=== PATIENT | female | born 1970 | race Caucasian/White ===

== ENCOUNTER 2018-09-25 17:06 | Emergency (ER) | payer MEDICARE, MEDICAID ==
[~2018-09-25 17:06] MED LIST: LORazepam 2 MG/ML SDV IVPUSH ONE
[2018-09-25] MEDS ORDERED: Sodium Chloride 0.9% 10 ML Syringe FLUSH PRN (17:49)
[2018-09-25] MEDS ORDERED: LORazepam 2 MG/ML SDV ONE (18:10)
[2018-09-25] MEDS ORDERED: LORazepam 2 MG/ML SDV IVPUSH ONE ×2 (18:12→20:19)
--- NOTE | 2018-09-25 18:40 | EDM.PDOC ---
ED HPI GENERAL MEDICAL PROBLEM - General Chief Complaint: Neurological Problem Stated Complaint: seizure Time Seen by Provider: 09/25/18 17:10 Source of Information: Reports: Patient, Other (staff from agency providing home services, walk in clinic at [facility]) History Limitations: Reports: Altered Mental Status (confused) - History of Present Illness INITIAL COMMENTS - FREE TEXT/NARRATIVE: Gladys comes into [facility] ED from the Diagnostic Imaging Dept. where she was obtained a contrast Head CT ordered from the Walk In Clinic at [facility]. She had reportedly been experiencing issues with balance associated with unexplained jerking movements of the shoulders, running into doorways, leaning towards the left down hallways since September 03, and again 3 episodes at apartment before coming to Clinic. She reported no headache or dizziness, loss of strength or movement, and denies any injury. 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 While in the CT department, she had escalating jerking movements of the shoulders and UEs with altered consciousness, responding to Ativan 2 mg IV. Sxs relapse about 45 minutes and 2 hours laterr, necessitating a follow up doses of Ativan with remission of sxs. She is currently drowsy, answers simple questions, no focal neurological deficits, and infrequent jerking movements. - Related Data Allergies Allergy/AdvReac Type Severity Reaction Status Date / Time codeine Allergy Hives Verified 09/25/18 18:24 hydrocodone Allergy Hives Verified 09/25/18 18:24 ibuprofen Allergy Nausea Verified 09/25/18 18:24 latex Allergy Hives Verified 09/25/18 18:24 Home Meds: Home Meds Acetaminophen 650 mg PO Q4H PRN 09/25/18 [History] Albuterol [Ventolin HFA] 2 puff INH Q4H PRN 09/25/18 [History] Cholecalciferol (Vitamin D3) [Vitamin D3] 5,000 unit PO DAILY 09/25/18 [History] ClonazePAM [KlonoPIN] 0.5 mg PO DAILY PRN 09/25/18 [History] Cyclobenzaprine [Flexeril] 10 mg PO BEDTIME 09/25/18 [History] Gabapentin [Neurontin] 300 mg PO BID 09/25/18 [History] Ibuprofen 200 mg PO Q4H PRN 09/25/18 [History] LORazepam 0.25 mg PO 12 09/25/18 [History] Lansoprazole 15 mg PO DAILY 09/25/18 [History] Lisinopril/Hydrochlorothiazide [Lisinopril-Hctz 20-12.5 mg Tab] 1 tab PO DAILY 09/25/18 [History] Magnesium Hydroxide [Milk of Magnesia] 30 ml PO DAILY PRN 09/25/18 [History] Multivitamins [Tab-A-Lesly] 1 tab PO DAILY 09/25/18 [History] Oxybutynin 5 mg PO BID 09/25/18 [History] Polyethylene Glycol 3350 [MiraLAX] 2 tsp PO DAILY 09/25/18 [History] Propylene Glycol/Peg 400 [Lubricant 0.3%-0.4% Eye Drops] 15 ml OP ASDIRECTED [History] Ramelteon [Rozerem] 8 mg PO BEDTIME 09/25/18 [History] Sodium Chloride [Saline Nasal [place]] 2 spray LORA Q2H PRN 09/25/18 [History] Sucralfate [Carafate] 1 gm PO TID 09/25/18 [History] Venlafaxine HCl [Venlafaxine ER] 75 mg PO DAILY 09/25/18 [History] Venlafaxine HCl [Venlafaxine ER] 150 mg PO DAILY 09/25/18 [History] diphenhydrAMINE [Benadryl] 50 mg PO BEDTIME PRN 09/25/18 [History] hydrOXYzine HCl [hydrOXYzine] 10 mg PO BID 09/25/18 [History] hydrOXYzine HCl [hydrOXYzine] 50 mg PO BEDTIME 09/25/18 [History] lamoTRIgine [Lamotrigine] 300 mg PO BID 09/25/18 [History] traMADol HCl [Tramadol HCl] 50 mg PO Q6H PRN 09/25/18 [History] Past Medical History Cardiovascular History: Reports: Hypertension Respiratory History: Reports: Asthma, Sleep Apnea, Other (See Below) Other Respiratory History: states that it is mild to moderate but does not use CPAP. Psychiatric History: Reports: Anxiety, Bipolar, Depression - Past Surgical History GI Surgical History: Reports: Appendectomy, Cholecystectomy, Other (See Below) Other GI Surgeries/Procedures: tubal ablation, constipation. Female Surgical History: Reports: Other (See Below) Other Female Surgeries/Procedures: bladder prolapse repair. 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 Musculoskeletal Surgical History: Reports: Other (See Below) Other Musculoskeletal Surgeries/Procedures:: bilateral shoulder repair, feet surgeries that had plate and screws (removed after a year). Right wrist carpal tunnel and old fracture repair. Social & Family History - Family History Family Medical History: Noncontributory - Tobacco Use Smoking Status *Q: Current Every Day Smoker Years of Tobacco use: 30 Packs/Tins Daily: 1 - Caffeine Use Caffeine Use: Reports: Coffee, Soda - Recreational Drug Use Recreational Drug Use: No ED ROS GENERAL - Review of Systems Review Of Systems: Unable To Obtain ED EXAM, NEURO - Physical Exam Exam: See Below Exam Limited By: Altered Mental Status General Appearance: WD/WN, Lethargic, Obese Eye Exam: Bilateral Eye: EOMI, Normal Inspection, PERRL Ears: Normal External Exam Nose: Normal Inspection Throat/Mouth: Normal Inspection, Normal Oropharynx Head Exam: Normocephalic, Other (frontal scars from tumor excision) Neck: Normal Inspection, Supple, Non-Tender, Full Range of Motion Respiratory/Chest: Lungs Clear, Normal Breath Sounds Cardiovascular: Regular Rate, Rhythm, No Murmur GI/Abdominal: Normal Bowel Sounds, Soft, Non-Tender, No Organomegaly, No Distention, No Mass (Female) Exam: Deferred Rectal (Female) Exam: Deferred Neurological: CN II-XII Intact, No Motor/Sensory Deficits Back Exam: Normal Inspection Extremities: Normal Inspection, Normal Range of Motion Psychiatric: Flat Affect Skin Exam: Warm, Dry, Intact, Normal Color Course - Vital Signs Text/Narrative:: Following assessment and stablilization, I obtained further information thru staff and parents who arrived later in the evening. Screening labs and contrast Head CT did not identify any new abnormalities. I discussed case with family and Dr Garcia Hospitalist at [facility], and will transfer to [facility] for further neurological assessment. Keppra 500 mg IV will be administered en route per Hospitalist request. Last Recorded V/S: Last Vital Signs Temp 36.4 C 09/25/18 17:20 Pulse 85 09/25/18 17:20 Resp 18 07/23/19 17:30 BP 123/85 09/25/18 17:30 Pulse Ox 99 09/25/18 17:30 - Orders/Labs/Meds Orders: Active Orders 24 hr Category Date Time Status Dextrose 5%-Lactated Ringers 1,000 ml Med 09/25/18 20:30 Ordered IV ASDIRECTED Sodium Chloride 0.9% [Saline Flush] Med 09/25/18 17:49 Active 10 ml FLUSH ASDIRECTED PRN levETIRAcetam [Keppra] 500 mg Med 09/25/18 20:33 Ordered Sodium Chloride 0.9% [Normal Saline] 100 ml IV ONETIME Peripheral IV Insertion Adult [OM.PC] Routine Oth 09/25/18 17:49 Ordered Medication Orders Dextrose/Lactated Ringer's (Dextrose 5%-Lactated Ringers) 1,000 mls @ 250 mls/ hr IV ASDIRECTED ZEN Last Admin: 09/25/18 20:25 Dose: 250 mls/hr Sodium Chloride (Saline Flush) 10 ml FLUSH ASDIRECTED PRN PRN Reason: Keep Vein Open Last Admin: 09/25/18 20:25 Dose: 10 ml Labs: Laboratory Tests 09/25/18 09/25/18 09/25/18 Range/Units 17:47 18:25 18:25 WBC 5.9 (4.5-12.0) X10-3/uL RBC 4.58 (3.23-5.20) x10(6)uL Hgb 13.2 (11.5-15.5) g/dL Hct 40.4 (30.0-51.3) % MCV 88.2 (80-96) fL MCH 28.9 (27.7-33.6) pg MCHC 32.7 (32.2-35.4) g/dL RDW 12.1 (11.5-15.5) % Plt Count 330 (125-369) X10(3)uL MPV 7.9 (7.4-10.4) fL Neut % (Auto) 61.8 (46-82) % Lymph % (Auto) 27.8 (13-37) % [place] % (Auto) 6.9 (4-12) % Eos % (Auto) 3 (1.0-5.0) % Baso % (Auto) 1 (0-2) % Neut # (Auto) 3.7 (1.6-8.3) # Lymph # (Auto) 1.6 (0.6-5.0) # [place] # (Auto) 0.4 (0.0-1.3) # Eos # (Auto) 0.2 (0.0-0.8) # Baso # (Auto) 0.0 (0.0-0.2) # Sodium 138 (135-145) mmol/L Potassium 4.0 (3.5-5.3) mmol/L Chloride 101 (100-110) mmol/L Carbon Dioxide 30 (21-32) mmol/L BUN 13 (7-18) mg/dL Creatinine 1.0 (0.55-1.02) mg/dL Est Cr Clr Drug Dosing 58.15 mL/min Estimated GFR (MDRD) 60 (>60) BUN/Creatinine Ratio 13.0 (9-20) Glucose 81 (80-116) mg/dL Calcium 9.6 (8.6-10.2) mg/dL Total Bilirubin 0.3 (0.1-1.3) mg/dL AST 20 (5-25) IU/L ALT 40 H (12-36) U/L Alkaline Phosphatase 118 H (56-112) IU/L Total Protein 7.8 (6.0-8.0) g/dL Albumin 4.0 (3.5-5.2) g/dL Globulin 3.8 g/dL Albumin/Globulin Ratio 1.1 Urine Color Yellow (YELLOW) Urine Appearance Clear (CLEAR) Urine pH 7.0 H (5.0-6.5) Ur Specific [place] 1.005 L (1.010-1.025) Urine Protein Negative (NEGATIVE) mg/dL Urine Glucose (UA) Normal (NORMAL) mg/dL Urine Ketones Negative (NEGATIVE) mg/dL Urine Occult Blood Negative (NEGATIVE) Urine Nitrite Negative (NEGATIVE) Urine Bilirubin Negative (NEGATIVE) Urine Urobilinogen Normal (NEGATIVE) mg/dL Ur Leukocyte Esterase Negative (NEGATIVE) Urine RBC Not seen (0-5) Urine WBC 0-5 (0-5) Ur Squamous Epith Cells Moderate H (NS,R,O) Urine Bacteria Few H (NS) Meds: Medications Generic Name Dose Route Start Last Admin Trade Name Freq PRN Reason Stop Dose Admin Dextrose/Lactated Ringer's 1,000 mls @ 250 mls/hr 09/25/18 20:30 09/25/18 20: 25 Dextrose 5%-Lactated Ringers IV 250 mls/hr ASDIRECTED ZEN Administration Sodium Chloride 10 ml 09/25/18 17:49 09/25/18 20:25 Saline Flush FLUSH 10 ml ASDIRECTED PRN Administration Keep Vein Open Discontinued Medications Generic Name Dose Route Start Last Admin Trade Name Freq PRN Reason Stop Dose Admin Lorazepam 2 mg 09/25/18 16:55 09/25/18 17:06 Ativan IVPUSH 09/25/18 16:56 2 mg ONETIME ONE Administration Lorazepam Confirm 09/25/18 18:10 09/25/18 18:20 Ativan Administered 09/25/18 18:11 Not Given Dose 2 mg .ROUTE .STK-MED ONE Lorazepam 2 mg 09/25/18 18:12 09/25/18 18:12 Ativan IVPUSH 09/25/18 18:13 2 mg ONETIME ONE Administration Lorazepam 2 mg 09/25/18 20:19 09/25/18 20:25 Ativan IVPUSH 09/25/18 20:20 2 mg ONETIME ONE Administration Departure - Departure Time of Disposition: 20:30 Disposition: DC/Tfer to Other 70 Condition: Fair Clinical Impression: Seizure disorder - Discharge Information *PRESCRIPTION DRUG MONITORING PROGRAM REVIEWED*: Not Applicable *COPY OF PRESCRIPTION DRUG MONITORING REPORT IN PATIENT LAURA: Not Applicable Referrals: PCP,Unknown [Primary Care Provider] - Forms: ED Department Discharge - Problem List & Annotations (1) Seizure disorder SNOMED Code(s): 911578817 Code(s): G40.909 - EPILEPSY, UNSP, NOT INTRACTABLE, WITHOUT STATUS EPILEPTICUS Status: Acute Current Visit: Yes Annotation/Comment:: Transfer to [facility] for neurological assessment. - Problem List Review Problem List Initiated/Reviewed/Updated: Yes - My Orders Last 24 Hours: My Active Orders 09/25/18 17:49 Sodium Chloride 0.9% [Saline Flush] 10 ml FLUSH ASDIRECTED PRN Peripheral IV Insertion Adult [OM.PC] Routine 09/25/18 20:30 Dextrose 5%-Lactated Ringers 1,000 ml IV ASDIRECTED 09/25/18 20:33 levETIRAcetam [Keppra] 500 mg Sodium Chloride 0.9% [Normal Saline] 100 ml IV ONETIME - Assessment/Plan Last 24 Hours: My Active Orders 09/25/18 17:49 Sodium Chloride 0.9% [Saline Flush] 10 ml FLUSH ASDIRECTED PRN Peripheral IV Insertion Adult [OM.PC] Routine 09/25/18 20:30 Dextrose 5%-Lactated Ringers 1,000 ml IV ASDIRECTED 09/25/18 20:33 levETIRAcetam [Keppra] 500 mg Sodium Chloride 0.9% [Normal Saline] 100 ml IV ONETIME Plan: Follow up with PCP upon return.
[2018-09-25] MEDS ORDERED: Dextrose 5%-Lactated Ringers 1,000 ML IV SCH (20:30)
[2018-09-25] MEDS ORDERED: levETIRAcetam 500 MG in Sodium Chloride 0.9% 100 ML IV ONE (20:33)
[2018-09-25] MEDS ORDERED: levETIRAcetam 500 MG/5 ML SDV ONE (20:46)
== END 2018-09-25 21:35 | disposition other institution (70) ==
LOC: EDUNIT# → FB.ED 17:06
DX: G40.909 Epilepsy, unspecified, not intractable, without status epilepticus (principal); R26.89 Other abnormalities of gait and mobility; I10 Essential (primary) hypertension; J45.909 Unspecified asthma, uncomplicated; H02.402 Unspecified ptosis of left eyelid; F31.9 Bipolar disorder, unspecified; F41.9 Anxiety disorder, unspecified; F17.210 Nicotine dependence, cigarettes, uncomplicated; Z88.5 Allergy status to narcotic agent; Z88.6 Allergy status to analgesic agent; Z91.040 Latex allergy status; Z79.899 Other long term (current) drug therapy
CPT/HCPCS: 36415; 70470; 80053; 81001; 85025; 96365; 96375; 96376; 99284; 99285; J1953; J2060; J7030; J7042; Q9967; 99213

== ENCOUNTER 2018-10-19 21:22 | Emergency (ER) | payer MEDICARE, MEDICAID ==
[2018-10-19] MEDS ORDERED: Ketorolac 60 MG/2 ML SDV IM ONE (22:02)
--- NOTE | 2018-10-19 23:30 | EDM.PDOC ---
ED HPI GENERAL MEDICAL PROBLEM - General Chief Complaint: Lower Extremity Injury/Pain Stated Complaint: hurt foot Time Seen by Provider: 10/19/18 22:25 Source of Information: Reports: Patient History Limitations: Reports: No Limitations - History of Present Illness INITIAL COMMENTS - FREE TEXT/NARRATIVE: Patient presents with concern for acute onset of ankle pain this evening. She states she did not do anything to cause it, but it suddenly started hurting in her shoe. she took her shoe off for a while and it was getting worse so she came to be evaluated. No numbness, weakness or tingling. She did not try taking any home medications for it. she is able to move it, but doesn't want to try and bear weight until she knows it isn't broken. No pain in the rest of her foot. Treatments [employer]: Reports: Cold Therapy, Other (see below) Other Treatments [employer]GER: elevated leg Left Foot Pain Score (Numeric/FACES): 10 - Related Data Allergies Allergy/AdvReac Type Severity Reaction Status Date / Time codeine Allergy Hives Verified 10/19/18 22:19 hydrocodone Allergy Hives Verified 10/19/18 22:19 ibuprofen Allergy Nausea Verified 10/19/18 22:19 latex Allergy Hives Verified 10/19/18 22:19 Home Meds: Home Meds Acetaminophen 650 mg PO Q4H PRN 09/25/18 [History] Albuterol [Ventolin HFA] 2 puff INH Q4H PRN 09/25/18 [History] Cholecalciferol (Vitamin D3) [Vitamin D3] 5,000 unit PO DAILY 09/25/18 [History] ClonazePAM [KlonoPIN] 0.5 mg PO DAILY PRN 09/25/18 [History] Cyclobenzaprine [Flexeril] 10 mg PO BEDTIME 09/25/18 [History] Gabapentin [Neurontin] 300 mg PO BID 09/25/18 [History] Ibuprofen 200 mg PO Q4H PRN 09/25/18 [History] Lansoprazole 15 mg PO DAILY 09/25/18 [History] Lisinopril/Hydrochlorothiazide [Lisinopril-Hctz 20-12.5 mg Tab] 1 tab PO DAILY 09/25/18 [History] Magnesium Hydroxide [Milk of Magnesia] 30 ml PO DAILY PRN 09/25/18 [History] Multivitamins [Tab-A-Lesly] 1 tab PO DAILY 09/25/18 [History] Oxybutynin 5 mg PO BID 09/25/18 [History] Polyethylene Glycol 3350 [MiraLAX] 2 tsp PO DAILY 09/25/18 [History] Sodium Chloride [Saline Nasal [place]] 2 spray LORA Q2H PRN 09/25/18 [History] Sucralfate [Carafate] 1 gm PO TID 09/25/18 [History] Venlafaxine HCl [Venlafaxine ER] 75 mg PO DAILY 09/25/18 [History] Venlafaxine HCl [Venlafaxine ER] 150 mg PO DAILY 09/25/18 [History] diphenhydrAMINE [Benadryl] 50 mg PO BEDTIME PRN 09/25/18 [History] hydrOXYzine HCl [hydrOXYzine] 50 mg PO BEDTIME 09/25/18 [History] lamoTRIgine [Lamotrigine] 300 mg PO BID 09/25/18 [History] traMADol HCl [Tramadol HCl] 50 mg PO Q6H PRN 09/25/18 [History] Past Medical History Cardiovascular History: Reports: Hypertension Respiratory History: Reports: Asthma, Sleep Apnea, Other (See Below) Other Respiratory History: states that it is mild to moderate but does not use CPAP. Psychiatric History: Reports: Anxiety, Bipolar, Depression - Past Surgical History GI Surgical History: Reports: Appendectomy, Cholecystectomy, Other (See Below) Other GI Surgeries/Procedures: tubal ablation, constipation. Female Surgical History: Reports: Other (See Below) Other Female Surgeries/Procedures: bladder prolapse repair. 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 Musculoskeletal Surgical History: Reports: Other (See Below) Other Musculoskeletal Surgeries/Procedures:: bilateral shoulder repair, feet surgeries that had plate and screws (removed after a year). Right wrist carpal tunnel and old fracture repair. Social & Family History - Family History Family Medical History: Noncontributory - Tobacco Use Smoking Status *Q: Current Every Day Smoker - Caffeine Use Caffeine Use: Reports: Coffee, Soda ED ROS GENERAL - Review of Systems Review Of Systems: ROS reveals no pertinent complaints other than HPI. ED EXAM, GENERAL - Physical Exam Exam: See Below Free Text/Narrative:: general: alert, pleasant no acute distress. Developmental delay noted. right ankle appears atraumatic. Left ankle has slight lateral swelling, no bruising, no skin lesions or abrasions. She is able to wiggle all her toes and plantar/dorsi flex with some coaching. She is tender over the lateral malleoulus and ATFL. Pulses +2 in dorsalis pedis. Normal sensation grossly. No laxity noted on anterior and posterior drawer testing. No pain with pressure on tibula/fibula. Able to resist against my hand in both plantar and dorsi flexion. Her knee also appears atraumatic without swelling, wounds or limit to motion. Course - Vital Signs Text/Narrative:: Patient was extremely distraught on arrival, but seems to have calmed down. Given dose of toradol to help with pain. Ankle xrays ordered. Last Recorded V/S: Last Vital Signs Temp 36.6 C 10/19/18 22:10 Pulse 90 10/19/18 22:10 Resp 18 10/19/18 22:10 BP 132/78 10/19/18 22:10 Pulse Ox 100 10/19/18 22:10 - Orders/Labs/Meds Orders: Active Orders 24 hr Category Date Time Status Ankle Min 3V Lt [CR] Stat Exams 10/19/18 22:02 Taken Meds: Medications Discontinued Medications Generic Name Dose Route Start Last Admin Trade Name Freq PRN Reason Stop Dose Admin Ketorolac Tromethamine 60 mg 10/19/18 22:02 10/19/18 22:17 Toradol IM 10/19/18 22:03 60 mg ONETIME ONE Administration - Re-Assessments/Exams Free Text/Narrative Re-Assessment/Exam: 10/20/18 xrays reviewed and do not show any fracture. Patient able to resist both plantar and dorsi flexion again significant force, recommended trying ankle brace to see if she can walk with it. Free Text/Narrative Re-Assessment/Exam: 10/20/18 patient able to ambulate with minimal assistance. discharge to home, f /u if worsening Departure - Departure Time of Disposition: 23:25 Disposition: Home, Self-Care 01 Condition: Good Clinical Impression: Ankle sprain - Discharge Information *PRESCRIPTION DRUG MONITORING PROGRAM REVIEWED*: Not Applicable *COPY OF PRESCRIPTION DRUG MONITORING REPORT IN PATIENT LAURA: Not Applicable Instructions: Ankle Sprain, [id number], Constipation, Adult, [id number] Referrals: Ashlee Forbes NP [Primary Care Provider] - Forms: ED Department Discharge Additional Instructions: A splint was provided for you to use as needed for your ankle pain. Over the next 3 days you should wear it during the day, but can take it off at night when you are in bed. After that wear it as needed If your ankle pain reoccurs: Can take a dose of ibuprofen/Advil 2 tabs (400mg) Can try putting an ice pack on it Can try wrapping it in an Jus wrap And elevate (like sitting in a recliner or with foot propped on a pillow on a stool Would recommend wearing some type of closed toed shoe such as a tennis shoe the next week or 2 while you are walking around to prevent from twisting her ankle again while it is healing. Still having pain after 3 days, see your regular doctor for follow up - My Orders Last 24 Hours: My Active Orders 10/19/18 22:02 Ankle Min 3V Lt [CR] Stat - Assessment/Plan Last 24 Hours: My Active Orders 10/19/18 22:02 Ankle Min 3V Lt [CR] Stat
--- NOTE | 2018-10-22 11:58 | CR ---
INDICATION: Fall with lateral ankle pain. LEFT ANKLE: Three views of the left ankle were obtained 10/19/18 and revealed mild hypertrophic degenerative changes at the ankle mortise, perhaps slightly more prominent medially. The ankle mortise space was well preserved, however - a definite fracture or dislocation was not identified. No gross soft tissue swelling was seen. There are some tiny calcific densities along the posterior calcaneus, which may represent dystrophic calcifications from previous injury at the origin of the Achilles tendon. The possibility of some inflammation in that area cannot be excluded. A moderate sized plantar calcaneal spur is also noted. Overall bone density appeared normal. IMPRESSION: 1. No definite acute fracture or dislocation. 2. Osteoarthritis, mild. 3. Probable calcific densities at the posterior calcaneus at the base of the Achilles tendon, which could represent tiny avulsion chip fracture fragments or more likely dystrophic calcifications from previous injury and should be correlate clinically. 4. Calcaneal spur, plantar aspect. [facility]
== END 2018-10-19 23:48 | disposition home or self-care (01) ==
LOC: FB.ED 21:22
DX: S93.402A Sprain of unspecified ligament of left ankle, initial encounter (principal); I10 Essential (primary) hypertension; J45.909 Unspecified asthma, uncomplicated; F31.9 Bipolar disorder, unspecified; F41.9 Anxiety disorder, unspecified; F17.200 Nicotine dependence, unspecified, uncomplicated; Z88.5 Allergy status to narcotic agent; Z88.6 Allergy status to analgesic agent; Z91.040 Latex allergy status; Z79.899 Other long term (current) drug therapy; X58.XXXA Exposure to other specified factors, initial encounter
CPT/HCPCS: 73610; 96372; 99283; J1885

== ENCOUNTER 2018-11-15 20:27 | Emergency (ER) | payer MEDICARE, MEDICAID ==
--- NOTE | 2018-11-16 05:00 | ER ---
DATE SEEN: 11/15/2018 CHIEF COMPLAINT: Seizure. HISTORY OF PRESENT ILLNESS: A 48-year-old female with a seizure at home. She has a history of pseudoseizures and anxiety. She had 3 seizures and was brought in by ambulance. En route, they gave her 4 mg of Zofran for stomach upset, which helped. She states that she has been extremely stressed because of a friend who went to [place] and also her mother's dog which is sick. She had about 3 seizures and now complains of feeling tired. She denies head trauma, fever, or chills, but complains of a dry mouth. REVIEW OF SYSTEMS: No chest pain. All other systems were noncontributory. ALLERGIES: Please see the Medcurrent. MEDICATIONS: Also updated. PHYSICAL EXAMINATION: GENERAL: She is well hydrated. VITAL SIGNS: Her blood pressure and temperature are within reference range. ENT: Negative. EYES: PERRL. CHEST: Clear. CARDIOVASCULAR: Normal. NEUROLOGIC: Nonfocal. MENTAL STATUS: Flat affect but answers questions appropriately. LABORATORY DATA: CBC and basic panel are normal. IMPRESSION: 1. Pseudoseizures. 2. Acute reaction to stress. PLAN: Return home, take the lorazepam that she has at home, sleep, and follow up with PCP tomorrow. /[id number] AMELIA/CAITLYN
== END 2018-11-15 22:03 | disposition home or self-care (01) ==
LOC: FB.ED 20:27
DX: R56.9 Unspecified convulsions (principal); F43.0 Acute stress reaction
CPT/HCPCS: 36415; 80048; 85025; 99283

== ENCOUNTER 2018-12-09 00:06 | Emergency (ER) | payer MEDICARE, MEDICAID ==
[2018-12-09] MEDS ORDERED: Magnesium Citrate Solution 296 ML Bottle PO ONE (00:21)
--- NOTE | 2018-12-09 00:22 | EDM.PDOC ---
ED HPI GENERAL MEDICAL PROBLEM - General Stated Complaint: SICK Time Seen by Provider: 12/09/18 00:19 Source of Information: Reports: Patient History Limitations: Reports: No Limitations - History of Present Illness INITIAL COMMENTS - FREE TEXT/NARRATIVE: Complains of constipation x 1 week. Mild chest pain. Feels like she has right side body swelling.No vomiting - Related Data Allergies Allergy/AdvReac Type Severity Reaction Status Date / Time codeine Allergy Hives Verified 11/15/18 21:11 hydrocodone Allergy Hives Verified 11/15/18 21:11 latex Allergy Hives Verified 11/15/18 21:11 ibuprofen AdvReac Mild Nausea Verified 11/15/18 21:11 Home Meds: Home Meds Acetaminophen 650 mg PO Q4H PRN 09/25/18 [History] Albuterol [Ventolin HFA] 2 puff INH Q4H PRN 09/25/18 [History] Cholecalciferol (Vitamin D3) [Vitamin D3] 5,000 unit PO DAILY 09/25/18 [History] ClonazePAM [KlonoPIN] 0.5 mg PO DAILY PRN 09/25/18 [History] Cyclobenzaprine [Flexeril] 10 mg PO BEDTIME 09/25/18 [History] Gabapentin [Neurontin] 300 mg PO BID 09/25/18 [History] Ibuprofen 200 mg PO Q4H PRN 09/25/18 [History] Lansoprazole 15 mg PO DAILY 09/25/18 [History] Lisinopril/Hydrochlorothiazide [Lisinopril-Hctz 20-12.5 mg Tab] 1 tab PO DAILY 09/25/18 [History] Magnesium Hydroxide [Milk of Magnesia] 30 ml PO DAILY PRN 09/25/18 [History] Multivitamins [Tab-A-Lesly] 1 tab PO DAILY 09/25/18 [History] Oxybutynin 5 mg PO BID 09/25/18 [History] Polyethylene Glycol 3350 [MiraLAX] 2 tsp PO DAILY 09/25/18 [History] Sodium Chloride [Saline Nasal [place]] 2 spray LORA Q2H PRN 09/25/18 [History] Sucralfate [Carafate] 1 gm PO TID 09/25/18 [History] Venlafaxine HCl [Venlafaxine ER] 75 mg PO DAILY 09/25/18 [History] Venlafaxine HCl [Venlafaxine ER] 150 mg PO DAILY 09/25/18 [History] diphenhydrAMINE [Benadryl] 50 mg PO BEDTIME PRN 09/25/18 [History] hydrOXYzine HCl [hydrOXYzine] 50 mg PO BEDTIME 09/25/18 [History] lamoTRIgine [Lamotrigine] 300 mg PO BID 09/25/18 [History] traMADol HCl [Tramadol HCl] 50 mg PO Q6H PRN 09/25/18 [History] Past Medical History - Past Health History Medical/Surgical History: Denies Medical/Surgical History Cardiovascular History: Reports: Hypertension Respiratory History: Reports: Asthma, Sleep Apnea, Other (See Below) Other Respiratory History: states that it is mild to moderate but does not use CPAP. Psychiatric History: Reports: Anxiety, Bipolar, Depression - Past Surgical History GI Surgical History: Reports: Appendectomy, Cholecystectomy, Other (See Below) Other GI Surgeries/Procedures: tubal ablation, constipation. Female Surgical History: Reports: Other (See Below) Other Female Surgeries/Procedures: bladder prolapse repair. 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 Musculoskeletal Surgical History: Reports: Other (See Below) Other Musculoskeletal Surgeries/Procedures:: bilateral shoulder repair, feet surgeries that had plate and screws (removed after a year). Right wrist carpal tunnel and old fracture repair. Social & Family History - Family History Family Medical History: Noncontributory - Caffeine Use Caffeine Use: Reports: None ED ROS GENERAL - Review of Systems Review Of Systems: ROS reveals no pertinent complaints other than HPI. ED EXAM, GI/ABD - Physical Exam Exam: See Below Exam Limited By: No Limitations General Appearance: Alert, WD/WN Ears: Normal External Exam, Normal Canal, Hearing Grossly Normal, Normal TMs Cardiovascular: Normal Peripheral Pulses GI/Abdominal Exam: Normal Bowel Sounds, Soft, Non-Tender Departure - Departure Time of Disposition: 00:21 Disposition: Home, Self-Care 01 Condition: Good Clinical Impression: Constipation - Discharge Information Referrals: PCP,None [Primary Care Provider] - - Problem List & Annotations (1) Constipation SNOMED Code(s): 17312728 Code(s): K59.00 - CONSTIPATION, UNSPECIFIED Status: Acute Current Visit: Yes Qualifiers: Constipation type: slow transit constipation Qualified Code(s): K59.01 - Slow transit constipation - Problem List Review Problem List Initiated/Reviewed/Updated: Yes - Assessment/Plan Plan: Magnesium citrate x 1 dose
== END 2018-12-09 00:30 | disposition home or self-care (01) ==
LOC: FB.ED 00:06
DX: K59.00 Constipation, unspecified (principal); I10 Essential (primary) hypertension; J45.909 Unspecified asthma, uncomplicated; F41.9 Anxiety disorder, unspecified; F32.9 Major depressive disorder, single episode, unspecified; Z88.5 Allergy status to narcotic agent; Z88.6 Allergy status to analgesic agent; Z91.040 Latex allergy status
CPT/HCPCS: 99282; A9270

== ENCOUNTER 2018-12-09 19:06 | Emergency (ER) | payer MEDICARE, MEDICAID ==
--- NOTE | 2018-12-09 20:17 | EDM.PDOC ---
ED HPI GENERAL MEDICAL PROBLEM - General Stated Complaint: SICK Time Seen by Provider: 12/09/18 19:15 Source of Information: Reports: Patient - History of Present Illness INITIAL COMMENTS - FREE TEXT/NARRATIVE: Patient is a 48 YO WF who prsented to the ED because of constipation x 1week. She was treated with magnesium citrate and apparently didn't work. She denies having abdominal pain. Abdomen Pain Score (Numeric/FACES): 7 - Related Data Allergies Allergy/AdvReac Type Severity Reaction Status Date / Time codeine Allergy Hives Verified 12/09/18 00:54 hydrocodone Allergy Hives Verified 12/09/18 00:54 latex Allergy Hives Verified 12/09/18 00:54 ibuprofen AdvReac Mild Nausea Verified 12/09/18 00:54 Home Meds: Home Meds Acetaminophen 650 mg PO Q4H PRN 09/25/18 [History] Albuterol [Ventolin HFA] 2 puff INH Q4H PRN 09/25/18 [History] Cholecalciferol (Vitamin D3) [Vitamin D3] 5,000 unit PO DAILY 09/25/18 [History] ClonazePAM [KlonoPIN] 0.5 mg PO DAILY PRN 09/25/18 [History] Cyclobenzaprine [Flexeril] 10 mg PO BEDTIME 09/25/18 [History] Gabapentin [Neurontin] 300 mg PO BID 09/25/18 [History] Ibuprofen 200 mg PO Q4H PRN 09/25/18 [History] Lansoprazole 15 mg PO DAILY 09/25/18 [History] Lisinopril/Hydrochlorothiazide [Lisinopril-Hctz 20-12.5 mg Tab] 1 tab PO DAILY 09/25/18 [History] Magnesium Hydroxide [Milk of Magnesia] 30 ml PO DAILY PRN 09/25/18 [History] Multivitamins [Tab-A-Lesly] 1 tab PO DAILY 09/25/18 [History] Oxybutynin 5 mg PO BID 09/25/18 [History] Polyethylene Glycol 3350 [MiraLAX] 2 tsp PO DAILY 09/25/18 [History] Sodium Chloride [Saline Nasal [place]] 2 spray LORA Q2H PRN 09/25/18 [History] Sucralfate [Carafate] 1 gm PO TID 09/25/18 [History] Venlafaxine HCl [Venlafaxine ER] 75 mg PO DAILY 09/25/18 [History] Venlafaxine HCl [Venlafaxine ER] 150 mg PO DAILY 09/25/18 [History] diphenhydrAMINE [Benadryl] 50 mg PO BEDTIME PRN 09/25/18 [History] hydrOXYzine HCl [hydrOXYzine] 50 mg PO BEDTIME 09/25/18 [History] lamoTRIgine [Lamotrigine] 300 mg PO BID 09/25/18 [History] traMADol HCl [Tramadol HCl] 50 mg PO Q6H PRN 09/25/18 [History] KCl/Na Sulf,Bicarb,Cl/PEG 3351 [GoLytely] 4,000 ml PO ONETIME #1 bottle [Rx] Ondansetron [Zofran ODT] 4 mg PO Q6H PRN #5 tab.dis 12/09/18 [Rx] Sennosides/Docusate Sodium [Senna-S] 2 each PO DAILY PRN #15 tablet 12/09/18 [Rx ] Past Medical History - Past Health History Medical/Surgical History: Denies Medical/Surgical History Cardiovascular History: Reports: Hypertension Respiratory History: Reports: Asthma, Sleep Apnea, Other (See Below) Other Respiratory History: states that it is mild to moderate but does not use CPAP. Psychiatric History: Reports: Anxiety, Bipolar, Depression - Past Surgical History GI Surgical History: Reports: Appendectomy, Cholecystectomy, Other (See Below) Other GI Surgeries/Procedures: tubal ablation, constipation. Female Surgical History: Reports: Other (See Below) Other Female Surgeries/Procedures: bladder prolapse repair. 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 Musculoskeletal Surgical History: Reports: Other (See Below) Other Musculoskeletal Surgeries/Procedures:: bilateral shoulder repair, feet surgeries that had plate and screws (removed after a year). Right wrist carpal tunnel and old fracture repair. Social & Family History - Family History Family Medical History: Noncontributory - Caffeine Use Caffeine Use: Reports: None ED ROS GENERAL - Review of Systems Review Of Systems: See Below Constitutional: Reports: No Symptoms HEENT: Reports: No Symptoms Respiratory: Reports: No Symptoms Cardiovascular: Reports: No Symptoms Endocrine: Reports: No Symptoms GI/Abdominal: Reports: Constipation, Diarrhea : Reports: No Symptoms Musculoskeletal: Reports: No Symptoms Skin: Reports: No Symptoms ED EXAM, GI/ABD - Physical Exam Exam: See Below Exam Limited By: No Limitations General Appearance: Alert, WD/WN, No Apparent Distress Ears: Normal External Exam, Normal Canal, Hearing Grossly Normal, Normal TMs Nose: Normal Inspection, Normal Mucosa, No Blood Throat/Mouth: Normal Inspection, Normal Lips, Normal Teeth, Normal Gums, Normal Oropharynx Head: Atraumatic, Normocephalic Neck: Normal Inspection, Supple, Non-Tender, Full Range of Motion Respiratory/Chest: No Respiratory Distress, Lungs Clear, Normal Breath Sounds, No Accessory Muscle Use, Chest Non-Tender Cardiovascular: Normal Peripheral Pulses, Regular Rate, Rhythm GI/Abdominal Exam: Normal Bowel Sounds, Non-Tender, No Distention (Female) Exam: Normal External Exam Back Exam: Normal Inspection, Full Range of Motion Course - Vital Signs Text/Narrative:: patient has a large BM while in the ED and was feeling better Last Recorded V/S: Last Vital Signs Temp 36.6 C 12/09/18 20:20 Pulse 91 12/09/18 20:20 Resp 18 12/09/18 20:20 BP 132/70 12/09/18 20:20 Pulse Ox 98 12/09/18 20:20 Departure - Departure Time of Disposition: 20:15 Disposition: Home, Self-Care 01 Condition: Good Clinical Impression: Constipation Qualifiers: Constipation type: slow transit constipation Qualified Code(s): K59.01 - Slow transit constipation - Discharge Information *PRESCRIPTION DRUG MONITORING PROGRAM REVIEWED*: No *COPY OF PRESCRIPTION DRUG MONITORING REPORT IN PATIENT LAURA: No Prescriptions: KCl/Na Sulf,Bicarb,Cl/PEG 3351 [GoLytely] 4,000 ml PO ONETIME #1 bottle Ondansetron [Zofran ODT] 4 mg PO Q6H PRN #5 tab.dis PRN Reason: Nausea Sennosides/Docusate Sodium [Senna-S] 2 each PO DAILY PRN #15 tablet PRN Reason: Constipation Instructions: Constipation, Adult Referrals: PCP,None [Primary Care Provider] - Forms: ED Department Discharge Additional Instructions: increase oral fluids take zofran ODT 8 mg before taking your senna s and golyrely take 2 tablets of senna s take the golytely as instructed
== END 2018-12-09 20:30 | disposition home or self-care (01) ==
LOC: FB.ED 19:06
DX: K59.01 Slow transit constipation (principal); I10 Essential (primary) hypertension; F41.9 Anxiety disorder, unspecified; F32.9 Major depressive disorder, single episode, unspecified; J45.909 Unspecified asthma, uncomplicated; Z79.899 Other long term (current) drug therapy; Z88.5 Allergy status to narcotic agent; Z88.6 Allergy status to analgesic agent; Z91.040 Latex allergy status
CPT/HCPCS: 99282

== ENCOUNTER 2018-12-25 12:16 | Inpatient (IN) | payer MEDICARE, MEDICAID ==
[2018-12-25] MEDS ORDERED: Magnesium Citrate Solution 296 ML Bottle PO ONE (12:51)
[2018-12-25] MEDS ORDERED: Ondansetron 4 MG Tab.DIS PO ONE (13:19)
[2018-12-25] MEDS ORDERED: Sodium Chloride 0.9% 1,000 ML IV ONE (13:34)
[2018-12-25] MEDS ORDERED: Morphine 4 MG/ML Syringe IV ONE (13:40)
--- NOTE | 2018-12-25 14:23 | EDM.PDOC ---
ED HPI GENERAL MEDICAL PROBLEM - General Chief Complaint: Abdominal Pain Stated Complaint: SHARP PAIN MIDLINE Time Seen by Provider: 12/25/18 12:25 Source of Information: Reports: Patient History Limitations: Reports: No Limitations - History of Present Illness INITIAL COMMENTS - FREE TEXT/NARRATIVE: pt presents with complains of constipation states she has not been able to have a bowel movement despite taking GoLYTELY and senna Has generalized abdominal pain with pain more located in the right upper quadrant She has nausea but no vomiting no fever or chills states she has taken multiple medications and not effective (Dulcolax enema , oral Dulcolax senna) had Ultrsound of the abd done ; no gall bladder disease ( pt had complained of right upper quadrant pain when she had the ultrasound done) patient does have a history of chronic constipation. she had abdominal surgery and abdominal scar tissue. Onset: Gradual Onset Date: 12/25/18 Duration: Hour(s): (4), Getting Worse, Intermittent Location: Reports: Abdomen Quality: Reports: Ache, Dull, Pressure, Same as Previous Episode Severity: Moderate Improves with: Reports: Heat Therapy, Rest Worsens with: Reports: Eating, Movement Associated Symptoms: Reports: Loss of Appetite, Malaise, Nausea/Vomiting ( mainly nausea), Weakness, Other (severe abdominnal pain when she tries to eat) mid abd/below belly button Pain Score (Numeric/FACES): 10 - Related Data Allergies Allergy/AdvReac Type Severity Reaction Status Date / Time codeine Allergy Hives Verified 12/09/18 00:54 hydrocodone Allergy Hives Verified 12/09/18 00:54 latex Allergy Hives Verified 12/09/18 00:54 ibuprofen AdvReac Mild Nausea Verified 12/09/18 00:54 Home Meds: Home Meds Acetaminophen 650 mg PO Q4H PRN 09/25/18 [History] Albuterol [Ventolin HFA] 2 puff INH Q4H PRN 09/25/18 [History] Cholecalciferol (Vitamin D3) [Vitamin D3] 5,000 unit PO DAILY 09/25/18 [History] ClonazePAM [KlonoPIN] 0.5 mg PO DAILY PRN 09/25/18 [History] Cyclobenzaprine [Flexeril] 10 mg PO BEDTIME 09/25/18 [History] Gabapentin [Neurontin] 300 mg PO BID 09/25/18 [History] Ibuprofen 200 mg PO Q4H PRN 09/25/18 [History] Lansoprazole 15 mg PO DAILY 09/25/18 [History] Lisinopril/Hydrochlorothiazide [Lisinopril-Hctz 20-12.5 mg Tab] 1 tab PO DAILY 09/25/18 [History] Magnesium Hydroxide [Milk of Magnesia] 30 ml PO DAILY PRN 09/25/18 [History] Multivitamins [Tab-A-Lesly] 1 tab PO DAILY 09/25/18 [History] Oxybutynin 5 mg PO BID 09/25/18 [History] Polyethylene Glycol 3350 [MiraLAX] 2 tsp PO DAILY 09/25/18 [History] Sodium Chloride [Saline Nasal [place]] 2 spray [place]ORA Q2H PRN 09/25/18 [History] Sucralfate [Carafate] 1 gm PO TID 09/25/18 [History] Venlafaxine HCl [Venlafaxine ER] 75 mg PO DAILY 09/25/18 [History] Venlafaxine HCl [Venlafaxine ER] 150 mg PO DAILY 09/25/18 [History] diphenhydrAMINE [Benadryl] 50 mg PO BEDTIME PRN 09/25/18 [History] hydrOXYzine HCl [hydrOXYzine] 50 mg PO BEDTIME 09/25/18 [History] lamoTRIgine [Lamotrigine] 300 mg PO BID 09/25/18 [History] traMADol HCl [Tramadol HCl] 50 mg PO Q6H PRN 09/25/18 [History] KCl/Na Sulf,Bicarb,Cl/PEG 3351 [GoLytely] 4,000 ml PO ONETIME #1 bottle [Rx] Ondansetron [Zofran ODT] 4 mg PO Q6H PRN #5 tab.dis 12/09/18 [Rx] Sennosides/Docusate Sodium [Senna-S] 2 each PO DAILY PRN #15 tablet 12/09/18 [Rx ] Past Medical History - Past Health History Medical/Surgical History: Denies Medical/Surgical History Cardiovascular History: Reports: Hypertension Respiratory History: Reports: Asthma, Sleep Apnea, Other (See Below) Other Respiratory History: states that it is mild to moderate but does not use CPAP. Psychiatric History: Reports: Anxiety, Bipolar, Depression - Past Surgical History GI Surgical History: Reports: Appendectomy, Cholecystectomy, Other (See Below) Other GI Surgeries/Procedures: tubal ablation, constipation. Female Surgical History: Reports: Other (See Below) Other Female Surgeries/Procedures: bladder prolapse repair. 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 Musculoskeletal Surgical History: Reports: Other (See Below) Other Musculoskeletal Surgeries/Procedures:: bilateral shoulder repair, feet surgeries that had plate and screws (removed after a year). Right wrist carpal tunnel and old fracture repair. Social & Family History - Family History Family Medical History: Noncontributory - Tobacco Use Smoking Status *Q: Current Every Day Smoker Years of Tobacco use: 20 Packs/Tins Daily: 0.5 - Caffeine Use Caffeine Use: Reports: None ED ROS GENERAL - Review of Systems Review Of Systems: See Below Constitutional: Reports: Malaise, Weakness, Fatigue, Decreased Appetite HEENT: Reports: No Symptoms Respiratory: Reports: No Symptoms Cardiovascular: Reports: No Symptoms Endocrine: Reports: No Symptoms GI/Abdominal: Reports: Anorexia, Constipation, Decreased Appetite, Distension, Nausea. Denies: Vomiting : Reports: No Symptoms Musculoskeletal: Reports: No Symptoms Skin: Reports: No Symptoms Neurological: Reports: No Symptoms Psychiatric: Reports: Anxiety, Mood Lability Hematologic/Lymphatic: Reports: No Symptoms Immunologic: Reports: No Symptoms Free Text/Narrative/Comment: patient is complaining of severe abdominal pain, especially in the epigastrium and right upper quadrant after drinking fluid. She has had nausea but no vomiting. She has history of chronic constipation. Right Upper quadrant incisional hernia ED EXAM, GI/ABD - Physical Exam Exam: See Below Text/Narrative:: under arrival seemed to be in pain nontoxic not. Sitting with hands across her abdomen Exam Limited By: No Limitations General Appearance: Alert, WD/WN, Mild Distress Eyes: Bilateral: Normal Appearance Ears: Normal External Exam, Normal Canal Nose: Normal Inspection Throat/Mouth: Normal Oropharynx Respiratory/Chest: Lungs Clear Cardiovascular: Regular Rate, Rhythm GI/Abdominal Exam: Distended, Tender (in the right upper quadrant and epigastrium), Abnormal Bowel Sounds (hypoactive bowel sounds), Mass (in the right upper quadrant tender on palpation) (Female) Exam: Deferred Back Exam: Normal Inspection Extremities: Normal Range of Motion Neurological: Alert, Oriented, CN II-XII Intact, Normal Cognition Psychiatric: Anxious Skin Exam: Warm, Dry, Intact Lymphatic: No Adenopathy Course - Vital Signs Text/Narrative:: on initial assessment recommended patient be given an enema to help her have a bowel movement , immediately patient started crying and declined to have the enema wanting to be discharged so she could go up to [facility]. I went in and had a talk with her and she didn't agree to have magnesium citrate orally instead of the enema. She made efforts to drink the magnesium citrate but immediately she started having severe abdomen CRAMPS. Pain was severe enough that she could not drink the citrate anymore felt nauseated and had to be put into the gurney. Patient's attitude was suspicious for intestinal obstruction extremities the abdomen immediately was ordered and done which showed fluid levels, in the right flank and right lower quadrant. IV fluids with pain medication given and labs drawn . CT of the abdomen ordered to further assess for intestinal obstruction call me to on-call physician who will admit patient for further observation Last Recorded V/S: Last Vital Signs Temp 36.8 C 12/25/18 12:21 Pulse 99 12/25/18 12:21 Resp 17 12/25/18 12:21 BP 128/101 H 12/25/18 12:21 Pulse Ox 98 12/25/18 12:21 - Orders/Labs/Meds Orders: Active Orders 24 hr Category Date Time Status Abdomen 2V AP Flat Upright [CR] Stat Exams 12/25/18 12:51 Taken Abdomen Pelvis w Cont [CT] Stat Exams 12/25/18 14:14 Ordered LACTIC ACID [CHEM] Stat Lab 12/25/18 13:45 Received Sodium Chloride 0.9% [Normal Saline] 1,000 ml Med 12/25/18 13:34 Active IV .BOLUS Medication Orders Sodium Chloride (Normal Saline) 1,000 mls @ 999 mls/hr IV .BOLUS ONE Stop: 12/25/18 14:34 Last Admin: 12/25/18 14:01 Dose: 999 mls/hr Labs: Laboratory Tests 12/25/18 12/25/18 12/25/18 Range/Units 13:45 13:45 13:45 WBC 7.7 (4.5-12.0) X10-3/uL RBC 4.64 (3.23-5.20) x10(6)uL Hgb 13.6 (11.5-15.5) g/dL Hct 40.6 (30.0-51.3) % MCV 87.6 (80-96) fL MCH 29.3 (27.7-33.6) pg MCHC 33.5 (32.2-35.4) g/dL RDW 12.6 (11.5-15.5) % Plt Count 365 (125-369) X10(3)uL MPV 8.2 (7.4-10.4) fL Neut % (Auto) 69.4 (46-82) % Lymph % (Auto) 18.3 (13-37) % [place] % (Auto) 6.0 (4-12) % Eos % (Auto) 6 H (1.0-5.0) % Baso % (Auto) 1 (0-2) % Neut # (Auto) 5.4 (1.6-8.3) # Lymph # (Auto) 1.4 (0.6-5.0) # [place] # (Auto) 0.5 (0.0-1.3) # Eos # (Auto) 0.4 (0.0-0.8) # Baso # (Auto) 0.0 (0.0-0.2) # Sodium 139 (135-145) mmol/L Potassium 4.2 (3.5-5.3) mmol/L Chloride 100 (100-110) mmol/L Carbon Dioxide 28 (21-32) mmol/L BUN 12 (7-18) mg/dL Creatinine 1.1 H (0.55-1.02) mg/dL Est Cr Clr Drug Dosing 55.18 mL/min Estimated GFR (MDRD) 53 L (>60) BUN/Creatinine Ratio 10.9 (9-20) Glucose 106 (80-116) mg/dL Calcium 10.3 H (8.6-10.2) mg/dL Total Bilirubin 0.4 (0.1-1.3) mg/dL AST 22 (5-25) IU/L ALT 38 H (12-36) U/L Alkaline Phosphatase 141 H (56-112) IU/L C-Reactive Protein 0.5 (0.5-0.9) mg/dL Total Protein 8.4 H (6.0-8.0) g/dL Albumin 4.3 (3.5-5.2) g/dL Globulin 4.1 g/dL Albumin/Globulin Ratio 1.1 Meds: Medications Generic Name Dose Route Start Last Admin Trade Name Freq PRN Reason Stop Dose Admin Sodium Chloride 1,000 mls @ 999 mls/hr 12/25/18 13:34 12/25/18 14:01 Normal Saline IV 12/25/18 14:34 999 mls/hr .BOLUS ONE Administration Discontinued Medications Generic Name Dose Route Start Last Admin Trade Name Freq PRN Reason Stop Dose Admin Magnesium Citrate 296 ml 12/25/18 12:51 12/25/18 12:54 Citrate Of Magnesia PO 12/25/18 12:52 296 ml ONETIME ONE Administration Morphine Sulfate 4 mg 12/25/18 14:00 12/25/18 14:01 Morphine IV 12/25/18 14:01 4 mg ONETIME ONE Administration Morphine Sulfate Confirm 12/25/18 13:58 Morphine Administered 12/25/18 13:59 Dose 4 mg .ROUTE .STK-MED ONE Ondansetron HCl 4 mg 12/25/18 13:19 12/25/18 13:28 Zofran Odt PO 12/25/18 13:20 4 mg ONETIME ONE Administration Departure - Departure Time of Disposition: 14:15 Disposition: Admitted As Inpatient 68 Condition: Fair Clinical Impression: Abdominal pain Qualifiers: Abdominal location: generalized Qualified Code(s): R10.84 - Generalized abdominal pain Constipation Qualifiers: Constipation type: chronic idiopathic constipation Qualified Code(s): K59.04 - Chronic idiopathic constipation - Discharge Information *PRESCRIPTION DRUG MONITORING PROGRAM REVIEWED*: Not Applicable *COPY OF PRESCRIPTION DRUG MONITORING REPORT IN PATIENT LAURA: Not Applicable Referrals: Ashlee Forbes NP [Primary Care Provider] - - Problem List & Annotations (1) Intestinal adhesions SNOMED Code(s): 64318982 Code(s): K66.0 - PERITONEAL ADHESIONS (POSTPROCEDURAL) (POSTINFECTION) Status: Acute Current Visit: Yes (2) Intestinal obstruction due to adhesions SNOMED Code(s): 48864542 Code(s): K56.50 - INTESTNL ADHESIONS, UNSP TO PARTIAL VERSUS COMPLETE OBST Status: Acute Current Visit: Yes (3) Abdominal pain SNOMED Code(s): 34820983 Code(s): R10.9 - UNSPECIFIED ABDOMINAL PAIN Status: Acute Current Visit: Yes Qualifiers: Abdominal location: generalized Qualified Code(s): R10.84 - Generalized abdominal pain - My Orders Last 24 Hours: My Active Orders 12/25/18 12:51 Abdomen 2V AP Flat Upright [CR] Stat 12/25/18 13:34 Sodium Chloride 0.9% [Normal Saline] 1,000 ml IV .BOLUS 12/25/18 13:45 LACTIC ACID [CHEM] Stat 12/25/18 14:14 Abdomen Pelvis w Cont [CT] Stat - Assessment/Plan Last 24 Hours: My Active Orders 12/25/18 12:51 Abdomen 2V AP Flat Upright [CR] Stat 12/25/18 13:34 Sodium Chloride 0.9% [Normal Saline] 1,000 ml IV .BOLUS 12/25/18 13:45 LACTIC ACID [CHEM] Stat 12/25/18 14:14 Abdomen Pelvis w Cont [CT] Stat Plan: Admit for observation
[2018-12-25] MEDS ORDERED: Iopamidol 755 Mg/ML 100 ML Bottle IV ONE (14:56)
[2018-12-25] MEDS ORDERED: Diatrizoate Meglumine/Diatrizoate Sodium 37% 30 ML Bottle PO ONE (14:56)
[2018-12-25] MEDS ORDERED: HYDROmorphone 2 MG/ML SDV IVPUSH ONE (15:00)
[2018-12-25] MEDS: Sodium Chloride 0.9% 1,000 ML IV SCH ×2 (15:10→23:00)
[2018-12-25] MEDS ORDERED: ClonazePAM 0.5 MG Tab PO PRN (17:40)
[2018-12-25] MEDS ORDERED: lamoTRIgine 100 MG Tab PO SCH (17:40)
[2018-12-25] MEDS ORDERED: Venlafaxine 75 MG Cap.ER PO SCH (17:40)
[2018-12-25] MEDS ORDERED: Hydrochlorothiazide/Lisinopril 12.5-20 MG Tab PO SCH (17:40)
[2018-12-25] MEDS ORDERED: Albuterol 8 GM Inhaler INH PRN (17:40)
[2018-12-25] MEDS ORDERED: HYDROmorphone 2 MG/ML SDV IVPUSH PRN (19:15)
[2018-12-25] MEDS ORDERED: diphenhydrAMINE 50 MG Cap PO ONE (20:53)
[2018-12-25] MEDS ORDERED: predniSONE 20 MG Tab PO ONE (23:40)
[2018-12-26] MEDS: HYDROmorphone 2 MG/ML SDV IVPUSH PRN ×3 (00:32→16:21)
--- NOTE | 2018-12-26 02:26 | CONS ---
DATE OF CONSULTATION: 12/25/2018 HISTORY: This 48-year-old female was seen in consultation from Dr. John for evaluation of abdominal pain. She has had problems with chronic constipation, and over the last few days had worsened. She was seen in clinic yesterday and took MiraLAX twice. She is seen in the emergency room today and given magnesium citrate in addition to oral CT contrast. None of this has been successful resulting in a bowel movement. The patient cannot remember last time she had a bowel movement, but it seems to at least be a few days ago. There has been no blood. Appetite is decreased because of her abdominal fullness. I reviewed her emergency room records, lab information, and radiology reports including reviewing the CT scan with Dr. Dodge. PAST MEDICAL HISTORY: Reviewed. Open cholecystectomy. FAMILY HISTORY: Significant for colon cancer in a brother and father. The patient has never had a colonoscopy that she recalls. REVIEW OF SYSTEMS: The patient denies any emesis, but does have some nausea when drinking the CT contrast earlier today. Denies any fever, sweats, or chills. Denies any urinary symptoms. Denies any blood in the stool. PHYSICAL EXAMINATION: GENERAL: Reveals a pleasant lady in no acute distress. VITAL SIGNS: Reviewed and within normal limits. She is afebrile. HEENT: Her sclerae are white. SKIN: Not jaundiced. LUNGS: Clear. RESPIRATIONS: Nonlabored. ABDOMEN: Obese, soft, and no significant tenderness. She points to the mid abdomen as the area where she gets pain and cramping, but seems to be comfortable at this time. She does have a well-healed right upper quadrant scar with some weakness at the lateral aspect, but I do not palpate any hernia. RECTAL: A rectal exam was performed by Dr. John and rectal vault was empty. DIAGNOSTIC DATA: CT scan was reviewed with Dr. Dodge. She does have a large amount of stool in the right and transverse colon. The sigmoid colon and rectum appeared to be empty. I do not see any obvious transition point that would indicate a tumor or other point of obstruction. ASSESSMENT: 1. Abdominal pain. 2. Constipation. PLAN: The patient will be monitored in the hospital and repeat abdominal x-rays obtained in the morning to see if contrast is moving through. She will be kept n.p.o. Forty minutes were spent with the patient and her family this evening. /[id number] JAC/CAITLYN
[2018-12-26] MEDS: ClonazePAM 0.5 MG Tab PO PRN (03:11)
[2018-12-26] MEDS: QUEtiapine 25 MG Tab PO SCH ×2 (03:11→21:23)
[2018-12-26] MEDS: Sodium Chloride 0.9% 1,000 ML IV SCH ×3 (07:16→23:42)
--- NOTE | 2018-12-26 08:24 | CR ---
INDICATION: Constipation. ABDOMEN: Seven images of the abdomen were obtained in supine and upright projections and revealed no evidence of free air or definite mechanically obstructive process. A moderately large amount of stool is noted in the colon up to the level of the descending colon and into the splenic flexure with relative paucity of gas and stool in the colon distal to that area. Findings may be on the basis of a recent bowel movement. 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 No definite organomegaly, mass lesions, or pathologic calcifications were noted. Degenerative changes are noted at the sacroiliac joint on the left and at the L2 -3 vertebral bodies. Clips compatible with cholecystectomy are noted in the right upper quadrant. Lower lung guidry and pleural spaces appeared unremarkable. The heart did not appear enlarged. IMPRESSION: 1. Relatively large amount of stool in the colon proximal to the proximal descending colon. This may be incidental to a recent bowel movement. However, with a few air fluid levels in the ascending colon and relatively mild distention of the colon, it is difficult to exclude a partial obstructive process in the descending colon or possibly an early mechanical obstruction in the descending colon. Followup studies may be warranted, therefore. 2. Post cholecystectomy - correlate clinically. MTDD
--- NOTE | 2018-12-26 09:04 | CT ---
INDICATION: Bowel obstruction. CT ABDOMEN AND PELVIS WITH CONTRAST: Spiral 3.75 mm axial sections were obtained through the abdomen and pelvis with minimal oral contrast and 100 mL Isovue 370 at 2 mL/second, with sagittal and coronal reconstructions, 12/25/18 - no comparisons. Total exam DLP = 1,779.29 mGy-cm. Lower lung guidry and pleural spaces visualized appeared normal. The heart was normal in size. No pericardial effusion was seen. The gallbladder is absent, compatible with history of its removal. Clips are noted at the gallbladder bed. The liver, spleen, pancreas, common bile duct, adrenal glands, except for probable small adrenal adenoma at the left adrenal, and kidneys appear to be normal. No retroperitoneal mass was noted. There are some retroperitoneal lymph nodes, which are nonspecific. A moderately large amount of stool is noted in the colon proximal to the mid descending colon area of questionable significance, possibly relating to a recent bowel movement. A specific mechanical obstructive process is not identified in the descending colon. Followup x-rays of the abdomen may be helpful for further evaluation in that regard, and if this appearance remains present, colonoscopy may be warranted. The appendix is absent, compatible with history of its removal. There are some calcific or other metallic densities in the ascending colon - cecal area, which may be on the basis of medication - correlate clinically. Urinary bladder was almost empty. No additional mass lesions, organomegaly, or free fluid collections were identified in the abdomen or pelvis. IMPRESSION: 1. A moderately large amount of stool is noted in the proximal colon above the mid descending colon level, which may be incidental to a recent bowel movement and should be correlated clinically. Followup x-rays of the abdomen may be warranted to re-evaluate the amount of stool present, depending upon clinical course. 2. Tiny low density lesion in the left adrenal, approximately 15 mm, most likely representing an adrenal adenoma. 3. Post cholecystectomy. 4. Post appendectomy. 5. Bridging hyperostotic changes are noted in the lower thoracic spine anterior vertebral bodies and to a lesser extent upper to mid lumbar area. Report was called to Dr. Roach at 1542 hours on 12/25/18. [facility]
--- NOTE | 2018-12-26 11:17 | HP ---
ADMISSION DATE: 12/25/2018 CHIEF COMPLAINT: Complicated abdominal pain. HISTORY OF PRESENT ILLNESS: Gladys Ernandez is a 48-year-old, female, who resides at [facility], was seen evaluated at [facility]. She was seen by Dr. Brit Roach. She presents with a long-standing history of probably obstipation, constipation. Increasing pain, discomfort, nausea, diffuse pain. She was given GoLYTELY and senna, pain continues problematic in nature. CT was performed. X-rays reveal voluminous to some air-fluid levels. Will response clinically. Admitted for observation, treatment was given, a dose of intravenous morphine and Dilaudid for pain. ALLERGIES: Allergic to codeine, hydrocodone, latex and ibuprofen noted. HOME MEDICATIONS: Please see med recon list. They include: 1. Acetaminophen. 2. Albuterol. 3. Vitamin D3. 4. Clonazepam. 5. Flexeril. 6. Gabapentin. 7. Ibuprofen. 8. Lansoprazole. 9. Lisinopril/hydrochlorothiazide. 10.Magnesium hydroxide. 11.Multivitamin. 12.Oxybutynin. 13.Sodium chloride. 14.Sucralfate. 15.Effexor. 16.Benadryl. 17.Hydroxyzine. 18.Lamotrigine. 19.Tramadol. 20.Zofran. 21.Sennosides-Docusate. PAST MEDICAL HISTORY: Significant for previous cholecystectomy, appendectomy, and endometrial ablation. Chronic illnesses include mood disorder, anxiety, hypertension and chronic gastritis. No other operative procedures, hospitalizations, unusual childhood diseases, major injuries, or fractures. SOCIAL HISTORY: Lives independently, though has great supervision at [facility]. Spine Nurse are actively involved. Disabled physically and intellectually. Smokes infrequently. Now no alcohol. No illicit drug use. The care provided by staff and family. REVIEW OF SYSTEMS: Other than HPI, no clear review of systems contrary. PHYSICAL EXAMINATION: VITAL SIGNS: 104 kg, 36.2, 72, 16 and 95%. GENERAL: Riving in severe pain. Conversation is limited. HEENT: Funduscopic benign. Bright TMs. Clear nasal discharge. Mouth and oropharynx clear. NECK: Benign. Thyroid small. CHEST: Clear in all lung guidry. No adventitious sounds. HEART: On auscultation, no ectopy or murmur. BREASTS: Pendulous without masses, nipple changes, skin changes, or adenopathy. ABDOMEN: Benign. Large right upper quadrant cholecystectomy scar, lower abdominal surgical scar. Diffusely tender. Distended. RECTAL: Revealed empty rectum. No stool for occult. EXTREMITIES: Well perfused. Mild venous stasis changes. ASSESSMENT: Complicated abdominal pain, age 48, etiology undetermined, mechanical obstruction or constipation. SECONDARY DIAGNOSIS: Please see above. PLAN: Admission to hospital. IV fluids hydration, pain control, intervention, surgical consultation planned with Kaleb Regalado MD, Surgery. /[id number] JOSE/CAITLYN
--- NOTE | 2018-12-26 12:07 | PN ---
DATE SEEN: 12/26/2018 REASON FOR VISIT: Recheck abdominal pain. SUBJECTIVE: Gladys Ernandez is a 48-year-old, female, seen in followup. Admitted with complicated abdominal pain suspicion for a possible bowel obstruction but likely more mechanical constipation. She had an uncomfortable night, had itching and issues related to pain control. ALLERGIES: Noted. Morphine more likely to produce rash than the Dilaudid. LABORATORY STUDIES: None repeated. Once from 12/25 reviewed. OBJECTIVE: VITAL SIGNS: 132/62, 16, and 96. Weight 104. GENERAL: Awakened from her sleep. MOUTH AND OROPHARYNX: Somewhat dry. NECK: Benign. No meningismus. CHEST: Clear all lung guidry. No adventitious sounds. HEART: No ectopy or murmur. ABDOMEN: Little less distended, little less tender. ASSESSMENT: Complicated abdominal pain, severe constipation. PLAN: Medications on board, n.p.o., adjustments of medications and care per Surgery planned. /[id number] JOSE/CAITLYN
[2018-12-26] MEDS ORDERED: Magnesium Citrate Solution 296 ML Bottle PO ONE (12:56)
--- NOTE | 2018-12-26 12:59 | PCM.PN ---
- General Info Date of Service: 12/26/18 Functional Status: Reports: Pain Controlled, Other (flatus, no BM) - Review of Systems Pulmonary: Reports: No Symptoms Cardiovascular: Reports: No Symptoms Gastrointestinal: Reports: No Symptoms, Flatus. Denies: Abdominal Pain - Patient Data Vitals - Most Recent: Last Vital Signs Temp 97.1 F 12/25/18 20:00 Pulse 68 12/26/18 07:00 Resp 16 12/26/18 07:00 BP 128/64 12/25/18 20:00 Pulse Ox 96 12/26/18 07:00 Weight - Most Recent: 104.689 kg I&O - Last 24 Hours: Intake & Output 12/25/18 12/26/18 12/26/18 22:59 06:59 14:59 Intake Total 1950 1000 Balance 1950 1000 Lab Results Last 24 Hours: Laboratory Results - last 24 hr 12/25/18 12/25/18 12/25/18 Range/Units 13:45 13:45 13:45 WBC 7.7 (4.5-12.0) X10-3/uL RBC 4.64 (3.23-5.20) x10(6)uL Hgb 13.6 (11.5-15.5) g/dL Hct 40.6 (30.0-51.3) % MCV 87.6 (80-96) fL MCH 29.3 (27.7-33.6) pg MCHC 33.5 (32.2-35.4) g/dL RDW 12.6 (11.5-15.5) % Plt Count 365 (125-369) X10(3)uL MPV 8.2 (7.4-10.4) fL Neut % (Auto) 69.4 (46-82) % Lymph % (Auto) 18.3 (13-37) % [place] % (Auto) 6.0 (4-12) % Eos % (Auto) 6 H (1.0-5.0) % Baso % (Auto) 1 (0-2) % Neut # (Auto) 5.4 (1.6-8.3) # Lymph # (Auto) 1.4 (0.6-5.0) # [place] # (Auto) 0.5 (0.0-1.3) # Eos # (Auto) 0.4 (0.0-0.8) # Baso # (Auto) 0.0 (0.0-0.2) # Sodium 139 (135-145) mmol/L Potassium 4.2 (3.5-5.3) mmol/L Chloride 100 (100-110) mmol/L Carbon Dioxide 28 (21-32) mmol/L BUN 12 (7-18) mg/dL Creatinine 1.1 H (0.55-1.02) mg/dL Est Cr Clr Drug Dosing 55.18 mL/min Estimated GFR (MDRD) 53 L (>60) BUN/Creatinine Ratio 10.9 (9-20) Glucose 106 (80-116) mg/dL Lactic Acid 1.2 (0.4-2.2) mmol/L Calcium 10.3 H (8.6-10.2) mg/dL Total Bilirubin 0.4 (0.1-1.3) mg/dL AST 22 (5-25) IU/L ALT 38 H (12-36) U/L Alkaline Phosphatase 141 H (56-112) IU/L C-Reactive Protein (0.5-0.9) mg/dL Total Protein 8.4 H (6.0-8.0) g/dL Albumin 4.3 (3.5-5.2) g/dL Globulin 4.1 g/dL Albumin/Globulin Ratio 1.1 12/25/18 Range/Units 13:45 WBC (4.5-12.0) X10-3/uL RBC (3.23-5.20) x10(6)uL Hgb (11.5-15.5) g/dL Hct (30.0-51.3) % MCV (80-96) fL MCH (27.7-33.6) pg MCHC (32.2-35.4) g/dL RDW (11.5-15.5) % Plt Count (125-369) X10(3)uL MPV (7.4-10.4) fL Neut % (Auto) (46-82) % Lymph % (Auto) (13-37) % [place] % (Auto) (4-12) % Eos % (Auto) (1.0-5.0) % Baso % (Auto) (0-2) % Neut # (Auto) (1.6-8.3) # Lymph # (Auto) (0.6-5.0) # [place] # (Auto) (0.0-1.3) # Eos # (Auto) (0.0-0.8) # Baso # (Auto) (0.0-0.2) # Sodium (135-145) mmol/L Potassium (3.5-5.3) mmol/L Chloride (100-110) mmol/L Carbon Dioxide (21-32) mmol/L BUN (7-18) mg/dL Creatinine (0.55-1.02) mg/dL Est Cr Clr Drug Dosing mL/min Estimated GFR (MDRD) (>60) BUN/Creatinine Ratio (9-20) Glucose (80-116) mg/dL Lactic Acid (0.4-2.2) mmol/L Calcium (8.6-10.2) mg/dL Total Bilirubin (0.1-1.3) mg/dL AST (5-25) IU/L ALT (12-36) U/L Alkaline Phosphatase (56-112) IU/L C-Reactive Protein 0.5 (0.5-0.9) mg/dL Total Protein (6.0-8.0) g/dL Albumin (3.5-5.2) g/dL Globulin g/dL Albumin/Globulin Ratio Med Orders - Current: Current Medications Albuterol (Ventolin Hfa) 0 gm INH Q4H PRN PRN Reason: Dyspnea Clonazepam (Klonopin) 0.5 mg PO DAILY PRN PRN Reason: Anxiety Last Admin: 12/26/18 03:11 Dose: 0.5 mg Hydromorphone HCl (Dilaudid) 1 mg IVPUSH Q3H PRN PRN Reason: Pain Last Admin: 12/26/18 10:49 Dose: 1 mg Sodium Chloride (Normal Saline) 1,000 mls @ 125 mls/hr IV ASDIRECTED ZEN Last Admin: 12/26/18 07:16 Dose: 125 mls/hr Sodium Chloride (Normal Saline) 1,000 mls @ 125 mls/hr IV ASDIRECTED ZEN Last Admin: 12/25/18 23:00 Dose: 125 mls/hr Magnesium Citrate (Citrate Of Magnesia) 296 ml PO ONETIME ONE Stop: 12/26/18 12:57 Quetiapine Fumarate (Seroquel) 50 mg PO BEDTIME [facility] Last Admin: 12/26/18 03:11 Dose: 50 mg Discontinued Medications Clonazepam (Klonopin) 0.5 mg PO DAILY PRN PRN Reason: Anxiety Diatrizoate Meglum/Diatrizoate Sod (Gastrografin 37%) 30 ml PO . DIRECTED ONE Stop: 12/25/18 14:57 Last Admin: 12/25/18 15:06 Dose: Not Given Diphenhydramine HCl (Benadryl) 50 mg PO ONETIME ONE Stop: 12/25/18 20:54 Last Admin: 12/25/18 21:31 Dose: 50 mg Lisinopril/HCTZ (Lisinopril/Hctz 20-12.5 Mg) 1 tab PO DAILY [facility] Last Admin: 12/25/18 18:09 Dose: Not Given Hydromorphone HCl (Dilaudid) 1 mg IVPUSH ONETIME ONE Stop: 12/25/18 15:01 Last Admin: 12/25/18 15:08 Dose: 1 mg Hydromorphone HCl (Dilaudid) 2 mg IVPUSH Q3H PRN PRN Reason: abd pain Last Admin: 12/25/18 20:13 Dose: 2 mg Sodium Chloride (Normal Saline) 1,000 mls @ 999 mls/hr IV .BOLUS ONE Stop: 12/25/18 14:34 Last Admin: 12/25/18 14:01 Dose: 999 mls/hr Iopamidol (Isovue-370 (76%)) 100 ml IV . DIRECTED ONE Stop: 12/25/18 14:57 Last Admin: 12/25/18 15:22 Dose: 100 ml Lamotrigine (Lamotrigine) 300 mg PO BID [facility] Last Admin: 12/25/18 18:09 Dose: Not Given Magnesium Citrate (Citrate Of Magnesia) 296 ml PO ONETIME ONE Stop: 12/25/18 12:52 Last Admin: 12/25/18 12:54 Dose: 296 ml Morphine Sulfate (Morphine) 4 mg IV ONETIME ONE Stop: 12/25/18 14:01 Last Admin: 12/25/18 14:01 Dose: 4 mg Morphine Sulfate (Morphine) Confirm Administered Dose 4 mg .ROUTE .STK-MED ONE Stop: 12/25/18 13:59 Last Admin: 12/25/18 15:01 Dose: Not Given Ondansetron HCl (Zofran Odt) 4 mg PO ONETIME ONE Stop: 12/25/18 13:20 Last Admin: 12/25/18 13:28 Dose: 4 mg Prednisone (Prednisone) 20 mg PO ONETIME ONE Stop: 12/25/18 23:41 Last Admin: 12/26/18 00:05 Dose: 20 mg Quetiapine Fumarate (Seroquel) 50 mg PO BEDTIME [facility] Last Admin: 12/26/18 04:00 Dose: Not Given Venlafaxine HCl (Effexor Xr) 75 mg PO DAILY [facility] Last Admin: 12/25/18 18:09 Dose: Not Given - Exam GI/Abdominal Exam: Soft, Non-Tender - Problem List Review Problem List Initiated/Reviewed/Updated: Yes - My Orders Last 24 Hours: My Active Orders 12/26/18 09:00 Abdomen 2V AP Flat Upright [CR] Routine 12/26/18 12:54 Enema [RC] ASDIRECTED 12/26/18 12:56 Magnesium Citrate [Citrate of Magnesia] 296 ml PO ONETIME ONE 12/26/18 Dinner Clear Liquid Diet [DIET] - Assessment Assessment:: Severe Constipation AXR reviewed with Dr Dodge, no evidence of large Bowel Obstruction - Plan Plan:: Will start with enemas and oral prep
--- NOTE | 2018-12-26 14:06 | CR ---
INDICATION: Abdominal pain, constipation. ABDOMEN: Six images of the abdomen in supine and upright projections, 12/26/18 , were compared with 12/25/18 and 11/07/18. There is again noted a moderately large amount of stool in the proximal two thirds of the colon with a similar appearance or slightly less prominent diameter at the distal transverse colon and splenic flexure, compared with the previous study. There is also more gas in the more distal colon, including the sigmoid, rectosigmoid, and rectal area. A mechanically obstructive process of complete nature is certainly not suggested, therefore. No evidence of free air was identified. No definite mass lesions or pathologic calcifications were seen. IMPRESSION: Slightly improved appearance of the abdomen, compared with the previous studies. Report was given in person to Dr. Sabine calderon this p.m. on 12/26/18. [facility]
[2018-12-26] MEDS: Ondansetron 4 MG/2 ML SDV IVPUSH PRN (14:37)
[2018-12-26] MEDS: Ketorolac 30 MG/ML SDV IVPUSH PRN (18:12)
[2018-12-27] MEDS: Ketorolac 30 MG/ML SDV IVPUSH PRN ×3 (00:12→20:23)
[2018-12-27] MEDS: Sodium Chloride 0.9% 1,000 ML IV SCH ×2 (07:54→16:16)
[2018-12-27] MEDS ORDERED: Polyethylene Glycol/Electrolytes 4,000 ML Bottle PO ONE (08:27)
[2018-12-27] MEDS: Ondansetron 4 MG/2 ML SDV IVPUSH PRN ×2 (10:05→17:58)
[2018-12-27] MEDS: ClonazePAM 0.5 MG Tab PO PRN (10:05)
--- NOTE | 2018-12-27 10:59 | PN ---
DATE SEEN: 12/27/2018 SUBJECTIVE: Gladys Ernandez is a 48-year-old female presented with complicated obstipation constipation. Finally got good results in terms of stool emptying. Feeling much better. Dr. Regalado, Surgery, has been consulting, plan for prep and colonoscopy tomorrow, 12/28/2018. Otherwise, clinically well. LABORATORY STUDIES: None new since admission. Electrolytes on 12/27, unremarkable. Calcium little low at 8.3. OBJECTIVE: VITAL SIGNS: 36.2, 140/77, 16, and 97. GENERAL: Appears much more comfortable. Couple jerky movements. MOUTH, OROPHARYNX, AND NECK: Benign. Thyroid small. CHEST: Clear in all lung guidry. HEART: No ectopy or murmur. ABDOMEN: Benign. IMPRESSION: Constipation obstipation. PLAN: Plans and care per Dr. Regalado. /[id number] /CAITLYN
--- NOTE | 2018-12-27 13:09 | PCM.PN ---
- General Info Date of Service: 12/27/18 Functional Status: Reports: Pain Controlled - Review of Systems General: Reports: No Symptoms Cardiovascular: Reports: No Symptoms Gastrointestinal: Reports: No Symptoms, Other (Many large stools during the night) - Patient Data Vitals - Most Recent: Last Vital Signs Temp 97.1 F 12/27/18 07:31 Pulse 60 12/27/18 07:31 Resp 16 12/27/18 07:31 BP 140/77 12/27/18 07:31 Pulse Ox 97 12/27/18 07:31 Weight - Most Recent: 104.689 kg I&O - Last 24 Hours: Intake & Output 12/26/18 12/27/18 12/27/18 22:59 06:59 14:59 Intake Total 1875 Balance 1875 Lab Results Last 24 Hours: Laboratory Results - last 24 hr 12/27/18 Range/Units 08:40 Sodium 142 (135-145) mmol/L Potassium 3.9 (3.5-5.3) mmol/L Chloride 105 D (100-110) mmol/L Carbon Dioxide 29 (21-32) mmol/L BUN 18 (7-18) mg/dL Creatinine 0.9 (0.55-1.02) mg/dL Est Cr Clr Drug Dosing 67.45 mL/min Estimated GFR (MDRD) > 60 (>60) BUN/Creatinine Ratio 20.0 (9-20) Glucose 88 (80-116) mg/dL Calcium 8.3 L D (8.6-10.2) mg/dL Med Orders - Current: Current Medications Albuterol (Ventolin Hfa) 0 gm INH Q4H PRN PRN Reason: Dyspnea Clonazepam (Klonopin) 0.5 mg PO DAILY PRN PRN Reason: Anxiety Last Admin: 12/27/18 10:05 Dose: 0.5 mg Hydromorphone HCl (Dilaudid) 1 mg IVPUSH Q3H PRN PRN Reason: Pain Last Admin: 12/26/18 16:21 Dose: 1 mg Sodium Chloride (Normal Saline) 1,000 mls @ 125 mls/hr IV ASDIRECTED ZEN Last Admin: 12/27/18 07:54 Dose: 125 mls/hr Ketorolac Tromethamine (Toradol) 30 mg IVPUSH Q6H PRN PRN Reason: Pain Stop: 12/31/18 17:58 Last Admin: 12/27/18 07:53 Dose: 30 mg Ondansetron HCl (Zofran) 4 mg IVPUSH Q6H PRN PRN Reason: Nausea/Vomiting Last Admin: 12/27/18 10:05 Dose: 4 mg Quetiapine Fumarate (Seroquel) 50 mg PO BEDTIME [facility] Last Admin: 12/26/18 21:23 Dose: 50 mg Discontinued Medications Clonazepam (Klonopin) 0.5 mg PO DAILY PRN PRN Reason: Anxiety Diatrizoate Meglum/Diatrizoate Sod (Gastrografin 37%) 30 ml PO . DIRECTED ONE Stop: 12/25/18 14:57 Last Admin: 12/25/18 15:06 Dose: Not Given Diphenhydramine HCl (Benadryl) 50 mg PO ONETIME ONE Stop: 12/25/18 20:54 Last Admin: 12/25/18 21:31 Dose: 50 mg Lisinopril/HCTZ (Lisinopril/Hctz 20-12.5 Mg) 1 tab PO DAILY [facility] Last Admin: 12/25/18 18:09 Dose: Not Given Hydromorphone HCl (Dilaudid) 1 mg IVPUSH ONETIME ONE Stop: 12/25/18 15:01 Last Admin: 12/25/18 15:08 Dose: 1 mg Hydromorphone HCl (Dilaudid) 2 mg IVPUSH Q3H PRN PRN Reason: abd pain Last Admin: 12/25/18 20:13 Dose: 2 mg Sodium Chloride (Normal Saline) 1,000 mls @ 999 mls/hr IV .BOLUS ONE Stop: 12/25/18 14:34 Last Admin: 12/25/18 14:01 Dose: 999 mls/hr Sodium Chloride (Normal Saline) 1,000 mls @ 125 mls/hr IV ASDIRECTED [facility] Last Admin: 12/26/18 07:16 Dose: 125 mls/hr Iopamidol (Isovue-370 (76%)) 100 ml IV . DIRECTED ONE Stop: 12/25/18 14:57 Last Admin: 12/25/18 15:22 Dose: 100 ml Lamotrigine (Lamotrigine) 300 mg PO BID [facility] Last Admin: 12/25/18 18:09 Dose: Not Given Magnesium Citrate (Citrate Of Magnesia) 296 ml PO ONETIME ONE Stop: 12/25/18 12:52 Last Admin: 12/25/18 12:54 Dose: 296 ml Magnesium Citrate (Citrate Of Magnesia) 296 ml PO ONETIME ONE Stop: 12/26/18 12:57 Last Admin: 12/26/18 13:51 Dose: 296 ml Morphine Sulfate (Morphine) 4 mg IV ONETIME ONE Stop: 12/25/18 14:01 Last Admin: 12/25/18 14:01 Dose: 4 mg Morphine Sulfate (Morphine) Confirm Administered Dose 4 mg .ROUTE .STK-MED ONE Stop: 12/25/18 13:59 Last Admin: 12/25/18 15:01 Dose: Not Given Ondansetron HCl (Zofran Odt) 4 mg PO ONETIME ONE Stop: 12/25/18 13:20 Last Admin: 12/25/18 13:28 Dose: 4 mg Polyethylene Glycol/Electrolytes (Golytely) 4,000 ml PO ONETIME ONE Stop: 12/27/18 08:28 Last Admin: 12/27/18 09:19 Dose: 4,000 ml Prednisone (Prednisone) 20 mg PO ONETIME ONE Stop: 12/25/18 23:41 Last Admin: 12/26/18 00:05 Dose: 20 mg Quetiapine Fumarate (Seroquel) 50 mg PO BEDTIME [facility] Last Admin: 12/26/18 04:00 Dose: Not Given Venlafaxine HCl (Effexor Xr) 75 mg PO DAILY [facility] Last Admin: 12/25/18 18:09 Dose: Not Given - Exam General: Sedated GI/Abdominal Exam: Non-Tender. No: Distended - Problem List Review Problem List Initiated/Reviewed/Updated: Yes - My Orders Last 24 Hours: My Active Orders 12/26/18 Dinner Clear Liquid Diet [DIET] - Assessment Assessment:: Severe Constipation AXR reviewed with Dr Dodge, no evidence of large Bowel Obstruction - Plan Plan:: Will start with enemas and oral prep Will cont golytely prep and plan on colonoscopy in am Risks and complications reviewed, consent obtained
[2018-12-27] MEDS: HYDROmorphone 2 MG/ML SDV IVPUSH PRN (21:25)
[2018-12-27] MEDS ORDERED: hydrOXYzine HCl 25 MG Tab PO ONE (21:36)
[2018-12-28] MEDS: Sodium Chloride 0.9% 1,000 ML IV SCH (01:31)
[2018-12-28] MEDS: Ketorolac 30 MG/ML SDV IVPUSH PRN (07:47)
[2018-12-28] MEDS: Ondansetron 4 MG/2 ML SDV IVPUSH PRN (07:49)
[2018-12-28] MEDS ORDERED: Propofol 200 MG/20 ML SDV IV ONE (08:05)
[2018-12-28] MEDS ORDERED: Midazolam 1 MG/ML 2 ML SDV IV ONE (08:05)
--- NOTE | 2018-12-28 11:27 | OR ---
DATE OF OPERATION: 12/28/2018 SURGEON: Kaleb Regalado MD PREOPERATIVE DIAGNOSES: 1. Severe constipation. 2. Family history of colon cancer. POSTOPERATIVE DIAGNOSIS: Normal colonoscopy. PROCEDURE: Colonoscopy. ANESTHESIA: IV sedation. PROCEDURE IN DETAIL: The patient was brought to the procedure room, where she was placed on her left side and IV sedation administered. Digital rectal exam was performed, which was normal. The colonoscope was inserted and advanced to the level of the cecum with difficulty getting through the transverse and right colon due to tortuosity. With pressure on the abdomen, I was able to identify the appendiceal lumen and ileocecal valve. Photographs were taken. The prep was fair in most areas and poor in the right side where there still remained some thick stool, but I was able to visualize enough loose surfaces to ensure that no large polyps, tumors, or other masses were present. All segments of the colon appeared normal. Rectum was normal, and retroflexion was normal. Air was removed and the scope withdrawn. The patient tolerated the procedure well and returned to recovery in stable condition. Recommend routine colon screening again in 5 years. /[id number] JAC/CAITLYN
[2018-12-28] MEDS ORDERED: Polyethylene Glycol 3350 Powder 17 GM Packet PO SCH (12:00)
--- NOTE | 2018-12-29 11:47 | DISCH ---
DISCHARGE DATE: 12/28/2018 PRIMARY FINAL DIAGNOSIS: Severe abdominal pain secondary to obstipation, constipation. OTHER DIAGNOSES: Chronic anxiety and depression, learning disability, obesity. OPERATIONS: Colonoscopy. COMPLICATIONS: None. SUMMARY: Alysha is a 48-year-old woman with learning disability, who was previously in adult foster care, who now lives by herself in an apartment in [place]. She had been having problems with constipation over the past month, which has been a chronic problem. She was admitted with severe abdominal pain and found to have severe obstipation. She was given multiple enemas, had a positive bowel and then underwent a colonoscopy by Dr. Regalado, which was negative. Her abdominal pain resolved, and once alert and awake, she is discharged to home for self cares at her own apartment. Changes to her medication have been made to try and eliminate medications that could exacerbate her constipation. MEDICATIONS ON DISCHARGE: 1. Venlafaxine ER 225 mg daily. 2. Senokot-S one b.i.d. 3. Vitamin B2 400 mg daily. 4. Quetiapine 50 mg at bedtime. 5. MiraLAX 17 g b.i.d. 6. Multiple vitamin 1 daily. 7. Milk of Mag 30 mL daily p.r.n. 8. Magnesium 250 mg daily. 9. Lisinopril HCT 20/12.5. 10.Lansoprazole 15 mg daily. 11.Lamotrigine 300 mg b.i.d. 12.Ibuprofen 200 mg every 4 hours p.r.n. 13.Hydroxyzine 50 mg at bedtime. 14.Flonase 2 squirts each naris daily. 15.Clonazepam 0.5 mg daily p.r.n. 16.Albuterol inhaler. 17.Tylenol p.r.n. Medication changes from her outpatient included decrease in her supplemental vitamin D from 5000 units daily to 1000 units daily. Discontinuation of her oxybutynin. Discontinuation of her Flexeril and recommendation is to increase laxative type foods in her diet including prune juice, grape juice, etc. She is to have followup with GENA[facility] Hull, as an outpatient and call should there be recurrent symptoms in the meantime. /[id number] Genie SANTOS/CAITLYN
== END 2018-12-28 13:20 | disposition home or self-care (01) | DRG 392 ==
LOC: FB.ED 12:16 → FB.MS 15:58
PROVIDERS: ADMIT Family Medicine; ATTEND Family Medicine
PROC: 0DJD8ZZ Inspection of Lower Intestinal Tract, Via Natural or Artificial Opening Endoscopic (ICD-10-PCS; principal; 2018-12-28)
DX: K56.50 Intestinal adhesions [bands], unspecified as to partial versus complete obstruction (principal); K59.09 Other constipation; I10 Essential (primary) hypertension; F32.9 Major depressive disorder, single episode, unspecified; F41.9 Anxiety disorder, unspecified; F81.9 Developmental disorder of scholastic skills, unspecified; F17.200 Nicotine dependence, unspecified, uncomplicated; Z88.8 Allergy status to other drugs, medicaments and biological substances; E66.9 Obesity, unspecified; F39 Unspecified mood [affective] disorder; J45.909 Unspecified asthma, uncomplicated; F31.9 Bipolar disorder, unspecified; G47.30 Sleep apnea, unspecified; F17.210 Nicotine dependence, cigarettes, uncomplicated; Z79.899 Other long term (current) drug therapy; Z88.5 Allergy status to narcotic agent; Z91.040 Latex allergy status; Z90.49 Acquired absence of other specified parts of digestive tract; Z88.6 Allergy status to analgesic agent; Z98.890 Other specified postprocedural states; Z80.0 Family history of malignant neoplasm of digestive organs; Z68.39 Body mass index [BMI] 39.0-39.9, adult
CPT/HCPCS: 36415; 74019; 74177; 80048; 80053; 83605; 85025; 86140; 96361; 96374; 96375; 99284; 99285-25; A9270-GY; J1170; J1885; J2250; J2270; J2405; J2704; J7030; Q9963; Q9967

== ENCOUNTER 2019-02-10 22:28 | Emergency (ER) | payer MEDICARE, MEDICAID ==
[2019-02-10] MEDS ORDERED: Sodium Chloride 0.9% 1,000 ML IV ONE (22:42)
--- NOTE | 2019-02-10 22:48 | EDM.PDOC ---
ED HPI GENERAL MEDICAL PROBLEM - General Chief Complaint: General Stated Complaint: SEIZURE Time Seen by Provider: 02/10/19 22:30 Source of Information: Reports: Patient History Limitations: Reports: Altered Mental Status - History of Present Illness INITIAL COMMENTS - FREE TEXT/NARRATIVE: pt comes by EMS from home with seizure like activities, pt here track with eyes , twitching and making an recognizable gestures and voices , she is protecting her airway well, and protecting her self with both active and passive movements. to me and staff here was refusing to answer any questions however to EMS she was responsive and expressed that she feel depressed . there is no Hx of head injury and farther Hx could be obtained from pt at this time. - Related Data Allergies Allergy/AdvReac Type Severity Reaction Status Date / Time codeine Allergy Hives Verified 02/10/19 23:02 hydrocodone Allergy Hives Verified 02/10/19 23:02 latex Allergy Hives Verified 02/10/19 23:02 ibuprofen AdvReac Mild Nausea Verified 02/10/19 23:02 Home Meds: Home Meds Acetaminophen 650 mg PO Q4H PRN 09/25/18 [History] Albuterol [Ventolin HFA] 2 puff INH Q4H PRN 09/25/18 [History] ClonazePAM [KlonoPIN] 0.5 mg PO DAILY PRN 09/25/18 [History] Ibuprofen 200 mg PO Q4H PRN 09/25/18 [History] Lansoprazole 15 mg PO DAILY 09/25/18 [History] Lisinopril/Hydrochlorothiazide [Lisinopril-Hctz 20-12.5 mg Tab] 1 tab PO DAILY 09/25/18 [History] Magnesium Hydroxide [Milk of Magnesia] 30 ml PO DAILY PRN 09/25/18 [History] Multivitamins [Tab-A-Lesly] 1 tab PO DAILY 09/25/18 [History] Venlafaxine HCl [Venlafaxine ER] 75 mg PO DAILY 09/25/18 [History] Venlafaxine HCl [Venlafaxine ER] 150 mg PO DAILY 09/25/18 [History] hydrOXYzine HCl [hydrOXYzine] 50 mg PO BEDTIME 09/25/18 [History] lamoTRIgine [Lamotrigine] 300 mg PO BID 09/25/18 [History] Fluticasone Propionate [Flonase] 2 spray NASBOTH DAILY 12/25/18 [History] Magnesium 250 mg PO DAILY 12/25/18 [History] QUEtiapine [SEROquel] 50 mg PO BEDTIME 12/25/18 [History] Riboflavin (Vitamin B2) [Vitamin B-2] 400 mg PO DAILY 12/25/18 [History] Sennosides/Docusate Sodium [Senna-S] 1 tab PO BID 12/25/18 [History] Polyethylene Glycol 3350 [MiraLAX] 17 gm PO BID #0 12/28/18 [Rx] Past Medical History - Past Health History Medical/Surgical History: Denies Medical/Surgical History Cardiovascular History: Reports: Hypertension Respiratory History: Reports: Asthma, Sleep Apnea, Other (See Below) Other Respiratory History: states that it is mild to moderate but does not use CPAP. Psychiatric History: Reports: Addiction, Anxiety, Bipolar, Depression - Past Surgical History GI Surgical History: Reports: Appendectomy, Cholecystectomy, Other (See Below) Other GI Surgeries/Procedures: tubal ablation, constipation. Female Surgical History: Reports: Other (See Below) Other Female Surgeries/Procedures: bladder prolapse repair. 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 Musculoskeletal Surgical History: Reports: Other (See Below) Other Musculoskeletal Surgeries/Procedures:: bilateral shoulder repair, feet surgeries that had plate and screws (removed after a year). Right wrist carpal tunnel and old fracture repair. Social & Family History - Family History Family Medical History: Noncontributory - Caffeine Use Caffeine Use: Reports: Soda ED ROS GENERAL - Review of Systems Review Of Systems: Unable To Obtain Reason Not Obtained: pt is uncooperative. ED EXAM, GENERAL - Physical Exam Exam: See Below Exam Limited By: Uncooperative General Appearance: Alert Ears: Normal TMs Nose: Normal Inspection, Normal Mucosa Throat/Mouth: Normal Inspection, Normal Oropharynx Head: Atraumatic, Normocephalic Neck: Normal Inspection, Supple, Non-Tender Respiratory/Chest: No Respiratory Distress, Lungs Clear Cardiovascular: Normal Peripheral Pulses, Regular Rate, Rhythm GI/Abdominal: Normal Bowel Sounds, Soft, Non-Tender Neurological: Alert, CN II-XII Intact, Normal Reflexes, No Motor/Sensory Deficits Skin Exam: Warm Course - Vital Signs Text/Narrative:: pt became shortly after initial evaluation more responsive and cooperative , pt report long Hx of depression and that she has been feeling lately very depressed and anxious, pt denies any hallucinations or suicidal ideations or any hallucinations or other medical problems or concerns. pt is eating now here and ambulatory appear comfortable , she presented with pseudoseizure and depressive sx , labs are stable and she is stable for outpatient mng. pt was given ativan 2 tablets to take at home if needed for recurrent sx and was asked to follow with PCP in 2 days. Last Recorded V/S: Last Vital Signs Temp 36.4 C 02/10/19 22:35 Pulse 86 02/10/19 22:35 Resp 18 02/10/19 22:35 BP 142/106 H 02/10/19 22:35 Pulse Ox 95 02/10/19 22:35 - Orders/Labs/Meds Orders: Active Orders 24 hr Category Date Time Status DRUG SCREEN, URINE ALERE [URCHEM] Stat Lab 02/10/19 22:42 Ordered Sodium Chloride 0.9% [Normal Saline] 1,000 ml Med 02/10/19 22:42 Ordered IV .BOLUS Medication Orders Sodium Chloride (Normal Saline) 1,000 mls @ 999 drops/hr IV .BOLUS ONE Stop: 02/11/19 13:42 Last Admin: 02/10/19 22:52 Dose: 999 drops/hr Labs: Laboratory Tests 02/10/19 02/10/19 02/10/19 Range/Units 22:54 22:54 22:54 WBC 6.7 (4.5-12.0) X10-3/uL RBC 4.55 (3.23-5.20) x10(6)uL Hgb 13.5 (11.5-15.5) g/dL Hct 40.1 (30.0-51.3) % MCV 88.2 (80-96) fL MCH 29.6 (27.7-33.6) pg MCHC 33.6 (32.2-35.4) g/dL RDW 12.8 (11.5-15.5) % Plt Count 352 (125-369) X10(3)uL MPV 7.7 (7.4-10.4) fL Neut % (Auto) 59.2 (46-82) % Lymph % (Auto) 31.4 (13-37) % [place] % (Auto) 7.2 (4-12) % Eos % (Auto) 1 (1.0-5.0) % Baso % (Auto) 1 (0-2) % Neut # (Auto) 3.9 (1.6-8.3) # Lymph # (Auto) 2.1 (0.6-5.0) # [place] # (Auto) 0.5 (0.0-1.3) # Eos # (Auto) 0.1 (0.0-0.8) # Baso # (Auto) 0.1 (0.0-0.2) # Sodium 139 (135-145) mmol/L Potassium 3.8 (3.5-5.3) mmol/L Chloride 101 (100-110) mmol/L Carbon Dioxide 28 (21-32) mmol/L BUN 15 (7-18) mg/dL Creatinine 1.1 H (0.55-1.02) mg/dL Est Cr Clr Drug Dosing TNP Estimated GFR (MDRD) 53 L (>60) BUN/Creatinine Ratio 13.6 (9-20) Glucose 97 (80-116) mg/dL Calcium 9.7 (8.6-10.2) mg/dL Total Bilirubin 0.4 (0.1-1.3) mg/dL AST 17 D (5-25) IU/L ALT 36 (12-36) U/L Alkaline Phosphatase 118 H (56-112) IU/L Total Protein 7.8 (6.0-8.0) g/dL Albumin 4.2 (3.5-5.2) g/dL Globulin 3.6 g/dL Albumin/Globulin Ratio 1.2 Ethyl Alcohol < 0.03 (<0.03) % Meds: Medications Generic Name Dose Route Start Last Admin Trade Name Freq PRN Reason Stop Dose Admin Sodium Chloride 1,000 mls @ 999 drops/hr 02/10/19 22:42 02/10/19 22:52 Normal Saline IV 02/11/19 13:42 999 drops/hr .BOLUS ONE Administration Departure - Departure Time of Disposition: 23:44 Disposition: Home, Self-Care 01 Clinical Impression: Anxiety - Discharge Information Forms: ED Department Discharge - My Orders Last 24 Hours: My Active Orders 02/10/19 22:42 DRUG SCREEN, URINE ALERE [URCHEM] Stat Sodium Chloride 0.9% [Normal Saline] 1,000 ml IV .BOLUS - Assessment/Plan Last 24 Hours: My Active Orders 02/10/19 22:42 DRUG SCREEN, URINE ALERE [URCHEM] Stat Sodium Chloride 0.9% [Normal Saline] 1,000 ml IV .BOLUS
[2019-02-10] MEDS ORDERED: LORazepam 1 MG Tab PO ONE (23:45)
== END 2019-02-11 00:29 | disposition home or self-care (01) ==
LOC: FB.ED 22:28
DX: F41.9 Anxiety disorder, unspecified (principal); I10 Essential (primary) hypertension; J45.909 Unspecified asthma, uncomplicated; F32.9 Major depressive disorder, single episode, unspecified; Z88.5 Allergy status to narcotic agent; Z91.040 Latex allergy status; Z88.6 Allergy status to analgesic agent; Z79.51 Long term (current) use of inhaled steroids; Z79.899 Other long term (current) drug therapy
CPT/HCPCS: 36415; 80053; 85025; 96360; 99285; A9270; G0480; J7030

== ENCOUNTER 2019-02-14 21:39 | Emergency (ER) | payer MEDICARE, MEDICAID ==
--- NOTE | 2019-02-14 22:15 | EDM.PDOC ---
ED HPI GENERAL MEDICAL PROBLEM - General Chief Complaint: Upper Extremity Injury/Pain Stated Complaint: HURT WRIST Time Seen by Provider: 02/14/19 21:55 Source of Information: Reports: Patient History Limitations: Reports: No Limitations - History of Present Illness INITIAL COMMENTS - FREE TEXT/NARRATIVE: pt had accidental fall, slipped on ice and c/o right wrist pain, denies any other injuries or any other associated sx or medical concerns. 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 Pain Score (Numeric/FACES): 0 - Related Data Allergies Allergy/AdvReac Type Severity Reaction Status Date / Time codeine Allergy Hives Verified 02/14/19 21:57 hydrocodone Allergy Hives Verified 02/14/19 21:57 latex Allergy Hives Verified 02/14/19 21:57 ibuprofen AdvReac Mild Nausea Verified 02/14/19 21:57 Home Meds: Home Meds Acetaminophen 650 mg PO Q4H PRN 09/25/18 [History] Albuterol [Ventolin HFA] 2 puff INH Q4H PRN 09/25/18 [History] ClonazePAM [KlonoPIN] 0.5 mg PO DAILY PRN 09/25/18 [History] Ibuprofen 200 mg PO Q4H PRN 09/25/18 [History] Lansoprazole 15 mg PO DAILY 09/25/18 [History] Lisinopril/Hydrochlorothiazide [Lisinopril-Hctz 20-12.5 mg Tab] 1 tab PO DAILY 09/25/18 [History] Magnesium Hydroxide [Milk of Magnesia] 30 ml PO DAILY PRN 09/25/18 [History] Multivitamins [Tab-A-Lesly] 1 tab PO DAILY 09/25/18 [History] Venlafaxine HCl [Venlafaxine ER] 75 mg PO DAILY 09/25/18 [History] Venlafaxine HCl [Venlafaxine ER] 150 mg PO DAILY 09/25/18 [History] hydrOXYzine HCl [hydrOXYzine] 50 mg PO BEDTIME 09/25/18 [History] lamoTRIgine [Lamotrigine] 300 mg PO BID 09/25/18 [History] Fluticasone Propionate [Flonase] 2 spray NASBOTH DAILY 12/25/18 [History] Magnesium 250 mg PO DAILY 12/25/18 [History] QUEtiapine [SEROquel] 50 mg PO BEDTIME 12/25/18 [History] Riboflavin (Vitamin B2) [Vitamin B-2] 400 mg PO DAILY 12/25/18 [History] Sennosides/Docusate Sodium [Senna-S] 1 tab PO BID 12/25/18 [History] Polyethylene Glycol 3350 [MiraLAX] 17 gm PO BID #0 12/28/18 [Rx] Past Medical History - Past Health History Medical/Surgical History: Denies Medical/Surgical History Cardiovascular History: Reports: Hypertension Respiratory History: Reports: Asthma, Sleep Apnea, Other (See Below) Other Respiratory History: states that it is mild to moderate but does not use CPAP. Neurological History: Reports: Other (See Below) Other Neuro History: Pseudoseizures Psychiatric History: Reports: Addiction, Anxiety, Bipolar, Depression - Past Surgical History GI Surgical History: Reports: Appendectomy, Cholecystectomy, Other (See Below) Other GI Surgeries/Procedures: tubal ablation, constipation. Female Surgical History: Reports: Other (See Below) Other Female Surgeries/Procedures: bladder prolapse repair. 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 Musculoskeletal Surgical History: Reports: Other (See Below) Other Musculoskeletal Surgeries/Procedures:: bilateral shoulder repair, feet surgeries that had plate and screws (removed after a year). Right wrist carpal tunnel and old fracture repair. Social & Family History - Family History Family Medical History: Noncontributory - Tobacco Use Smoking Status *Q: Current Every Day Smoker Years of Tobacco use: 25 Packs/Tins Daily: 0.5 - Caffeine Use Caffeine Use: Reports: Soda Review of Systems - Review of Systems Review Of Systems: See Below Constitutional: Reports: No Symptoms Respiratory: Reports: No Symptoms Cardiovascular: Reports: No Symptoms GI/Abdominal: Reports: No Symptoms ED EXAM, GENERAL - Physical Exam Exam: See Below Exam Limited By: No Limitations General Appearance: Alert, Mild Distress Ears: Normal External Exam Nose: Normal Inspection Head: Atraumatic, Normocephalic Neck: Normal Inspection, Supple, Non-Tender Respiratory/Chest: No Respiratory Distress, Lungs Clear, Normal Breath Sounds Cardiovascular: Normal Peripheral Pulses, Regular Rate, Rhythm GI/Abdominal: Normal Bowel Sounds, Soft, Non-Tender Extremities: Normal Inspection, Other (tender all arownd right wrist , no deformities or bruising. rest of RUE exam is nl. ) Course - Vital Signs Text/Narrative:: xray shows no acute findings, supportive mng for wrist contusion injury was recommended. Last Recorded V/S: Last Vital Signs Temp Pulse 81 02/14/19 21:40 Resp 16 02/14/19 21:40 BP 139/97 H 02/14/19 21:40 Pulse Ox 97 02/14/19 21:40 - Orders/Labs/Meds Orders: Active Orders 24 hr Category Date Time Status Wrist Comp Min 3V Rt [CR] Stat Exams 02/14/19 21:51 Taken Departure - Departure Time of Disposition: 22:14 Disposition: Home, Self-Care 01 Clinical Impression: Contusion of wrist, right - Discharge Information Referrals: Andi John MD [Primary Care Provider] - Sepsis Event Note - Evaluation Sepsis Screening Result: No Definite Risk - Focused Exam Vital Signs: Vital Signs Pulse Resp BP Pulse Ox 02/14/19 21:40 81 16 139/97 H 97 Date Exam was Performed: 02/14/19 Time Exam was Performed: 22:11 - My Orders Last 24 Hours: My Active Orders 02/14/19 21:51 Wrist Comp Min 3V Rt [CR] Stat - Assessment/Plan Last 24 Hours: My Active Orders 02/14/19 21:51 Wrist Comp Min 3V Rt [CR] Stat
--- NOTE | 2019-02-15 10:20 | CR ---
INDICATION: Fall, pain and swelling. RIGHT WRIST: Three views of the right wrist were obtained 02/14/19 and compared with 10/05/18. A postsurgical anchor is noted at the ulnar styloid area. Very minimal osteoarthritis, likely posttraumatic osteoarthritis, is noted at the radiocarpal joint. An acute fracture or dislocation was not identified. There are some mild degenerative changes at the first metacarpocarpal joint, interphalangeal joint of the thumb, and first metacarpophalangeal joint. Very minimal degenerative change is noted at the second and third metacarpophalangeal joints. IMPRESSION: 1. No acute fracture or dislocation. 2. Posttraumatic osteoarthritis radiocarpal area. 3. Postsurgical change ulna. 4. Mild osteoarthritis. MTDD
== END 2019-02-14 22:32 | disposition home or self-care (01) ==
LOC: FB.ED 21:39
DX: S60.211A Contusion of right wrist, initial encounter (principal); I10 Essential (primary) hypertension; J45.909 Unspecified asthma, uncomplicated; F32.9 Major depressive disorder, single episode, unspecified; F17.210 Nicotine dependence, cigarettes, uncomplicated; Z88.5 Allergy status to narcotic agent; Z88.6 Allergy status to analgesic agent; Z91.040 Latex allergy status; Z79.51 Long term (current) use of inhaled steroids; Z79.899 Other long term (current) drug therapy; W00.0XXA Fall on same level due to ice and snow, initial encounter
CPT/HCPCS: 73110-RT; 99282; 99283-25

== ENCOUNTER 2019-03-02 20:52 | Emergency (ER) | payer MEDICARE, MEDICAID ==
--- NOTE | 2019-03-02 21:06 | EDM.PDOC ---
ED HPI GENERAL MEDICAL PROBLEM - General Stated Complaint: SHARP PAIN ON LEFT REAR SIDE OF HEAD Time Seen by Provider: 03/02/19 21:00 Source of Information: Reports: Patient History Limitations: Reports: No Limitations - History of Present Illness INITIAL COMMENTS - FREE TEXT/NARRATIVE: 48-year-old female with 1 month long history of left occipital headache that has been present to some extent all the time but has had waxing and waning levels of intensity. It is a sharp pain that is worse with palpation over her left occiput. She has had no trauma. She has had no nausea or vomiting. She also reports some pain behind her left eye at times. Has been no vision problems. She reports her pain as a 10/10. It is a sharp and burning type pain. She reports that she does have sharp spikes in her pain and this one has been the worst and is not been resolving as it has the past. He has followed with Dr. John and he has referred her to Dr. 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 She is set to see him the end of March after her MRI that was scheduled for 03/25/2018. No fevers or chills. No neck stiffness. There are no other associated signs or symptoms. There are no other modifying factors. 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 Medication(s) (Tramadol) head Pain Score (Numeric/FACES): 10 - Related Data Allergies Allergy/AdvReac Type Severity Reaction Status Date / Time codeine Allergy Hives Verified 02/14/19 21:57 hydrocodone Allergy Hives Verified 02/14/19 21:57 latex Allergy Hives Verified 02/14/19 21:57 ibuprofen AdvReac Mild Nausea Verified 02/14/19 21:57 Home Meds: Home Meds Acetaminophen 650 mg PO Q4H PRN 09/25/18 [History] Albuterol [Ventolin HFA] 2 puff INH Q4H PRN 09/25/18 [History] ClonazePAM [KlonoPIN] 0.5 mg PO DAILY PRN 09/25/18 [History] Ibuprofen 200 mg PO Q4H PRN 09/25/18 [History] Lansoprazole 15 mg PO DAILY 09/25/18 [History] Lisinopril/Hydrochlorothiazide [Lisinopril-Hctz 20-12.5 mg Tab] 1 tab PO DAILY 09/25/18 [History] Magnesium Hydroxide [Milk of Magnesia] 30 ml PO DAILY PRN 09/25/18 [History] Multivitamins [Tab-A-Lesly] 1 tab PO DAILY 09/25/18 [History] Venlafaxine HCl [Venlafaxine ER] 75 mg PO DAILY 09/25/18 [History] Venlafaxine HCl [Venlafaxine ER] 150 mg PO DAILY 09/25/18 [History] hydrOXYzine HCL [hydrOXYzine] 50 mg PO BEDTIME 09/25/18 [History] lamoTRIgine [Lamotrigine] 300 mg PO BID 09/25/18 [History] Fluticasone Propionate [Flonase] 2 spray NASBOTH DAILY 12/25/18 [History] Magnesium 250 mg PO DAILY 12/25/18 [History] QUEtiapine [SEROquel] 50 mg PO BEDTIME 12/25/18 [History] Riboflavin (Vitamin B2) [Vitamin B-2] 400 mg PO DAILY 12/25/18 [History] Sennosides/Docusate Sodium [Senna-S] 1 tab PO BID 12/25/18 [History] Polyethylene Glycol 3350 [MiraLAX] 17 gm PO BID #0 12/28/18 [Rx] Past Medical History Cardiovascular History: Reports: Hypertension Respiratory History: Reports: Asthma, Sleep Apnea Neurological History: Reports: Other (See Below) Other Neuro History: Pseudoseizures Psychiatric History: Reports: Addiction, Anxiety, Bipolar, Depression - Past Surgical History GI Surgical History: Reports: Appendectomy, Cholecystectomy Female Surgical History: Reports: Endometrial Ablation, Tubal Ligation, Other (See Below) Other Female Surgeries/Procedures: bladder prolapse repair. 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 Musculoskeletal Surgical History: Reports: Other (See Below) Other Musculoskeletal Surgeries/Procedures:: bilateral shoulder repair, feet surgeries that had plate and screws (removed after a year). Right wrist carpal tunnel and old fracture repair. Social & Family History - Tobacco Use Smoking Status *Q: Current Every Day Smoker - Caffeine Use Caffeine Use: Reports: Soda - Alcohol Use Alcohol Use History: No - Living Situation & Occupation Occupation: Unemployed ED ROS GENERAL - Review of Systems Review Of Systems: See Below Constitutional: Reports: No Symptoms HEENT: Reports: No Symptoms Respiratory: Reports: No Symptoms Cardiovascular: Reports: No Symptoms GI/Abdominal: Reports: No Symptoms : Reports: No Symptoms Musculoskeletal: Reports: No Symptoms Skin: Reports: No Symptoms Neurological: Reports: Headache Hematologic/Lymphatic: Reports: No Symptoms Immunologic: Reports: No Symptoms - Physical Exam Exam: See Below Exam Limited By: No Limitations General Appearance: Alert, WD/WN, Moderate Distress Eye Exam: Bilateral Eye: EOMI, Normal Inspection, PERRL Ears: Normal External Exam, Hearing Grossly Normal Nose: Normal Inspection, Normal Mucosa, No Blood Throat/Mouth: Normal Inspection, Normal Lips, Normal Oropharynx, Normal Voice, No Airway Compromise Head Exam: Atraumatic, Normocephalic, Scalp Tenderness (Tender to palpation over the left occipital prominence. No crepitus. No increased warmth. No redness.) Neck: Normal Inspection, Supple, Non-Tender, Full Range of Motion Respiratory/Chest: No Respiratory Distress, Lungs Clear, Normal Breath Sounds, No Accessory Muscle Use, Chest Non-Tender Cardiovascular: Normal Peripheral Pulses, Regular Rate, Rhythm, No Murmur GI/Abdominal: Normal Bowel Sounds, Soft, Non-Tender, No Mass Neuro Exam (Abbreviated): Alert, Oriented, CN II-XII Intact, Normal Cognition, No Motor/Sensory Deficits Back Exam: Normal Inspection, Full Range of Motion Extremities: Normal Inspection, Normal Range of Motion, Non-Tender, No Pedal Edema, Normal Capillary Refill Skin Exam: Warm, Dry, Intact, Normal Color, No Rash Course - Vital Signs Last Recorded V/S: Last Vital Signs Temp 36.8 C 03/02/19 20:52 Pulse 76 03/02/19 20:52 Resp 17 03/02/19 20:52 BP 130/78 03/02/19 20:52 Pulse Ox 97 03/02/19 20:52 - Orders/Labs/Meds Orders: Active Orders 24 hr Category Date Time Status Head wo Cont [CT] Stat Exams 03/02/19 21:24 Taken Labs: Laboratory Tests 03/02/19 03/02/19 Range/Units 21:35 21:35 WBC 6.4 (4.5-12.0) X10-3/uL RBC 4.52 (3.23-5.20) x10(6)uL Hgb 13.2 (11.5-15.5) g/dL Hct 39.7 (30.0-51.3) % MCV 87.9 (80-96) fL MCH 29.1 (27.7-33.6) pg MCHC 33.1 (32.2-35.4) g/dL RDW 12.4 (11.5-15.5) % Plt Count 327 (125-369) X10(3)uL MPV 7.8 (7.4-10.4) fL Neut % (Auto) 68.9 (46-82) % Lymph % (Auto) 24.7 (13-37) % Bertie % (Auto) 5.4 (4-12) % Eos % (Auto) 0 L (1.0-5.0) % Baso % (Auto) 1 (0-2) % Neut # (Auto) 4.3 (1.6-8.3) # Lymph # (Auto) 1.6 (0.6-5.0) # Bertie # (Auto) 0.3 (0.0-1.3) # Eos # (Auto) 0.0 (0.0-0.8) # Baso # (Auto) 0.1 (0.0-0.2) # ESR 16 (0-20) mm/hr Sodium 138 (135-145) mmol/L Potassium 3.8 (3.5-5.3) mmol/L Chloride 100 (100-110) mmol/L Carbon Dioxide 29 (21-32) mmol/L BUN 14 (7-18) mg/dL Creatinine 1.1 H (0.55-1.02) mg/dL Est Cr Clr Drug Dosing 55.18 mL/min Estimated GFR (MDRD) 53 L (>60) BUN/Creatinine Ratio 12.7 (9-20) Glucose 96 (80-116) mg/dL Calcium 9.6 (8.6-10.2) mg/dL Total Bilirubin 0.4 (0.1-1.3) mg/dL AST 27 H D (5-25) IU/L ALT 42 H D (12-36) U/L Alkaline Phosphatase 103 (56-112) IU/L Total Protein 7.8 (6.0-8.0) g/dL Albumin 4.3 (3.5-5.2) g/dL Globulin 3.5 g/dL Albumin/Globulin Ratio 1.2 Meds: Medications Discontinued Medications Generic Name Dose Route Start Last Admin Trade Name Freq PRN Reason Stop Dose Admin Bupivacaine HCl 2 ml 03/02/19 22:24 03/02/19 22:46 Sensorcaine-Mpf 0.5% INJECT 03/02/19 22:25 Not Given ONETIME ONE Bupivacaine HCl 2 ml 03/02/19 22:36 03/02/19 22:48 Marcaine 0.75% INJECT 03/02/19 22:37 2 ml ONETIME ONE Administration Bupivacaine HCl 10 ml 03/02/19 22:38 03/02/19 22:47 Marcaine 0.75% INJECT 03/02/19 22:39 Not Given ONETIME ONE Diazepam 5 mg 03/02/19 21:25 03/02/19 21:29 Valium. PO 03/02/19 21:26 5 mg ONETIME ONE Administration Ketorolac Tromethamine 60 mg 03/02/19 21:25 03/02/19 21:29 Toradol IM 03/02/19 21:26 60 mg ONETIME ONE Administration Triamcinolone Acetonide 40 mg 03/02/19 22:24 03/02/19 22:48 Kenalog-40 IDERM 03/02/19 22:25 40 mg ONETIME ONE Administration - Radiology Interpretation Free Text/Narrative:: CT scan of brain and head showed no acute intracranial abnormality per the radiologist at [facility]. - Re-Assessments/Exams Free Text/Narrative Re-Assessment/Exam: 03/02/19 22:00: The CT scan of the patient's head was normal. The blood tests are reassuringly normal as well. Her pain is much improved after the Toradol IM and the Valium po. She was sleeping prior to my reevaluation of her. The patient does however appear to have a trigger point pain over the left occipital prominence. I discussed with the patient possible trigger point injection with bupivacaine and Kenalog. I discussed the risk and benefits associated with this and the patient would like me to proceed with steroid trigger point injection in the area mentioned above. 03/02/19 22:40: Trigger point injection: Using ChloraPrep the area over the left occipital prominence was prepped and using aseptic technique 2 mL's of 0.75 % Marcaine and 1 mL of Kenalog 40 was injected into this area subcutaneously. The patient tolerated this well and there were no apparent complications. Following this, the patient reported relief of her symptoms of pain in this area and almost complete relief of her left occipital headache. The patient will be stable for discharge for any further pain medications I told her that she would need to follow-up through her primary provider. Departure - Departure Time of Disposition: 23:00 Disposition: Home, Self-Care 01 Condition: Good (Improved) Clinical Impression: Headache in back of head, Trigger point of head - Discharge Information Referrals: Andi John MD [Primary Care Provider] - Additional Instructions: Your blood tests were reassuringly normal. The CT scan of your head showed no acute problem. You did have pain over your left occipital prominence. Could be due to an inflammation in this area. It could also be due to an inflammation in the nerve in this area called the occipital nerve. I injected anti-inflammatory medication in to the area of your pain and may help reduce this inflammation and decrease your pain. You may continue to take Tylenol 1000 mg by mouth every 6 hours as needed for pain. You may also take the tramadol as needed for more severe pain. Follow-up with your primary doctor for any further pain medications. Keep your appointment for the MRI and with Dr. Palmer as scheduled. Back to the emergency department for high fever, unrelenting vomiting , severe increase in pain or any other concerning sign or symptom. Sepsis Event Note - Focused Exam Vital Signs: Vital Signs Temp Pulse Resp BP Pulse Ox 03/02/19 20:52 36.8 C 76 17 130/78 97 Date Exam was Performed: 03/02/19 Time Exam was Performed: 23:01 - My Orders Last 24 Hours: My Active Orders 03/02/19 21:24 Head wo Cont [CT] Stat - Assessment/Plan Last 24 Hours: My Active Orders 03/02/19 21:24 Head wo Cont [CT] Stat
[2019-03-02] MEDS ORDERED: Diazepam 5 MG Tab PO ONE (21:25)
[2019-03-02] MEDS ORDERED: Ketorolac 60 MG/2 ML SDV IM ONE (21:25)
[2019-03-02] MEDS ORDERED: Triamcinolone Acetonide 40 MG/ML 1 ML MDV IDERM ONE (22:24)
[2019-03-02] MEDS: Bupivacaine 0.5% 10 ML SDV INJECT ONE ×2 (22:36→22:46)
== END 2019-03-02 23:20 | disposition home or self-care (01) ==
LOC: FB.ED 20:52
DX: R51 Headache (principal); F31.9 Bipolar disorder, unspecified; F41.9 Anxiety disorder, unspecified; I10 Essential (primary) hypertension; J45.909 Unspecified asthma, uncomplicated; F17.200 Nicotine dependence, unspecified, uncomplicated; Z79.899 Other long term (current) drug therapy
CPT/HCPCS: 20551; 20552; 36415; 70450; 80053; 85025; 85651; 96372; 99283; 99284; A9270; J1885; J3301; J3490

== ENCOUNTER 2019-03-05 03:28 | Emergency (ER) | payer MEDICARE, MEDICAID ==
--- NOTE | 2019-03-05 03:52 | EDM.PDOC ---
ED HPI GENERAL MEDICAL PROBLEM - General Chief Complaint: Skin Complaint Stated Complaint: ASHTON ON ARM Time Seen by Provider: 03/05/19 03:35 Source of Information: Reports: Patient History Limitations: Reports: No Limitations - History of Present Illness INITIAL COMMENTS - FREE TEXT/NARRATIVE: Gladys comes into [facility] ED with some verticle ashton on the skin overlying the L wrist, signficance unknown. She reportedly had struck some fixtures recently when frustrated, and has become worried that she may have damaged the skin or wrist. There is minor discomfort, but no swelling or other deformity. She has taken no meds. - Related Data Allergies Allergy/AdvReac Type Severity Reaction Status Date / Time codeine Allergy Hives Verified 02/14/19 21:57 hydrocodone Allergy Hives Verified 02/14/19 21:57 latex Allergy Hives Verified 02/14/19 21:57 ibuprofen AdvReac Mild Nausea Verified 02/14/19 21:57 Home Meds: Home Meds Acetaminophen 650 mg PO Q4H PRN 09/25/18 [History] Albuterol [Ventolin HFA] 2 puff INH Q4H PRN 09/25/18 [History] ClonazePAM [KlonoPIN] 0.5 mg PO DAILY PRN 09/25/18 [History] Ibuprofen 200 mg PO Q4H PRN 09/25/18 [History] Lansoprazole 15 mg PO DAILY 09/25/18 [History] Lisinopril/Hydrochlorothiazide [Lisinopril-Hctz 20-12.5 mg Tab] 1 tab PO DAILY 09/25/18 [History] Magnesium Hydroxide [Milk of Magnesia] 30 ml PO DAILY PRN 09/25/18 [History] Multivitamins [Tab-A-Lesly] 1 tab PO DAILY 09/25/18 [History] Venlafaxine HCl [Venlafaxine ER] 75 mg PO DAILY 09/25/18 [History] Venlafaxine HCl [Venlafaxine ER] 150 mg PO DAILY 09/25/18 [History] hydrOXYzine HCL [hydrOXYzine] 50 mg PO BEDTIME 09/25/18 [History] lamoTRIgine [Lamotrigine] 300 mg PO BID 09/25/18 [History] Fluticasone Propionate [Flonase] 2 spray NASBOTH DAILY 12/25/18 [History] Magnesium 250 mg PO DAILY 12/25/18 [History] QUEtiapine [SEROquel] 50 mg PO BEDTIME 12/25/18 [History] Riboflavin (Vitamin B2) [Vitamin B-2] 400 mg PO DAILY 12/25/18 [History] Sennosides/Docusate Sodium [Senna-S] 1 tab PO BID 12/25/18 [History] Polyethylene Glycol 3350 [MiraLAX] 17 gm PO BID #0 12/28/18 [Rx] Past Medical History - Past Health History Medical/Surgical History: Denies Medical/Surgical History Cardiovascular History: Reports: Hypertension Respiratory History: Reports: Asthma, Sleep Apnea Other Respiratory History: states that it is mild to moderate but does not use CPAP. Neurological History: Reports: Other (See Below) Other Neuro History: Pseudoseizures Psychiatric History: Reports: Addiction, Anxiety, Bipolar, Depression - Past Surgical History GI Surgical History: Reports: Appendectomy, Cholecystectomy Female Surgical History: Reports: Endometrial Ablation, Tubal Ligation, Other (See Below) Other Female Surgeries/Procedures: bladder prolapse repair. 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 Musculoskeletal Surgical History: Reports: Other (See Below) Other Musculoskeletal Surgeries/Procedures:: bilateral shoulder repair, feet surgeries that had plate and screws (removed after a year). Right wrist carpal tunnel and old fracture repair. Social & Family History - Family History Family Medical History: Noncontributory - Caffeine Use Caffeine Use: Reports: Soda - Living Situation & Occupation Occupation: Unemployed Review of Systems - Review of Systems Review Of Systems: Comprehensive ROS is negative, except as noted in HPI. ED EXAM, GENERAL - Physical Exam Exam: See Below Exam Limited By: No Limitations General Appearance: Alert, WD/WN, No Apparent Distress, Obese Neck: Normal Inspection Respiratory/Chest: Lungs Clear, Chest Non-Tender Cardiovascular: Regular Rate, Rhythm, No Murmur GI/Abdominal: Normal Bowel Sounds, Soft, Non-Tender, No Organomegaly, No Distention, No Mass (Female) Exam: Deferred Rectal (Female) Exam: Deferred Back Exam: Normal Inspection Extremities: Normal Range of Motion, Non-Tender, No Pedal Edema, Normal Capillary Refill, Other (minor verticle markings overlying lateral aspect of L distal forearm) Neurological: Alert, Oriented, CN II-XII Intact, Normal Cognition, Normal Gait, No Motor/Sensory Deficits Psychiatric: Normal Affect, Anxious Skin Exam: Warm, Intact, Normal Color, No Rash Lymphatic: No Adenopathy Departure - Departure Time of Disposition: 03:47 Disposition: Home, Self-Care 01 Condition: Fair Clinical Impression: Left wrist pain - Discharge Information *PRESCRIPTION DRUG MONITORING PROGRAM REVIEWED*: Not Applicable *COPY OF PRESCRIPTION DRUG MONITORING REPORT IN PATIENT LAURA: Not Applicable Instructions: Wrist Pain, Adult, [id number] Referrals: Andi John MD [Primary Care Provider] - Forms: ED Department Discharge Additional Instructions: follow up with your primary care as needed you may apply ice - Problem List & Annotations (1) Left wrist pain SNOMED Code(s): 39649180 Code(s): M25.532 - PAIN IN LEFT WRIST Status: Acute Current Visit: Yes Annotation/Comment:: L wrist pain with overlying verticle skin markings of doubtful signficance. Reassurrance given, observation. - Problem List Review Problem List Initiated/Reviewed/Updated: Yes - Assessment/Plan Plan: Follow up with PCP if needed.
== END 2019-03-05 03:50 | disposition home or self-care (01) ==
LOC: FB.ED 03:28
CPT/HCPCS: 99282; 99283

== ENCOUNTER 2019-03-13 03:29 | Emergency (ER) | payer MEDICARE, MEDICAID ==
--- NOTE | 2019-03-13 08:14 | EDM.PDOC ---
ED HPI GENERAL MEDICAL PROBLEM - General Chief Complaint: Neurological Problem Stated Complaint: OTMY Time Seen by Provider: 03/13/19 04:00 Source of Information: Reports: Patient, EMS History Limitations: Reports: No Limitations - History of Present Illness INITIAL COMMENTS - FREE TEXT/NARRATIVE: pt comes form her nursing home with possible sz like activities , pt is a frequent visitor to ER with similar complaints, has Hx of behavioral and mental illness, also pseudoseizures , early this morning she was jerking her extremitas and EMS were contacted, in rout to hospital was given 2 versed , pt is alert and responsive through out those jerking movements, she settled down shortly after arriver here, denies any head injury, fever chills, urinary sx or resp or CV sx or any specific medical concerns., - Related Data Allergies Allergy/AdvReac Type Severity Reaction Status Date / Time codeine Allergy Hives Verified 03/13/19 03:56 hydrocodone Allergy Hives Verified 03/13/19 03:56 latex Allergy Hives Verified 03/13/19 03:56 ibuprofen AdvReac Mild Nausea Verified 03/13/19 03:56 Home Meds: Home Meds Acetaminophen 650 mg PO Q4H PRN 09/25/18 [History] Albuterol [Ventolin HFA] 2 puff INH Q4H PRN 09/25/18 [History] ClonazePAM [KlonoPIN] 0.5 mg PO DAILY PRN 09/25/18 [History] Ibuprofen 200 mg PO Q4H PRN 09/25/18 [History] Lansoprazole 15 mg PO DAILY 09/25/18 [History] Lisinopril/Hydrochlorothiazide [Lisinopril-Hctz 20-12.5 mg Tab] 1 tab PO DAILY 09/25/18 [History] Magnesium Hydroxide [Milk of Magnesia] 30 ml PO DAILY PRN 09/25/18 [History] Multivitamins [Tab-A-Lesly] 1 tab PO DAILY 09/25/18 [History] Venlafaxine HCl [Venlafaxine ER] 75 mg PO DAILY 09/25/18 [History] Venlafaxine HCl [Venlafaxine ER] 150 mg PO DAILY 09/25/18 [History] hydrOXYzine HCL [hydrOXYzine] 50 mg PO BEDTIME 09/25/18 [History] lamoTRIgine [Lamotrigine] 300 mg PO BID 09/25/18 [History] Fluticasone Propionate [Flonase] 2 spray NASBOTH DAILY 12/25/18 [History] Magnesium 250 mg PO DAILY 12/25/18 [History] QUEtiapine [SEROquel] 50 mg PO BEDTIME 12/25/18 [History] Riboflavin (Vitamin B2) [Vitamin B-2] 400 mg PO DAILY 12/25/18 [History] Sennosides/Docusate Sodium [Senna-S] 1 tab PO BID 12/25/18 [History] Polyethylene Glycol 3350 [MiraLAX] 17 gm PO BID #0 12/28/18 [Rx] Past Medical History - Past Health History Medical/Surgical History: Denies Medical/Surgical History Cardiovascular History: Reports: Hypertension Respiratory History: Reports: Asthma, Sleep Apnea Other Respiratory History: states that it is mild to moderate but does not use CPAP. Neurological History: Reports: Other (See Below) Other Neuro History: Pseudoseizures Psychiatric History: Reports: Addiction, Anxiety, Bipolar, Depression, Panic Attack - Past Surgical History GI Surgical History: Reports: Appendectomy, Cholecystectomy Female Surgical History: Reports: Endometrial Ablation, Tubal Ligation, Other (See Below) Other Female Surgeries/Procedures: bladder prolapse repair. 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 Musculoskeletal Surgical History: Reports: Other (See Below) Other Musculoskeletal Surgeries/Procedures:: bilateral shoulder repair, feet surgeries that had plate and screws (removed after a year). Right wrist carpal tunnel and old fracture repair. Social & Family History - Family History Family Medical History: Noncontributory - Tobacco Use Smoking Status *Q: Current Every Day Smoker Years of Tobacco use: 25 Packs/Tins Daily: 1 - Caffeine Use Caffeine Use: Reports: Soda - Recreational Drug Use Recreational Drug Use: No - Living Situation & Occupation Occupation: Unemployed ED ROS GENERAL - Review of Systems Review Of Systems: See Below Constitutional: Reports: No Symptoms HEENT: Reports: No Symptoms Respiratory: Reports: No Symptoms Cardiovascular: Reports: No Symptoms GI/Abdominal: Reports: No Symptoms : Reports: No Symptoms Musculoskeletal: Reports: No Symptoms Skin: Reports: No Symptoms Neurological: Reports: No Symptoms ED EXAM, GENERAL - Physical Exam Exam: See Below Exam Limited By: No Limitations General Appearance: Alert, Anxious Ears: Normal External Exam Nose: Normal Inspection Throat/Mouth: Normal Inspection Head: Atraumatic, Normocephalic Neck: Normal Inspection, Supple, Non-Tender Respiratory/Chest: No Respiratory Distress, Lungs Clear Cardiovascular: Normal Peripheral Pulses, Regular Rate, Rhythm GI/Abdominal: Normal Bowel Sounds, Soft, Non-Tender Back Exam: Normal Inspection, Full Range of Motion Neurological: Alert, Oriented, CN II-XII Intact, Normal Reflexes, No Motor/ Sensory Deficits Psychiatric: Normal Affect Skin Exam: Warm Course - Vital Signs Text/Narrative:: labs are unremarkable , pt is asymptomatic here after arrival, pt has pseudoseizures and she is stable for discharge. Last Recorded V/S: Last Vital Signs Temp 36.1 C 03/13/19 03:30 Pulse 66 03/13/19 07:00 Resp 16 03/13/19 07:00 BP 126/76 03/13/19 07:00 Pulse Ox 96 03/13/19 07:00 - Orders/Labs/Meds Labs: Laboratory Tests 03/13/19 03/13/19 03/13/19 Range/Units 04:20 04:20 05:42 WBC 7.3 (4.5-12.0) X10-3/uL RBC 4.15 (3.23-5.20) x10(6)uL Hgb 12.2 (11.5-15.5) g/dL Hct 36.4 (30.0-51.3) % MCV 87.5 (80-96) fL MCH 29.3 (27.7-33.6) pg MCHC 33.5 (32.2-35.4) g/dL RDW 12.5 (11.5-15.5) % Plt Count 344 (125-369) X10(3)uL MPV 7.4 (7.4-10.4) fL Neut % (Auto) 72.9 (46-82) % Lymph % (Auto) 21.1 (13-37) % Dundy % (Auto) 5.6 (4-12) % Eos % (Auto) 0 L (1.0-5.0) % Baso % (Auto) 0 (0-2) % Neut # (Auto) 5.4 (1.6-8.3) # Lymph # (Auto) 1.5 (0.6-5.0) # Dundy # (Auto) 0.4 (0.0-1.3) # Eos # (Auto) 0.0 (0.0-0.8) # Baso # (Auto) 0.0 (0.0-0.2) # Sodium 142 (135-145) mmol/L Potassium 3.7 (3.5-5.3) mmol/L Chloride 103 (100-110) mmol/L Carbon Dioxide 29 (21-32) mmol/L BUN 25 H D (7-18) mg/dL Creatinine 1.2 H (0.55-1.02) mg/dL Est Cr Clr Drug Dosing TNP Estimated GFR (MDRD) 48 L (>60) BUN/Creatinine Ratio 20.8 H (9-20) Glucose 99 (80-116) mg/dL Calcium 9.0 (8.6-10.2) mg/dL Total Bilirubin 0.3 (0.1-1.3) mg/dL AST 14 D (5-25) IU/L ALT 28 D (12-36) U/L Alkaline Phosphatase 91 (56-112) IU/L Total Protein 7.0 (6.0-8.0) g/dL Albumin 3.8 (3.5-5.2) g/dL Globulin 3.2 g/dL Albumin/Globulin Ratio 1.2 Urine Color Yellow (YELLOW) Urine Appearance Slightly cloudy (CLEAR) Urine pH 5.0 (5.0-6.5) Ur Specific Marion 1.025 (1.010-1.025) Urine Protein Trace (NEGATIVE) mg/dL Urine Glucose (UA) Normal (NORMAL) mg/dL Urine Ketones Negative (NEGATIVE) mg/dL Urine Occult Blood Negative (NEGATIVE) Urine Nitrite Negative (NEGATIVE) Urine Bilirubin Negative (NEGATIVE) Urine Urobilinogen Normal (NEGATIVE) mg/dL Ur Leukocyte Esterase Small H (NEGATIVE) Urine RBC 0-5 (0-5) Urine WBC 5-10 H (0-5) Ur Squamous Epith Cells Moderate H (NS,R,O) Urine Bacteria Many H (NS) Departure - Departure Time of Disposition: 07:00 Disposition: Home, Self-Care 01 Clinical Impression: Pseudoseizure - Discharge Information Referrals: PCP,None [Primary Care Provider] - Forms: ED Department Discharge Care Plan Goals: follow up at clinic as needed Continue your medications Sepsis Event Note - Evaluation Sepsis Screening Result: No Definite Risk - Focused Exam Vital Signs: Vital Signs Temp Pulse Resp BP Pulse Ox 03/13/19 07:00 66 16 126/76 96 03/13/19 05:15 15 110/59 L 98 03/13/19 05:00 13 108/62 97 03/13/19 04:45 13 109/63 97 03/13/19 04:30 15 96/51 L 96 03/13/19 04:15 17 107/58 L 95 03/13/19 04:00 15 121/40 L 95 03/13/19 03:45 24 H 111/51 L 95 03/13/19 03:30 36.1 C 66 18 98/64 97 Date Exam was Performed: 03/13/19 Time Exam was Performed: 08:09
== END 2019-03-13 07:15 | disposition home or self-care (01) ==
LOC: FB.ED 03:29
DX: F44.5 Conversion disorder with seizures or convulsions (principal); I10 Essential (primary) hypertension; F32.9 Major depressive disorder, single episode, unspecified; F17.210 Nicotine dependence, cigarettes, uncomplicated; Z88.8 Allergy status to other drugs, medicaments and biological substances; Z91.040 Latex allergy status; Z88.6 Allergy status to analgesic agent; Z79.899 Other long term (current) drug therapy
CPT/HCPCS: 36415; 80053; 81001; 85025; 99284

== ENCOUNTER 2019-03-21 16:29 | Emergency (ER) | payer MEDICARE, MEDICAID ==
[2019-03-21] MEDS ORDERED: LORazepam 1 MG Tab PO ONE (16:40)
--- NOTE | 2019-03-21 16:45 | EDM.PDOCBH ---
ED HPI GENERAL MEDICAL PROBLEM - General Chief Complaint: Behavioral/Psych Stated Complaint: ANXIETY Time Seen by Provider: 03/21/19 16:41 Source of Information: Reports: Patient, EMS History Limitations: Reports: No Limitations - History of Present Illness INITIAL COMMENTS - FREE TEXT/NARRATIVE: Patient checked on her sleeping friend who lives in the same apartment building. Her breathing pattern reminded the patient of her grandmother just before she . This caused her to become very anxious. The patient then returned back to her apartment, called her friend because she wasn't feeling well. The friend found her to be unresponsive so called 911. Upon EMS arrival, the patient was laying in bed unresponsive, but awoke with nail bed pressure. The patient has a history of intellectual disability, anxiety, and pseudoseizure. She is tearful and tremulous. Patient ook her last Lorazepam @ 1400 (prior to this incident). Denies chest pain, headache or injury today. She does complain of left lower back pain x several days after a twisting injury, and was prescribed Hydrocodone and Benadryl by her primary physician. Onset: Today Duration: Hour(s): (1) Severity: Moderate Associated Symptoms: Reports: No Other Symptoms - Related Data Allergies Allergy/AdvReac Type Severity Reaction Status Date / Time codeine Allergy Hives Verified 03/21/19 17:10 hydrocodone Allergy Hives Verified 03/21/19 17:10 latex Allergy Hives Verified 03/21/19 17:10 ibuprofen AdvReac Mild Nausea Verified 03/21/19 17:10 Home Meds: Home Meds Acetaminophen 650 mg PO Q4H PRN 09/25/18 [History] Albuterol [Ventolin HFA] 1 - 2 puff INH Q4H PRN 09/25/18 [History] ClonazePAM [KlonoPIN] 0.5 mg PO DAILY PRN 09/25/18 [History] Lansoprazole 15 mg PO DAILY 09/25/18 [History] Lisinopril/Hydrochlorothiazide [Lisinopril-Hctz 20-12.5 mg Tab] 1 tab PO DAILY 09/25/18 [History] Magnesium Hydroxide [Milk of Magnesia] 30 ml PO DAILY PRN 09/25/18 [History] Multivitamins [Tab-A-Lesly] 1 tab PO DAILY 09/25/18 [History] Venlafaxine HCl [Venlafaxine ER] 75 mg PO DAILY 09/25/18 [History] Venlafaxine HCl [Venlafaxine ER] 150 mg PO DAILY 09/25/18 [History] lamoTRIgine [Lamotrigine] 300 mg PO BID 09/25/18 [History] Fluticasone Propionate [Flonase] 2 spray NASBOTH Q2H PRN 12/25/18 [History] QUEtiapine [SEROquel] 50 mg PO BEDTIME 12/25/18 [History] Polyethylene Glycol 3350 [MiraLAX] 17 gm PO BID #0 12/28/18 [Rx] Cholecalciferol (Vitamin D3) [Vitamin D3] 5,000 unit PO DAILY 03/21/19 [History] Cyclobenzaprine [Flexeril] 5 mg PO 1600 03/21/19 [History] Cyclobenzaprine [Flexeril] 10 mg PO BEDTIME 03/21/19 [History] Cyclobenzaprine [Flexeril] 10 mg PO DAILY PRN 03/21/19 [History] Gabapentin [Neurontin] 300 mg PO BID 03/21/19 [History] Oxybutynin 5 mg PO BID 03/21/19 [History] Sucralfate 1 tab PO TID 03/21/19 [History] traMADol [Ultram] 50 mg PO Q6H PRN 03/21/19 [History] Past Medical History Cardiovascular History: Reports: Hypertension Respiratory History: Reports: Asthma, Sleep Apnea Other Respiratory History: states that it is mild to moderate but does not use CPAP. Neurological History: Reports: Other (See Below) Other Neuro History: Pseudoseizures Psychiatric History: Reports: Addiction, Anxiety, Bipolar, Depression, Panic Attack - Past Surgical History GI Surgical History: Reports: Appendectomy, Cholecystectomy Female Surgical History: Reports: Endometrial Ablation, Tubal Ligation, Other (See Below) Other Female Surgeries/Procedures: bladder prolapse repair. 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 Musculoskeletal Surgical History: Reports: Other (See Below) Other Musculoskeletal Surgeries/Procedures:: bilateral shoulder repair, feet surgeries that had plate and screws (removed after a year). Right wrist carpal tunnel and old fracture repair. Social & Family History - Family History Family Medical History: Noncontributory - Tobacco Use Smoking Status *Q: Current Every Day Smoker Tobacco Use Within Last Twelve Months: Cigarettes - Caffeine Use Caffeine Use: Reports: Soda - Alcohol Use Alcohol Use History: No - Recreational Drug Use Recreational Drug Use: No - Living Situation & Occupation Occupation: Unemployed ED ROS GENERAL - Review of Systems Review Of Systems: Comprehensive ROS is negative, except as noted in HPI. ED EXAM, BEHAVIORAL HEALTH - Physical Exam Exam: See Below Exam Limited By: No Limitations General Appearance: Alert, No Apparent Distress, Anxious, Other (tearful, tremulous) Eye Exam: Bilateral Eye: EOMI, PERRL Ears: Normal External Exam Nose: Normal Inspection Throat/Mouth: Normal Inspection, No Airway Compromise Head: Atraumatic, Normocephalic Neck: Full Range of Motion Respiratory/Chest: No Respiratory Distress, Lungs Clear, Normal Breath Sounds Cardiovascular: Regular Rate, Rhythm, No Murmur GI/Abdominal: Normal Bowel Sounds, Soft, Non-Tender, No Distention Back Exam: Other (mild left lower back tenderness) Neurological: Alert, Normal Cognition, No Motor/Sensory Deficits, Oriented x 3 Psychiatric: Alert, Normal Cognition, Oriented, Tearful Skin Exam: Warm, Dry, Intact COURSE, BEHAVIORAL HEALTH COMP - Course Vital Signs: Last Vital Signs Temp 36.6 C 03/21/19 16:40 Pulse 79 03/21/19 17:25 Resp 20 03/21/19 17:25 BP 128/84 03/21/19 17:25 Pulse Ox 97 03/21/19 17:25 Orders, Labs, Meds: Medications Discontinued Medications Generic Name Dose Route Start Last Admin Trade Name Federico PRN Reason Stop Dose Admin Lorazepam 1 mg 03/21/19 16:40 03/21/19 16:50 Ativan PO 03/21/19 16:41 1 mg ONETIME ONE Administration Re-Assessment/Re-Exam: Patient feels much improved after Ativan 1mg PO. She is calm and answers questions appropriately. Departure - Departure Time of Disposition: 17:46 Disposition: Home, Self-Care 01 Condition: Good Clinical Impression: Anxiety - Discharge Information *PRESCRIPTION DRUG MONITORING PROGRAM REVIEWED*: Yes *COPY OF PRESCRIPTION DRUG MONITORING REPORT IN PATIENT LAURA: No Instructions: Generalized Anxiety Disorder, Adult Forms: ED Department Discharge Additional Instructions: Discontinue the Flexeril and Hydrocodone. Follow up with your primary physician in 1-2 days. Return to the ER if symptoms recur or worsen. Sepsis Event Note - Focused Exam Vital Signs: Vital Signs Temp Pulse Resp BP Pulse Ox 03/21/19 17:25 79 20 128/84 97 03/21/19 16:40 36.6 C 80 22 H 132/74 97 Date Exam was Performed: 03/21/19 Time Exam was Performed: 17:46
== END 2019-03-21 19:03 | disposition home or self-care (01) ==
LOC: FB.ED 16:29
DX: F41.9 Anxiety disorder, unspecified (principal); F17.210 Nicotine dependence, cigarettes, uncomplicated; I10 Essential (primary) hypertension; J45.909 Unspecified asthma, uncomplicated; F31.9 Bipolar disorder, unspecified; Z79.899 Other long term (current) drug therapy; Z88.5 Allergy status to narcotic agent; Z88.6 Allergy status to analgesic agent; Z91.040 Latex allergy status
CPT/HCPCS: 99283; 99284; A9270

== ENCOUNTER 2019-04-12 03:40 | Emergency (ER) | payer MEDICARE, MEDICAID ==
--- NOTE | 2019-04-12 03:49 | EDM.PDOC ---
ED HPI GENERAL MEDICAL PROBLEM - General Stated Complaint: SEIZURES Time Seen by Provider: 04/12/19 03:47 Source of Information: Reports: Patient, EMS History Limitations: Reports: Altered Mental Status - History of Present Illness INITIAL COMMENTS - FREE TEXT/NARRATIVE: 48-year-old female with history of cognitive disorder, anxiety disorder with panic attacks and pseudoseizures who presents to the emergency department via ambulance secondary to jerking and shaking all over with anxiety. Patient has been to this emergency Department multiple times with similar type episodes. She was just at this facility on 03/21/2019 with a pseudoseizure episode following anxiety-related thoughts of her grandmother passing. Tonight she sprained her left foot and ankle and she was anxious about this and her neighbor who usually calms her down when she has episodes of anxiety came and helped her with her problem and she called and they placed a splint on her left ankle and foot and the patient felt much improved. The friend had told the patient that she should come into the emergency department to be checked and the patient did go out but she went to [facility] and said because her foot felt somewhat better and when she got back and told the friend that she had not gone to the hospital. Got very upset at her for not going to the hospital and because the friend said "you didn't listen to what I had to say and you don't trust me so I'm not going to talk to you". Following this (which was earlier this evening) patient became anxious and she apparently continued to attempt to call or getting contact with this person over time and the person infused to talk to her and with time the patient became more and more anxious and then she began to have jerking and shaking all over. She presents to the emergency department via ambulance with jerking and shaking all over but she is conversant and is able to be distracted and has none of the symptoms when you can get her to talk to you about her situation and any events. She has had no cough. No nausea or vomiting. She has been eating and drinking normally. She reports that her left foot and ankle feels much improved and she is able to move it without any problems. She denied any pain initially but did later report that she had a mild throbbing global headache that she would rated as a 3 -4/10. There are no other associated signs or symptoms. There are no other modifying factors. Onset: Today (Building anxiety since before midnight and jerking and pseudoseizure within the past 30 minutes to an hour.) Duration: Constant Location: Reports: Head, Generalized Quality: Reports: Throbbing (Headache. 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: Other (see below) (Nothing) - Related Data Allergies Allergy/AdvReac Type Severity Reaction Status Date / Time codeine Allergy Hives Verified 04/12/19 04:11 hydrocodone Allergy Hives Verified 04/12/19 04:11 latex Allergy Hives Verified 04/12/19 04:11 ibuprofen AdvReac Mild Nausea Verified 04/12/19 04:11 Home Meds: Home Meds Acetaminophen 650 mg PO Q4H PRN 09/25/18 [History] Albuterol [Ventolin HFA] 1 - 2 puff INH Q4H PRN 09/25/18 [History] ClonazePAM [KlonoPIN] 0.5 mg PO DAILY PRN 09/25/18 [History] Lansoprazole 15 mg PO DAILY 09/25/18 [History] Lisinopril/Hydrochlorothiazide [Lisinopril-Hctz 20-12.5 mg Tab] 1 tab PO DAILY 09/25/18 [History] Magnesium Hydroxide [Milk of Magnesia] 30 ml PO DAILY PRN 09/25/18 [History] Multivitamins [Tab-A-Lesly] 1 tab PO DAILY 09/25/18 [History] Venlafaxine HCl [Venlafaxine ER] 75 mg PO DAILY 09/25/18 [History] Venlafaxine HCl [Venlafaxine ER] 150 mg PO DAILY 09/25/18 [History] lamoTRIgine [Lamotrigine] 300 mg PO BID 09/25/18 [History] Fluticasone Propionate [Flonase] 2 spray NASBOTH Q2H PRN 12/25/18 [History] QUEtiapine [SEROquel] 50 mg PO BEDTIME 12/25/18 [History] polyethylene glycoL 3350 [MiraLAX] 17 gm PO BID #0 12/28/18 [Rx] Cholecalciferol (Vitamin D3) [Vitamin D3] 5,000 unit PO DAILY 03/21/19 [History] Cyclobenzaprine [Flexeril] 5 mg PO 1600 03/21/19 [History] Cyclobenzaprine [Flexeril] 10 mg PO BEDTIME 03/21/19 [History] Cyclobenzaprine [Flexeril] 10 mg PO DAILY PRN 03/21/19 [History] Gabapentin [Neurontin] 300 mg PO BID 03/21/19 [History] Oxybutynin 5 mg PO BID 03/21/19 [History] Sucralfate 1 tab PO TID 03/21/19 [History] traMADol [Ultram] 50 mg PO Q6H PRN 03/21/19 [History] Past Medical History Cardiovascular History: Reports: Hypertension Respiratory History: Reports: Asthma, Sleep Apnea Other Respiratory History: states that it is mild to moderate but does not use CPAP. Neurological History: Reports: Other (See Below) Other Neuro History: Pseudoseizures Psychiatric History: Reports: Anxiety, Bipolar, Depression, Panic Attack - Past Surgical History GI Surgical History: Reports: Appendectomy, Cholecystectomy Female Surgical History: Reports: Endometrial Ablation, Tubal Ligation, Other (See Below) Other Female Surgeries/Procedures: bladder prolapse repair. 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 Musculoskeletal Surgical History: Reports: Other (See Below) Other Musculoskeletal Surgeries/Procedures:: bilateral shoulder repair, feet surgeries that had plate and screws (removed after a year). Right wrist carpal tunnel and old fracture repair. Social & Family History - Tobacco Use Smoking Status *Q: Current Every Day Smoker - Caffeine Use Caffeine Use: Reports: Soda - Alcohol Use Alcohol Use History: No - Living Situation & Occupation Living situation: Reports: Alone Occupation: Unemployed Social History Comment: Lives in her own apartment, alone. ED ROS GENERAL - Review of Systems Review Of Systems: See Below Constitutional: Reports: No Symptoms HEENT: Reports: No Symptoms Respiratory: Reports: No Symptoms Cardiovascular: Reports: No Symptoms GI/Abdominal: Reports: No Symptoms : Reports: No Symptoms Musculoskeletal: Reports: Foot Pain (Left foot and ankle pain earlier but has improved) Skin: Reports: No Symptoms Neurological: Reports: Other (Jerking of arms and legs but awake and verbally responsive during all of this) Psychiatric: Reports: Anxiety Hematologic/Lymphatic: Reports: No Symptoms Immunologic: Reports: No Symptoms ED EXAM, GENERAL - Physical Exam Exam: See Below Exam Limited By: No Limitations General Appearance: Alert, Anxious, Moderate Distress, Other (Tearful) Eye Exam: Bilateral Eye: EOMI, Normal Inspection, PERRL Ears: Normal External Exam, Hearing Grossly Normal Ear Exam: Bilateral Ear: Auricle Normal Nose: Normal Inspection, Normal Mucosa, No Blood Throat/Mouth: Normal Oropharynx, Normal Voice, Other (Normal tone) Head: Atraumatic, Normocephalic Neck: Normal Inspection, Supple, Non-Tender, Full Range of Motion Respiratory/Chest: No Respiratory Distress, Lungs Clear, Normal Breath Sounds, No Accessory Muscle Use, Chest Non-Tender Cardiovascular: Normal Peripheral Pulses, Regular Rate, Rhythm, No Murmur Peripheral Pulses: 2+: Radial (L), Radial (R), Dorsalis Pedis (L), Dorsalis Pedis (R) GI/Abdominal: Normal Bowel Sounds, Soft, Non-Tender, No Mass Back Exam: Normal Inspection Extremities: Normal Inspection, Normal Range of Motion, Non-Tender Neurological: Alert, Oriented, CN II-XII Intact, Other (Anxious. Jerking her arms and legs. All.) Psychiatric: Anxious, Tearful Skin Exam: Warm, Dry, Intact, Normal Color Course - Vital Signs Last Recorded V/S: Last Vital Signs Temp 36.6 C 04/12/19 03:45 Pulse 97 04/12/19 03:45 Resp 28 H 04/12/19 03:45 BP 148/108 H 04/12/19 03:45 Pulse Ox 95 04/12/19 03:45 - Orders/Labs/Meds Meds: Medications Discontinued Medications Generic Name Dose Route Start Last Admin Trade Name Freq PRN Reason Stop Dose Admin Lorazepam 1 mg 04/12/19 04:08 04/12/19 04:13 Ativan PO 04/12/19 04:09 1 mg ONETIME ONE Administration - Re-Assessments/Exams Free Text/Narrative Re-Assessment/Exam: 04/12/19 05:00: Patient is resting comfortably now. She has no more jerking movements and her anxiety seems to be much improved. She is stable for discharge at this point. Departure - Departure Time of Disposition: 05:25 Disposition: Home, Self-Care 01 Condition: Good (Improved) Clinical Impression: Panic attack, Pseudoseizures - Discharge Information Instructions: Panic Attack, [id number] Referrals: Andi John MD [Physician] - Forms: ED Department Discharge Additional Instructions: You were having a panic attack tonight. Continues to take your medications as prescribed by your doctor. Rest. Drink plenty of fluids. Try to reduce the stress in your life. You need to keep your follow-up appointment with Dr. John. Sepsis Event Note - Focused Exam Vital Signs: Vital Signs Temp Pulse Resp BP Pulse Ox 04/12/19 03:45 36.6 C 97 28 H 148/108 H 95 Date Exam was Performed: 04/12/19 Time Exam was Performed: 06:52
[2019-04-12] MEDS ORDERED: LORazepam 1 MG Tab PO ONE (04:08)
== END 2019-04-12 05:25 | disposition home or self-care (01) ==
LOC: FB.ED 03:40
DX: F41.0 Panic disorder [episodic paroxysmal anxiety] (principal); F44.5 Conversion disorder with seizures or convulsions; I10 Essential (primary) hypertension; J45.909 Unspecified asthma, uncomplicated; F41.9 Anxiety disorder, unspecified; F31.9 Bipolar disorder, unspecified; F17.200 Nicotine dependence, unspecified, uncomplicated; Z88.5 Allergy status to narcotic agent; Z88.6 Allergy status to analgesic agent; Z91.040 Latex allergy status; Z79.899 Other long term (current) drug therapy
CPT/HCPCS: 99283; 99284; A9270

== ENCOUNTER 2019-05-14 03:21 | Emergency (ER) | payer MEDICARE, MEDICAID ==
[2019-05-14] MEDS ORDERED: Ketorolac 30 MG/ML SDV IVPUSH ONE (03:56)
[2019-05-14] MEDS ORDERED: hydrOXYzine HCl 50 MG/ML SDV IM ONE (03:57)
[2019-05-14] MEDS ORDERED: methylPREDNISolone Sodium Succinate 125 MG/2 ML SDV IVPUSH ONE (04:01)
[2019-05-14] MEDS ORDERED: Sodium Chloride 0.9% 10 ML Syringe FLUSH PRN (04:13)
--- NOTE | 2019-05-14 05:15 | EDM.PDOC ---
ED HPI GENERAL MEDICAL PROBLEM - General Chief Complaint: Headache Stated Complaint: head pain Time Seen by Provider: 05/14/19 03:30 Source of Information: Reports: Patient History Limitations: Reports: No Limitations - History of Present Illness INITIAL COMMENTS - FREE TEXT/NARRATIVE: headache in the left occipital area had been present for 2-3 days . Earlier yesterday was seen in the clinic and had toradol , some improvement but it re-occured this night worse than before states tit is from a trigger point no nausea of vomiting but has severe throbbing ZENDEJAS in past months had trigger point injection : did help unsure of cause or trigger of the event Onset: Today Onset Date: 05/14/19 Onset Time: 02:44 Duration: Getting Worse Location: Reports: Head Quality: Reports: Ache, Dull, Throbbing Severity: Moderate Improves with: Reports: Cold Therapy Worsens with: Reports: Heat Therapy, Movement Associated Symptoms: Reports: Headaches, Weakness head Pain Score (Numeric/FACES): 9 - Related Data Allergies Allergy/AdvReac Type Severity Reaction Status Date / Time codeine Allergy Hives Verified 05/14/19 03:38 hydrocodone Allergy Hives Verified 05/14/19 03:38 latex Allergy Hives Verified 05/14/19 03:38 ibuprofen AdvReac Mild Nausea Verified 05/14/19 03:38 Home Meds: Home Meds Acetaminophen 650 mg PO Q4H PRN 09/25/18 [History] Albuterol [Ventolin HFA] 1 - 2 puff INH Q4H PRN 09/25/18 [History] ClonazePAM [KlonoPIN] 0.5 mg PO DAILY PRN 09/25/18 [History] Lansoprazole 15 mg PO DAILY 09/25/18 [History] Lisinopril/Hydrochlorothiazide [Lisinopril-Hctz 20-12.5 mg Tab] 1 tab PO DAILY 09/25/18 [History] Magnesium Hydroxide [Milk of Magnesia] 30 ml PO DAILY PRN 09/25/18 [History] Multivitamins [Tab-A-Lesly] 1 tab PO DAILY 09/25/18 [History] Venlafaxine HCl [Venlafaxine ER] 75 mg PO DAILY 09/25/18 [History] Venlafaxine HCl [Venlafaxine ER] 150 mg PO DAILY 09/25/18 [History] lamoTRIgine [Lamotrigine] 300 mg PO BID 09/25/18 [History] Fluticasone Propionate [Flonase] 2 spray NASBOTH Q2H PRN 12/25/18 [History] QUEtiapine [SEROquel] 50 mg PO BEDTIME 12/25/18 [History] polyethylene glycoL 3350 [MiraLAX] 17 gm PO BID #0 12/28/18 [Rx] Cholecalciferol (Vitamin D3) [Vitamin D3] 5,000 unit PO DAILY 03/21/19 [History] Cyclobenzaprine [Flexeril] 10 mg PO BEDTIME 03/21/19 [History] Cyclobenzaprine [Flexeril] 10 mg PO DAILY PRN 03/21/19 [History] Oxybutynin 5 mg PO BID 03/21/19 [History] Sucralfate 1 tab PO TID 03/21/19 [History] traMADol [Ultram] 50 mg PO Q6H PRN 03/21/19 [History] .Vitamin B-2 1 dose PO ASDIRECTED 04/15/19 [History] Past Medical History - Past Health History Medical/Surgical History: Denies Medical/Surgical History HEENT History: Reports: Head, Impaired Vision Cardiovascular History: Reports: Hypertension Respiratory History: Reports: Asthma, Sleep Apnea Other Respiratory History: states that it is mild to moderate but does not use CPAP. Neurological History: Reports: Other (See Below) Other Neuro History: Pseudoseizures Psychiatric History: Reports: Anxiety, Bipolar, Depression, Panic Attack - Past Surgical History GI Surgical History: Reports: Appendectomy, Cholecystectomy Female Surgical History: Reports: Endometrial Ablation, Tubal Ligation, Other (See Below) Other Female Surgeries/Procedures: bladder prolapse repair. 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 Musculoskeletal Surgical History: Reports: Other (See Below) Other Musculoskeletal Surgeries/Procedures:: bilateral shoulder repair, feet surgeries that had plate and screws (removed after a year). Right wrist carpal tunnel and old fracture repair. Social & Family History - Family History Family Medical History: Noncontributory - Tobacco Use Smoking Status *Q: Current Every Day Smoker Years of Tobacco use: 20 Packs/Tins Daily: 0.5 - Caffeine Use Caffeine Use: Reports: Soda - Recreational Drug Use Recreational Drug Use: No - Living Situation & Occupation Living situation: Reports: Alone Occupation: Unemployed ED ROS GENERAL - Review of Systems Review Of Systems: See Below Constitutional: Reports: No Symptoms HEENT: Reports: No Symptoms Respiratory: Reports: No Symptoms Cardiovascular: Reports: No Symptoms Endocrine: Reports: No Symptoms GI/Abdominal: Reports: No Symptoms : Reports: No Symptoms Musculoskeletal: Reports: No Symptoms Skin: Reports: No Symptoms Neurological: Reports: Dizziness, Headache Psychiatric: Reports: No Symptoms Hematologic/Lymphatic: Reports: No Symptoms - Physical Exam Exam: See Below Text/Narrative:: in obvious pain Exam Limited By: No Limitations General Appearance: Alert, WD/WN, No Apparent Distress Eye Exam: Bilateral Eye: EOMI Ears: Normal External Exam Nose: Normal Inspection Throat/Mouth: Normal Oropharynx Head Exam: Atraumatic, Normocephalic Neck: Supple, Non-Tender Respiratory/Chest: Lungs Clear, Normal Breath Sounds Cardiovascular: Regular Rate, Rhythm Neuro Exam (Abbreviated): Alert, Oriented, CN II-XII Intact, Normal Cognition, No Motor/Sensory Deficits Psychiatric: Normal Affect Course - Vital Signs Last Recorded V/S: Last Vital Signs Temp 36.6 C 05/14/19 03:30 Pulse 88 05/14/19 03:30 Resp 14 05/14/19 03:30 BP 135/79 05/14/19 03:30 Pulse Ox 96 05/14/19 03:30 - Orders/Labs/Meds Orders: Active Orders 24 hr Category Date Time Status Sodium Chloride 0.9% [Saline Flush] Med 05/14/19 04:13 Active 10 ml FLUSH ASDIRECTED PRN Medication Orders Sodium Chloride (Saline Flush) 10 ml FLUSH ASDIRECTED PRN PRN Reason: Other Last Admin: 05/14/19 04:14 Dose: 10 ml Meds: Medications Generic Name Dose Route Start Last Admin Trade Name Freq PRN Reason Stop Dose Admin Sodium Chloride 10 ml 05/14/19 04:13 05/14/19 04:14 Saline Flush FLUSH 10 ml ASDIRECTED PRN Administration Other Discontinued Medications Generic Name Dose Route Start Last Admin Trade Name Freq PRN Reason Stop Dose Admin Hydroxyzine HCl 50 mg 05/14/19 03:57 05/14/19 04:10 Vistaril IM 05/14/19 03:58 50 mg ONETIME ONE Administration Ketorolac Tromethamine 30 mg 05/14/19 03:56 05/14/19 04:10 Toradol IVPUSH 05/14/19 03:57 30 mg ONETIME ONE Administration Methylprednisolone Sodium Succinate 125 mg 05/14/19 04:01 05/14/19 04:10 Solu-Medrol IVPUSH 05/14/19 04:02 125 mg ONETIME ONE Administration - Re-Assessments/Exams Free Text/Narrative Re-Assessment/Exam: 05/14/19 05:18 pt responded well to toradol iv, vistaril Im , solumedrol. headache resolved Departure - Departure Time of Disposition: 05:30 Disposition: Home, Self-Care 01 Condition: Fair Clinical Impression: Migraine, Tension-type headache, Trigger point of head Clinical Impression: (Ruled Out): TMJ, Temporomandibular [id number] syndrome, Myofascial Pain - Discharge Information *PRESCRIPTION DRUG MONITORING PROGRAM REVIEWED*: Not Applicable *COPY OF PRESCRIPTION DRUG MONITORING REPORT IN PATIENT LAURA: Not Applicable Instructions: Migraine Headache, [id number], Tension Headache, Adult, Easy-to -Read Referrals: PCP,None [Primary Care Provider] - Sepsis Event Note - Evaluation Sepsis Screening Result: No Definite Risk - Focused Exam Vital Signs: Vital Signs Temp Pulse Resp BP Pulse Ox 05/14/19 03:30 36.6 C 88 14 135/79 96 Date Exam was Performed: 05/14/19 Time Exam was Performed: 05:09 - My Orders Last 24 Hours: My Active Orders 05/14/19 04:13 Sodium Chloride 0.9% [Saline Flush] 10 ml FLUSH ASDIRECTED PRN - Assessment/Plan Last 24 Hours: My Active Orders 05/14/19 04:13 Sodium Chloride 0.9% [Saline Flush] 10 ml FLUSH ASDIRECTED PRN
== END 2019-05-14 05:40 | disposition home or self-care (01) ==
LOC: FB.ED 03:21
DX: G44.209 Tension-type headache, unspecified, not intractable (principal); G43.909 Migraine, unspecified, not intractable, without status migrainosus; I10 Essential (primary) hypertension; J45.909 Unspecified asthma, uncomplicated; F41.9 Anxiety disorder, unspecified; F31.9 Bipolar disorder, unspecified; F17.210 Nicotine dependence, cigarettes, uncomplicated; Z88.5 Allergy status to narcotic agent; Z91.040 Latex allergy status; Z88.8 Allergy status to other drugs, medicaments and biological substances; Z79.899 Other long term (current) drug therapy
CPT/HCPCS: 96372; 96374; 96375; 99283-25; J1885; J2930; J3410

== ENCOUNTER 2019-06-16 14:17 | Emergency (ER) | payer MEDICARE, MEDICAID ==
--- NOTE | 2019-06-16 14:41 | EDM.PDOC ---
ED HPI GENERAL MEDICAL PROBLEM - General Chief Complaint: Lower Extremity Injury/Pain Time Seen by Provider: 06/16/19 14:25 Source of Information: Reports: Patient History Limitations: Reports: No Limitations - History of Present Illness INITIAL COMMENTS - FREE TEXT/NARRATIVE: Patient presented to the ED because of chronic left hip pain. The pain is sharp, 12/13, she took her tramadol which didn't help. There is no recent trauma or injury. Left Hip Pain Score (Numeric/FACES): 10 - Related Data Allergies Allergy/AdvReac Type Severity Reaction Status Date / Time codeine Allergy Hives Verified 05/14/19 03:38 hydrocodone Allergy Hives Verified 05/14/19 03:38 latex Allergy Hives Verified 05/14/19 03:38 ibuprofen AdvReac Mild Nausea Verified 05/14/19 03:38 Home Meds: Home Meds Acetaminophen 650 mg PO Q4H PRN 09/25/18 [History] Albuterol [Ventolin HFA] 1 - 2 puff INH Q4H PRN 09/25/18 [History] ClonazePAM [KlonoPIN] 0.5 mg PO DAILY PRN 09/25/18 [History] Lansoprazole 15 mg PO DAILY 09/25/18 [History] Lisinopril/Hydrochlorothiazide [Lisinopril-Hctz 20-12.5 mg Tab] 1 tab PO DAILY 09/25/18 [History] Magnesium Hydroxide [Milk of Magnesia] 30 ml PO DAILY PRN 09/25/18 [History] Multivitamins [Tab-A-Lesly] 1 tab PO DAILY 09/25/18 [History] Venlafaxine HCl [Venlafaxine ER] 75 mg PO DAILY 09/25/18 [History] Venlafaxine HCl [Venlafaxine ER] 150 mg PO DAILY 09/25/18 [History] lamoTRIgine [Lamotrigine] 300 mg PO BID 09/25/18 [History] Fluticasone Propionate [Flonase] 2 spray NASBOTH Q2H PRN 12/25/18 [History] QUEtiapine [SEROquel] 50 mg PO BEDTIME 12/25/18 [History] polyethylene glycoL 3350 [MiraLAX] 17 gm PO BID #0 12/28/18 [Rx] Cholecalciferol (Vitamin D3) [Vitamin D3] 5,000 unit PO DAILY 03/21/19 [History] Cyclobenzaprine [Flexeril] 10 mg PO BEDTIME 03/21/19 [History] Cyclobenzaprine [Flexeril] 10 mg PO DAILY PRN 03/21/19 [History] Oxybutynin 5 mg PO BID 03/21/19 [History] Sucralfate 1 tab PO TID 03/21/19 [History] traMADol [Ultram] 50 mg PO Q6H PRN 03/21/19 [History] .Vitamin B-2 1 dose PO ASDIRECTED 04/15/19 [History] Cyclobenzaprine [Flexeril] 10 mg PO TID #30 tab 06/16/19 [Rx] cephALEXin [Cephalexin] 500 mg PO Q6HR 06/16/19 [History] Past Medical History - Past Health History Medical/Surgical History: Denies Medical/Surgical History HEENT History: Reports: Head, Impaired Vision Cardiovascular History: Reports: Hypertension Respiratory History: Reports: Asthma, Sleep Apnea Other Respiratory History: states that it is mild to moderate but does not use CPAP. Neurological History: Reports: Other (See Below) Other Neuro History: Pseudoseizures Psychiatric History: Reports: Anxiety, Bipolar, Depression, Panic Attack - Past Surgical History GI Surgical History: Reports: Appendectomy, Cholecystectomy Female Surgical History: Reports: Endometrial Ablation, Tubal Ligation, Other (See Below) Other Female Surgeries/Procedures: bladder prolapse repair. 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 Musculoskeletal Surgical History: Reports: Other (See Below) Other Musculoskeletal Surgeries/Procedures:: bilateral shoulder repair, feet surgeries that had plate and screws (removed after a year). Right wrist carpal tunnel and old fracture repair. Social & Family History - Family History Family Medical History: Noncontributory - Caffeine Use Caffeine Use: Reports: Soda - Living Situation & Occupation Living situation: Reports: Alone Occupation: Unemployed Review of Systems - Review of Systems Review Of Systems: See Below Constitutional: Reports: No Symptoms Ears: Reports: No Symptoms Nose: Reports: No Symptoms Mouth/Throat: Reports: No Symptoms Respiratory: Reports: No Symptoms Cardiovascular: Reports: No Symptoms GI/Abdominal: Reports: No Symptoms Genitourinary: Reports: No Symptoms ED EXAM, GENERAL - Physical Exam Exam: See Below Exam Limited By: No Limitations General Appearance: Alert, No Apparent Distress Eye Exam: Bilateral Eye: PERRL Ears: Normal External Exam, Normal Canal Nose: Normal Inspection, Normal Mucosa Throat/Mouth: Normal Inspection, Normal Lips Head: Atraumatic, Normocephalic Neck: Normal Inspection, Supple, Non-Tender Respiratory/Chest: No Respiratory Distress, Lungs Clear, Normal Breath Sounds Cardiovascular: Normal Peripheral Pulses, Regular Rate, Rhythm GI/Abdominal: Normal Bowel Sounds, Soft, Non-Tender, No Organomegaly, No Distention Back Exam: Normal Inspection, Full Range of Motion, Muscle Spasm (tenderness left hip.), Other Course - Vital Signs Text/Narrative:: toradol 60 mg IM x1 percocet 5/325, 2 po x1 Last Recorded V/S: Last Vital Signs Temp 36.5 C 06/16/19 14:22 Pulse 83 06/16/19 14:22 Resp 18 06/16/19 14:22 BP 132/77 06/16/19 14:22 Pulse Ox 99 06/16/19 14:22 - Orders/Labs/Meds Meds: Medications Discontinued Medications Generic Name Dose Route Start Last Admin Trade Name Federico PRN Reason Stop Dose Admin Ketorolac Tromethamine 60 mg 06/16/19 14:50 Toradol IM 06/16/19 14:51 ONETIME ONE Oxycodone/Acetaminophen 2 tab 06/16/19 14:50 Percocet 325-5 Mg PO 06/16/19 14:51 NOW STA Departure - Departure Time of Disposition: 14:55 Disposition: Home, Self-Care 01 Condition: Good Clinical Impression: Chronic hip pain - Discharge Information Prescriptions: Cyclobenzaprine [Flexeril] 10 mg PO TID #30 tab Instructions: Acetaminophen; Hydrocodone tablets or capsules, Hip Pain, Ketorolac injection Referrals: Andi John MD [Primary Care Provider] - Forms: ED Department Discharge Additional Instructions: Please read discharge instructions on chronic hip pain Flexeril 10 mg 3 times daily as needed for muscle spasm Tramadol 100 mg with tylenol 1000 mg every 8 hours as needed for pain Follow up if symptoms persist Sepsis Event Note - Evaluation Sepsis Screening Result: No Definite Risk - Focused Exam Vital Signs: Vital Signs Temp Pulse Resp BP Pulse Ox 06/16/19 14:22 36.5 C 83 18 132/77 99 Date Exam was Performed: 06/16/19 Time Exam was Performed: 15:01
[2019-06-16] MEDS ORDERED: Ketorolac 60 MG/2 ML SDV IM ONE (14:50)
[2019-06-16] MEDS ORDERED: Acetaminophen/oxyCODONE 325-5 MG Tab PO STA (14:50)
== END 2019-06-16 15:25 | disposition home or self-care (01) ==
LOC: FB.ED 14:17
DX: G89.29 Other chronic pain (principal); M25.552 Pain in left hip; I10 Essential (primary) hypertension; J45.909 Unspecified asthma, uncomplicated; F41.0 Panic disorder [episodic paroxysmal anxiety]; F31.9 Bipolar disorder, unspecified; Z88.5 Allergy status to narcotic agent; Z88.8 Allergy status to other drugs, medicaments and biological substances; Z91.040 Latex allergy status; Z79.899 Other long term (current) drug therapy
CPT/HCPCS: 96372; 99283; A9270-GY; J1885

== ENCOUNTER 2019-07-25 07:24 | Emergency (ER) | payer MEDICARE, MEDICAID ==
[2019-07-25] MEDS ORDERED: Sodium Chloride 0.9% 10 ML Syringe FLUSH PRN (07:51)
[2019-07-25] MEDS ORDERED: Morphine 2 MG/ML SYRINGE IVPUSH ONE (07:57)
[2019-07-25] MEDS ORDERED: Ondansetron 4 MG/2 ML SDV IVPUSH ONE (07:57)
[2019-07-25] MEDS ORDERED: Sodium Chloride 0.9% 1,000 ML IV SCH ×2 (08:00→10:15)
[2019-07-25] MEDS ORDERED: Iopamidol 755 Mg/ML 100 ML Bottle IV ONE (08:24)
--- NOTE | 2019-07-25 08:36 | EDM.PDOC ---
ED HPI GENERAL MEDICAL PROBLEM - General Chief Complaint: Abdominal Pain Stated Complaint: PAIN Time Seen by Provider: 07/25/19 07:50 Source of Information: Reports: Patient History Limitations: Reports: No Limitations - History of Present Illness INITIAL COMMENTS - FREE TEXT/NARRATIVE: Patient presented to the ED because of worsening abdominal pain, N/V/D which started 4 days ago. The pain is sharp and cramping,10/10 in intensity, over the LLQ and suprapubic area. There is no associated fever/chills, cough or cold symptoms. She was seen in the clinic yesterday and was diagnosed with diverticulitis and NS 1 bolus was given. She was then discharged to home with tramadol for pain and oral levaquin. Left Abdomen Pain Score (Numeric/FACES): 9 - Related Data Allergies Allergy/AdvReac Type Severity Reaction Status Date / Time codeine Allergy Hives Verified 05/14/19 03:38 hydrocodone Allergy Hives Verified 05/14/19 03:38 latex Allergy Hives Verified 05/14/19 03:38 ibuprofen AdvReac Mild Nausea Verified 05/14/19 03:38 Home Meds: Home Meds Acetaminophen 650 mg PO Q4H PRN 09/25/18 [History] Albuterol [Ventolin HFA] 1 - 2 puff INH Q4H PRN 09/25/18 [History] ClonazePAM [KlonoPIN] 0.5 mg PO DAILY PRN 09/25/18 [History] Lansoprazole 15 mg PO DAILY 09/25/18 [History] Lisinopril/Hydrochlorothiazide [Lisinopril-Hctz 20-12.5 mg Tab] 1 tab PO DAILY 09/25/18 [History] Magnesium Hydroxide [Milk of Magnesia] 30 ml PO DAILY PRN 09/25/18 [History] Multivitamins [Tab-A-Lesly] 1 tab PO DAILY 09/25/18 [History] Venlafaxine HCl [Venlafaxine ER] 75 mg PO DAILY 09/25/18 [History] Venlafaxine HCl [Venlafaxine ER] 150 mg PO DAILY 09/25/18 [History] lamoTRIgine [Lamotrigine] 300 mg PO BID 09/25/18 [History] Fluticasone Propionate [Flonase] 2 spray NASBOTH Q2H PRN 12/25/18 [History] QUEtiapine [SEROquel] 50 mg PO BEDTIME 12/25/18 [History] polyethylene glycoL 3350 [MiraLAX] 17 gm PO BID #0 12/28/18 [Rx] Cholecalciferol (Vitamin D3) [Vitamin D3] 5,000 unit PO DAILY 03/21/19 [History] Oxybutynin 5 mg PO BID 03/21/19 [History] Sucralfate 1 tab PO TID 03/21/19 [History] traMADol [Ultram] 50 mg PO Q6H PRN 03/21/19 [History] .Vitamin B-2 1 dose PO ASDIRECTED 04/15/19 [History] Cyclobenzaprine [Flexeril] 10 mg PO TID #30 tab 06/16/19 [Rx] Acetaminophen/oxyCODONE [Percocet 325-5 MG] 1 each PO Q6H #10 tab 07/25/19 [Rx] L.acidoph,Paracasei, B.lactis [Probiotic] 1 cap PO DAILY 07/25/19 [History] Levofloxacin 500 mg PO DAILY 07/25/19 [History] Methylcellulose [Fiber] 500 mg PO TID 07/25/19 [History] hydrOXYzine pamoate [Vistaril] 50 mg PO Q6H #30 cap 07/25/19 [Rx] Past Medical History - Past Health History Medical/Surgical History: Denies Medical/Surgical History HEENT History: Reports: Head, Impaired Vision Cardiovascular History: Reports: Hypertension Respiratory History: Reports: Asthma, Sleep Apnea Other Respiratory History: states that it is mild to moderate but does not use CPAP. 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 Musculoskeletal Surgical History: Reports: Other (See Below) Other Musculoskeletal Surgeries/Procedures:: bilateral shoulder repair, feet surgeries that had plate and screws (removed after a year). Right wrist carpal tunnel and old fracture repair. Oncologic Surgical History: Reports: None Dermatological Surgical History: Reports: None Social & Family History - Family History Family Medical History: Noncontributory - Tobacco Use Smoking Status *Q: Current Every Day Smoker Years of Tobacco use: 25 Packs/Tins Daily: 0.7 - Caffeine Use Caffeine Use: Reports: Soda - Living Situation & Occupation Living situation: Reports: Alone Occupation: Unemployed ED ROS GENERAL - Review of Systems Review Of Systems: See Below Constitutional: Reports: No Symptoms HEENT: Reports: No Symptoms Respiratory: Reports: No Symptoms Cardiovascular: Reports: No Symptoms Endocrine: Reports: No Symptoms GI/Abdominal: Reports: Abdominal Pain, Diarrhea, Nausea, Vomiting Musculoskeletal: Reports: No Symptoms Skin: Reports: No Symptoms Neurological: Reports: No Symptoms Psychiatric: Reports: Anxiety ED EXAM, GI/ABD - Physical Exam Exam: See Below Exam Limited By: No Limitations General Appearance: Alert, No Apparent Distress Ears: Normal External Exam, Normal Canal Nose: Normal Inspection, Normal Mucosa Throat/Mouth: Normal Inspection Head: Atraumatic, Normocephalic Neck: Normal Inspection, Supple, Non-Tender Respiratory/Chest: No Respiratory Distress, Lungs Clear, Normal Breath Sounds Cardiovascular: Normal Peripheral Pulses, Regular Rate, Rhythm, No Edema, No Gallop, No JVD GI/Abdominal Exam: Normal Bowel Sounds, Soft, Other (tenderness over the LLQ and suprapubic area) Back Exam: Normal Inspection, Full Range of Motion Extremities: Normal Inspection, Normal Range of Motion Course - Vital Signs Text/Narrative:: Labs/Abd-pelvic CT was discussed with patient and verbalized full understanding NS 1 L bolus x 2 Zofran 4 mg IV x1 Morphine 4 mg IV x1 Ativan 1 mg IV x1 Toradol 30 mg IV x1 Case was discussed with Dr You and recommended to give 2 L of fluid and if she is getting better for her to be discharged to home and follow up next week. Last Recorded V/S: Last Vital Signs Temp 36.1 C 07/25/19 07:40 Pulse 81 07/25/19 07:40 Resp 16 07/25/19 09:25 BP 130/77 07/25/19 07:40 Pulse Ox 96 07/25/19 09:25 - Orders/Labs/Meds Orders: Active Orders 24 hr Category Date Time Status Abdomen Pelvis w Cont [CT] Stat Exams 07/25/19 08:02 Taken CULTURE URINE [RM] Stat Lab 07/25/19 08:09 Received Sodium Chloride 0.9% [Normal Saline] 1,000 ml Med 07/25/19 08:00 Active IV ASDIRECTED Sodium Chloride 0.9% [Normal Saline] 1,000 ml Med 07/25/19 10:15 Active IV ASDIRECTED Sodium Chloride 0.9% [Saline Flush] Med 07/25/19 07:51 Active 10 ml FLUSH ASDIRECTED PRN Saline Lock Insert [OM.PC] Routine Oth 07/25/19 07:51 Ordered Medication Orders Sodium Chloride (Normal Saline) 1,000 mls @ 999 mls/hr IV ASDIRECTED ZEN Last Admin: 07/25/19 08:22 Dose: 999 mls/hr Sodium Chloride (Normal Saline) 1,000 mls @ 999 mls/hr IV ASDIRECTED ZEN Last Admin: 07/25/19 10:06 Dose: 999 mls/hr Sodium Chloride (Saline Flush) 10 ml FLUSH ASDIRECTED PRN PRN Reason: Keep Vein Open Last Admin: 07/25/19 08:22 Dose: 10 ml Labs: Laboratory Tests 07/25/19 07/25/19 07/25/19 Range/Units 08:09 08:10 08:10 WBC 5.1 (4.5-12.0) X10-3/uL RBC 4.35 (3.23-5.20) x10(6)uL Hgb 12.9 (11.5-15.5) g/dL Hct 38.4 (30.0-51.3) % MCV 88.3 (80-96) fL MCH 29.6 (27.7-33.6) pg MCHC 33.5 (32.2-35.4) g/dL RDW 12.5 (11.5-15.5) % Plt Count 300 (125-369) X10(3)uL MPV 7.5 (7.4-10.4) fL Neut % (Auto) 63.0 (46-82) % Lymph % (Auto) 27.8 (13-37) % [place] % (Auto) 8.4 (4-12) % Eos % (Auto) 0 L (1.0-5.0) % Baso % (Auto) 1 (0-2) % Neut # (Auto) 3.3 (1.6-8.3) # Lymph # (Auto) 1.4 (0.6-5.0) # [place]assen # (Auto) 0.4 (0.0-1.3) # Eos # (Auto) 0.0 (0.0-0.8) # Baso # (Auto) 0.0 (0.0-0.2) # Sodium 139 (135-145) mmol/L Potassium 3.9 (3.5-5.3) mmol/L Chloride 101 (100-110) mmol/L Carbon Dioxide 29 (21-32) mmol/L BUN 14 D (7-18) mg/dL Creatinine 1.4 H (0.55-1.02) mg/dL Est Cr Clr Drug Dosing 42.90 mL/min Estimated GFR (MDRD) 40 L (>60) BUN/Creatinine Ratio 10.0 (9-20) Glucose 98 (80-116) mg/dL Lactic Acid (0.4-2.0) mmol/L Calcium 9.6 (8.6-10.2) mg/dL Total Bilirubin 0.5 (0.1-1.3) mg/dL AST 26 H D (5-25) IU/L ALT 45 H D (12-36) U/L Alkaline Phosphatase 113 H (56-112) IU/L Total Protein 7.7 (6.0-8.0) g/dL Albumin 3.8 (3.5-5.2) g/dL Globulin 3.9 g/dL Albumin/Globulin Ratio 1.0 Amylase 26 (25-115) U/L Lipase (73-393) U/L Urine Color Yellow (YELLOW) Urine Appearance Slightly cloudy (CLEAR) Urine pH 5.0 (5.0-6.5) Ur Specific [place] 1.020 (1.010-1.025) Urine Protein Negative (NEGATIVE) mg/dL Urine Glucose (UA) Normal (NORMAL) mg/dL Urine Ketones Negative (NEGATIVE) mg/dL Urine Occult Blood Negative (NEGATIVE) Urine Nitrite Negative (NEGATIVE) Urine Bilirubin Negative (NEGATIVE) Urine Urobilinogen Normal (NEGATIVE) mg/dL Ur Leukocyte Esterase Negative (NEGATIVE) Urine WBC 5-10 H (0-5) Ur Squamous Epith Cells Few H (NS,R,O) Urine Bacteria Many H (NS) 07/25/19 07/25/19 Range/Units 08:10 08:10 WBC (4.5-12.0) X10-3/uL RBC (3.23-5.20) x10(6)uL Hgb (11.5-15.5) g/dL Hct (30.0-51.3) % MCV (80-96) fL MCH (27.7-33.6) pg MCHC (32.2-35.4) g/dL RDW (11.5-15.5) % Plt Count (125-369) X10(3)uL MPV (7.4-10.4) fL Neut % (Auto) (46-82) % Lymph % (Auto) (13-37) % [place] % (Auto) (4-12) % Eos % (Auto) (1.0-5.0) % Baso % (Auto) (0-2) % Neut # (Auto) (1.6-8.3) # Lymph # (Auto) (0.6-5.0) # [place]assen # (Auto) (0.0-1.3) # Eos # (Auto) (0.0-0.8) # Baso # (Auto) (0.0-0.2) # Sodium (135-145) mmol/L Potassium (3.5-5.3) mmol/L Chloride (100-110) mmol/L Carbon Dioxide (21-32) mmol/L BUN (7-18) mg/dL Creatinine (0.55-1.02) mg/dL Est Cr Clr Drug Dosing mL/min Estimated GFR (MDRD) (>60) BUN/Creatinine Ratio (9-20) Glucose (80-116) mg/dL Lactic Acid 0.8 (0.4-2.0) mmol/L Calcium (8.6-10.2) mg/dL Total Bilirubin (0.1-1.3) mg/dL AST (5-25) IU/L ALT (12-36) U/L Alkaline Phosphatase (56-112) IU/L Total Protein (6.0-8.0) g/dL Albumin (3.5-5.2) g/dL Globulin g/dL Albumin/Globulin Ratio Amylase (25-115) U/L Lipase 55 L (73-393) U/L Urine Color (YELLOW) Urine Appearance (CLEAR) Urine pH (5.0-6.5) Ur Specific [place] (1.010-1.025) Urine Protein (NEGATIVE) mg/dL Urine Glucose (UA) (NORMAL) mg/dL Urine Ketones (NEGATIVE) mg/dL Urine Occult Blood (NEGATIVE) Urine Nitrite (NEGATIVE) Urine Bilirubin (NEGATIVE) Urine Urobilinogen (NEGATIVE) mg/dL Ur Leukocyte Esterase (NEGATIVE) Urine WBC (0-5) Ur Squamous Epith Cells (NS,R,O) Urine Bacteria (NS) Meds: Medications Generic Name Dose Route Start Last Admin Trade Name Federico PRN Reason Stop Dose Admin Sodium Chloride 1,000 mls @ 999 mls/hr 07/25/19 08:00 07/25/19 08:22 Normal Saline IV 999 mls/hr ASDIRECTED ZEN Administration Sodium Chloride 1,000 mls @ 999 mls/hr 07/25/19 10:15 07/25/19 10:06 Normal Saline IV 999 mls/hr ASDIRECTED ZEN Administration Sodium Chloride 10 ml 07/25/19 07:51 07/25/19 08:22 Saline Flush FLUSH 10 ml ASDIRECTED PRN Administration Keep Vein Open Discontinued Medications Generic Name Dose Route Start Last Admin Trade Name Federico PRN Reason Stop Dose Admin Iopamidol 100 ml 07/25/19 08:24 07/25/19 08:39 Isovue-370 (76%) IV 07/25/19 08:25 100 ml . DIRECTED ONE Administration Ketorolac Tromethamine 30 mg 07/25/19 10:24 07/25/19 10:27 Toradol IVPUSH 07/25/19 10:25 30 mg ONETIME ONE Administration Lorazepam 1 mg 07/25/19 09:03 07/25/19 09:08 Ativan IVPUSH 07/25/19 09:04 1 mg NOW STA Administration Morphine Sulfate 4 mg 07/25/19 07:57 07/25/19 08:18 Morphine IVPUSH 07/25/19 07:58 4 mg ONETIME ONE Administration Ondansetron HCl 4 mg 07/25/19 07:57 07/25/19 08:18 Zofran IVPUSH 07/25/19 07:58 4 mg ONETIME ONE Administration Departure - Departure Time of Disposition: 10:00 Disposition: Refer to Observation Condition: Good Clinical Impression: Dehydration, Gastroenteritis, UTI (urinary tract infection) - Discharge Information Prescriptions: Acetaminophen/oxyCODONE [Percocet 325-5 MG] 1 each PO Q6H #10 tab hydrOXYzine pamoate [Vistaril] 50 mg PO Q6H #30 cap Instructions: Viral Gastroenteritis, Adult, Dehydration, Adult, [id number], Urinary Tract Infection, Adult Referrals: Andi John MD [Primary Care Provider] - Forms: ED Department Discharge Additional Instructions: please read discharge instructions on Viral Gastroenteritis, Dehydration, and UTI frequent hand washing drink at least 2 liters of water a day levaquin 1 tablet daily until gone tramadol as directed for moderate pain hydrocodone 1 tablet every 6 hours as needed for severe pain vistaril/ hydroxyzine 50 mg every 6 hours as needed for nausea/anxiety/sleep imodium(over the counter) 2 tablets every 6hours as needed for diarrhea.Quit taking it once you have a normal stool follow up with your doctor next week Sepsis Event Note - Evaluation Sepsis Screening Result: No Definite Risk - Focused Exam Vital Signs: Vital Signs Temp Pulse Resp BP Pulse Ox 07/25/19 09:25 16 96 07/25/19 08:49 16 95 07/25/19 07:40 36.1 C 81 18 130/77 98 Date Exam was Performed: 07/25/19 Time Exam was Performed: 12:10 - My Orders Last 24 Hours: My Active Orders 07/25/19 07:51 Sodium Chloride 0.9% [Saline Flush] 10 ml FLUSH ASDIRECTED PRN Saline Lock Insert [OM.PC] Routine 07/25/19 08:00 Sodium Chloride 0.9% [Normal Saline] 1,000 ml IV ASDIRECTED 07/25/19 08:02 Abdomen Pelvis w Cont [CT] Stat 07/25/19 08:09 CULTURE URINE [RM] Stat 07/25/19 10:15 Sodium Chloride 0.9% [Normal Saline] 1,000 ml IV ASDIRECTED - Assessment/Plan Last 24 Hours: My Active Orders 07/25/19 07:51 Sodium Chloride 0.9% [Saline Flush] 10 ml FLUSH ASDIRECTED PRN Saline Lock Insert [OM.PC] Routine 07/25/19 08:00 Sodium Chloride 0.9% [Normal Saline] 1,000 ml IV ASDIRECTED 07/25/19 08:02 Abdomen Pelvis w Cont [CT] Stat 07/25/19 08:09 CULTURE URINE [RM] Stat 07/25/19 10:15 Sodium Chloride 0.9% [Normal Saline] 1,000 ml IV ASDIRECTED
[2019-07-25] MEDS ORDERED: LORazepam 2 MG/ML SDV IVPUSH STA (09:03)
[2019-07-25] MEDS ORDERED: Ketorolac 30 MG/ML SDV IVPUSH ONE (10:24)
== END 2019-07-25 12:15 | disposition home or self-care (01) ==
LOC: FB.ED 07:24
DX: N39.0 Urinary tract infection, site not specified (principal); K52.9 Noninfective gastroenteritis and colitis, unspecified; E86.0 Dehydration; F17.210 Nicotine dependence, cigarettes, uncomplicated; J45.909 Unspecified asthma, uncomplicated; F31.9 Bipolar disorder, unspecified; F41.9 Anxiety disorder, unspecified; E66.9 Obesity, unspecified; Z79.899 Other long term (current) drug therapy; Z68.45 Body mass index [BMI] 70 or greater, adult; Z88.5 Allergy status to narcotic agent; Z91.040 Latex allergy status; Z88.6 Allergy status to analgesic agent
CPT/HCPCS: 36415; 74177; 80053; 81001; 82150; 83605; 83690; 85025; 87086; 96361; 96374; 96375; 99284; J1885; J2060; J2270; J2405; J7030; Q9967

== ENCOUNTER 2019-07-28 13:47 | Emergency (ER) | payer MEDICARE, MEDICAID ==
[2019-07-28] MEDS ORDERED: Sucralfate Suspension 1 GM/10 ML Cup PO ONE (14:23)
[2019-07-28] MEDS ORDERED: Simethicone 80 MG Tab.Chew PO STA (14:24)
--- NOTE | 2019-07-28 14:32 | EDM.PDOC ---
ED HPI GENERAL MEDICAL PROBLEM - General Stated Complaint: STOMACH PAIN Time Seen by Provider: 07/28/19 13:50 Source of Information: Reports: Patient History Limitations: Reports: No Limitations - History of Present Illness INITIAL COMMENTS - FREE TEXT/NARRATIVE: pt has multiple complaints has had worsening heartburn , especially last night having generalized abdominal pain was seen by PCP and diagnosed with GERD : plan is for EGD but no date set last ER visit was diagnosed with diverticulitis was treated , seems better today main in concern is heartburn Was given hydrocodone last visit for ab pain and since then heart bur has gotten worse states since she had colonoscopy she has not passed gas normally has problems with constipation and now taking hydrocodone has not had Bm for almost one week Onset: Today Onset Date: 07/28/19 Duration: Week(s): (1), Getting Worse Quality: Reports: Ache, Dull Improves with: Reports: Movement Context: Reports: Other (pt on narcotic) Associated Symptoms: Reports: Loss of Appetite, Malaise, Nausea/Vomiting - Related Data Allergies Allergy/AdvReac Type Severity Reaction Status Date / Time codeine Allergy Hives Verified 05/14/19 03:38 hydrocodone Allergy Hives Verified 05/14/19 03:38 latex Allergy Hives Verified 05/14/19 03:38 ibuprofen AdvReac Mild Nausea Verified 05/14/19 03:38 Home Meds: Home Meds Acetaminophen 650 mg PO Q4H PRN 09/25/18 [History] Albuterol [Ventolin HFA] 1 - 2 puff INH Q4H PRN 09/25/18 [History] ClonazePAM [KlonoPIN] 0.5 mg PO DAILY PRN 09/25/18 [History] Lansoprazole 15 mg PO DAILY 09/25/18 [History] Lisinopril/Hydrochlorothiazide [Lisinopril-Hctz 20-12.5 mg Tab] 1 tab PO DAILY 09/25/18 [History] Magnesium Hydroxide [Milk of Magnesia] 30 ml PO DAILY PRN 09/25/18 [History] Multivitamins [Tab-A-Lesly] 1 tab PO DAILY 09/25/18 [History] Venlafaxine HCl [Venlafaxine ER] 75 mg PO DAILY 09/25/18 [History] Venlafaxine HCl [Venlafaxine ER] 150 mg PO DAILY 09/25/18 [History] lamoTRIgine [Lamotrigine] 300 mg PO BID 09/25/18 [History] Fluticasone Propionate [Flonase] 2 spray NASBOTH Q2H PRN 12/25/18 [History] QUEtiapine [SEROquel] 50 mg PO BEDTIME 12/25/18 [History] polyethylene glycoL 3350 [MiraLAX] 17 gm PO BID #0 12/28/18 [Rx] Cholecalciferol (Vitamin D3) [Vitamin D3] 5,000 unit PO DAILY 03/21/19 [History] Oxybutynin 5 mg PO BID 03/21/19 [History] Sucralfate 1 tab PO TID 03/21/19 [History] traMADol [Ultram] 50 mg PO Q6H PRN 03/21/19 [History] .Vitamin B-2 1 dose PO ASDIRECTED 04/15/19 [History] Cyclobenzaprine [Flexeril] 10 mg PO TID #30 tab 06/16/19 [Rx] Acetaminophen/oxyCODONE [Percocet 325-5 MG] 1 each PO Q6H #10 tab 07/25/19 [Rx] L.acidoph,Paracasei, B.lactis [Probiotic] 1 cap PO DAILY 07/25/19 [History] Levofloxacin 500 mg PO DAILY 07/25/19 [History] Methylcellulose [Fiber] 500 mg PO TID 07/25/19 [History] hydrOXYzine pamoate [Vistaril] 50 mg PO Q6H #30 cap 07/25/19 [Rx] Docusate Sodium [Colace] 100 mg PO BID #60 cap 07/28/19 [Rx] KCl/Na Sulf,Bicarb,Cl/PEG 3351 [GoLytely] 4,000 ml PO ONETIME #1 bottle [Rx] Ondansetron [Zofran ODT] 4 mg PO Q6H PRN #20 tab.dis 07/28/19 [Rx] Past Medical History - Past Health History Medical/Surgical History: Denies Medical/Surgical History HEENT History: Reports: Head, Impaired Vision Cardiovascular History: Reports: Hypertension Respiratory History: Reports: Asthma, Sleep Apnea Other Respiratory History: states that it is mild to moderate but does not use CPAP. [employer] History: Reports: None Musculoskeletal History: Reports: None Neurological History: Reports: Other (See Below) Other Neuro History: Pseudoseizures Psychiatric History: Reports: Anxiety, Bipolar, Depression, Panic Attack Endocrine/Metabolic History: Reports: Obesity/BMI 30+ - Past Surgical History GI Surgical History: Reports: Appendectomy, Cholecystectomy Female Surgical History: Reports: Endometrial Ablation, Tubal Ligation, Other (See Below) Other Female Surgeries/Procedures: bladder prolapse repair. 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 Musculoskeletal Surgical History: Reports: Other (See Below) Other Musculoskeletal Surgeries/Procedures:: bilateral shoulder repair, feet surgeries that had plate and screws (removed after a year). Right wrist carpal tunnel and old fracture repair. Oncologic Surgical History: Reports: None Dermatological Surgical History: Reports: None Social & Family History - Family History Family Medical History: Noncontributory - Caffeine Use Caffeine Use: Reports: Soda - Living Situation & Occupation Living situation: Reports: Alone Occupation: Unemployed ED ROS GENERAL - Review of Systems Review Of Systems: See Below Constitutional: Reports: Weakness HEENT: Reports: No Symptoms Respiratory: Reports: No Symptoms Cardiovascular: Reports: No Symptoms Endocrine: Reports: Fatigue GI/Abdominal: Reports: Abdominal Pain, Anorexia, Constipation, Decreased Appetite, Distension, Nausea, Vomiting. Denies: Flatus : Reports: No Symptoms Musculoskeletal: Reports: No Symptoms Skin: Reports: No Symptoms Neurological: Reports: No Symptoms Psychiatric: Reports: Anxiety Hematologic/Lymphatic: Reports: No Symptoms ED EXAM, GI/ABD - Physical Exam Exam: See Below Exam Limited By: No Limitations General Appearance: Alert, WD/WN, No Apparent Distress Nose: Normal Inspection Throat/Mouth: Normal Oropharynx Head: Atraumatic Neck: Supple, Non-Tender Respiratory/Chest: Lungs Clear Cardiovascular: Regular Rate, Rhythm GI/Abdominal Exam: Soft, Distended, Tender, Abnormal Bowel Sounds (hypoactive BS ). No: Guarding, Rigid Extremities: Normal Range of Motion Neurological: Alert, Oriented, CN II-XII Intact Skin Exam: Warm Course - Orders/Labs/Meds Orders: Active Orders 24 hr Category Date Time Status Abdomen 2V AP Flat Upright [CR] Stat Exams 07/28/19 14:22 Taken BASIC METABOLIC PANEL,BMP [CHEM] Stat Lab 07/28/19 14:56 Ordered CBC WITH AUTO DIFF [HEME] Stat Lab 07/28/19 14:56 Ordered Labs: Laboratory Tests 07/28/19 Range/Units 14:55 Urine Color Yellow (YELLOW) Urine Appearance Clear (CLEAR) Urine pH 7.0 H (5.0-6.5) Ur Specific [place] 1.010 (1.010-1.025) Urine Protein Negative (NEGATIVE) mg/dL Urine Glucose (UA) Normal (NORMAL) mg/dL Urine Ketones Negative (NEGATIVE) mg/dL Urine Occult Blood Negative (NEGATIVE) Urine Nitrite Negative (NEGATIVE) Urine Bilirubin Negative (NEGATIVE) Urine Urobilinogen Normal (NEGATIVE) mg/dL Ur Leukocyte Esterase Negative (NEGATIVE) Urine RBC Not seen (0-5) Urine WBC 0-5 (0-5) Ur Squamous Epith Cells Few H (NS,R,O) Urine Bacteria Rare H (NS) Meds: Medications Discontinued Medications Generic Name Dose Route Start Last Admin Trade Name Freq PRN Reason Stop Dose Admin Bisacodyl 10 mg 07/28/19 15:02 Dulcolax RECTAL 07/28/19 15:03 ONETIME ONE Magnesium Citrate 296 ml 07/28/19 15:01 Citrate Of Magnesia PO 07/28/19 15:02 ONETIME ONE Simethicone 160 mg 07/28/19 14:24 07/28/19 14:29 Simethicone PO 07/28/19 14:25 160 mg NOW STA Administration Sucralfate 1 gm 07/28/19 14:23 07/28/19 14:29 Carafate PO 07/28/19 14:24 1 gm ONETIME ONE Administration - Re-Assessments/Exams Free Text/Narrative Re-Assessment/Exam: 07/28/19 15:21 pt was given anti-GERD medication had Xray done and noted to be very constipated discussed same with pt so will take Mag citrate today If not effective will take Golytely at home Departure - Departure Time of Disposition: 15:30 Disposition: Home, Self-Care 01 Clinical Impression: Constipation by delayed colonic transit, Constipation due to opioid therapy, Abdominal pain, generalized, GERD (gastroesophageal reflux disease) - Discharge Information *PRESCRIPTION DRUG MONITORING PROGRAM REVIEWED*: Not Applicable *COPY OF PRESCRIPTION DRUG MONITORING REPORT IN PATIENT LAURA: Not Applicable Prescriptions: Docusate Sodium [Colace] 100 mg PO BID #60 cap KCl/Na Sulf,Bicarb,Cl/PEG 3351 [GoLytely] 4,000 ml PO ONETIME #1 bottle Instructions: Food Choices for Gastroesophageal Reflux Disease, Adult, Constipation, Adult, [id number], Gastroesophageal Reflux Disease, Adult, Easy- to-Read Referrals: Andi John MD [Primary Care Provider] - Additional Instructions: 1) Increase fluid intake to 1 liter daily 2) Endeavour to have Bowel movement 2 time daily 3) follow up with your PCP if symptoms do not improve as expected Sepsis Event Note - Focused Exam Date Exam was Performed: 07/28/19 Time Exam was Performed: 15:11 - My Orders Last 24 Hours: My Active Orders 07/28/19 14:22 Abdomen 2V AP Flat Upright [CR] Stat 07/28/19 14:56 BASIC METABOLIC PANEL,BMP [CHEM] Stat CBC WITH AUTO DIFF [HEME] Stat - Assessment/Plan Last 24 Hours: My Active Orders 07/28/19 14:22 Abdomen 2V AP Flat Upright [CR] Stat 07/28/19 14:56 BASIC METABOLIC PANEL,BMP [CHEM] Stat CBC WITH AUTO DIFF [HEME] Stat
[2019-07-28] MEDS ORDERED: Magnesium Citrate Solution 296 ML Bottle PO ONE (15:01)
[2019-07-28] MEDS ORDERED: Bisacodyl 10 MG Supp RECTAL ONE (15:02)
[2019-07-28] MEDS ORDERED: Ondansetron 4 MG Tab.DIS PO ONE (15:35)
[2019-07-28] MEDS ORDERED: Ondansetron 4 MG/2 ML SDV IM ONE (15:38)
[2019-07-28] MEDS ORDERED: Ketorolac 60 MG/2 ML SDV IM ONE (15:39)
--- NOTE | 2019-07-30 09:58 | CR ---
INDICATION: Abdominal pain. ABDOMEN, 2 VIEWS: Six images of the abdomen were obtained 07/28/2019 and compared with 12/26/2018, again revealing a moderately large amount of stool in the right colon with a relative paucity of stool in the left colon. This raises the question of a partially obstructive process or other abnormality of the left colon and should be correlated clinically. Colonoscopy or barium enema may be helpful after preparation, for further evaluation. No definite organomegaly or mass lesions were identified. No definite mechanically obstructive process is identified - no evidence of free air was seen. Clips are noted in the area of the right upper quadrant, possibly on the basis of cholecystectomy. IMPRESSION: Relatively larger amount of stool in the right colon, which may be incidental to a recent bowel movement but makes it difficult to entirely exclude a partially obstructive process in the left colon - descending colon area versus other abnormality. Findings should be correlated clinically. MTDD
== END 2019-07-28 15:45 | disposition home or self-care (01) ==
LOC: FB.ED 13:47
DX: K21.9 Gastro-esophageal reflux disease without esophagitis (principal); K59.09 Other constipation; I10 Essential (primary) hypertension; J45.909 Unspecified asthma, uncomplicated; F31.9 Bipolar disorder, unspecified; F41.0 Panic disorder [episodic paroxysmal anxiety]; Z90.49 Acquired absence of other specified parts of digestive tract; Z90.89 Acquired absence of other organs; Z88.5 Allergy status to narcotic agent; Z91.040 Latex allergy status; Z88.8 Allergy status to other drugs, medicaments and biological substances; Z79.899 Other long term (current) drug therapy
CPT/HCPCS: 36415; 74019; 80048; 81001; 85025; 96372; 99284; A9270; J1885; J2405

== ENCOUNTER 2019-07-29 04:02 | Emergency (ER) | payer MEDICARE, MEDICAID ==
--- NOTE | 2019-07-29 04:33 | EDM.PDOC ---
ED HPI GENERAL MEDICAL PROBLEM - General Chief Complaint: Abdominal Pain Stated Complaint: ABDOMINAL PAIN Time Seen by Provider: 07/29/19 04:33 Source of Information: Reports: Patient History Limitations: Reports: No Limitations - History of Present Illness INITIAL COMMENTS - FREE TEXT/NARRATIVE: Chronic abdominal pain due to documented constipation. Multiple visits to the ED.No vomiting. Abdominal Pain Score (Numeric/FACES): 10 - Related Data Allergies Allergy/AdvReac Type Severity Reaction Status Date / Time codeine Allergy Hives Verified 05/14/19 03:38 hydrocodone Allergy Hives Verified 05/14/19 03:38 latex Allergy Hives Verified 05/14/19 03:38 ibuprofen AdvReac Mild Nausea Verified 05/14/19 03:38 Home Meds: Home Meds Acetaminophen 650 mg PO Q4H PRN 09/25/18 [History] Albuterol [Ventolin HFA] 1 - 2 puff INH Q4H PRN 09/25/18 [History] ClonazePAM [KlonoPIN] 0.5 mg PO DAILY PRN 09/25/18 [History] Lansoprazole 15 mg PO DAILY 09/25/18 [History] Lisinopril/Hydrochlorothiazide [Lisinopril-Hctz 20-12.5 mg Tab] 1 tab PO DAILY 09/25/18 [History] Magnesium Hydroxide [Milk of Magnesia] 30 ml PO DAILY PRN 09/25/18 [History] Multivitamins [Tab-A-Lesly] 1 tab PO DAILY 09/25/18 [History] Venlafaxine HCl [Venlafaxine ER] 75 mg PO DAILY 09/25/18 [History] Venlafaxine HCl [Venlafaxine ER] 150 mg PO DAILY 09/25/18 [History] lamoTRIgine [Lamotrigine] 300 mg PO BID 09/25/18 [History] Fluticasone Propionate [Flonase] 2 spray NASBOTH Q2H PRN 12/25/18 [History] QUEtiapine [SEROquel] 50 mg PO BEDTIME 12/25/18 [History] polyethylene glycoL 3350 [MiraLAX] 17 gm PO BID #0 12/28/18 [Rx] Cholecalciferol (Vitamin D3) [Vitamin D3] 5,000 unit PO DAILY 03/21/19 [History] Oxybutynin 5 mg PO BID 03/21/19 [History] Sucralfate 1 tab PO TID 03/21/19 [History] traMADol [Ultram] 50 mg PO Q6H PRN 03/21/19 [History] .Vitamin B-2 1 dose PO ASDIRECTED 04/15/19 [History] Cyclobenzaprine [Flexeril] 10 mg PO TID #30 tab 06/16/19 [Rx] Acetaminophen/oxyCODONE [Percocet 325-5 MG] 1 each PO Q6H #10 tab 07/25/19 [Rx] L.acidoph,Paracasei, B.lactis [Probiotic] 1 cap PO DAILY 07/25/19 [History] Levofloxacin 500 mg PO DAILY 07/25/19 [History] Methylcellulose [Fiber] 500 mg PO TID 07/25/19 [History] hydrOXYzine pamoate [Vistaril] 50 mg PO Q6H #30 cap 07/25/19 [Rx] Docusate Sodium [Colace] 100 mg PO BID #60 cap 07/28/19 [Rx] KCl/Na Sulf,Bicarb,Cl/PEG 3351 [GoLytely] 4,000 ml PO ONETIME #1 bottle [Rx] Ondansetron [Zofran ODT] 4 mg PO Q6H PRN #20 tab.dis 07/28/19 [Rx] Past Medical History - Past Health History Medical/Surgical History: Denies Medical/Surgical History HEENT History: Reports: Head, Impaired Vision Cardiovascular History: Reports: Hypertension Respiratory History: Reports: Asthma, Sleep Apnea Other Respiratory History: states that it is mild to moderate but does not use CPAP. 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 Musculoskeletal Surgical History: Reports: Other (See Below) Other Musculoskeletal Surgeries/Procedures:: bilateral shoulder repair, feet surgeries that had plate and screws (removed after a year). Right wrist carpal tunnel and old fracture repair. Oncologic Surgical History: Reports: None Dermatological Surgical History: Reports: None Social & Family History - Family History Family Medical History: Noncontributory - Tobacco Use Smoking Status *Q: Current Every Day Smoker Years of Tobacco use: 25 Packs/Tins Daily: 0.7 - Caffeine Use Caffeine Use: Reports: Soda - Living Situation & Occupation Living situation: Reports: Alone Occupation: Unemployed ED ROS GENERAL - Review of Systems Review Of Systems: Comprehensive ROS is negative, except as noted in HPI. ED EXAM, GI/ABD - Physical Exam Exam: See Below Exam Limited By: No Limitations General Appearance: Alert, Anxious Nose: Normal Inspection Head: Atraumatic Cardiovascular: Normal Peripheral Pulses GI/Abdominal Exam: Normal Bowel Sounds, Soft, Distended, Tender. No: Hepatomegaly Psychiatric: Tearful Skin Exam: Warm Course - Vital Signs Last Recorded V/S: Last Vital Signs Temp 98.3 F 07/29/19 04:15 Pulse 80 07/29/19 04:15 Resp 20 07/29/19 04:15 BP 136/81 07/29/19 04:15 Pulse Ox 98 07/29/19 04:15 - Orders/Labs/Meds Orders: Active Orders 24 hr Category Date Time Status polyethylene glycoL 3350 [MiraLAX] Med 07/29/19 04:45 Active 17 gm PO Q3H Medication Orders Polyethylene Glycol (Miralax) 17 gm PO Q3H ZEN Last Admin: 07/29/19 07:52 Dose: 17 gm Admin: 07/29/19 05:20 Dose: 17 gm Meds: Medications Generic Name Dose Route Start Last Admin Trade Name Freq PRN Reason Stop Dose Admin Polyethylene Glycol 17 gm 07/29/19 04:45 07/29/19 07:52 Miralax PO 17 gm Q3H ZEN Administration Discontinued Medications Generic Name Dose Route Start Last Admin Trade Name Freq PRN Reason Stop Dose Admin Sodium Biphosphate/Sodium 0 ml 07/29/19 05:11 07/29/19 06:05 Phosphate 60 ml/ Mineral Oil RECTAL 07/29/19 05:12 300 ml 50 ml/ Docusate Sodium 400 mg/ ONETIME ONE Administration Magnesium Citrate 150 ml Hydroxyzine HCl 50 mg 07/29/19 04:44 07/29/19 04:50 Vistaril IM 07/29/19 04:45 50 mg ONETIME ONE Administration Ketorolac Tromethamine 60 mg 07/29/19 04:44 07/29/19 04:51 Toradol IM 07/29/19 04:45 60 mg ONETIME ONE Administration Magnesium Citrate 150 ml 07/29/19 05:29 07/29/19 06:05 Citrate Of Magnesia .XX 07/29/19 05:30 150 ml ONETIME ONE Administration Sodium Biphosphate/Sodium Phosphate 133 ml 07/29/19 04:43 07/29/19 06:23 Fleet Enema RECTAL 07/29/19 04:44 Not Given ONETIME ONE Departure - Departure Time of Disposition: 09:18 Disposition: Home, Self-Care 01 Condition: Good Clinical Impression: Abdominal pain - Discharge Information Instructions: Chronic Constipation, Constipation, Adult Referrals: Andi John MD [Primary Care Provider] - Forms: ED Department Discharge Care Plan Goals: Follow up with Dr. Mason tomorrow. Gavilax 17 gms every 3 hours. last dose at 745, Next dose- 1045 am 1:45 pm 4:45 pm 7:45 pm 10:45 pm Sepsis Event Note - Evaluation Sepsis Screening Result: No Definite Risk - Focused Exam Vital Signs: Vital Signs Temp Pulse Resp BP Pulse Ox 07/29/19 04:15 98.3 F 80 20 136/81 98 Date Exam was Performed: 07/29/19 Time Exam was Performed: 09:15 - Problem List & Annotations (1) Constipation SNOMED Code(s): 94077349 Code(s): K59.00 - CONSTIPATION, UNSPECIFIED Status: Acute Current Visit: No Qualifiers: Constipation type: chronic idiopathic constipation Qualified Code(s): K59.04 - Chronic idiopathic constipation (2) Abdominal pain SNOMED Code(s): 82727937 Code(s): R10.9 - UNSPECIFIED ABDOMINAL PAIN Status: Acute Current Visit: No Qualifiers: Abdominal location: generalized Qualified Code(s): R10.84 - Generalized abdominal pain - Problem List Review Problem List Initiated/Reviewed/Updated: Yes - My Orders Last 24 Hours: My Active Orders 07/29/19 04:45 polyethylene glycoL 3350 [MiraLAX] 17 gm PO Q3H - Assessment/Plan Last 24 Hours: My Active Orders 07/29/19 04:45 polyethylene glycoL 3350 [MiraLAX] 17 gm PO Q3H Plan: I reviewed CT done 07/24 and Xray yesterday. No air fluid levels. I gave her an enema,and she will go home and take Miralax every 3 hrs until she passes stool. See PCP tomorrow
[2019-07-29] MEDS ORDERED: Sodium Phosphate,Monobasic/Sodium Phosphate,Dibasic Enema 133 ML Bottle RECTAL ONE (04:43)
[2019-07-29] MEDS ORDERED: Ketorolac 60 MG/2 ML SDV IM ONE (04:44)
[2019-07-29] MEDS ORDERED: hydrOXYzine HCl 50 MG/ML SDV IM ONE (04:44)
[2019-07-29] MEDS ORDERED: Na Phos,M-B/Na Phos,DI-B 60 ML, Mineral Oil 50 ML, Docusate Sodium 400 MG, Magnesium Ci... RECTAL ONE ×4 (05:11)
[2019-07-29] MEDS: Polyethylene Glycol 3350 Powder 17 GM Packet PO SCH ×2 (05:20→07:52)
[2019-07-29] MEDS ORDERED: Docusate Sodium Liquid 50 MG/5 ML ML 473 ML Bottle PO ONE (05:22)
[2019-07-29] MEDS ORDERED: Magnesium Citrate Solution 296 ML Bottle ONE (05:29)
== END 2019-07-29 09:20 | disposition home or self-care (01) ==
LOC: FB.ED 04:02
DX: R10.9 Unspecified abdominal pain (principal); I10 Essential (primary) hypertension; F41.9 Anxiety disorder, unspecified; F31.9 Bipolar disorder, unspecified; Z88.5 Allergy status to narcotic agent; Z88.6 Allergy status to analgesic agent; Z91.040 Latex allergy status; Z79.899 Other long term (current) drug therapy; Z90.49 Acquired absence of other specified parts of digestive tract; F17.210 Nicotine dependence, cigarettes, uncomplicated
CPT/HCPCS: 96372; 99284; A9270; J1885; J3410

== ENCOUNTER 2019-07-30 04:18 | Emergency (ER) | payer MEDICARE, MEDICAID ==
[2019-07-30] MEDS ORDERED: Ketorolac 60 MG/2 ML SDV IM ONE (04:34)
[2019-07-30] MEDS ORDERED: Magnesium Citrate Solution 296 ML Bottle PO ONE (05:06)
[2019-07-30] MEDS ORDERED: Docusate Sodium Liquid 50 MG/5 ML ML 473 ML Bottle ONE (05:07)
[2019-07-30] MEDS ORDERED: Magnesium Citrate Solution 296 ML Bottle ONE (05:09)
[2019-07-30] MEDS ORDERED: Mineral Oil 133 ML BOTTLE RECTAL ONE (05:11)
--- NOTE | 2019-07-30 06:18 | EDM.PDOC ---
ED HPI GENERAL MEDICAL PROBLEM - General Chief Complaint: Abdominal Pain Stated Complaint: CONSTIPATION Time Seen by Provider: 07/30/19 06:16 Source of Information: Reports: Patient History Limitations: Reports: No Limitations - History of Present Illness INITIAL COMMENTS - FREE TEXT/NARRATIVE: Constipation. Long standing.Was here yesterday. abd Pain Score (Numeric/FACES): 10 - Related Data Allergies Allergy/AdvReac Type Severity Reaction Status Date / Time codeine Allergy Hives Verified 05/14/19 03:38 hydrocodone Allergy Hives Verified 05/14/19 03:38 latex Allergy Hives Verified 05/14/19 03:38 ibuprofen AdvReac Mild Nausea Verified 05/14/19 03:38 Home Meds: Home Meds Acetaminophen 650 mg PO Q4H PRN 09/25/18 [History] Albuterol [Ventolin HFA] 1 - 2 puff INH Q4H PRN 09/25/18 [History] ClonazePAM [KlonoPIN] 0.5 mg PO DAILY PRN 09/25/18 [History] Lansoprazole 15 mg PO DAILY 09/25/18 [History] Lisinopril/Hydrochlorothiazide [Lisinopril-Hctz 20-12.5 mg Tab] 1 tab PO DAILY 09/25/18 [History] Magnesium Hydroxide [Milk of Magnesia] 30 ml PO DAILY PRN 09/25/18 [History] Multivitamins [Tab-A-Lesly] 1 tab PO DAILY 09/25/18 [History] Venlafaxine HCl [Venlafaxine ER] 75 mg PO DAILY 09/25/18 [History] Venlafaxine HCl [Venlafaxine ER] 150 mg PO DAILY 09/25/18 [History] lamoTRIgine [Lamotrigine] 300 mg PO BID 09/25/18 [History] Fluticasone Propionate [Flonase] 2 spray NASBOTH Q2H PRN 12/25/18 [History] QUEtiapine [SEROquel] 50 mg PO BEDTIME 12/25/18 [History] polyethylene glycoL 3350 [MiraLAX] 17 gm PO BID #0 12/28/18 [Rx] Cholecalciferol (Vitamin D3) [Vitamin D3] 5,000 unit PO DAILY 03/21/19 [History] Oxybutynin 5 mg PO BID 03/21/19 [History] Sucralfate 1 tab PO TID 03/21/19 [History] traMADol [Ultram] 50 mg PO Q6H PRN 03/21/19 [History] .Vitamin B-2 1 dose PO ASDIRECTED 04/15/19 [History] Cyclobenzaprine [Flexeril] 10 mg PO TID #30 tab 06/16/19 [Rx] Acetaminophen/oxyCODONE [Percocet 325-5 MG] 1 each PO Q6H #10 tab 07/25/19 [Rx] L.acidoph,Paracasei, B.lactis [Probiotic] 1 cap PO DAILY 07/25/19 [History] Levofloxacin 500 mg PO DAILY 07/25/19 [History] Methylcellulose [Fiber] 500 mg PO TID 07/25/19 [History] hydrOXYzine pamoate [Vistaril] 50 mg PO Q6H #30 cap 07/25/19 [Rx] Docusate Sodium [Colace] 100 mg PO BID #60 cap 07/28/19 [Rx] KCl/Na Sulf,Bicarb,Cl/PEG 3351 [GoLytely] 4,000 ml PO ONETIME #1 bottle [Rx] Ondansetron [Zofran ODT] 4 mg PO Q6H PRN #20 tab.dis 07/28/19 [Rx] Past Medical History - Past Health History Medical/Surgical History: Denies Medical/Surgical History HEENT History: Reports: Head, Impaired Vision Cardiovascular History: Reports: Hypertension Respiratory History: Reports: Asthma, Sleep Apnea Other Respiratory History: states that it is mild to moderate but does not use CPAP. 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 Musculoskeletal Surgical History: Reports: Other (See Below) Other Musculoskeletal Surgeries/Procedures:: bilateral shoulder repair, feet surgeries that had plate and screws (removed after a year). Right wrist carpal tunnel and old fracture repair. Oncologic Surgical History: Reports: None Dermatological Surgical History: Reports: None Social & Family History - Family History Family Medical History: Noncontributory - Tobacco Use Smoking Status *Q: Current Every Day Smoker Years of Tobacco use: 25 Packs/Tins Daily: 0.7 - Caffeine Use Caffeine Use: Reports: Soda - Living Situation & Occupation Living situation: Reports: Alone Occupation: Unemployed ED ROS GENERAL - Review of Systems Review Of Systems: Comprehensive ROS is negative, except as noted in HPI. ED EXAM, GI/ABD - Physical Exam Exam: See Below Exam Limited By: No Limitations General Appearance: Alert, WD/WN GI/Abdominal Exam: Normal Bowel Sounds, Soft, Non-Tender, Distended. No: Guarding, Hepatomegaly, Splenomegaly Extremities: Normal Inspection Neurological: Alert Course - Vital Signs Last Recorded V/S: Last Vital Signs Temp 96.9 F 07/30/19 04:18 Pulse 84 07/30/19 04:18 Resp 17 07/30/19 04:18 BP 125/64 07/30/19 04:18 Pulse Ox 98 07/30/19 04:18 - Orders/Labs/Meds Orders: Active Orders 24 hr Category Date Time Status Enema [RC] ASDIRECTED Care 07/30/19 04:37 Active Labs: Laboratory Tests 07/30/19 07/30/19 Range/Units 04:43 04:43 WBC 5.0 (4.5-12.0) X10-3/uL RBC 4.01 (3.23-5.20) x10(6)uL Hgb 12.0 (11.5-15.5) g/dL Hct 35.7 (30.0-51.3) % MCV 89.0 (80-96) fL MCH 29.9 (27.7-33.6) pg MCHC 33.6 (32.2-35.4) g/dL RDW 12.2 (11.5-15.5) % Plt Count 258 (125-369) X10(3)uL MPV 7.5 (7.4-10.4) fL Neut % (Auto) 56.4 (46-82) % Lymph % (Auto) 33.4 (13-37) % [place] % (Auto) 9.5 (4-12) % Eos % (Auto) 0 L (1.0-5.0) % Baso % (Auto) 1 (0-2) % Neut # (Auto) 2.7 (1.6-8.3) # Lymph # (Auto) 1.7 (0.6-5.0) # [place] # (Auto) 0.5 (0.0-1.3) # Eos # (Auto) 0.0 (0.0-0.8) # Baso # (Auto) 0.0 (0.0-0.2) # Sodium 139 (135-145) mmol/L Potassium 4.3 (3.5-5.3) mmol/L Chloride 100 (100-110) mmol/L Carbon Dioxide 34 H (21-32) mmol/L BUN 22 H (7-18) mg/dL Creatinine 1.4 H (0.55-1.02) mg/dL Est Cr Clr Drug Dosing 41.09 mL/min Estimated GFR (MDRD) 40 L (>60) BUN/Creatinine Ratio 15.7 (9-20) Glucose 92 (80-116) mg/dL Calcium 9.5 (8.6-10.2) mg/dL Meds: Medications Discontinued Medications Generic Name Dose Route Start Last Admin Trade Name Freq PRN Reason Stop Dose Admin Docusate Sodium 400 mg 07/30/19 05:07 07/30/19 05:20 Docu 50 Mg/5 Ml Liquid .XX 07/30/19 05:08 400 mg ONETIME ONE Administration Ketorolac Tromethamine 60 mg 07/30/19 04:34 07/30/19 04:40 Toradol IM 07/30/19 04:35 60 mg ONETIME ONE Administration Magnesium Citrate 150 ml 07/30/19 05:06 07/30/19 05:10 Citrate Of Magnesia PO 07/30/19 05:07 Not Given ONETIME ONE Magnesium Citrate 150 ml 07/30/19 05:09 07/30/19 05:21 Citrate Of Magnesia .XX 07/30/19 05:10 150 ml ONETIME ONE Administration Mineral Oil 133 ml 07/30/19 05:11 07/30/19 05:20 Mineral Oil Enema RECTAL 07/30/19 05:12 133 ml ONETIME ONE Administration Departure - Departure Time of Disposition: 06:17 Disposition: Home, Self-Care 01 Condition: Good Clinical Impression: Abdominal pain, generalized, Constipation due to opioid therapy - Discharge Information Referrals: PCP,None [Primary Care Provider] - Sepsis Event Note - Evaluation Sepsis Screening Result: No Definite Risk - Focused Exam Vital Signs: Vital Signs Temp Pulse Resp BP Pulse Ox 07/30/19 04:18 96.9 F 84 17 125/64 98 Date Exam was Performed: 07/30/19 Time Exam was Performed: 06:16 - Problem List & Annotations (1) Constipation SNOMED Code(s): 43791059 Code(s): K59.00 - CONSTIPATION, UNSPECIFIED Status: Acute Current Visit: No Qualifiers: Constipation type: chronic idiopathic constipation Qualified Code(s): K59.04 - Chronic idiopathic constipation - Problem List Review Problem List Initiated/Reviewed/Updated: Yes - My Orders Last 24 Hours: My Active Orders 07/30/19 04:37 Enema [RC] ASDIRECTED - Assessment/Plan Last 24 Hours: My Active Orders 07/30/19 04:37 Enema [RC] ASDIRECTED Plan: We tried Fleets enema. Minimal results,but patient felt "a lot better"
== END 2019-07-30 06:38 | disposition home or self-care (01) ==
LOC: FB.ED 04:18
DX: K59.03 Drug induced constipation (principal); I10 Essential (primary) hypertension; J45.909 Unspecified asthma, uncomplicated; F31.9 Bipolar disorder, unspecified; F41.0 Panic disorder [episodic paroxysmal anxiety]; E66.9 Obesity, unspecified; F17.210 Nicotine dependence, cigarettes, uncomplicated; Z90.89 Acquired absence of other organs; Z90.49 Acquired absence of other specified parts of digestive tract; Z88.5 Allergy status to narcotic agent; Z91.040 Latex allergy status; Z88.8 Allergy status to other drugs, medicaments and biological substances; Z79.899 Other long term (current) drug therapy; Z68.41 Body mass index [BMI] 40.0-44.9, adult
CPT/HCPCS: 36415; 80048; 85025; 96372; 99284; A9270; J1885

== ENCOUNTER 2019-10-21 19:14 | Emergency (ER) | payer MEDICARE, MEDICAID ==
[2019-10-21] MEDS ORDERED: HYDROmorphone 2 MG/ML SDV IM ONE (20:28)
--- NOTE | 2019-10-21 20:35 | EDM.PDOC ---
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 Pain Score (Numeric/FACES): 10 - Related Data Allergies Allergy/AdvReac Type Severity Reaction Status Date / Time codeine Allergy Hives Verified 10/21/19 19:28 hydrocodone Allergy Hives Verified 10/21/19 19:28 latex Allergy Hives Verified 10/21/19 19:28 ibuprofen AdvReac Mild Nausea Verified 10/21/19 19:28 Home Meds: Home Meds Acetaminophen 650 mg PO Q4H PRN 09/25/18 [History] Albuterol [Ventolin HFA] 1 - 2 puff INH Q4H PRN 09/25/18 [History] Lansoprazole 15 mg PO DAILY 09/25/18 [History] Lisinopril/Hydrochlorothiazide [Lisinopril-Hctz 20-12.5 mg Tab] 1 tab PO DAILY 09/25/18 [History] Magnesium Hydroxide [Milk of Magnesia] 30 ml PO DAILY PRN 09/25/18 [History] Multivitamins [Tab-A-Lesly] 1 tab PO DAILY 09/25/18 [History] Venlafaxine HCl [Venlafaxine ER] 75 mg PO DAILY 09/25/18 [History] Venlafaxine HCl [Venlafaxine ER] 150 mg PO DAILY 09/25/18 [History] lamoTRIgine [Lamotrigine] 150 mg PO BID 09/25/18 [History] Fluticasone Propionate [Flonase] 2 spray NASBOTH Q2H PRN 12/25/18 [History] polyethylene glycoL 3350 [MiraLAX] 17 gm PO BID #0 12/28/18 [Rx] Cholecalciferol (Vitamin D3) [Vitamin D3] 5,000 unit PO DAILY 03/21/19 [History] Oxybutynin 5 mg PO BID 03/21/19 [History] traMADol [Ultram] 50 mg PO Q6H PRN 03/21/19 [History] .Vitamin B-2 1 dose PO ASDIRECTED 04/15/19 [History] L.acidoph,Paracasei, B.lactis [Probiotic] 1 cap PO DAILY 07/25/19 [History] Methylcellulose [Fiber] 500 mg PO TID 07/25/19 [History] Docusate Sodium [Colace] 100 mg PO BID #60 cap 07/28/19 [Rx] Ondansetron [Zofran ODT] 4 mg PO Q6H PRN #20 tab.dis 07/28/19 [Rx] Cyclobenzaprine [Flexeril] 5 mg PO TID 10/21/19 [History] hydrOXYzine HCL [Hydroxyzine HCl] 10 mg BID 10/21/19 [History] hydrOXYzine pamoate [Vistaril] 50 mg PO BEDTIME 10/21/19 [History] Past Medical History - Past Health History Medical/Surgical History: Denies Medical/Surgical History HEENT History: Reports: Head, Impaired Vision Cardiovascular History: Reports: Hypertension Respiratory History: Reports: Asthma, Sleep Apnea Other Respiratory History: states sleep apnea 'mild' & doesn't use CPAP. 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 Musculoskeletal Surgical History: Reports: Carpal Tunnel, Shoulder Surgery, Other (See Below) Other Musculoskeletal Surgeries/Procedures:: bilateral shoulder repair, feet surgeries that had plate and screws (removed after a year). Right wrist carpal tunnel and old fracture repair. R wrist surgery Oncologic Surgical History: Reports: None Dermatological Surgical History: Reports: None Social & Family History - Family History Family Medical History: Noncontributory - Tobacco Use Smoking Status *Q: Current Every Day Smoker Years of Tobacco use: 25 Packs/Tins Daily: 0.4 - Caffeine Use Caffeine Use: Reports: Coffee, Soda, Tea - Recreational Drug Use Recreational Drug Use: No - Living Situation & Occupation Living situation: Reports: Alone Occupation: Unemployed ED ROS GENERAL - Review of Systems Review Of Systems: See Below Constitutional: Reports: No Symptoms HEENT: Reports: No Symptoms Respiratory: Reports: No Symptoms Cardiovascular: Reports: No Symptoms Endocrine: Reports: No Symptoms GI/Abdominal: Reports: No Symptoms : Reports: No Symptoms Musculoskeletal: Reports: Other (R wrist pain) Skin: Reports: No Symptoms Neurological: Reports: No Symptoms Psychiatric: Reports: No Symptoms Hematologic/Lymphatic: Reports: No Symptoms Immunologic: Reports: No Symptoms ED EXAM, GENERAL - Physical Exam Exam: See Below Exam Limited By: No Limitations General Appearance: Alert, WD/WN, Mild Distress Extremities: Other (Jus and sugar tong splint removed, the distal ends did seem to pinch somewhat, inner layer not removed, 4" webroll added at both wrist and elbow, 30" padded fiberglass was cut in half to eliminate pincher effect, 4" wide, placed back in position of sugar tong and forearm was wrapped with Jus, pt came are in neutral position, did fit more comfortably) Course - Vital Signs Last Recorded V/S: Last Vital Signs Temp 36.8 C 10/21/19 19:14 Pulse 85 10/21/19 19:14 Resp 20 10/21/19 19:14 BP 154/76 H 10/21/19 19:14 Pulse Ox 100 10/21/19 19:14 - Orders/Labs/Meds Orders: Active Orders 24 hr Category Date Time Status HYDROmorphone [Dilaudid] Med 10/21/19 20:28 Once 1 mg IM ONETIME ONE Meds: Medications Discontinued Medications Generic Name Dose Route Start Last Admin Trade Name Freq PRN Reason Stop Dose Admin Hydromorphone HCl 1 mg 10/21/19 20:28 Dilaudid IM 10/21/19 20:29 ONETIME ONE - Re-Assessments/Exams Free Text/Narrative Re-Assessment/Exam: 10/21/19 20:35 fiberglass portion of splint replaced, given Dilaudid 1 mg IM for pain, is using tramadol and APAP at home currently pt will keep apt with ortho midlevel in 4d as scheduled n/v intact, good movement of fingers, nailbeds pink, no swell Departure - Departure Time of Disposition: 20:29 Disposition: Home, Self-Care 01 Condition: Good Clinical Impression: Aftercare for cast or splint check or change, Pain in right forearm - Discharge Information *PRESCRIPTION DRUG MONITORING PROGRAM REVIEWED*: Not Applicable *COPY OF PRESCRIPTION DRUG MONITORING REPORT IN PATIENT LAURA: Not Applicable Instructions: How To Use a Sling, Cast or Splint Care, Adult Referrals: Andi John MD [Primary Care Provider] - Additional Instructions: Continue current medications. Use sling when out of bed to support weight of the arm. See surgeon in 4 days as scheduled. Sepsis Event Note (ED) - Evaluation Sepsis Screening Result: No Definite Risk - Focused Exam Vital Signs: Vital Signs Temp Pulse Resp BP Pulse Ox 10/21/19 19:14 36.8 C 85 20 154/76 H 100 - My Orders Last 24 Hours: My Active Orders 10/21/19 20:28 HYDROmorphone [Dilaudid] 1 mg IM ONETIME ONE - Assessment/Plan Last 24 Hours: My Active Orders 10/21/19 20:28 HYDROmorphone [Dilaudid] 1 mg IM ONETIME ONE
== END 2019-10-21 20:45 | disposition home or self-care (01) ==
LOC: FB.ED 19:14
DX: M79.631 Pain in right forearm (principal); Z47.89 Encounter for other orthopedic aftercare; I10 Essential (primary) hypertension; J45.909 Unspecified asthma, uncomplicated; F41.0 Panic disorder [episodic paroxysmal anxiety]; F31.9 Bipolar disorder, unspecified; E66.9 Obesity, unspecified; F17.210 Nicotine dependence, cigarettes, uncomplicated; Z88.5 Allergy status to narcotic agent; Z88.6 Allergy status to analgesic agent; Z91.040 Latex allergy status; Z79.899 Other long term (current) drug therapy; Z68.41 Body mass index [BMI] 40.0-44.9, adult
CPT/HCPCS: 29125; 96372; 99283; J1170

== ENCOUNTER 2019-10-26 04:13 | Emergency (ER) | payer MEDICARE, MEDICAID ==
--- NOTE | 2019-10-26 04:44 | EDM.PDOC ---
ED HPI GENERAL MEDICAL PROBLEM - General Stated Complaint: HAND Time Seen by Provider: 10/26/19 04:39 Source of Information: Reports: Patient History Limitations: Reports: No Limitations - History of Present Illness INITIAL COMMENTS - FREE TEXT/NARRATIVE: 49-year-old female who is status post ulnar osteotomy which is and ulnar shortening procedure of the right upper extremity that was performed on 10/[address] Quezada, hand specialist at [facility], and the patient did have the fiberglass splint removed today and a custom splint was applied. The person that was replacing the splint did notice some mild drainage from the incision that was serosanguineous and he noted some redness of the area. The patient has had ongoing pain all through the postoperative period. She reports that tonight she noticed some drainage from the area and the pain was up to a 10/10. She did call the person telecommunications cable jointer at [facility] and it happened to be Dr. Quezada and he recommended that she come into the emergency department and wanted her dressing changed and inspected but also felt that she may need to be on an antibiotic. The patient has had no trauma to the area. She has had no nausea or vomiting. She has had no fevers or chills. He has some swelling in the hand and she feels that the splint is somewhat tight. She was initially told to change the dressing at home but she felt uncomfortable doing this and that prompted Dr. Quezada to tell her to come to the emergency department. No difficulty breathing. No chest pain. She is quite anxious and has problems with anxiety. There are no other associated signs or symptoms. There are no other modifying factors. 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: Other Medication(s) (Tramadol) Right Arm Pain Score (Numeric/FACES): 10 - Related Data Allergies Allergy/AdvReac Type Severity Reaction Status Date / Time codeine Allergy Hives Verified 08/17/20 19:28 hydrocodone Allergy Hives Verified 10/21/19 19:28 latex Allergy Hives Verified 10/21/19 19:28 ibuprofen AdvReac Mild Nausea Verified 10/21/19 19:28 Home Meds: Home Meds Acetaminophen 650 mg PO Q4H PRN 09/25/18 [History] Albuterol [Ventolin HFA] 1 - 2 puff INH Q4H PRN 09/25/18 [History] Lansoprazole 15 mg PO DAILY 09/25/18 [History] Lisinopril/Hydrochlorothiazide [Lisinopril-Hctz 20-12.5 mg Tab] 1 tab PO DAILY 09/25/18 [History] Magnesium Hydroxide [Milk of Magnesia] 30 ml PO DAILY PRN 09/25/18 [History] Multivitamins [Tab-A-Lesly] 1 tab PO DAILY 09/25/18 [History] Venlafaxine HCl [Venlafaxine ER] 75 mg PO DAILY 09/25/18 [History] Venlafaxine HCl [Venlafaxine ER] 150 mg PO DAILY 09/25/18 [History] lamoTRIgine [Lamotrigine] 150 mg PO BID 09/25/18 [History] Fluticasone Propionate [Flonase] 2 spray NASBOTH Q2H PRN 12/25/18 [History] polyethylene glycoL 3350 [MiraLAX] 17 gm PO BID #0 12/28/18 [Rx] Cholecalciferol (Vitamin D3) [Vitamin D3] 5,000 unit PO DAILY 03/21/19 [History] Oxybutynin 5 mg PO BID 03/21/19 [History] traMADol [Ultram] 50 mg PO Q6H PRN 03/21/19 [History] .Vitamin B-2 1 dose PO ASDIRECTED 04/15/19 [History] L.acidoph,Paracasei, B.lactis [Probiotic] 1 cap PO DAILY 07/25/19 [History] Methylcellulose [Fiber] 500 mg PO TID 07/25/19 [History] Docusate Sodium [Colace] 100 mg PO BID #60 cap 07/28/19 [Rx] Ondansetron [Zofran ODT] 4 mg PO Q6H PRN #20 tab.dis 07/28/19 [Rx] Cyclobenzaprine [Flexeril] 5 mg PO TID 10/21/19 [History] hydrOXYzine HCL [Hydroxyzine HCl] 10 mg BID 10/21/19 [History] hydrOXYzine pamoate [Vistaril] 50 mg PO BEDTIME 10/21/19 [History] cephALEXin [Keflex] 500 mg PO QID 7 Days #28 cap 10/26/19 [Rx] Past Medical History HEENT History: Reports: Head, Impaired Vision Cardiovascular History: Reports: Hypertension Respiratory History: Reports: Asthma, Sleep Apnea Other Respiratory History: states sleep apnea 'mild' & doesn't use CPAP. Gastrointestinal History: Reports: GERD Neurological History: Reports: Other (See Below) Other Neuro History: Pseudoseizures Psychiatric History: Reports: Anxiety, Bipolar, Depression, Panic Attack Endocrine/Metabolic History: Reports: Obesity/BMI 30+ - Infectious Disease History Infectious Disease History: Reports: Chicken Pox - Past Surgical History GI Surgical History: Reports: Appendectomy, Cholecystectomy Female Surgical History: Reports: Endometrial Ablation, Tubal Ligation, Other (See Below) Other Female Surgeries/Procedures: bladder prolapse repair. 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 Musculoskeletal Surgical History: Reports: Carpal Tunnel, Shoulder Surgery, Other (See Below) Other Musculoskeletal Surgeries/Procedures:: bilateral shoulder repair, feet surgeries that had plate and screws (removed after a year). Right wrist carpal tunnel and old fracture repair. R wrist surgery Social & Family History - Tobacco Use Smoking Status *Q: Current Every Day Smoker - Caffeine Use Caffeine Use: Reports: Coffee, Soda, Tea - Alcohol Use Alcohol Use History: No - Living Situation & Occupation Living situation: Reports: Alone Occupation: Unemployed ED ROS GENERAL - Review of Systems Review Of Systems: See Below Constitutional: Reports: No Symptoms HEENT: Reports: No Symptoms Respiratory: Reports: No Symptoms Cardiovascular: Reports: No Symptoms Endocrine: Reports: No Symptoms GI/Abdominal: Reports: No Symptoms : Reports: No Symptoms Musculoskeletal: Reports: Other (Right forearm pain) Skin: Reports: Erythema (On right forearm around surgical wound), Wound (Drainage from surgical wound on right forearm) Neurological: Reports: No Symptoms Psychiatric: Reports: Anxiety Hematologic/Lymphatic: Reports: No Symptoms Immunologic: Reports: No Symptoms ED EXAM, GENERAL - Physical Exam Exam: See Below Exam Limited By: No Limitations General Appearance: Alert, WD/WN, Anxious, Moderate Distress, Other (Nontoxic appearing. The patient's pulse rate was registered as 170 in triage but a repeat was 88. She was quite anxious at the time of arrival.) Eye Exam: Bilateral Eye: EOMI, Normal Inspection Ears: Normal External Exam, Hearing Grossly Normal Ear Exam: Bilateral Ear: Auricle Normal Nose: Normal Inspection, Normal Mucosa, No Blood Throat/Mouth: Normal Inspection, Normal Oropharynx, Normal Voice, No Airway Compromise Head: Atraumatic, Normocephalic Neck: Normal Inspection, Supple, Non-Tender, Full Range of Motion Respiratory/Chest: No Respiratory Distress, Lungs Clear, Normal Breath Sounds, No Accessory Muscle Use, Chest Non-Tender Cardiovascular: Normal Peripheral Pulses, Regular Rate, Rhythm, No Murmur Peripheral Pulses: 2+: Radial (L), Radial (R) GI/Abdominal: Normal Bowel Sounds, Soft, Non-Tender Back Exam: Normal Inspection, Full Range of Motion Extremities: No Pedal Edema, Normal Capillary Refill, Redness (Rojelio redness around the surgical wound. There is some serosanguineous type drainage on the dressing but minimal. There is a pressure blister on the right dorsal radial proximal forearm but no drainage from this as well. There is no increased warmth. She has good perfusion peripherally. She has full movement in her fingers.). No: Increased Warmth Neurological: Alert, Oriented, CN II-XII Intact, No Motor/Sensory Deficits Psychiatric: Anxious Skin Exam: Warm, Dry, Erythema (As above.), Wound/Incision (As above.). No: Increased Warmth Lymphatic: No Adenopathy Course - Vital Signs Last Recorded V/S: Last Vital Signs Temp 36.3 C 10/26/19 04:28 Pulse 170 H 10/26/19 04:28 Resp 16 10/26/19 04:28 BP 141/106 H 10/26/19 04:28 Pulse Ox 98 10/26/19 04:28 - Orders/Labs/Meds Orders: Active Orders 24 hr Category Date Time Status cephALEXin [Keflex] Med 10/26/19 05:07 Once 500 mg PO ONETIME ONE - Re-Assessments/Exams Free Text/Narrative Re-Assessment/Exam: 10/26/19 05:10: Splint was removed and dressing was removed as well. The wound did have some very mild serosanguineous drainage that was mostly sanguinous. There was also some mild erythema but no increased warmth. The area on the dorsal aspect of the forearm was somewhat wet but I did not see any source for any drainage and I think this may have just been from perspiration in this area. She has no ascending cellulitis but there is some mild erythema and there could be a mild cellulitis or wound infection. I will place the patient on Keflex in keeping with Dr. Quezada's recommendation. I also somewhat loosened the splint and reapplied a dressing. She is to follow-up with Dr. Quezada this next week. She is to continue to take her medications as needed for pain. She should continue to elevate her right arm above her heart level as often as possible. She should continue all of her other treatment recommendations and care recommendations as per Dr. Quezada. Departure - Departure Time of Disposition: 05:21 Disposition: Home, Self-Care 01 Condition: Good (Stable) Clinical Impression: Postoperative wound infection, Postoperative pain of extremity, Right forearm pain, Anxiety, Cellulitis of right arm - Discharge Information Prescriptions: cephALEXin [Keflex] 500 mg PO QID 7 Days #28 cap Instructions: Wound Infection, [id number], How To Use a Sling, [id number], Cellulitis, Adult, [id number] Referrals: PCP,None [Primary Care Provider] - Additional Instructions: There was some mild redness around the surgical wound. There was only minimal drainage from this area. The "wetness" of the cloth covering appears to be probably due to perspiration. I am placing you on an antibiotic to treat for a potential infection (Keflex). Take probiotics or eat yogurt daily while you are on the antibiotics. Continue to take your pain medication as needed. Continue to follow the instructions as per Dr. Quezada. You will need to follow-up with Dr. Quezada this coming week for recheck. Elevate your right forearm higher than your heart level as often as possible. Continue to use the sling. Back to an emergency department for fever, unrelenting vomiting, spreading redness or any other concerning sign or symptom. Sepsis Event Note (ED) - Evaluation Sepsis Screening Result: No Definite Risk - Focused Exam Vital Signs: Vital Signs Temp Pulse Resp BP Pulse Ox 10/26/19 04:28 36.3 C 170 H 16 141/106 H 98 - My Orders Last 24 Hours: My Active Orders 10/26/19 05:07 cephALEXin [Keflex] 500 mg PO ONETIME ONE - Assessment/Plan Last 24 Hours: My Active Orders 10/26/19 05:07 cephALEXin [Keflex] 500 mg PO ONETIME ONE
[2019-10-26] MEDS ORDERED: Cephalexin 500 MG Cap PO ONE (05:07)
== END 2019-10-26 05:39 | disposition home or self-care (01) ==
LOC: FB.ED 04:13
DX: T81.49XA Infection following a procedure, other surgical site, initial encounter (principal); F41.9 Anxiety disorder, unspecified; I10 Essential (primary) hypertension; J45.909 Unspecified asthma, uncomplicated; K21.9 Gastro-esophageal reflux disease without esophagitis; F31.9 Bipolar disorder, unspecified; E66.9 Obesity, unspecified; Z68.41 Body mass index [BMI] 40.0-44.9, adult; F17.210 Nicotine dependence, cigarettes, uncomplicated; Z98.890 Other specified postprocedural states; Z88.5 Allergy status to narcotic agent; Z91.040 Latex allergy status; Z88.6 Allergy status to analgesic agent; Z79.899 Other long term (current) drug therapy
CPT/HCPCS: 99283; A9270

== ENCOUNTER 2019-12-16 06:37 | Day surgery (SDC) | payer MEDICARE, MEDICAID ==
[2019-12-16] MEDS ORDERED: Midazolam 1 MG/ML 2 ML SDV IV ONE ×2 (06:38→07:55)
[2019-12-16] MEDS ORDERED: Lidocaine 2% 5 ML SDV IV ONE (06:38)
[2019-12-16] MEDS ORDERED: Propofol 200 MG/20 ML SDV IV ONE (06:38)
[2019-12-16] MEDS ORDERED: Lactated Ringers 1,000 ML IV SCH (06:45)
[2019-12-16] MEDS ORDERED: Sodium Chloride 0.9% 10 ML Syringe FLUSH PRN (06:45)
--- NOTE | 2019-12-16 10:12 | PCM.OPNOTE ---
- General Post-Op/Procedure Note Date of Surgery/Procedure: 12/16/19 Operative Procedure(s): egd with bx Findings: gastritis nl appearing distal esophagus Pre Op Diagnosis: gerd, epigastric abd pain Post-Op Diagnosis: gastritis Anesthesia Technique: MAC Primary Surgeon: Jay Thomas Anesthesia Provider: Kari Michele Pathology: stomach distal esophagus Complications: None Condition: Good Free Text/Narrative:: see dictation
--- NOTE | 2019-12-17 09:13 | OR ---
DATE OF OPERATION: 12/16/2019 SURGEON: Jay Thomas MD PROCEDURE PERFORMED: Esophagogastroduodenoscopy with cold forceps biopsy. PREOPERATIVE DIAGNOSIS: History of epigastric abdominal pain and reflux. POSTOPERATIVE DIAGNOSIS: Gastritis, normal-appearing distal esophagus. INDICATIONS FOR PROCEDURE: This is a 49-year-old white female referred with a history of epigastric abdominal pain as well as what appeared to be symptomatic gastroesophageal reflux disease. She was offered and accepted an EGD as part of a workup. DESCRIPTION OF PROCEDURE: After an excellent IV sedation was administered, the bite block was inserted. Flexible endoscope was passed without difficulty down the patient's esophagus into the stomach. The stomach was insufflated, the scope passed through the pylorus and second portion of the duodenum and slowly withdrawn. The following findings were noted: Duodenum was unremarkable. Stomach: In the area of the antrum, mild gastritis was noted. Multiple biopsies were taken as well as a photo and submitted. GE junction measured at approximately 40 cm. There was no marked erythema noted, but given her history of complaints, we did do several random biopsies of the distal esophagus. The esophagus in its entirety was essentially unremarkable. The patient tolerated the procedure well and was taken back to her room. Results to be sent to her via letter. /[id number] /MODL
== END 2019-12-16 10:48 | disposition home or self-care (01) ==
LOC: FB.SDS 06:37
PROVIDERS: ATTEND Surgery
DX: K29.30 Chronic superficial gastritis without bleeding (principal); K29.40 Chronic atrophic gastritis without bleeding; K21.00 Gastro-esophageal reflux disease with esophagitis, without bleeding; I10 Essential (primary) hypertension; E78.5 Hyperlipidemia, unspecified; G47.33 Obstructive sleep apnea (adult) (pediatric); E66.01 Morbid (severe) obesity due to excess calories; Z79.899 Other long term (current) drug therapy; Z90.49 Acquired absence of other specified parts of digestive tract; Z98.890 Other specified postprocedural states; Z68.41 Body mass index [BMI] 40.0-44.9, adult
CPT/HCPCS: 00731; 43239; 88305; 88313; 88342; J2001; J2250; J2704; J7120

== ENCOUNTER 2020-01-04 13:22 | Emergency (ER) | payer MEDICARE, MEDICAID ==
--- NOTE | 2020-01-04 14:27 | EDM.PDOC ---
ED HPI GENERAL MEDICAL PROBLEM - General Chief Complaint: Flank Pain Stated Complaint: RIGHT SIDE HURTS Time Seen by Provider: 01/04/20 14:23 Source of Information: Reports: Patient History Limitations: Reports: No Limitations - History of Present Illness INITIAL COMMENTS - FREE TEXT/NARRATIVE: Ms Ernandez complains of right flank/lower back pain x 31 week. Pain is present on movement. Was seen earlier this week by PCP ,that showed NEEL ( creat of 1.2). She has no fever,diarrhea or chills. R flank Pain Score (Numeric/FACES): 0 - Related Data Allergies Allergy/AdvReac Type Severity Reaction Status Date / Time codeine Allergy Hives Verified 01/04/20 13:40 hydrocodone Allergy Hives Verified 01/04/20 13:40 latex Allergy Hives Verified 01/04/20 13:40 ibuprofen AdvReac Mild Nausea Verified 01/04/20 13:40 Home Meds: Home Meds Acetaminophen 650 mg PO Q4H PRN 09/25/18 [History] Albuterol [Ventolin HFA] 1 - 2 puff INH Q4H PRN 09/25/18 [History] Lansoprazole 30 mg PO DAILY 09/25/18 [History] Lisinopril/Hydrochlorothiazide [Lisinopril-Hctz 20-12.5 mg Tab] 1 tab PO DAILY 09/25/18 [History] Magnesium Hydroxide [Milk of Magnesia] 30 ml PO DAILY PRN 09/25/18 [History] Multivitamins [Tab-A-Lesly] 1 tab PO DAILY 09/25/18 [History] Venlafaxine HCl [Venlafaxine ER] 225 mg PO DAILY 09/25/18 [History] lamoTRIgine [Lamotrigine] 300 mg PO BID 09/25/18 [History] Fluticasone Propionate [Flonase] 2 spray NASBOTH Q2H PRN 12/25/18 [History] Cholecalciferol (Vitamin D3) [Vitamin D3] 5,000 unit PO DAILY 03/21/19 [History] Oxybutynin 5 mg PO BID 03/21/19 [History] .Vitamin B-2 400 mg PO ASDIRECTED 04/15/19 [History] L.acidoph,Paracasei, B.lactis [Probiotic] 1 cap PO DAILY 07/25/19 [History] Cyclobenzaprine [Flexeril] 10 mg PO BEDTIME PRN 10/21/19 [History] hydrOXYzine HCL [Hydroxyzine HCl] 25 mg BID PRN 10/21/19 [History] hydrOXYzine pamoate [Vistaril] 50 - 100 mg PO BEDTIME PRN 10/21/19 [History] Docusate Sodium [Colace] 100 mg PO ASDIRECTED 12/12/19 [History] Famotidine 10 mg PO BEDTIME 01/04/20 [History] polyethylene glycoL 3350 [MiraLAX] 17 gm PO DAILY PRN 01/04/20 [History] Past Medical History - Past Health History Medical/Surgical History: Denies Medical/Surgical History HEENT History: Reports: Head, Impaired Vision Cardiovascular History: Reports: Hypertension Respiratory History: Reports: Asthma, Sleep Apnea Other Respiratory History: states sleep apnea 'mild' & doesn't use CPAP. 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 Musculoskeletal History: Reports: Arthritis, Fracture, Fibromyalgia, Osteoarthritis Neurological History: Reports: Headaches, Chronic, Other (See Below) Other Neuro History: Pseudoseizures Psychiatric History: Reports: Anxiety, Bipolar, Depression, Panic Attack, Psych Hospitalization(s) Endocrine/Metabolic History: Reports: Obesity/BMI 30+ Dermatologic History: Reports: None - Infectious Disease History Infectious Disease History: Reports: Chicken Pox - Past Surgical History HEENT Surgical History: Reports: Oral Surgery Cardiovascular Surgical History: Reports: None Respiratory Surgical History: Reports: None GI Surgical History: Reports: Appendectomy, Cholecystectomy, Colonoscopy, EGD Other GI Surgeries/Procedures: tubal ablation, constipation. Female Surgical History: Reports: Endometrial Ablation, Tubal Ligation, Other (See Below) Other Female Surgeries/Procedures: bladder prolapse repair. 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 Musculoskeletal Surgical History: Reports: Carpal Tunnel, ORIF, Shoulder Surgery, Other (See Below) Other Musculoskeletal Surgeries/Procedures:: bilateral shoulder repair, feet surgeries that had plate and screws (removed after a year). Right wrist carpal tunnel and old fracture repair. R wrist surgery Oncologic Surgical History: Reports: None Dermatological Surgical History: Reports: None Social & Family History - Family History Family Medical History: Noncontributory - Tobacco Use Tobacco Use Status *Q: Current Every Day Tobacco User Years of Tobacco use: 25 Packs/Tins Daily: 0.5 - Caffeine Use Caffeine Use: Reports: Coffee, Soda - Recreational Drug Use Recreational Drug Use: No - Living Situation & Occupation Living situation: Reports: Alone Occupation: Unemployed ED ROS GENERAL - Review of Systems Review Of Systems: Comprehensive ROS is negative, except as noted in HPI. ED EXAM,LOWER BACK PAIN/INJURY - Physical Exam Exam: See Below Exam Limited By: No Limitations General Appearance: Alert, WD/WN Ears: Normal External Exam Throat/Mouth: Normal Inspection Head: Atraumatic Neck: Normal Inspection Respiratory/Chest: No Respiratory Distress GI/Abdominal: Normal Bowel Sounds Back Exam: Normal Inspection, CVA Tenderness (R), Muscle Spasm, Paraspinal Tenderness Course - Vital Signs Last Recorded V/S: Last Vital Signs Temp 98.1 F 01/04/20 13:22 Pulse 80 01/04/20 14:02 Resp 18 01/04/20 14:02 BP 126/73 01/04/20 14:02 Pulse Ox 99 01/04/20 14:02 - Orders/Labs/Meds Labs: Laboratory Tests 01/04/20 01/04/20 01/04/20 Range/Units 13:35 13:40 13:40 WBC 5.8 (4.5-12.0) X10-3/uL RBC 4.40 (3.23-5.20) x10(6)uL Hgb 13.0 (11.5-15.5) g/dL Hct 38.8 (30.0-51.3) % MCV 88.3 (80-96) fL MCH 29.5 (27.7-33.6) pg MCHC 33.4 (32.2-35.4) g/dL RDW 12.3 (11.5-15.5) % Plt Count 355 (125-369) X10(3)uL MPV 7.3 L (7.4-10.4) fL Neut % (Auto) 66.9 (46-82) % Lymph % (Auto) 25.6 (13-37) % [place] % (Auto) 6.7 (4-12) % Eos % (Auto) 0 L (1.0-5.0) % Baso % (Auto) 1 (0-2) % Neut # (Auto) 3.9 (1.6-8.3) # Lymph # (Auto) 1.5 (0.6-5.0) # [place] # (Auto) 0.4 (0.0-1.3) # Eos # (Auto) 0.0 (0.0-0.8) # Baso # (Auto) 0.0 (0.0-0.2) # Sodium 140 (135-145) mmol/L Potassium 4.2 (3.5-5.3) mmol/L Chloride 101 (100-110) mmol/L Carbon Dioxide 29 (21-32) mmol/L BUN 12 D (7-18) mg/dL Creatinine 1.1 H (0.55-1.02) mg/dL Est Cr Clr Drug Dosing 54.60 mL/min Estimated GFR (MDRD) 53 L (>60) BUN/Creatinine Ratio 10.9 (9-20) Glucose 119 H (80-116) mg/dL Calcium 9.5 (8.6-10.2) mg/dL Total Bilirubin 0.3 (0.1-1.3) mg/dL AST 19 D (5-25) IU/L ALT 32 D (12-36) U/L Alkaline Phosphatase 119 H (56-112) IU/L Total Protein 7.6 (6.0-8.0) g/dL Albumin 3.9 (3.5-5.2) g/dL Globulin 3.7 g/dL Albumin/Globulin Ratio 1.1 Urine Color Yellow (YELLOW) Urine Appearance Slightly cloudy (CLEAR) Urine pH 7.0 H (5.0-6.5) Ur Specific [place] 1.005 L (1.010-1.025) Urine Protein Negative (NEGATIVE) mg/dL Urine Glucose (UA) Normal (NORMAL) mg/dL Urine Ketones Negative (NEGATIVE) mg/dL Urine Occult Blood Negative (NEGATIVE) Urine Nitrite Negative (NEGATIVE) Urine Bilirubin Negative (NEGATIVE) Urine Urobilinogen Normal (NEGATIVE) mg/dL Ur Leukocyte Esterase Negative (NEGATIVE) Urine WBC 0-5 (0-5) Ur Squamous Epith Cells Moderate H (NS,R,O) Urine Bacteria Moderate H (NS) Departure - Departure Time of Disposition: 14:25 Disposition: Home, Self-Care 01 Condition: Good Clinical Impression: Lower back pain, Muscle strain - Discharge Information Referrals: Andi John MD [Primary Care Provider] - Sepsis Event Note (ED) - Evaluation Sepsis Screening Result: No Definite Risk - Focused Exam Vital Signs: Vital Signs Temp Pulse Resp BP Pulse Ox 01/04/20 14:02 80 18 126/73 99 01/04/20 13:22 98.1 F 101 H 20 159/115 H 99 - Problem List & Annotations (1) Lower back pain SNOMED Code(s): 320143575 Code(s): M54.5 - LOW BACK PAIN Status: Acute Current Visit: Yes Qualifiers: Chronicity: acute - Problem List Review Problem List Initiated/Reviewed/Updated: Yes - Assessment/Plan Plan: Flexeril and Motrin.See PCP next week.
== END 2020-01-04 14:36 | disposition home or self-care (01) ==
LOC: FB.ED 13:22
DX: S39.012A Strain of muscle, fascia and tendon of lower back, initial encounter (principal); I10 Essential (primary) hypertension; J45.909 Unspecified asthma, uncomplicated; K21.9 Gastro-esophageal reflux disease without esophagitis; M19.90 Unspecified osteoarthritis, unspecified site; F31.9 Bipolar disorder, unspecified; F41.9 Anxiety disorder, unspecified; F17.210 Nicotine dependence, cigarettes, uncomplicated; E66.9 Obesity, unspecified; Z68.41 Body mass index [BMI] 40.0-44.9, adult; Z88.5 Allergy status to narcotic agent; Z91.040 Latex allergy status; Z88.6 Allergy status to analgesic agent; Z79.899 Other long term (current) drug therapy; X58.XXXA Exposure to other specified factors, initial encounter
CPT/HCPCS: 36415; 80053; 81001; 85025; 99284

== ENCOUNTER 2020-02-01 16:08 | Emergency (ER) | payer MEDICARE, MEDICAID ==
[2020-02-01] MEDS ORDERED: Ondansetron 4 MG Tab.DIS PO ONE ×2 (16:09→17:20)
--- NOTE | 2020-02-01 17:03 | EDM.PDOC ---
ED HPI GENERAL MEDICAL PROBLEM - General Chief Complaint: Headache Stated Complaint: FLU LIKE SYMPTOMS Time Seen by Provider: 02/01/20 17:00 Source of Information: Reports: Patient History Limitations: Reports: No Limitations - History of Present Illness INITIAL COMMENTS - FREE TEXT/NARRATIVE: 49-year-old female who reports yesterday he developed nausea with feelings of hot and cold and sore throat with nasal congestion and some body aches. She reports the symptoms seemed to worsen today. She has had no vomiting and no diarrhea. She has some intermittent abdominal cramping associated with this. She feels "bad all over". She also has had a headache and would rates that as a 9/10. It is throbbing and sharp. She feels that she has had a low-grade fever. No shortness of breath. She rates the abdominal pain as about a 5/10. Apparently she was exposed to her parents last weekend and they have both since tested positive for Covid. Apparently at the time that she was seeing them her parents both had some malaise and were not feeling well and then they went on to develop nasal congestion and fevers and cough. She is concerned that she could of Covid or some other illness. She is very stressed about this and is very anxious. She presents to the emergency department via ambulance for evaluation. There are no other associated signs or symptoms. There are no other modifying factors. 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 headache Pain Score (Numeric/FACES): 9 - Related Data Allergies Allergy/AdvReac Type Severity Reaction Status Date / Time codeine Allergy Hives Verified 01/04/20 13:40 hydrocodone Allergy Hives Verified 01/04/20 13:40 latex Allergy Hives Verified 01/04/20 13:40 ibuprofen AdvReac Mild Nausea Verified 01/04/20 13:40 Home Meds: Home Meds Acetaminophen 650 mg PO Q4H PRN 09/25/18 [History] Albuterol [Ventolin HFA] 1 - 2 puff INH Q4H PRN 09/25/18 [History] Lansoprazole 30 mg PO DAILY 09/25/18 [History] Lisinopril/Hydrochlorothiazide [Lisinopril-Hctz 20-12.5 mg Tab] 1 tab PO DAILY 09/25/18 [History] Magnesium Hydroxide [Milk of Magnesia] 30 ml PO DAILY PRN 09/25/18 [History] Multivitamins [Tab-A-Lesly] 1 tab PO DAILY 09/25/18 [History] Venlafaxine HCl [Venlafaxine ER] 225 mg PO DAILY 09/25/18 [History] lamoTRIgine [Lamotrigine] 300 mg PO BID 09/25/18 [History] Fluticasone Propionate [Flonase] 2 spray NASBOTH Q2H PRN 12/25/18 [History] Cholecalciferol (Vitamin D3) [Vitamin D3] 5,000 unit PO DAILY 03/21/19 [History] Oxybutynin 5 mg PO BID 03/21/19 [History] .Vitamin B-2 400 mg PO ASDIRECTED 04/15/19 [History] L.acidoph,Paracasei, B.lactis [Probiotic] 1 cap PO DAILY 07/25/19 [History] Cyclobenzaprine [Flexeril] 10 mg PO BEDTIME PRN 10/21/19 [History] hydrOXYzine HCL [Hydroxyzine HCl] 25 mg BID PRN 10/21/19 [History] hydrOXYzine pamoate [Vistaril] 50 - 100 mg PO BEDTIME PRN 10/21/19 [History] Docusate Sodium [Colace] 100 mg PO ASDIRECTED 12/12/19 [History] Famotidine 10 mg PO BEDTIME 01/04/20 [History] polyethylene glycoL 3350 [MiraLAX] 17 gm PO DAILY PRN 01/04/20 [History] Ondansetron [Zofran ODT] 4 mg PO Q6H PRN #8 tab.dis 02/01/20 [Rx] Past Medical History HEENT History: Reports: Head, Impaired Vision Cardiovascular History: Reports: Hypertension Respiratory History: Reports: Asthma, Sleep Apnea Other Respiratory History: states sleep apnea 'mild' & doesn't use CPAP. Gastrointestinal History: Reports: Chronic Constipation, GERD Genitourinary History: Reports: Other (See Below) Other Genitourinary History: states kidney numbers have been elevated Musculoskeletal History: Reports: Arthritis, Fracture, Fibromyalgia, Osteoarthritis Neurological History: Reports: Headaches, Chronic, Other (See Below) Other Neuro History: Pseudoseizures Psychiatric History: Reports: Anxiety, Bipolar, Depression, Panic Attack, Psych Hospitalization(s) Endocrine/Metabolic History: Reports: Obesity/BMI 30+ - Infectious Disease History Infectious Disease History: Reports: Chicken Pox - Past Surgical History HEENT Surgical History: Reports: Oral Surgery GI Surgical History: Reports: Appendectomy, Cholecystectomy, Colonoscopy, EGD Other GI Surgeries/Procedures: tubal ablation, constipation. Female Surgical History: Reports: Endometrial Ablation, Tubal Ligation, Other (See Below) Other Female Surgeries/Procedures: bladder prolapse repair. 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 Musculoskeletal Surgical History: Reports: Carpal Tunnel, ORIF, Shoulder Ermelinda marian, Other (See Below) Other Musculoskeletal Surgeries/Procedures:: bilateral shoulder repair, feet surgeries that had plate and screws (removed after a year). Right wrist carpal tunnel and old fracture repair. R wrist surgery Social & Family History - Tobacco Use Tobacco Use Status *Q: Current Every Day Tobacco User - Caffeine Use Caffeine Use: Reports: Coffee, Soda - Alcohol Use Alcohol Use History: No - Living Situation & Occupation Living situation: Reports: Alone Occupation: Unemployed ED ROS GENERAL - Review of Systems Review Of Systems: See Below Constitutional: Reports: Fever, Chills, Malaise, Weakness, Fatigue HEENT: Reports: Other (Nasal congestion) Respiratory: Reports: Cough. Denies: Sputum, Hemoptysis Cardiovascular: Reports: No Symptoms GI/Abdominal: Reports: Abdominal Pain, Nausea, Vomiting : Reports: No Symptoms Musculoskeletal: Reports: Other (Body aches.) Skin: Reports: No Symptoms Neurological: Reports: Headache Psychiatric: Reports: Anxiety Hematologic/Lymphatic: Reports: No Symptoms Immunologic: Reports: No Symptoms ED EXAM, GENERAL - Physical Exam Exam: See Below Exam Limited By: No Limitations General Appearance: Alert, Anxious (Otherwise, no acute distress.), Obese Eye Exam: Bilateral Eye: EOMI, Normal Inspection Ears: Normal External Exam, Hearing Grossly Normal Ear Exam: Bilateral Ear: Auricle Normal Nose: No Blood, Nasal Drainage Throat/Mouth: Normal Oropharynx, Normal Voice, No Airway Compromise Head: Atraumatic, Normocephalic Neck: Normal Inspection, Supple, Non-Tender, Full Range of Motion Respiratory/Chest: No Respiratory Distress, Lungs Clear, Normal Breath Sounds, No Accessory Muscle Use, Chest Non-Tender. No: Wheezing Cardiovascular: Normal Peripheral Pulses, Regular Rate, Rhythm, No Murmur Peripheral Pulses: 2+: Radial (L), Radial (R) GI/Abdominal: Normal Bowel Sounds, Soft, Non-Tender, No Distention, No Mass, Other (Some nausea with palpation of her abdomen.) Back Exam: Normal Inspection, Full Range of Motion Extremities: Normal Inspection, Normal Range of Motion, Non-Tender, No Pedal Edema, Normal Capillary Refill Neurological: Alert, Oriented, CN II-XII Intact, Normal Cognition, No Motor/Sensory Deficits Psychiatric: Anxious Skin Exam: Warm, Dry, Intact, Normal Color, No Rash Course - Vital Signs Last Recorded V/S: Last Vital Signs Temp 36.6 C 02/01/20 16:10 Pulse 98 02/01/20 16:10 Resp 19 02/01/20 16:10 BP 134/91 H 02/01/20 16:10 Pulse Ox 98 02/01/20 16:10 - Orders/Labs/Meds Orders: Active Orders 24 hr Category Date Time Status Isolation [COMM] Routine Oth 02/01/20 16:56 Ordered Labs: Laboratory Tests 02/01/20 02/01/20 02/01/20 Range/Units 16:30 17:40 17:40 WBC 4.7 (3.0-10.3) x10-3/uL RBC 4.41 (3.60-5.20) x10(6)uL Hgb 12.6 (11.4-15.5) g/dL Hct 38.3 (34.2-48.2) % MCV 86.8 (76.7-100.5) fL MCH 28.5 (23.9-33.9) pg MCHC 32.9 (31.9-34.8) g/dL RDW 13.1 (12.3-16.5) % Plt Count 278 (151-488) x10(3)uL MPV 7.4 (7.1-12.4) fL Neut % (Auto) 62.4 (30.8-76.2) % Lymph % (Auto) 26.5 (18.4-52.1) % Swain % (Auto) 9.7 (4.4-15.7) % Eos % (Auto) 0.5 L (0.6-8.1) % Baso % (Auto) 0.9 (0.2-1.5) % Neut # (Auto) 2.9 (1.5-6.3) x10-3/uL Lymph # (Auto) 1.2 (1.0-4.4) x10-3/uL Swain # (Auto) 0.5 (0.3-1.0) x10-3/uL Eos # (Auto) 0.0 (0.0-0.8) x10-3/uL Baso # (Auto) 0.0 (0.0-0.1) x10-3/uL Sodium 140 (135-145) mmol/L Potassium 4.5 (3.5-5.3) mmol/L Chloride 100 (100-110) mmol/L Carbon Dioxide 30 (21-32) mmol/L BUN 13 (7-18) mg/dL Creatinine 1.1 H (0.55-1.02) mg/dL Est Cr Clr Drug Dosing TNP Estimated GFR (MDRD) 53 L (>60) BUN/Creatinine Ratio 11.8 (9-20) Glucose 102 (80-116) mg/dL Calcium 9.2 (8.6-10.2) mg/dL Magnesium 1.9 (1.8-2.5) mg/dL Total Bilirubin 0.2 (0.1-1.3) mg/dL AST 20 (5-25) IU/L ALT 30 (12-36) U/L Alkaline Phosphatase 99 (56-112) IU/L Total Protein 7.6 (6.0-8.0) g/dL Albumin 3.7 (3.5-5.2) g/dL Globulin 3.9 g/dL Albumin/Globulin Ratio 1.0 Lipase (73-393) U/L Urine Color (YELLOW) Urine Appearance (CLEAR) Urine pH (5.0-6.5) Ur Specific [place] (1.010-1.025) Urine Protein (NEGATIVE) mg/dL Urine Glucose (UA) (NORMAL) mg/dL Urine Ketones (NEGATIVE) mg/dL Urine Occult Blood (NEGATIVE) Urine Nitrite (NEGATIVE) Urine Bilirubin (NEGATIVE) Urine Urobilinogen (NEGATIVE) mg/dL Ur Leukocyte Esterase (NEGATIVE) Urine RBC (0-5) Urine WBC (0-5) Ur Squamous Epith Cells (NS,R,O) Urine Bacteria (NS) Urine Mucus (NS) SARS-CoV-2 RNA (TWYLA) Negative (NEGATIVE) 02/01/20 02/01/20 Range/Units 17:40 18:40 WBC (3.0-10.3) x10-3/uL RBC (3.60-5.20) x10(6)uL Hgb (11.4-15.5) g/dL Hct (34.2-48.2) % MCV (76.7-100.5) fL MCH (23.9-33.9) pg MCHC (31.9-34.8) g/dL RDW (12.3-16.5) % Plt Count (151-488) x10(3)uL MPV (7.1-12.4) fL Neut % (Auto) (30.8-76.2) % Lymph % (Auto) (18.4-52.1) % Swain % (Auto) (4.4-15.7) % Eos % (Auto) (0.6-8.1) % Baso % (Auto) (0.2-1.5) % Neut # (Auto) (1.5-6.3) x10-3/uL Lymph # (Auto) (1.0-4.4) x10-3/uL Swain # (Auto) (0.3-1.0) x10-3/uL Eos # (Auto) (0.0-0.8) x10-3/uL Baso # (Auto) (0.0-0.1) x10-3/uL Sodium (135-145) mmol/L Potassium (3.5-5.3) mmol/L Chloride (100-110) mmol/L Carbon Dioxide (21-32) mmol/L BUN (7-18) mg/dL Creatinine (0.55-1.02) mg/dL Est Cr Clr Drug Dosing Estimated GFR (MDRD) (>60) BUN/Creatinine Ratio (9-20) Glucose (80-116) mg/dL Calcium (8.6-10.2) mg/dL Magnesium (1.8-2.5) mg/dL Total Bilirubin (0.1-1.3) mg/dL AST (5-25) IU/L ALT (12-36) U/L Alkaline Phosphatase (56-112) IU/L Total Protein (6.0-8.0) g/dL Albumin (3.5-5.2) g/dL Globulin g/dL Albumin/Globulin Ratio Lipase 65 L (73-393) U/L Urine Color Yellow (YELLOW) Urine Appearance Slightly cloudy (CLEAR) Urine pH 6.5 (5.0-6.5) Ur Specific [place] 1.010 (1.010-1.025) Urine Protein Negative (NEGATIVE) mg/dL Urine Glucose (UA) Normal (NORMAL) mg/dL Urine Ketones 15 H (NEGATIVE) mg/dL Urine Occult Blood Negative (NEGATIVE) Urine Nitrite Negative (NEGATIVE) Urine Bilirubin Negative (NEGATIVE) Urine Urobilinogen Normal (NEGATIVE) mg/dL Ur Leukocyte Esterase Negative (NEGATIVE) Urine RBC 0-5 (0-5) Urine WBC 0-5 (0-5) Ur Squamous Epith Cells Moderate H (NS,R,O) Urine Bacteria Few H (NS) Urine Mucus Few H (NS) SARS-CoV-2 RNA (TWYLA) (NEGATIVE) Meds: Medications Discontinued Medications Generic Name Dose Route Start Last Admin Trade Name Freq PRN Reason Stop Dose Admin Hydroxyzine HCl 50 mg 02/01/20 17:20 02/01/20 17:53 Vistaril IM 02/01/20 17:21 50 mg ONETIME ONE Administration Ondansetron HCl 4 mg 02/01/20 17:20 02/01/20 17:53 Zofran Odt PO 02/01/20 17:21 4 mg ONETIME ONE Administration - Re-Assessments/Exams Free Text/Narrative Re-Assessment/Exam: 02/01/20 19:20: The patient has remained vitally stable. Her O2 saturations have remained 8% on room air. She is in no respiratory distress. Her nausea has resolved. She feels tired now. Her blood tests are all reassuringly normal. Her urine test shows no evidence of infection. Her insulin screen was negative and a Covid test was negative as well. She appears to have a viral type illness. I guess it is possible this could still be Covid. I have advised her to self quarantine until her symptoms are gone for at least 24 hours. I we will give her a take-home pack of Zofran and will also give her a prescription for additional Zofran as needed. Symptomatic treatment was recommended at home. Precautions and reasons for return to the emergency department were discussed with the patient while she was in the emergency department either detailed in the patient's discharge instructions. Departure - Departure Time of Disposition: 19:35 Disposition: Home, Self-Care 01 Condition: Good Clinical Impression: Viral syndrome URI (upper respiratory infection) Qualifiers: URI type: unspecified URI Qualified Code(s): J06.9 - Acute upper respiratory infection, unspecified - Discharge Information Prescriptions: Ondansetron [Zofran ODT] 4 mg PO Q6H PRN #8 tab.dis PRN Reason: Nausea/Vomiting Instructions: Viral Respiratory Infection, [id number], Upper Respiratory Infection, Adult, [id number] Referrals: PCP,Unknown [Primary Care Provider] - Forms: ED Department Discharge Additional Instructions: Your influenza screen was negative. Your Covid test was negative. Your blood te sts were all reassuringly normal. Your urine test was normal. As we discussed, you appear to have a viral type illness. Your evening appeared to be good and did not appear to have any significant problems at this time. You can take Tylenol 1000 mg by mouth every 6 hours as needed for pain or fever. You can also take Zofran 4 mg every 6 hours as needed for nausea or stomach cramping. Rest. Drink plenty of fluids. Back to the emergency department for unrelenting vomiting, severe weakness or any other concerning sign or symptom. Sepsis Event Note (ED) - Focused Exam Vital Signs: Vital Signs Temp Pulse Resp BP Pulse Ox 02/01/20 16:10 36.6 C 98 19 134/91 H 98 - My Orders Last 24 Hours: My Active Orders 02/01/20 16:56 Isolation [COMM] Routine - Assessment/Plan Last 24 Hours: My Active Orders 02/01/20 16:56 Isolation [COMM] Routine
[2020-02-01] MEDS ORDERED: hydrOXYzine HCl 50 MG/ML SDV IM ONE (17:20)
== END 2020-02-01 20:00 | disposition home or self-care (01) ==
LOC: FB.ED 16:08
DX: J06.9 Acute upper respiratory infection, unspecified (principal); B34.9 Viral infection, unspecified; I10 Essential (primary) hypertension; J45.909 Unspecified asthma, uncomplicated; K21.9 Gastro-esophageal reflux disease without esophagitis; F41.9 Anxiety disorder, unspecified; F32.9 Major depressive disorder, single episode, unspecified; F17.200 Nicotine dependence, unspecified, uncomplicated; E66.9 Obesity, unspecified; Z68.41 Body mass index [BMI] 40.0-44.9, adult; Z88.5 Allergy status to narcotic agent; Z91.040 Latex allergy status; Z88.6 Allergy status to analgesic agent; Z79.899 Other long term (current) drug therapy; Z20.828 Contact with and (suspected) exposure to other viral communicable diseases
CPT/HCPCS: 36415; 80053; 81001; 83690; 83735; 85025; 87804; 96372; 99283; A9270; J3410; U0002

== ENCOUNTER 2020-04-06 13:28 | Emergency (ER) | payer MEDICARE, MEDICAID ==
--- NOTE | 2020-04-06 14:52 | EDM.PDOC ---
ED HPI GENERAL MEDICAL PROBLEM - General Chief Complaint: Abdominal Pain Stated Complaint: SHARP STOMACH PAIN Time Seen by Provider: 04/06/20 14:35 Source of Information: Reports: Patient, Old Records History Limitations: Reports: No Limitations - History of Present Illness INITIAL COMMENTS - FREE TEXT/NARRATIVE: 49 yo female with a pHx of a couple of prior hernia surgeries presents with anorexia, nausea, and central abdominal pain for a few days. She has been having BM's regularly sometimes loose. Just finished a course of Amoxicillin for a dental infection. Sx's began while on Amox. Pain worse with pressing on central abdomen, not worse with coughing. Was seen in her doctor's office earlier today and got Zofran and Toradol and a liter of IV fluids without adequate relief so comes on her own to the ER with a saline lock still in her arm. Is on lansoprazole and famotidine. No black or bloody stools. No fever. Onset: Gradual Onset Date: 04/02/20 Duration: Day(s):, Getting Worse Location: Reports: Abdomen Quality: Reports: Ache Severity: Moderate Improves with: Reports: None Worsens with: Reports: Other (pressing on central abdomen) Context: Reports: Other (See HPI) Associated Symptoms: Reports: Loss of Appetite, Nausea/Vomiting (no vomiting). 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) (See HPI) Epigastric Pain Score (Numeric/FACES): 6 - Related Data Allergies Allergy/AdvReac Type Severity Reaction Status Date / Time codeine Allergy Hives Verified 04/06/20 14:05 hydrocodone Allergy Hives Verified 04/06/20 14:05 latex Allergy Hives Verified 04/06/20 14:05 ibuprofen AdvReac Mild Nausea Verified 04/06/20 14:05 Home Meds: Home Meds Acetaminophen 650 mg PO Q4H PRN 09/25/18 [History] Albuterol [Ventolin HFA] 1 - 2 puff INH Q4H PRN 09/25/18 [History] Lansoprazole 30 mg PO DAILY 09/25/18 [History] Lisinopril/Hydrochlorothiazide [Lisinopril-Hctz 20-12.5 mg Tab] 1 tab PO DAILY 09/25/18 [History] Magnesium Hydroxide [Milk of Magnesia] 30 ml PO DAILY PRN 09/25/18 [History] Multivitamins [Tab-A-Lesly] 1 tab PO DAILY 09/25/18 [History] Venlafaxine HCl [Venlafaxine ER] 225 mg PO DAILY 09/25/18 [History] lamoTRIgine [Lamotrigine] 300 mg PO BID 09/25/18 [History] Fluticasone Propionate [Flonase] 2 spray NASBOTH Q2H PRN 12/25/18 [History] Cholecalciferol (Vitamin D3) [Vitamin D3] 5,000 unit PO DAILY 03/21/19 [History] Oxybutynin 5 mg PO BID 03/21/19 [History] .Vitamin B-2 400 mg PO ASDIRECTED 04/15/19 [History] L.acidoph,Paracasei, B.lactis [Probiotic] 1 cap PO DAILY 07/25/19 [History] Cyclobenzaprine [Flexeril] 10 mg PO BEDTIME 10/21/19 [History] hydrOXYzine HCL [Hydroxyzine HCl] 25 mg PO BID PRN 10/21/19 [History] hydrOXYzine pamoate [Vistaril] 50 - 100 mg PO BEDTIME PRN 10/21/19 [History] Docusate Sodium [Colace] 100 mg PO DAILY 12/12/19 [History] Famotidine 10 mg PO BEDTIME 01/04/20 [History] polyethylene glycoL 3350 [MiraLAX] 17 gm PO DAILY PRN 01/04/20 [History] Ondansetron [Zofran ODT] 4 mg PO Q6H PRN #8 tab.dis 02/01/20 [Rx] Amoxicillin 500 mg PO Q8H 04/06/20 [History] Dicyclomine [Bentyl] 20 mg PO QID PRN #30 tab 04/06/20 [Rx] Past Medical History - Past Health History Medical/Surgical History: Denies Medical/Surgical History HEENT History: Reports: Head, Impaired Vision Cardiovascular History: Reports: Hypertension Respiratory History: Reports: Asthma, Sleep Apnea Other Respiratory History: states sleep apnea 'mild' & doesn't use CPAP. 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 Musculoskeletal History: Reports: Arthritis, Fracture, Fibromyalgia, Osteoa rthritis Neurological History: Reports: Headaches, Chronic, Other (See Below) Other Neuro History: Pseudoseizures Psychiatric History: Reports: Anxiety, Bipolar, Depression, Panic Attack, Psych Hospitalization(s) Endocrine/Metabolic History: Reports: Obesity/BMI 30+ Dermatologic History: Reports: None - Infectious Disease History Infectious Disease History: Reports: Chicken Pox - Past Surgical History HEENT Surgical History: Reports: Oral Surgery Cardiovascular Surgical History: Reports: None Respiratory Surgical History: Reports: None GI Surgical History: Reports: Appendectomy, Cholecystectomy, Colonoscopy, EGD Other GI Surgeries/Procedures: tubal ablation, constipation. Female Surgical History: Reports: Endometrial Ablation, Tubal Ligation, Other (See Below) Other Female Surgeries/Procedures: bladder prolapse repair. 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 Musculoskeletal Surgical History: Reports: Carpal Tunnel, ORIF, Shoulder Surgery, Other (See Below) Other Musculoskeletal Surgeries/Procedures:: bilateral shoulder repair, feet surgeries that had plate and screws (removed after a year). Right wrist carpal tunnel and old fracture repair. R wrist surgery Oncologic Surgical History: Reports: None Dermatological Surgical History: Reports: None Social & Family History - Family History Family Medical History: No Pertinent Family History - Tobacco Use Tobacco Use Status *Q: Current Every Day Tobacco User Years of Tobacco use: 25 Packs/Tins Daily: 0.3 - Caffeine Use Caffeine Use: Reports: Energy Drinks, Soda - Recreational Drug Use Recreational Drug Use: No - Living Situation & Occupation Living situation: Reports: Alone Occupation: Unemployed ED ROS GENERAL - Review of Systems Review Of Systems: See Below Constitutional: Reports: No Symptoms HEENT: Reports: No Symptoms Respiratory: Reports: No Symptoms Cardiovascular: Reports: No Symptoms Endocrine: Reports: No Symptoms GI/Abdominal: Reports: Abdominal Pain, Decreased Appetite, Nausea. Denies: Dist ension, Vomiting : Reports: No Symptoms Musculoskeletal: Reports: No Symptoms Skin: Reports: No Symptoms Neurological: Reports: No Symptoms ED EXAM, GI/ABD - Physical Exam Exam: See Below Exam Limited By: No Limitations General Appearance: Alert, WD/WN, No Apparent Distress, Obese Eyes: Bilateral: Normal Appearance Ears: Normal External Exam, Normal Canal, Hearing Grossly Normal Nose: Normal Inspection, Normal Mucosa, No Blood Throat/Mouth: Normal Inspection, Normal Lips, Normal Oropharynx, Normal Voice, No Airway Compromise Head: Atraumatic, Normocephalic Neck: Normal Inspection Respiratory/Chest: No Respiratory Distress, Lungs Clear, Normal Breath Sounds, No Accessory Muscle Use Cardiovascular: Regular Rate, Rhythm, No Edema GI/Abdominal Exam: Normal Bowel Sounds, Soft, No Distention, Tender (centrally, this area is firm suggesting hernia), Other (surgical scars noted). No: Non- Tender, Distended, Guarding, Rigid, Rebound Back Exam: Normal Inspection. No: CVA Tenderness (R), CVA Tenderness (L) Extremities: Normal Inspection, Normal Range of Motion, Non-Tender, No Pedal Edema Neurological: Alert, Oriented, CN II-XII Intact, Normal Cognition, No Motor/Sensory Deficits Psychiatric: Normal Affect, Normal Mood Skin Exam: Warm, Dry, Intact, Normal Color, No Rash Course - Vital Signs Last Recorded V/S: Last Vital Signs Temp 36.8 C 04/06/20 14:26 Pulse 80 04/06/20 15:20 Resp 18 04/06/20 15:20 BP 134/80 04/06/20 15:20 Pulse Ox 100 04/06/20 15:20 - Orders/Labs/Meds Orders: Active Orders 24 hr Category Date Time Status Abdomen Pelvis w Cont [CT] Stat Exams 04/06/20 14:44 Taken Labs: Laboratory Tests 04/06/20 Range/Units 14:48 Creatinine 1.2 H (0.55-1.02) mg/dL Est Cr Clr Drug Dosing 50.05 mL/min Estimated GFR (MDRD) 48 L (>60) Meds: Medications Discontinued Medications Generic Name Dose Route Start Last Admin Trade Name Freq PRN Reason Stop Dose Admin Iopamidol 100 ml 04/06/20 15:32 04/06/20 15:41 Isovue-370 (76%) IV 04/06/20 15:33 100 ml . DIRECTED ONE Administration - Radiology Interpretation Free Text/Narrative:: CT abd/pelvis with IV contrast-small umbilical hernia, no acute changes since last CT CT Results Date: 04/06/20 CT Results Time: 16:05 Departure - Departure Time of Disposition: 16:20 Disposition: Home, Self-Care 01 Condition: Fair Clinical Impression: Nonspecific abdominal pain - Discharge Information *PRESCRIPTION DRUG MONITORING PROGRAM REVIEWED*: No *COPY OF PRESCRIPTION DRUG MONITORING REPORT IN PATIENT LAURA: No Referrals: Andi John MD [Primary Care Provider] - Forms: ED Department Discharge Additional Instructions: Take dicyclomine as directed along with acetaminophen 1000 mg every 6 hrs as needed for pain relief. Recheck with your provider if not improving. Sepsis Event Note (ED) - Evaluation Sepsis Screening Result: No Definite Risk - Focused Exam Vital Signs: Vital Signs Temp Pulse Resp BP Pulse Ox 04/06/20 15:20 80 18 134/80 100 04/06/20 14:26 36.8 C 88 16 138/78 100 04/06/20 14:04 36.8 C 88 16 138/78 100 - My Orders Last 24 Hours: My Active Orders 04/06/20 14:44 Abdomen Pelvis w Cont [CT] Stat - Assessment/Plan Last 24 Hours: My Active Orders 04/06/20 14:44 Abdomen Pelvis w Cont [CT] Stat
[2020-04-06] MEDS ORDERED: Iopamidol 755 Mg/ML 100 ML Bottle IV ONE (15:32)
[2020-04-06] MEDS ORDERED: Dicyclomine 10 MG Cap PO ONE (16:05)
[2020-04-06] MEDS ORDERED: Acetaminophen 500 MG Tab PO ONE (16:06)
--- NOTE | 2020-04-07 11:02 | CT ---
INDICATION: Spiral 3.75 mm axial sections were obtained through the abdomen and pelvis with 100 mL Isovue-370 at 2 cc per second, with sagittal and coronal reconstructions 04/06/20 and compared with 12/19/19. Total exam DLP was 1581.19 mGy-cm. A linear density is noted in the lingula and in the right lower lobe, both may represent minimal linear atelectatic strands and/or interval fibrosis or minimal degree. No active infiltrate or effusion was seen. The gallbladder is absent compatible with history of its removal. The liver was unremarkable. The stomach was not distended - difficult to exclude gastric pathology therefore. The spleen, pancreas, common bile duct, and kidneys, were unremarkable. No retroperitoneal mass was seen. The appendix is absent compatible with history of its removal. No evidence of free air or bowel obstruction was seen. There is again noted a very tiny umbilical hernia including only fat with a wide mouth. Urinary bladder was essentially empty. Tiny adrenal adenoma is stable on the left with a right adrenal unremarkable. IMPRESSION: 1. Little change noted compared with 12/19/19 CT of the abdomen and pelvis, with no specific etiology identified for the patient's abdominal pain in the area of the umbilicus. 2. Tiny umbilical hernia, including only fat, stable. 3. Post cholecystectomy. 4. Post appendectomy. 5. Tiny adrenal adenoma on the left - stable. Report was called to Dr. Lino at 1603 hours. [facility]
== END 2020-04-06 16:30 | disposition home or self-care (01) ==
LOC: FB.ED 13:28
DX: R10.13 Epigastric pain (principal); J45.909 Unspecified asthma, uncomplicated; I10 Essential (primary) hypertension; K21.9 Gastro-esophageal reflux disease without esophagitis; E66.9 Obesity, unspecified; Z72.0 Tobacco use; Z68.41 Body mass index [BMI] 40.0-44.9, adult; Z88.5 Allergy status to narcotic agent; Z91.040 Latex allergy status; Z88.6 Allergy status to analgesic agent; Z79.899 Other long term (current) drug therapy
CPT/HCPCS: 36415; 74177; 82565; 99283; A9270; Q9967; 99284-25

== ENCOUNTER 2020-04-15 17:48 | Emergency (ER) | payer MEDICARE, MEDICAID ==
[2020-04-15] MEDS ORDERED: Ondansetron 4 MG Tab.DIS PO STA (18:34)
[2020-04-15] MEDS ORDERED: traMADol 50 MG Tab PO STA (18:34)
[2020-04-15] MEDS ORDERED: Alum Hydroxide/Mag Hydroxide 15 ML, Lidocaine 2% 15 ML PO STA ×2 (18:34)
--- NOTE | 2020-04-15 19:43 | EDM.PDOC ---
ED HPI GENERAL MEDICAL PROBLEM - General Chief Complaint: Abdominal Pain Stated Complaint: POST SURGERY ABDOMINAL PAIN Time Seen by Provider: 04/15/20 18:15 Source of Information: Reports: Patient History Limitations: Reports: No Limitations - History of Present Illness INITIAL COMMENTS - FREE TEXT/NARRATIVE: Patient presented to the ED because of epigastric pain, burning, radiating to the chest and throat. she is scared that her umbilical hernia is getting worse. A ct scan of her abdomen and pelvis on 04/07/20 which showwed a tiny umbilical hernia. she is scheduled to see a surgeon this week for consult. Abdominal Pain Score (Numeric/FACES): 10 - Related Data Allergies Allergy/AdvReac Type Severity Reaction Status Date / Time codeine Allergy Hives Verified 04/15/20 18:21 hydrocodone Allergy Hives Verified 04/15/20 18:21 latex Allergy Hives Verified 04/15/20 18:21 ibuprofen AdvReac Mild Nausea Verified 04/15/20 18:21 Home Meds: Home Meds Acetaminophen 650 mg PO Q4H PRN 09/25/18 [History] Albuterol [Ventolin HFA] 1 - 2 puff INH Q4H PRN 09/25/18 [History] Lansoprazole 30 mg PO DAILY 09/25/18 [History] Lisinopril/Hydrochlorothiazide [Lisinopril-Hctz 20-12.5 mg Tab] 1 tab PO DAILY 09/25/18 [History] Magnesium Hydroxide [Milk of Magnesia] 30 ml PO DAILY PRN 09/25/18 [History] Multivitamins [Tab-A-Lesly] 1 tab PO DAILY 09/25/18 [History] Venlafaxine HCl [Venlafaxine ER] 225 mg PO DAILY 09/25/18 [History] lamoTRIgine [Lamotrigine] 300 mg PO BID 09/25/18 [History] Fluticasone Propionate [Flonase] 2 spray NASBOTH Q2H PRN 12/25/18 [History] Cholecalciferol (Vitamin D3) [Vitamin D3] 5,000 unit PO DAILY 03/21/19 [History] Oxybutynin 5 mg PO BID 03/21/19 [History] .Vitamin B-2 400 mg PO ASDIRECTED 04/15/19 [History] L.acidoph,Paracasei, B.lactis [Probiotic] 1 cap PO DAILY 07/25/19 [History] Cyclobenzaprine [Flexeril] 10 mg PO BEDTIME 10/21/19 [History] hydrOXYzine HCL [Hydroxyzine HCl] 25 mg PO BID PRN 10/21/19 [History] hydrOXYzine pamoate [Vistaril] 50 - 100 mg PO BEDTIME PRN 10/21/19 [History] Docusate Sodium [Colace] 100 mg PO DAILY 12/12/19 [History] Famotidine 10 mg PO BEDTIME 01/04/20 [History] polyethylene glycoL 3350 [MiraLAX] 17 gm PO DAILY PRN 01/04/20 [History] Ondansetron [Zofran ODT] 4 mg PO Q6H PRN #8 tab.dis 02/01/20 [Rx] Amoxicillin 500 mg PO Q8H 04/06/20 [History] Dicyclomine [Bentyl] 20 mg PO QID PRN #30 tab 04/06/20 [Rx] Sulfamethoxazole/Trimethoprim [Bactrim Ds Tablet] 1 each PO BID #6 tablet 04/15/20 [Rx] traMADol [Ultram] 50 mg PO Q8H PRN #15 tab 04/15/20 [Rx] Past Medical History - Past Health History Medical/Surgical History: Denies Medical/Surgical History HEENT History: Reports: Head, Impaired Vision Cardiovascular History: Reports: Hypertension Respiratory History: Reports: Asthma, Sleep Apnea Other Respiratory History: states sleep apnea 'mild' & doesn't use CPAP. 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 OR STUDENT TEACHER History: Reports: None Musculoskeletal History: Reports: Arthritis, Fracture, Fibromyalgia, Osteoarthritis Neurological History: Reports: Headaches, Chronic, Other (See Below) Other Neuro History: Pseudoseizures Psychiatric History: Reports: Anxiety, Bipolar, Depression, Panic Attack, Psych Hospitalization(s) Endocrine/Metabolic History: Reports: Obesity/BMI 30+ Dermatologic History: Reports: None - Infectious Disease History Infectious Disease History: Reports: Chicken Pox - Past Surgical History HEENT Surgical History: Reports: Oral Surgery Cardiovascular Surgical History: Reports: None Respiratory Surgical History: Reports: None GI Surgical History: Reports: Appendectomy, Cholecystectomy, Colonoscopy, EGD Other GI Surgeries/Procedures: tubal ablation, constipation, umbilical hernia Female Surgical History: Reports: Endometrial Ablation, Tubal Ligation, Other (See Below) Other Female Surgeries/Procedures: bladder prolapse repair. 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 Musculoskeletal Surgical History: Reports: Carpal Tunnel, ORIF, Shoulder Surgery, Other (See Below) Other Musculoskeletal Surgeries/Procedures:: bilateral shoulder repair, feet surgeries that had plate and screws (removed after a year). Right wrist carpal tunnel and old fracture repair. R wrist surgery Oncologic Surgical History: Reports: None Dermatological Surgical History: Reports: None Social & Family History - Family History Family Medical History: No Pertinent Family History - Tobacco Use Tobacco Use Status *Q: Current Every Day Tobacco User Years of Tobacco use: 35 Packs/Tins Daily: 0.3 - Caffeine Use Caffeine Use: Reports: Coffee, Soda - Recreational Drug Use Recreational Drug Use: No - Living Situation & Occupation Living situation: Reports: Alone Occupation: Unemployed ED ROS GENERAL - Review of Systems Review Of Systems: See Below Constitutional: Reports: No Symptoms HEENT: Reports: No Symptoms Respiratory: Reports: No Symptoms Cardiovascular: Reports: No Symptoms Endocrine: Reports: No Symptoms GI/Abdominal: Reports: Abdominal Pain, Nausea : Reports: No Symptoms Musculoskeletal: Reports: No Symptoms Skin: Reports: No Symptoms Neurological: Reports: No Symptoms Psychiatric: Reports: No Symptoms ED EXAM, GI/ABD - Physical Exam Exam: See Below Exam Limited By: No Limitations General Appearance: Alert, No Apparent Distress Ears: Normal External Exam, Normal Canal Nose: Normal Inspection, Normal Mucosa, No Blood Throat/Mouth: Normal Inspection, Normal Lips, Normal Teeth Head: Atraumatic, Normocephalic Neck: Normal Inspection, Supple, Non-Tender, Full Range of Motion Respiratory/Chest: No Respiratory Distress, Lungs Clear, Normal Breath Sounds Cardiovascular: Normal Peripheral Pulses, Regular Rate, Rhythm, No Edema GI/Abdominal Exam: Normal Bowel Sounds, Soft, Other (epigastric tendernwss) Back Exam: Normal Inspection, Full Range of Motion Extremities: Normal Inspection, Normal Range of Motion Course - Vital Signs Text/Narrative:: Lab results was discussed with patient Bactrim DS 1 PO x1 dose Zofran ODT 4 mg GI coctail Tramadol 50 mg po x1 Last Recorded V/S: Last Vital Signs Temp 36.7 C 04/15/20 18:10 Pulse 81 04/15/20 18:58 Resp 18 04/15/20 18:58 BP 159/85 H 04/15/20 18:58 Pulse Ox 99 04/15/20 18:58 - Orders/Labs/Meds Orders: Active Orders 24 hr Category Date Time Status Sulfamethoxazole/Trimethoprim [Septra DS] Med 04/15/20 19:49 Stat 1 tab PO NOW STA Labs: Laboratory Tests 04/15/20 04/15/20 04/15/20 Range/Units 18:45 18:45 18:45 WBC 6.9 (3.0-10.3) x10-3/uL RBC 4.32 (3.60-5.20) x10(6)uL Hgb 12.3 (11.4-15.5) g/dL Hct 38.2 (34.2-48.2) % MCV 88.3 (76.7-100.5) fL MCH 28.5 (23.9-33.9) pg MCHC 32.2 (31.9-34.8) g/dL RDW 13.1 (12.3-16.5) % Plt Count 316 (151-488) x10(3)uL MPV 7.8 (7.1-12.4) fL Neut % (Auto) 61.2 (30.8-76.2) % Lymph % (Auto) 26.6 (18.4-52.1) % Rolette % (Auto) 7.8 (4.4-15.7) % Eos % (Auto) 3.9 (0.6-8.1) % Baso % (Auto) 0.5 (0.2-1.5) % Neut # (Auto) 4.2 (1.5-6.3) x10-3/uL Lymph # (Auto) 1.8 (1.0-4.4) x10-3/uL Rolette # (Auto) 0.5 (0.3-1.0) x10-3/uL Eos # (Auto) 0.3 (0.0-0.8) x10-3/uL Baso # (Auto) 0.0 (0.0-0.1) x10-3/uL Sodium 141 (135-145) mmol/L Potassium 4.2 (3.5-5.3) mmol/L Chloride 101 (100-110) mmol/L Carbon Dioxide 28 (21-32) mmol/L BUN 17 (7-18) mg/dL Creatinine 1.1 H (0.55-1.02) mg/dL Est Cr Clr Drug Dosing 54.60 mL/min Estimated GFR (MDRD) 53 L (>60) BUN/Creatinine Ratio 15.5 (9-20) Glucose 98 (80-116) mg/dL Calcium 9.5 (8.6-10.2) mg/dL Total Bilirubin 0.2 (0.1-1.3) mg/dL AST 16 D (5-25) IU/L ALT 29 (12-36) U/L Alkaline Phosphatase 103 (56-112) IU/L Total Protein 7.6 (6.0-8.0) g/dL Albumin 4.0 (3.5-5.2) g/dL Globulin 3.6 g/dL Albumin/Globulin Ratio 1.1 Amylase 29 (25-115) U/L Lipase 69 L (73-393) U/L Urine Color (YELLOW) Urine Appearance (CLEAR) Urine pH (5.0-6.5) Ur Specific Stanton (1.010-1.025) Urine Protein (NEGATIVE) mg/dL Urine Glucose (UA) (NORMAL) mg/dL Urine Ketones (NEGATIVE) mg/dL Urine Occult Blood (NEGATIVE) Urine Nitrite (NEGATIVE) Urine Bilirubin (NEGATIVE) Urine Urobilinogen (NEGATIVE) mg/dL Ur Leukocyte Esterase (NEGATIVE) Urine RBC (0-5) Urine WBC (0-5) Ur Squamous Epith Cells (NS,R,O) Amorphous Sediment Urine Bacteria (NS) 04/15/20 Range/Units 18:50 WBC (3.0-10.3) x10-3/uL RBC (3.60-5.20) x10(6)uL Hgb (11.4-15.5) g/dL Hct (34.2-48.2) % MCV (76.7-100.5) fL MCH (23.9-33.9) pg MCHC (31.9-34.8) g/dL RDW (12.3-16.5) % Plt Count (151-488) x10(3)uL MPV (7.1-12.4) fL Neut % (Auto) (30.8-76.2) % Lymph % (Auto) (18.4-52.1) % Rolette % (Auto) (4.4-15.7) % Eos % (Auto) (0.6-8.1) % Baso % (Auto) (0.2-1.5) % Neut # (Auto) (1.5-6.3) x10-3/uL Lymph # (Auto) (1.0-4.4) x10-3/uL Rolette # (Auto) (0.3-1.0) x10-3/uL Eos # (Auto) (0.0-0.8) x10-3/uL Baso # (Auto) (0.0-0.1) x10-3/uL Sodium (135-145) mmol/L Potassium (3.5-5.3) mmol/L Chloride (100-110) mmol/L Carbon Dioxide (21-32) mmol/L BUN (7-18) mg/dL Creatinine (0.55-1.02) mg/dL Est Cr Clr Drug Dosing mL/min Estimated GFR (MDRD) (>60) BUN/Creatinine Ratio (9-20) Glucose (80-116) mg/dL Calcium (8.6-10.2) mg/dL Total Bilirubin (0.1-1.3) mg/dL AST (5-25) IU/L ALT (12-36) U/L Alkaline Phosphatase (56-112) IU/L Total Protein (6.0-8.0) g/dL Albumin (3.5-5.2) g/dL Globulin g/dL Albumin/Globulin Ratio Amylase (25-115) U/L Lipase (73-393) U/L Urine Color Yellow (YELLOW) Urine Appearance Clear (CLEAR) Urine pH 6.0 (5.0-6.5) Ur Specific Stanton 1.020 (1.010-1.025) Urine Protein Negative (NEGATIVE) mg/dL Urine Glucose (UA) Normal (NORMAL) mg/dL Urine Ketones Negative (NEGATIVE) mg/dL Urine Occult Blood Negative (NEGATIVE) Urine Nitrite Negative (NEGATIVE) Urine Bilirubin Negative (NEGATIVE) Urine Urobilinogen Normal (NEGATIVE) mg/dL Ur Leukocyte Esterase Small H (NEGATIVE) Urine RBC 0-5 (0-5) Urine WBC 0-5 (0-5) Ur Squamous Epith Cells Few H (NS,R,O) Amorphous Sediment Few Urine Bacteria Few H (NS) Meds: Medications Discontinued Medications Generic Name Dose Route Start Last Admin Trade Name Freq PRN Reason Stop Dose Admin Al Hydroxide/Mg Hydroxide 15 0 ml 04/15/20 18:34 04/15/20 18:39 ml/ Lidocaine HCl 15 ml PO 04/15/20 18:35 30 ml NOW STA Administration Ondansetron HCl 4 mg 04/15/20 18:34 04/15/20 18:38 Zofran Odt PO 04/15/20 18:35 4 mg NOW STA Administration Tramadol HCl 50 mg 04/15/20 18:34 04/15/20 18:38 Ultram PO 04/15/20 18:35 50 mg NOW STA Administration Departure - Departure Time of Disposition: 19:40 Disposition: Home, Self-Care 01 Condition: Good Clinical Impression: GERD (gastroesophageal reflux disease), UTI (urinary tract infection) - Discharge Information Prescriptions: Sulfamethoxazole/Trimethoprim [Bactrim Ds Tablet] 1 each PO BID #6 tablet traMADol [Ultram] 50 mg PO Q8H PRN #15 tab PRN Reason: Pain Instructions: Food Choices for Gastroesophageal Reflux Disease, Adult, Urinary Tract Infection, Adult, [id number] Referrals: Andi John MD [Primary Care Provider] - Forms: ED Department Discharge Additional Instructions: Please read discharge instructions on GERD and UTI Read the list of food and beverages that can make GERD worse Continue your sucralfate,dyclomine, stool softener as prescribed Take tramadol 50 mg with tylenol 1000 mg every 8 hours as needed for pain that you can't handle Bactrim DS twice daily for 3 days Follow up as needed Sepsis Event Note (ED) - Evaluation Sepsis Screening Result: No Definite Risk - Focused Exam Vital Signs: Vital Signs Temp Pulse Resp BP Pulse Ox 04/15/20 18:58 81 18 159/85 H 99 04/15/20 18:10 36.7 C 102 H 20 165/103 H 99 - My Orders Last 24 Hours: My Active Orders 04/15/20 19:49 Sulfamethoxazole/Trimethoprim [Septra DS] 1 tab PO NOW STA - Assessment/Plan Last 24 Hours: My Active Orders 04/15/20 19:49 Sulfamethoxazole/Trimethoprim [Septra DS] 1 tab PO NOW STA
[2020-04-15] MEDS ORDERED: Sulfamethoxazole/Trimethoprim 800-160 MG Tab PO STA (19:49)
== END 2020-04-15 20:05 | disposition home or self-care (01) ==
LOC: FB.ED 17:48
DX: K21.9 Gastro-esophageal reflux disease without esophagitis (principal); N39.0 Urinary tract infection, site not specified; I10 Essential (primary) hypertension; J45.909 Unspecified asthma, uncomplicated; E66.9 Obesity, unspecified; Z68.41 Body mass index [BMI] 40.0-44.9, adult; Z72.0 Tobacco use; Z88.5 Allergy status to narcotic agent; Z91.040 Latex allergy status; Z88.6 Allergy status to analgesic agent; Z79.899 Other long term (current) drug therapy
CPT/HCPCS: 36415; 80053; 81001; 82150; 83690; 85025; 99284; A9270-GY

== ENCOUNTER 2020-05-17 01:21 | Emergency (ER) | payer MEDICARE, MEDICAID ==
[2020-05-17] MEDS ORDERED: Ondansetron 4 MG Tab.DIS PO ONE (01:22)
--- NOTE | 2020-05-17 02:44 | ER ---
DATE SEEN: 05/17/2020 CHIEF COMPLAINT: Nausea. HISTORY OF PRESENT ILLNESS: This is a 49-year-old female complaining about a swelling on the right side of the right upper quadrant abdomen, been present for several weeks. She is convinced that she has had a hernia. She has seen Dr. Thomas, but she was informed that it is not surgical. The swelling gets on and off and seems to be associated with some nausea. No constipation, fever, or chills. PAST SURGICAL HISTORY: She has had cholecystectomy. REVIEW OF SYSTEMS: GENITOURINARY: No urinary symptoms. CARDIOPULMONARY: No chest pain or shortness of breath. PHYSICAL EXAMINATION: GENERAL: She is not in distress. VITAL SIGNS: Normal. ABDOMEN: Soft and benign. Bowel sounds are present. No tenderness to palpation. MENTAL STATUS: Alert. NEUROLOGIC: Normal. IMPRESSION: 1. Right upper quadrant abdominal pain. 2. Nausea. PLAN: Reassurance chiefly. Giuliana p.r.n. for nausea. Follow up with PCP on Monday. /[id number] AMELIA/CAITLYN
== END 2020-05-17 03:50 | disposition home or self-care (01) ==
LOC: FB.ED 01:21
DX: R10.11 Right upper quadrant pain (principal); R11.0 Nausea
CPT/HCPCS: 99283; A9270-GY

== ENCOUNTER 2020-05-19 12:08 | Emergency (ER) | payer MEDICARE, MEDICAID ==
[2020-05-19] MEDS: Acetaminophen 500 MG Tab PO STA (12:27)
--- NOTE | 2020-05-19 13:06 | EDM.PDOC ---
ED HPI GENERAL MEDICAL PROBLEM - General Stated Complaint: COVID exposure Time Seen by Provider: 05/19/20 12:15 Source of Information: Reports: Patient History Limitations: Reports: No Limitations - History of Present Illness INITIAL COMMENTS - FREE TEXT/NARRATIVE: Patient presented to the ED because of fever,chills and sore throat which started this morning. She was exposed to somebody with Covid and is concerned of the exposure. She had her first Covid vaccine May There is no cough/cold, N/V/D. There is no urinary symptoms. Duration: Recurring Head Pain Score (Numeric/FACES): 8 - Related Data Allergies Allergy/AdvReac Type Severity Reaction Status Date / Time amoxicillin Allergy Stomach Verified 05/17/20 03:58 Upset codeine Allergy Hives Verified 05/17/20 03:11 hydrocodone Allergy Hives Verified 05/17/20 03:11 latex Allergy Hives Verified 05/17/20 03:11 ibuprofen AdvReac Mild Nausea Verified 05/17/20 03:11 Home Meds: Home Meds Acetaminophen 650 mg PO Q4H PRN 09/25/18 [History] Albuterol [Ventolin HFA] 1 - 2 puff INH Q4H PRN 09/25/18 [History] Lisinopril/Hydrochlorothiazide [Lisinopril-Hctz 20-12.5 mg Tab] 1 tab PO DAILY 09/25/18 [History] Magnesium Hydroxide [Milk of Magnesia] 30 ml PO DAILY PRN 09/25/18 [History] Multivitamins [Tab-A-Lesly] 1 tab PO DAILY 09/25/18 [History] Venlafaxine HCl [Venlafaxine ER] 225 mg PO DAILY 09/25/18 [History] lamoTRIgine [Lamotrigine] 300 mg PO BID 09/25/18 [History] Fluticasone Propionate [Flonase] 2 spray NASBOTH Q2H PRN 12/25/18 [History] Cholecalciferol (Vitamin D3) [Vitamin D3] 5,000 unit PO DAILY 03/21/19 [History] Oxybutynin 5 mg PO BID 03/21/19 [History] .Vitamin B-2 400 mg PO ASDIRECTED 04/15/19 [History] L.acidoph,Paracasei, B.lactis [Probiotic] 1 cap PO DAILY 07/25/19 [History] Cyclobenzaprine [Flexeril] 10 mg PO BEDTIME 10/21/19 [History] hydrOXYzine HCL [Hydroxyzine HCl] 25 mg PO BID PRN 10/21/19 [History] hydrOXYzine pamoate [Vistaril] 50 - 100 mg PO BEDTIME PRN 10/21/19 [History] Docusate Sodium [Colace] 100 mg PO DAILY 12/12/19 [History] polyethylene glycoL 3350 [MiraLAX] 17 gm PO DAILY PRN 01/04/20 [History] Ondansetron [Zofran ODT] 4 mg PO Q6H PRN #8 tab.dis 02/01/20 [Rx] Dicyclomine [Bentyl] 20 mg PO QID PRN #30 tab 04/06/20 [Rx] .Fiber Pill 1 dose PO ASDIRECTED 05/17/20 [History] Past Medical History - Past Health History Medical/Surgical History: Denies Medical/Surgical History HEENT History: Reports: Head, Impaired Vision Cardiovascular History: Reports: Hypertension Respiratory History: Reports: Asthma, Sleep Apnea Other Respiratory History: Mild sleep apnea, doesn't use CPAP. Gastrointestinal History: Reports: Chronic Constipation, GERD Genitourinary History: Reports: Other (See Below) Other Genitourinary History: Elevated labs related to kidneys. 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 Psychiatric History: Reports: Anxiety, Bipolar, Depression, Panic Attack, Psych Hospitalization(s) Endocrine/Metabolic History: Reports: Obesity/BMI 30+ Dermatologic History: Reports: None - Infectious Disease History Infectious Disease History: Reports: Chicken Pox - Past Surgical History HEENT Surgical History: Reports: Oral Surgery GI Surgical History: Reports: Appendectomy, Cholecystectomy, Colonoscopy, EGD Other GI Surgeries/Procedures: Tubal ablation. Constipation. Umbilical hernia. Female Surgical History: Reports: Endometrial Ablation, Tubal Ligation, Other (See Below) Other Female Surgeries/Procedures: Bladder prolapse repair. 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 Musculoskeletal Surgical History: Reports: Carpal Tunnel, ORIF, Shoulder Surgery, Other (See Below) Other Musculoskeletal Surgeries/Procedures:: Bilateral shoulder repair. Foot surgeries with plate and screws (removed after a year). Right wrist carpal tunnel and old fracture repair. Right wrist surgery. Bone spur removed from heel. Right foot surgery X3. Right hand surgery X3. Left wrist surgery. Social & Family History - Family History Family Medical History: No Pertinent Family History - Caffeine Use Caffeine Use: Reports: Coffee, Soda - Living Situation & Occupation Living situation: Reports: Alone Occupation: Unemployed ED ROS GENERAL - Review of Systems Review Of Systems: See Below Constitutional: Reports: Fever, Chills, Malaise Respiratory: Reports: No Symptoms Cardiovascular: Reports: No Symptoms Endocrine: Reports: No Symptoms GI/Abdominal: Reports: No Symptoms : Reports: No Symptoms Musculoskeletal: Reports: No Symptoms Skin: Reports: No Symptoms ED EXAM, GENERAL - Physical Exam Exam: See Below Exam Limited By: No Limitations General Appearance: Alert, No Apparent Distress Ears: Normal External Exam, Normal Canal Nose: Normal Inspection, Normal Mucosa, No Blood Throat/Mouth: Normal Inspection, Normal Lips Head: Atraumatic, Normocephalic Neck: Normal Inspection, Supple, Non-Tender, Full Range of Motion Respiratory/Chest: No Respiratory Distress, Lungs Clear, Normal Breath Sounds Cardiovascular: Normal Peripheral Pulses, Regular Rate, Rhythm, No Edema GI/Abdominal: Normal Bowel Sounds, Soft, Non-Tender, No Organomegaly Back Exam: Normal Inspection, Full Range of Motion, CVA Tenderness (R) Extremities: Normal Inspection, Normal Range of Motion, Non-Tender Neurological: Alert, Oriented, CN II-XII Intact Psychiatric: Normal Affect, Normal Mood Course - Vital Signs Text/Narrative:: Labs/CXR result was discussed with patient COVID-neg Flu-neg Tylenol 1000 mg po x1 Last Recorded V/S: Last Vital Signs Temp 37.1 C 05/19/20 13:18 Pulse 89 05/19/20 12:08 Resp 18 05/19/20 12:08 BP 140/69 05/19/20 12:08 Pulse Ox 99 05/19/20 12:08 - Orders/Labs/Meds Orders: Active Orders 24 hr Category Date Time Status Chest 2V [CR] Stat Exams 05/19/20 12:21 Taken CULTURE BLOOD [BC] Urgent Lab 05/19/20 12:45 Received CULTURE BLOOD [BC] Urgent Lab 05/19/20 12:50 Received Blood Culture x2 Reflex Set [OM.PC] Urgent Oth 05/19/20 12:21 Ordered Isolation [COMM] Routine Oth 05/19/20 12:23 Ordered Labs: Laboratory Tests 05/19/20 05/19/20 05/19/20 Range/Units 12:45 12:45 12:45 WBC 4.8 (3.0-10.3) x10-3/uL RBC 4.14 (3.60-5.20) x10(6)uL Hgb 12.0 (11.4-15.5) g/dL Hct 36.8 (34.2-48.2) % MCV 89.0 (76.7-100.5) fL MCH 29.0 (23.9-33.9) pg MCHC 32.6 (31.9-34.8) g/dL RDW 13.1 (12.3-16.5) % Plt Count 257 (151-488) x10(3)uL MPV 7.7 (7.1-12.4) fL Neut % (Auto) 70.5 (30.8-76.2) % Lymph % (Auto) 17.2 L (18.4-52.1) % Stanton % (Auto) 11.0 (4.4-15.7) % Eos % (Auto) 0.9 (0.6-8.1) % Baso % (Auto) 0.4 (0.2-1.5) % Neut # (Auto) 3.4 (1.5-6.3) x10-3/uL Lymph # (Auto) 0.8 L (1.0-4.4) x10-3/uL Stanton # (Auto) 0.5 (0.3-1.0) x10-3/uL Eos # (Auto) 0.0 (0.0-0.8) x10-3/uL Baso # (Auto) 0.0 (0.0-0.1) x10-3/uL Sodium 137 (135-145) mmol/L Potassium 4.2 (3.5-5.3) mmol/L Chloride 98 L (100-110) mmol/L Carbon Dioxide 28 (21-32) mmol/L BUN 17 (7-18) mg/dL Creatinine 1.1 H (0.55-1.02) mg/dL Est Cr Clr Drug Dosing 54.60 mL/min Estimated GFR (MDRD) 53 L (>60) BUN/Creatinine Ratio 15.5 (9-20) Glucose 108 (80-116) mg/dL Lactic Acid 1.0 (0.4-2.0) mmol/L Calcium 8.4 L (8.6-10.2) mg/dL Total Bilirubin 0.2 (0.1-1.3) mg/dL AST 19 D (5-25) IU/L ALT 30 (12-36) U/L Alkaline Phosphatase 121 H (56-112) IU/L C-Reactive Protein (0.5-0.9) mg/dL Total Protein 7.1 (6.0-8.0) g/dL Albumin 3.7 (3.5-5.2) g/dL Globulin 3.4 g/dL Albumin/Globulin Ratio 1.1 Urine Color (YELLOW) Urine Appearance (CLEAR) Urine pH (5.0-6.5) Ur Specific Norton (1.010-1.025) Urine Protein (NEGATIVE) mg/dL Urine Glucose (UA) (NORMAL) mg/dL Urine Ketones (NEGATIVE) mg/dL Urine Occult Blood (NEGATIVE) Urine Nitrite (NEGATIVE) Urine Bilirubin (NEGATIVE) Urine Urobilinogen (NEGATIVE) mg/dL Ur Leukocyte Esterase (NEGATIVE) Urine RBC (0-5) Urine WBC (0-5) Ur Squamous Epith Cells (NS,R,O) Urine Bacteria (NS) Urine Mucus (NS) SARS-CoV-2 RNA (TWYLA) (NEGATIVE) 05/19/20 05/19/20 05/19/20 Range/Units 12:45 12:50 13:11 WBC (3.0-10.3) x10-3/uL RBC (3.60-5.20) x10(6)uL Hgb (11.4-15.5) g/dL Hct (34.2-48.2) % MCV (76.7-100.5) fL MCH (23.9-33.9) pg MCHC (31.9-34.8) g/dL RDW (12.3-16.5) % Plt Count (151-488) x10(3)uL MPV (7.1-12.4) fL Neut % (Auto) (30.8-76.2) % Lymph % (Auto) (18.4-52.1) % Stanton % (Auto) (4.4-15.7) % Eos % (Auto) (0.6-8.1) % Baso % (Auto) (0.2-1.5) % Neut # (Auto) (1.5-6.3) x10-3/uL Lymph # (Auto) (1.0-4.4) x10-3/uL Stanton # (Auto) (0.3-1.0) x10-3/uL Eos # (Auto) (0.0-0.8) x10-3/uL Baso # (Auto) (0.0-0.1) x10-3/uL Sodium (135-145) mmol/L Potassium (3.5-5.3) mmol/L Chloride (100-110) mmol/L Carbon Dioxide (21-32) mmol/L BUN (7-18) mg/dL Creatinine (0.55-1.02) mg/dL Est Cr Clr Drug Dosing mL/min Estimated GFR (MDRD) (>60) BUN/Creatinine Ratio (9-20) Glucose (80-116) mg/dL Lactic Acid (0.4-2.0) mmol/L Calcium (8.6-10.2) mg/dL Total Bilirubin (0.1-1.3) mg/dL AST (5-25) IU/L ALT (12-36) U/L Alkaline Phosphatase (56-112) IU/L C-Reactive Protein 1.4 H (0.5-0.9) mg/dL Total Protein (6.0-8.0) g/dL Albumin (3.5-5.2) g/dL Globulin g/dL Albumin/Globulin Ratio Urine Color Yellow (YELLOW) Urine Appearance Slightly cloudy (CLEAR) Urine pH 8.0 H (5.0-6.5) Ur Specific Norton 1.015 (1.010-1.025) Urine Protein Negative (NEGATIVE) mg/dL Urine Glucose (UA) Normal (NORMAL) mg/dL Urine Ketones Negative (NEGATIVE) mg/dL Urine Occult Blood Negative (NEGATIVE) Urine Nitrite Negative (NEGATIVE) Urine Bilirubin Negative (NEGATIVE) Urine Urobilinogen Normal (NEGATIVE) mg/dL Ur Leukocyte Esterase Negative (NEGATIVE) Urine RBC 0-5 (0-5) Urine WBC 0-5 (0-5) Ur Squamous Epith Cells Moderate H (NS,R,O) Urine Bacteria Rare H (NS) Urine Mucus Rare H (NS) SARS-CoV-2 RNA (TWYLA) Negative (NEGATIVE) Meds: Medications Discontinued Medications Generic Name Dose Route Start Last Admin Trade Name Federico PRN Reason Stop Dose Admin Acetaminophen 1,000 mg 05/19/20 12:24 05/19/20 12:27 Acetaminophen 500 Mg Tab PO 05/19/20 12:25 1,000 mg NOW STA Administration Departure - Departure Time of Disposition: 14:40 Disposition: Home, Self-Care 01 Condition: Good Clinical Impression: Acute viral disease - Discharge Information Referrals: Andi John MD [Primary Care Provider] - Additional Instructions: Please read discharge instructions on acute viral illness Isolate yourself for 10 days even if your covid test was negative Increase oral fluids Take ibuprofen 800 mg with tylenol 1000 mg every 8 hours as needed for pain/ache/fever Follow up as needed Sepsis Event Note (ED) - Evaluation Sepsis Screening Result: No Definite Risk - Focused Exam Vital Signs: Vital Signs Temp Pulse Resp BP Pulse Ox 05/19/20 13:18 37.1 C 05/19/20 12:08 37.7 C 89 18 140/69 99 - My Orders Last 24 Hours: My Active Orders 05/19/20 12:21 Chest 2V [CR] Stat Blood Culture x2 Reflex Set [OM.PC] Urgent 05/19/20 12:23 Isolation [COMM] Routine 05/19/20 12:45 CULTURE BLOOD [BC] Urgent 05/19/20 12:50 CULTURE BLOOD [BC] Urgent - Assessment/Plan Last 24 Hours: My Active Orders 05/19/20 12:21 Chest 2V [CR] Stat Blood Culture x2 Reflex Set [OM.PC] Urgent 05/19/20 12:23 Isolation [COMM] Routine 05/19/20 12:45 CULTURE BLOOD [BC] Urgent 05/19/20 12:50 CULTURE BLOOD [BC] Urgent
--- NOTE | 2020-05-19 15:05 | CR ---
INDICATION: Fever. CHEST TWO VIEWS: PA and lateral views of the chest were obtained 05/19/20 - no comparisons. The heart and mediastinum were unremarkable. Bridging hyperostotic changes are noted in the mid thoracic spine. A definite active infiltrate or effusion was not identified. Evidence of exogenous obesity is noted. IMPRESSION: No acute process. MTDD
== END 2020-05-19 15:15 | disposition home or self-care (01) ==
LOC: FB.ED 12:08
DX: B34.9 Viral infection, unspecified (principal); I10 Essential (primary) hypertension; J45.909 Unspecified asthma, uncomplicated; E66.9 Obesity, unspecified; Z68.41 Body mass index [BMI] 40.0-44.9, adult; Z88.0 Allergy status to penicillin; Z88.5 Allergy status to narcotic agent; Z91.040 Latex allergy status; Z88.6 Allergy status to analgesic agent; Z79.899 Other long term (current) drug therapy; Z20.822 Contact with and (suspected) exposure to COVID-19
CPT/HCPCS: 36415; 71046; 80053; 81001; 83605; 85025; 86140; 87040; 87804; 99284; A9270; U0002

== ENCOUNTER 2020-05-22 00:30 | Emergency (ER) | payer MEDICARE, MEDICAID ==
[2020-05-22] MEDS ORDERED: Acetaminophen 500 MG Tab PO STA (00:40)
[2020-05-22] MEDS ORDERED: Ketorolac 60 MG/2 ML SDV IM STA (00:40)
[2020-05-22] MEDS ORDERED: Ondansetron 4 MG Tab.DIS PO STA (00:40)
--- NOTE | 2020-05-22 00:59 | EDM.PDOC ---
ED HPI GENERAL MEDICAL PROBLEM - General Stated Complaint: HEADACHE Time Seen by Provider: 05/22/20 00:35 Source of Information: Reports: Patient History Limitations: Reports: No Limitations - History of Present Illness INITIAL COMMENTS - FREE TEXT/NARRATIVE: Patient presented to the ED via EMS because of headache over the bifrontal area,12/13 with associated nausea and photophobia. There is no fever or neck stiffness. She too her migraine medication without any relief. headache Pain Score (Numeric/FACES): 7 - Related Data Allergies Allergy/AdvReac Type Severity Reaction Status Date / Time amoxicillin Allergy Stomach Verified 05/22/20 00:45 Upset codeine Allergy Hives Verified 05/22/20 00:45 hydrocodone Allergy Hives Verified 05/22/20 00:45 latex Allergy Hives Verified 05/22/20 00:45 ibuprofen AdvReac Mild Nausea Verified 05/22/20 00:45 Home Meds: Home Meds Acetaminophen 650 mg PO Q4H PRN 09/25/18 [History] Albuterol [Ventolin HFA] 1 - 2 puff INH Q4H PRN 09/25/18 [History] Lisinopril/Hydrochlorothiazide [Lisinopril-Hctz 20-12.5 mg Tab] 1 tab PO DAILY 09/25/18 [History] Magnesium Hydroxide [Milk of Magnesia] 30 ml PO DAILY PRN 09/25/18 [History] Multivitamins [Tab-A-Lesly] 1 tab PO DAILY 09/25/18 [History] Venlafaxine HCl [Venlafaxine ER] 225 mg PO DAILY 09/25/18 [History] lamoTRIgine [Lamotrigine] 300 mg PO BID 09/25/18 [History] Fluticasone Propionate [Flonase] 2 spray NASBOTH Q2H PRN 12/25/18 [History] Cholecalciferol (Vitamin D3) [Vitamin D3] 5,000 unit PO DAILY 03/21/19 [History] Oxybutynin 5 mg PO BID 03/21/19 [History] .Vitamin B-2 400 mg PO ASDIRECTED 04/15/19 [History] L.acidoph,Paracasei, B.lactis [Probiotic] 1 cap PO DAILY 07/25/19 [History] Cyclobenzaprine [Flexeril] 10 mg PO BEDTIME 10/21/19 [History] hydrOXYzine HCL [Hydroxyzine HCl] 25 mg PO BID PRN 10/21/19 [History] hydrOXYzine pamoate [Vistaril] 50 - 100 mg PO BEDTIME PRN 10/21/19 [History] Docusate Sodium [Colace] 100 mg PO DAILY 12/12/19 [History] polyethylene glycoL 3350 [MiraLAX] 17 gm PO DAILY PRN 01/04/20 [History] Ondansetron [Zofran ODT] 4 mg PO Q6H PRN #8 tab.dis 02/01/20 [Rx] Dicyclomine [Bentyl] 20 mg PO QID PRN #30 tab 04/06/20 [Rx] .Fiber Pill 1 dose PO ASDIRECTED 05/17/20 [History] Ketorolac [Toradol] 10 mg PO Q8H PRN #15 tab 05/22/20 [Rx] Ondansetron [Zofran ODT] 4 mg PO Q4H PRN #7 tab.dis 05/22/20 [Rx] Past Medical History - Past Health History Medical/Surgical History: Denies Medical/Surgical History HEENT History: Reports: Head, Impaired Vision Cardiovascular History: Reports: Hypertension Respiratory History: Reports: Asthma, Sleep Apnea Other Respiratory History: Mild sleep apnea, doesn't use CPAP. Gastrointestinal History: Reports: Chronic Constipation, GERD Genitourinary History: Reports: Other (See Below) Other Genitourinary History: Elevated labs related to kidneys. 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 Psychiatric History: Reports: Anxiety, Bipolar, Depression, Panic Attack, Psych Hospitalization(s) Endocrine/Metabolic History: Reports: Obesity/BMI 30+ Dermatologic History: Reports: None - Infectious Disease History Infectious Disease History: Reports: Chicken Pox - Past Surgical History HEENT Surgical History: Reports: Oral Surgery GI Surgical History: Reports: Appendectomy, Cholecystectomy, Colonoscopy, EGD Other GI Surgeries/Procedures: Tubal ablation. Constipation. Umbilical hernia. Female Surgical History: Reports: Endometrial Ablation, Tubal Ligation, Other (See Below) Other Female Surgeries/Procedures: Bladder prolapse repair. 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 Musculoskeletal Surgical History: Reports: Carpal Tunnel, ORIF, Shoulder Surgery, Other (See Below) Other Musculoskeletal Surgeries/Procedures:: Bilateral shoulder repair. Foot surgeries with plate and screws (removed after a year). Right wrist carpal tunnel and old fracture repair. Right wrist surgery. Bone spur removed from heel. Right foot surgery X3. Right hand surgery X3. Left wrist surgery. Social & Family History - Family History Family Medical History: No Pertinent Family History - Caffeine Use Caffeine Use: Reports: Soda - Living Situation & Occupation Living situation: Reports: Alone Occupation: Unemployed ED ROS GENERAL - Review of Systems Review Of Systems: See Below Constitutional: Reports: No Symptoms HEENT: Reports: No Symptoms Respiratory: Reports: No Symptoms Cardiovascular: Reports: No Symptoms Endocrine: Reports: No Symptoms GI/Abdominal: Reports: No Symptoms : Reports: No Symptoms Musculoskeletal: Reports: No Symptoms Skin: Reports: No Symptoms Neurological: Reports: Headache Psychiatric: Reports: No Symptoms - Physical Exam Exam: See Below Exam Limited By: No Limitations General Appearance: Alert, No Apparent Distress Eye Exam: Bilateral Eye: PERRL Ears: Normal External Exam, Normal Canal, Hearing Grossly Normal Nose: Normal Inspection, Normal Mucosa, No Blood Throat/Mouth: Normal Inspection, Normal Lips, Normal Teeth, Normal Gums Head Exam: Atraumatic, Normocephalic Neck: Normal Inspection, Supple, Non-Tender, Full Range of Motion Respiratory/Chest: No Respiratory Distress, Lungs Clear, Normal Breath Sounds, No Accessory Muscle Use, Chest Non-Tender Cardiovascular: Normal Peripheral Pulses, Regular Rate, Rhythm, No Edema, No Gallop, No JVD, No Murmur GI/Abdominal: Normal Bowel Sounds, Soft, Non-Tender, No Organomegaly, No Distention, No Abnormal Bruit Neuro Exam (Abbreviated): Alert, Oriented, CN II-XII Intact, Normal Cognition, Normal Gait, Normal Reflexes, No Motor/Sensory Deficits Back Exam: Normal Inspection, Full Range of Motion Extremities: Normal Inspection, Normal Range of Motion, Non-Tender, No Pedal Edema, Normal Capillary Refill Psychiatric: Normal Affect, Normal Mood Skin Exam: Warm Course - Vital Signs Text/Narrative:: Head CT-neg Toradol 60 mg IM x1 Zofran ODT 4 mg po x1 Tylenol 1000 mg PO x1 Last Recorded V/S: Last Vital Signs Temp 37.2 C 05/22/20 02:00 Pulse 90 05/22/20 02:00 Resp 16 05/22/20 02:00 BP 106/58 L 05/22/20 02:00 Pulse Ox 96 05/22/20 02:00 - Orders/Labs/Meds Orders: Active Orders 24 hr Category Date Time Status Head wo Cont [CT] Stat Exams 05/22/20 00:39 Taken Meds: Medications Discontinued Medications Generic Name Dose Route Start Last Admin Trade Name Freq PRN Reason Stop Dose Admin Acetaminophen 1,000 mg 05/22/20 00:40 05/22/20 00:47 Acetaminophen 500 Mg Tab PO 05/22/20 00:41 1,000 mg NOW STA Administration Ketorolac Tromethamine 60 mg 05/22/20 00:40 05/22/20 00:46 Ketorolac 60 Mg/2 Ml Sdv IM 05/22/20 00:41 60 mg NOW STA Administration Ondansetron HCl 4 mg 05/22/20 00:40 05/22/20 00:47 Ondansetron 4 Mg Tab.Dis PO 05/22/20 00:41 4 mg NOW STA Administration Departure - Departure Time of Disposition: 01:50 Disposition: Home, Self-Care 01 Condition: Good Clinical Impression: Migraine - Discharge Information Prescriptions: Ketorolac [Toradol] 10 mg PO Q8H PRN #15 tab PRN Reason: Pain Ondansetron [Zofran ODT] 4 mg PO Q4H PRN #7 tab.dis PRN Reason: Nausea Instructions: Recurrent Migraine Headache, [id number] Referrals: Andi John MD [Primary Care Provider] - Forms: ED Department Discharge Additional Instructions: Please read discharge instructions on Migraine Headache Toradol 10 mg with tylenol 1000 mg every 8 hours as needed for pain Zofran ODT 4mg ever 4 hours as needed for nausea Follow up as needed Sepsis Event Note (ED) - Focused Exam Vital Signs: Vital Signs Temp Pulse Resp BP Pulse Ox 05/22/20 02:00 37.2 C 90 16 106/58 L 96 05/22/20 00:30 37.1 C 93 16 106/54 L 96 - My Orders Last 24 Hours: My Active Orders 05/22/20 00:39 Head wo Cont [CT] Stat - Assessment/Plan Last 24 Hours: My Active Orders 05/22/20 00:39 Head wo Cont [CT] Stat
== END 2020-05-22 02:20 | disposition home or self-care (01) ==
LOC: FB.ED 00:30
DX: G43.909 Migraine, unspecified, not intractable, without status migrainosus (principal); I10 Essential (primary) hypertension; J45.909 Unspecified asthma, uncomplicated; E66.9 Obesity, unspecified; Z68.41 Body mass index [BMI] 40.0-44.9, adult; Z88.0 Allergy status to penicillin; Z88.5 Allergy status to narcotic agent; Z91.040 Latex allergy status; Z88.6 Allergy status to analgesic agent; Z79.899 Other long term (current) drug therapy
CPT/HCPCS: 70450; 96372; 99283; 99284; A9270; J1885

== ENCOUNTER 2020-06-26 21:30 | Emergency (ER) | payer MEDICARE, MEDICAID ==
--- NOTE | 2020-06-26 21:37 | EDM.PDOC ---
ED HPI GENERAL MEDICAL PROBLEM - General Stated Complaint: STOMACH PAIN Time Seen by Provider: 06/26/20 21:35 Source of Information: Reports: Patient History Limitations: Reports: No Limitations - History of Present Illness INITIAL COMMENTS - FREE TEXT/NARRATIVE: 50-year-old female who has multiple medical problems and has almost with anxiety. She also reports problems with chronic constipation and she states for the past 4 days she has had only small hard stools and she feels "backed up". She has had some intermittent nausea but no vomiting but she has been eating and drinking normally. There has been no blood in her stools. She has had no fevers or chills. She has been urinating normally. She states she intermittently has cramps in her abdomen that are diffuse but she has no pain now and in fact rates her pain as a 0/10. She has today taken 3 laxatives did not take her MiraLAX which she is prescribed for her to take daily. She also has been taking mrzw-wez-pgcafls medications like Gas-X. She has had no cough. No nasal congestion. No sore throat. No trouble swallowing. No chest pain. There are no other associated signs or symptoms. There are no other modifying factors. Onset: Other (4 days with hard stools.) Duration: Constant Location: Reports: Abdomen (Intermittent crampy abdominal pain) Quality: Reports: Other (Crampy) Severity: Mild (to moderate.) Improves with: Reports: None Worsens with: Reports: None Context: Reports: Other (The above.) Associated Symptoms: Reports: No Other Symptoms (Except as above.) Treatments URGENT CARE: Reports: Other Medication(s) (Laxatives, qgnu-fqs-nlgsyzt medication such as Gas-X) - Related Data Allergies Allergy/AdvReac Type Severity Reaction Status Date / Time amoxicillin Allergy Stomach Verified 06/26/20 21:51 Upset codeine Allergy Hives Verified 06/26/20 21:51 hydrocodone Allergy Hives Verified 06/26/20 21:51 latex Allergy Hives Verified 06/26/20 21:51 ibuprofen AdvReac Mild Nausea Verified 06/26/20 21:51 Home Meds: Home Meds Acetaminophen 650 mg PO Q4H PRN 09/25/18 [History] Albuterol [Ventolin HFA] 1 - 2 puff INH Q4H PRN 09/25/18 [History] Lisinopril/Hydrochlorothiazide [Lisinopril-Hctz 20-12.5 mg Tab] 1 tab PO DAILY 09/25/18 [History] Magnesium Hydroxide [Milk of Magnesia] 30 ml PO DAILY PRN 09/25/18 [History] Multivitamins [Tab-A-Lesly] 1 tab PO DAILY 09/25/18 [History] Venlafaxine HCl [Venlafaxine ER] 225 mg PO DAILY 09/25/18 [History] lamoTRIgine [Lamotrigine] 300 mg PO BID 09/25/18 [History] Fluticasone Propionate [Flonase] 2 spray NASBOTH Q2H PRN 12/25/18 [History] Cholecalciferol (Vitamin D3) [Vitamin D3] 5,000 unit PO DAILY 03/21/19 [History] Oxybutynin 5 mg PO BID 03/21/19 [History] .Vitamin B-2 400 mg PO ASDIRECTED 04/15/19 [History] L.acidoph,Paracasei, B.lactis [Probiotic] 1 cap PO DAILY 07/25/19 [History] Cyclobenzaprine [Flexeril] 10 mg PO BEDTIME 10/21/19 [History] hydrOXYzine HCL [Hydroxyzine HCl] 25 mg PO BID PRN 10/21/19 [History] hydrOXYzine pamoate [Vistaril] 50 - 100 mg PO BEDTIME PRN 10/21/19 [History] Docusate Sodium [Colace] 100 mg PO DAILY 12/12/19 [History] polyethylene glycoL 3350 [MiraLAX] 17 gm PO DAILY PRN 01/04/20 [History] Ondansetron [Zofran ODT] 4 mg PO Q6H PRN #8 tab.dis 02/01/20 [Rx] Dicyclomine [Bentyl] 20 mg PO QID PRN #30 tab 04/06/20 [Rx] .Fiber Pill 1 dose PO ASDIRECTED 05/17/20 [History] Ketorolac [Toradol] 10 mg PO Q8H PRN #15 tab 05/22/20 [Rx] Ondansetron [Zofran ODT] 4 mg PO Q4H PRN #7 tab.dis 05/22/20 [Rx] Past Medical History HEENT History: Reports: Impaired Vision Cardiovascular History: Reports: Hypertension Respiratory History: Reports: Asthma, Sleep Apnea Other Respiratory History: Mild sleep apnea, doesn't use CPAP. Gastrointestinal History: Reports: Chronic Constipation, GERD, Irritable Bowel Syndrome Musculoskeletal History: Reports: Arthritis, Fracture, Fibromyalgia, Osteoarthritis Neurological History: Reports: Headaches, Chronic, Other (See Below) Other Neuro History: Pseudoseizures. Psychiatric History: Reports: Anxiety, Bipolar, Depression, Panic Attack, Psych Hospitalization(s) Endocrine/Metabolic History: Reports: Obesity/BMI 30+ - Infectious Disease History Infectious Disease History: Reports: Chicken Pox - Past Surgical History HEENT Surgical History: Reports: Oral Surgery GI Surgical History: Reports: Appendectomy, Cholecystectomy, Colonoscopy, EGD Other GI Surgeries/Procedures: Tubal ablation. Constipation. Umbilical hernia. Female Surgical History: Reports: Endometrial Ablation, Tubal Ligation, Other (See Below) Other Female Surgeries/Procedures: Bladder prolapse repair. 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 Musculoskeletal Surgical History: Reports: Carpal Tunnel, ORIF, Shoulder Surgery, Other (See Below) Other Musculoskeletal Surgeries/Procedures:: Bilateral shoulder repair. Foot surgeries with plate and screws (removed after a year). Right wrist carpal tunnel and old fracture repair. Right wrist surgery. Bone spur removed from heel. Right foot surgery X3. Right hand surgery X3. Left wrist surgery. Social & Family History - Tobacco Use Tobacco Use Status *Q: Unknown Ever Used Tobacco (Nonsmoker now.) - Caffeine Use Caffeine Use: Reports: Soda - Alcohol Use Alcohol Use History: No - Living Situation & Occupation Living situation: Reports: Alone Occupation: Unemployed ED ROS GENERAL - Review of Systems Review Of Systems: See Below Constitutional: Reports: No Symptoms HEENT: Reports: No Symptoms Respiratory: Reports: No Symptoms Cardiovascular: Reports: No Symptoms GI/Abdominal: Reports: Constipation, Nausea (Intermittent) : Reports: No Symptoms Musculoskeletal: Reports: No Symptoms Skin: Reports: No Symptoms Neurological: Reports: No Symptoms Psychiatric: Reports: Anxiety Hematologic/Lymphatic: Reports: No Symptoms Immunologic: Reports: No Symptoms ED EXAM, GI/ABD - Physical Exam Exam: See Below Exam Limited By: No Limitations General Appearance: Alert, Anxious, Mild Distress, Obese, Other (Nontoxic.) Eyes: Bilateral: Normal Appearance, EOMI Ears: Normal External Exam, Hearing Grossly Normal Nose: Normal Inspection, Normal Mucosa, No Blood Throat/Mouth: Normal Inspection, Normal Lips, Normal Oropharynx, Normal Voice, No Airway Compromise Head: Atraumatic, Normocephalic Neck: Normal Inspection Respiratory/Chest: No Respiratory Distress, Lungs Clear, Normal Breath Sounds, No Accessory Muscle Use, Chest Non-Tender Cardiovascular: Normal Peripheral Pulses, Regular Rate, Rhythm (Pulse rate was in the 90s on my exam.), No Murmur GI/Abdominal Exam: Normal Bowel Sounds, Soft, Non-Tender, No Mass, Other (Protuberant) Back Exam: Normal Inspection Extremities: Normal Inspection, Normal Range of Motion, Non-Tender, Normal Capillary Refill Neurological: Alert, Oriented, CN II-XII Intact, Normal Cognition, No Motor/Sensory Deficits Psychiatric: Anxious Skin Exam: Warm, Dry, Intact, Normal Color, No Rash Course - Vital Signs Last Recorded V/S: Last Vital Signs Temp 36.8 C 06/26/20 21:35 Pulse 107 H 06/26/20 21:35 Resp 20 06/26/20 21:35 BP 127/71 06/26/20 21:35 Pulse Ox 99 06/26/20 21:35 - Re-Assessments/Exams Free Text/Narrative Re-Assessment/Exam: 06/26/20 22:00: Patient's exam is reassuring. Her abdomen is benign. She appears to have quite a bit of anxiety associated with her abdominal symptoms and she has been taking multiple vris-wsi-dqkrjeg medications. I have stressed to her that she should stop taking these pnrv-cgb-ltxkkzx medications and she should take the MiraLAX that she has been prescribed. She may be constipated and by taking MiraLAX up to 3 times a day for a short period of time she should be able to I do not see any need for testing at this point. She does not have any evidence of obstruction and her abdomen is soft and essentially nontender. She has normal bowel sounds. Been eating and drinking normally. I have urged her to follow-up with her primary provider. Precautions and reasons for return to the emergency department were discussed with the patient while she was in the emergency department and were detailed in the patient's discharge instructions. Departure - Departure Time of Disposition: 22:10 Disposition: Home, Self-Care 01 Condition: Good Clinical Impression: Anxiety Constipation Qualifiers: Constipation type: chronic idiopathic constipation Qualified Code(s): K59.04 - Chronic idiopathic constipation - Discharge Information Instructions: Constipation, Adult, [id number] Referrals: Andi John MD [Primary Care Provider] - Forms: ED Department Discharge Additional Instructions: Your exam was reassuring. You do not appear to be hydrated. You also do not appear to have an obstruction in your intestines. You may be constipated and the appropriate treatment for this would be the MiraLAX that you have been prescribed. I recommend that you avoid any of the hbnz-tdi-izvjchd medications and the laxatives that you have been taking. He should take all of your other medications as directed by your doctor. I would start out by taking MiraLAX one dose twice daily and if you fail to have good results, you can take 1 dose 3 times a day and continue this until you have good results at bowel movement. You should increase your fluid intake. Follow-up with your primary provider this next week. Back to the emergency department for fever, vomiting or any other concerning signs or symptoms. Sepsis Event Note (ED) - Focused Exam Vital Signs: Vital Signs Temp Pulse Resp BP Pulse Ox 06/26/20 21:35 36.8 C 107 H 20 127/71 99
== END 2020-06-26 22:15 | disposition home or self-care (01) ==
LOC: FB.ED 21:30
DX: K59.04 Chronic idiopathic constipation (principal); F41.9 Anxiety disorder, unspecified; I10 Essential (primary) hypertension; J45.909 Unspecified asthma, uncomplicated; M19.90 Unspecified osteoarthritis, unspecified site; E66.9 Obesity, unspecified; Z68.41 Body mass index [BMI] 40.0-44.9, adult; Z88.0 Allergy status to penicillin; Z88.6 Allergy status to analgesic agent; Z88.5 Allergy status to narcotic agent; Z91.040 Latex allergy status; Z79.899 Other long term (current) drug therapy
CPT/HCPCS: 99283

== ENCOUNTER 2020-06-27 19:39 | Emergency (ER) | payer MEDICARE, MEDICAID ==
[2020-06-27] MEDS ORDERED: hydrOXYzine HCl 50 MG/ML SDV IM ONE (20:50)
[2020-06-27] MEDS ORDERED: Ketorolac 60 MG/2 ML SDV IM ONE (20:50)
--- NOTE | 2020-06-27 21:13 | EDM.PDOCBH ---
ED HPI GENERAL MEDICAL PROBLEM - General Stated Complaint: ??? Time Seen by Provider: 06/27/20 21:11 Source of Information: Reports: Patient, Family, Old Records History Limitations: Reports: Combative/Threatening - History of Present Illness INITIAL COMMENTS - FREE TEXT/NARRATIVE: Gladys is 50.She complains of right abdominal pain that is chronic. She is frustrated and wants it done. She feels that no body cares for her.The abdominal pain /constipation is chronic,having been worked up by surgery. She has a h/o MDD,JUMA and Mild Mental retardation. - Related Data Allergies Allergy/AdvReac Type Severity Reaction Status Date / Time amoxicillin Allergy Stomach Verified 06/27/20 23:53 Upset codeine Allergy Hives Verified 06/27/20 23:05 dicyclomine Allergy Stomach Verified 06/27/20 23:06 Upset hydrocodone Allergy Hives Verified 06/27/20 23:05 latex Allergy Hives Verified 06/27/20 23:05 ibuprofen AdvReac Mild Nausea Verified 06/27/20 23:05 Home Meds: Home Meds Acetaminophen 650 mg PO Q4H PRN 09/25/18 [History] Albuterol [Ventolin HFA] 1 - 2 puff INH Q4H PRN 09/25/18 [History] Lisinopril/Hydrochlorothiazide [Lisinopril-Hctz 20-12.5 mg Tab] 1 tab PO DAILY 09/25/18 [History] Magnesium Hydroxide [Milk of Magnesia] 30 ml PO DAILY PRN 09/25/18 [History] Multivitamins [Tab-A-Lesyl] 1 tab PO DAILY 09/25/18 [History] Venlafaxine HCl [Venlafaxine ER] 225 mg PO DAILY 09/25/18 [History] lamoTRIgine [Lamotrigine] 300 mg PO BID 09/25/18 [History] Fluticasone Propionate [Flonase] 2 spray NASBOTH DAILY PRN 12/25/18 [History] Cholecalciferol (Vitamin D3) [Vitamin D3] 5,000 unit PO DAILY 03/21/19 [History] Oxybutynin 5 mg PO BID 03/21/19 [History] .Vitamin B-2 400 mg PO DAILY 04/15/19 [History] L.acidoph,Paracasei, B.lactis [Probiotic] 1 cap PO DAILY 07/25/19 [History] Cyclobenzaprine [Flexeril] 10 mg PO BEDTIME PRN 10/21/19 [History] hydrOXYzine HCL [Hydroxyzine HCl] 25 mg PO BID PRN 10/21/19 [History] hydrOXYzine pamoate [Vistaril] 50 - 100 mg PO BEDTIME PRN 10/21/19 [History] Docusate Sodium [Colace] 100 mg PO BID 12/12/19 [History] polyethylene glycoL 3350 [MiraLAX] 17 gm PO DAILY PRN 01/04/20 [History] .Fiber Pill 2 tab PO BID PRN 05/17/20 [History] Ketorolac [Toradol] 10 mg PO Q8H PRN #15 tab 05/22/20 [Rx] Ondansetron [Zofran ODT] 4 mg PO Q4H PRN #7 tab.dis 05/22/20 [Rx] Past Medical History - Past Health History Medical/Surgical History: Denies Medical/Surgical History HEENT History: Reports: Impaired Vision Cardiovascular History: Reports: Hypertension Respiratory History: Reports: Asthma, Sleep Apnea Other Respiratory History: Mild sleep apnea, doesn't use CPAP. Gastrointestinal History: Reports: Chronic Constipation, GERD, Irritable Bowel Syndrome Genitourinary History: Reports: Other (See Below) Other Genitourinary History: Elevated labs related to kidneys. [employer] CHIE[employer] History: Reports: None Musculoskeletal History: Reports: Arthritis, Fracture, Fibromyalgia, Osteoarthritis Neurological History: Reports: Headaches, Chronic, Other (See Below) Other Neuro History: Pseudoseizures. Psychiatric History: Reports: Anxiety, Bipolar, Depression, Panic Attack, Psych Hospitalization(s) Endocrine/Metabolic History: Reports: Obesity/BMI 30+ Dermatologic History: Reports: None - Infectious Disease History Infectious Disease History: Reports: Chicken Pox - Past Surgical History HEENT Surgical History: Reports: Oral Surgery GI Surgical History: Reports: Appendectomy, Cholecystectomy, Colonoscopy, EGD Other GI Surgeries/Procedures: Tubal ablation. Constipation. Umbilical hernia. Female Surgical History: Reports: Endometrial Ablation, Tubal Ligation, Other (See Below) Other Female Surgeries/Procedures: Bladder prolapse repair. 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 Musculoskeletal Surgical History: Reports: Carpal Tunnel, ORIF, Shoulder Surgery, Other (See Below) Other Musculoskeletal Surgeries/Procedures:: Bilateral shoulder repair. Foot surgeries with plate and screws (removed after a year). Right wrist carpal tunnel and old fracture repair. Right wrist surgery. Bone spur removed from heel. Right foot surgery X3. Right hand surgery X3. Left wrist surgery. Social & Family History - Family History Family Medical History: No Pertinent Family History - Caffeine Use Caffeine Use: Reports: None - Living Situation & Occupation Living situation: Reports: Alone Occupation: Unemployed ED ROS GENERAL - Review of Systems Review Of Systems: Comprehensive ROS is negative, except as noted in HPI. ED EXAM, BEHAVIORAL HEALTH - Physical Exam Exam: See Below Exam Limited By: No Limitations General Appearance: Alert, WD/WN, No Apparent Distress Throat/Mouth: Normal Inspection Head: Atraumatic Respiratory/Chest: No Respiratory Distress Extremities: Normal Inspection Neurological: Alert Psychiatric: Depressed Mood, Restless, Tearful, Suicidal Thoughts, Tangential Thoughts COURSE, BEHAVIORAL HEALTH COMP - Course Vital Signs: Last Vital Signs Temp 98 F 06/28/20 02:20 Pulse 95 06/28/20 02:20 Resp 16 06/28/20 02:20 BP 123/94 H 06/28/20 02:20 Pulse Ox 96 06/28/20 02:20 Orders, Labs, Meds: Laboratory Tests 06/27/20 06/27/20 06/27/20 Range/Units 21:15 21:15 21:15 WBC 11.7 H (3.0-10.3) x10-3/uL RBC 4.83 (3.60-5.20) x10(6)uL Hgb 14.1 (11.4-15.5) g/dL Hct 43.0 (34.2-48.2) % MCV 89.1 (76.7-100.5) fL MCH 29.2 (23.9-33.9) pg MCHC 32.8 (31.9-34.8) g/dL RDW 14.0 (12.3-16.5) % Plt Count 521 H (151-488) x10(3)uL MPV 7.4 (7.1-12.4) fL Neut % (Auto) 76.4 H (30.8-76.2) % Lymph % (Auto) 16.2 L (18.4-52.1) % [place] % (Auto) 5.7 (4.4-15.7) % Eos % (Auto) 0.6 (0.6-8.1) % Baso % (Auto) 1.1 (0.2-1.5) % Neut # (Auto) 8.9 H (1.5-6.3) x10-3/uL Lymph # (Auto) 1.9 (1.0-4.4) x10-3/uL [place] # (Auto) 0.7 (0.3-1.0) x10-3/uL Eos # (Auto) 0.1 (0.0-0.8) x10-3/uL Baso # (Auto) 0.1 (0.0-0.1) x10-3/uL Sodium 138 (135-145) mmol/L Potassium 3.9 (3.5-5.3) mmol/L Chloride 94 L (100-110) mmol/L Carbon Dioxide 31 (21-32) mmol/L BUN 18 (7-18) mg/dL Creatinine 1.5 H (0.55-1.02) mg/dL Est Cr Clr Drug Dosing TNP Estimated GFR (MDRD) 37 L (>60) BUN/Creatinine Ratio 12.0 (9-20) Glucose 112 (80-116) mg/dL Calcium 10.3 H (8.6-10.2) mg/dL Total Bilirubin 0.5 (0.1-1.3) mg/dL AST 26 H D (5-25) IU/L ALT 35 D (12-36) U/L Alkaline Phosphatase 123 H (56-112) IU/L Total Protein 8.9 H (6.0-8.0) g/dL Albumin 4.6 (3.5-5.2) g/dL Globulin 4.3 g/dL Albumin/Globulin Ratio 1.1 Urine Color (YELLOW) Urine Appearance (CLEAR) Urine pH (5.0-6.5) Ur Specific [place] (1.010-1.025) Urine Protein (NEGATIVE) mg/dL Urine Glucose (UA) (NORMAL) mg/dL Urine Ketones (NEGATIVE) mg/dL Urine Occult Blood (NEGATIVE) Urine Nitrite (NEGATIVE) Urine Bilirubin (NEGATIVE) Urine Urobilinogen (NEGATIVE) mg/dL Ur Leukocyte Esterase (NEGATIVE) Urine RBC (0-5) Urine WBC (0-5) Ur Epithelial Cells Urine Bacteria (NS) Urine HCG, Qual (NEGATIVE) Salicylates < 2.8 L (<2.8) mg/dL Urine Opiates Screen (NEGATIVE) Ur Oxycodone Screen (NEGATIVE) Ur Propoxyphene Screen (NEGATIVE) Acetaminophen < 2 L (<2) ug/mL Ur Barbituates Screen (NEGATIVE) Ur Tricyclics Screen (NEGATIVE) Ur Phencyclidine Scrn (NEGATIVE) Ur Amphetamine Screen (NEGATIVE) Urine MDMA Screen (NEGATIVE) U Benzodiazepines Scrn (NEGATIVE) U Cocaine Metab Screen (NEGATIVE) U Marijuana (THC) Screen (NEGATIVE) Ethyl Alcohol < 0.03 (<0.03) % 06/27/20 06/27/20 06/27/20 Range/Units 22:15 22:15 22:15 WBC (3.0-10.3) x10-3/uL RBC (3.60-5.20) x10(6)uL Hgb (11.4-15.5) g/dL Hct (34.2-48.2) % MCV (76.7-100.5) fL MCH (23.9-33.9) pg MCHC (31.9-34.8) g/dL RDW (12.3-16.5) % Plt Count (151-488) x10(3)uL MPV (7.1-12.4) fL Neut % (Auto) (30.8-76.2) % Lymph % (Auto) (18.4-52.1) % [place] % (Auto) (4.4-15.7) % Eos % (Auto) (0.6-8.1) % Baso % (Auto) (0.2-1.5) % Neut # (Auto) (1.5-6.3) x10-3/uL Lymph # (Auto) (1.0-4.4) x10-3/uL [place] # (Auto) (0.3-1.0) x10-3/uL Eos # (Auto) (0.0-0.8) x10-3/uL Baso # (Auto) (0.0-0.1) x10-3/uL Sodium (135-145) mmol/L Potassium (3.5-5.3) mmol/L Chloride (100-110) mmol/L Carbon Dioxide (21-32) mmol/L BUN (7-18) mg/dL Creatinine (0.55-1.02) mg/dL Est Cr Clr Drug Dosing Estimated GFR (MDRD) (>60) BUN/Creatinine Ratio (9-20) Glucose (80-116) mg/dL Calcium (8.6-10.2) mg/dL Total Bilirubin (0.1-1.3) mg/dL AST (5-25) IU/L ALT (12-36) U/L Alkaline Phosphatase (56-112) IU/L Total Protein (6.0-8.0) g/dL Albumin (3.5-5.2) g/dL Globulin g/dL Albumin/Globulin Ratio Urine Color Yellow (YELLOW) Urine Appearance Slightly cloudy (CLEAR) Urine pH 5.0 (5.0-6.5) Ur Specific [place] 1.030 H (1.010-1.025) Urine Protein 30 H (NEGATIVE) mg/dL Urine Glucose (UA) Normal (NORMAL) mg/dL Urine Ketones 15 H (NEGATIVE) mg/dL Urine Occult Blood Negative (NEGATIVE) Urine Nitrite Positive H (NEGATIVE) Urine Bilirubin Small H (NEGATIVE) Urine Urobilinogen 1 H (NEGATIVE) mg/dL Ur Leukocyte Esterase Moderate H (NEGATIVE) Urine RBC 5-10 H (0-5) Urine WBC 20-30 H (0-5) Ur Epithelial Cells Moderate Urine Bacteria Moderate H (NS) Urine HCG, Qual Negative (NEGATIVE) Salicylates (<2.8) mg/dL Urine Opiates Screen Negative (NEGATIVE) Ur Oxycodone Screen Negative (NEGATIVE) Ur Propoxyphene Screen Negative (NEGATIVE) Acetaminophen (<2) ug/mL Ur Barbituates Screen Negative (NEGATIVE) Ur Tricyclics Screen Positive H (NEGATIVE) Ur Phencyclidine Scrn Negative (NEGATIVE) Ur Amphetamine Screen Negative (NEGATIVE) Urine MDMA Screen Negative (NEGATIVE) U Benzodiazepines Scrn Positive H (NEGATIVE) U Cocaine Metab Screen Negative (NEGATIVE) U Marijuana (THC) Screen Negative (NEGATIVE) Ethyl Alcohol (<0.03) % Medications Discontinued Medications Generic Name Dose Route Start Last Admin Trade Name Freq PRN Reason Stop Dose Admin Docusate Sodium 100 mg 06/27/20 22:55 06/27/20 23:40 Docusate Sodium 100 Mg Cap PO 06/27/20 22:56 100 mg ONETIME ONE Administration Hydroxyzine HCl 50 mg 06/27/20 20:50 06/27/20 21:15 Hydroxyzine Hcl 50 Mg/Ml Sdv IM 06/27/20 20:51 50 mg ONETIME ONE Administration Ketorolac Tromethamine 60 mg 06/27/20 20:50 06/27/20 21:15 Ketorolac 60 Mg/2 Ml Sdv IM 06/27/20 20:51 60 mg ONETIME ONE Administration Lamotrigine 300 mg 06/27/20 22:53 06/27/20 23:40 Lamotrigine 100 Mg Tab PO 06/27/20 22:54 300 mg ONETIME ONE Administration Lorazepam 1 mg 06/27/20 23:26 06/27/20 23:40 Lorazepam 2 Mg/Ml Sdv IM 06/27/20 23:27 1 mg ONETIME ONE Administration Oxybutynin Chloride 5 mg 06/27/20 22:54 06/27/20 23:40 Oxybutynin 5 Mg Tab PO 06/27/20 22:55 5 mg ONETIME ONE Administration Departure - Departure Time of Disposition: 19:53 Disposition: DC/Tfer to Psych Hosp/Unit 65 Clinical Impression: Depressive disorder - Discharge Information Referrals: Andi John MD [Primary Care Provider] - Forms: ED Department Discharge - Problem List & Annotations (1) Suicidal ideation SNOMED Code(s): 5832445 Code(s): R45.851 - SUICIDAL IDEATIONS Status: Acute (2) Anxiety SNOMED Code(s): 88777560 Code(s): F41.9 - ANXIETY DISORDER, UNSPECIFIED Status: Acute (3) Depressive disorder SNOMED Code(s): 86358454 Code(s): F32.9 - MAJOR DEPRESSIVE DISORDER, SINGLE EPISODE, UNSPECIFIED Status: Acute - Problem List Review Problem List Initiated/Reviewed/Updated: Yes - Assessment/Plan Plan: Patient was transferred to [facility].
[2020-06-27 22:08] LABS: ACETAMINOPHEN < 2 ug/mL (<2)
[2020-06-27] MEDS ORDERED: lamoTRIgine 100 MG Tab PO ONE (22:53)
[2020-06-27] MEDS ORDERED: Oxybutynin 5 MG Tab PO ONE (22:54)
[2020-06-27] MEDS ORDERED: Docusate Sodium 100 MG Cap PO ONE (22:55)
[2020-06-27] MEDS ORDERED: LORazepam 2 MG/ML SDV IM ONE (23:26)
== END 2020-06-28 02:35 ==
LOC: FB.ED 19:39
DX: F32.9 Major depressive disorder, single episode, unspecified (principal); J45.909 Unspecified asthma, uncomplicated; I10 Essential (primary) hypertension; E66.9 Obesity, unspecified; Z68.41 Body mass index [BMI] 40.0-44.9, adult; Z88.0 Allergy status to penicillin; Z88.5 Allergy status to narcotic agent; Z91.040 Latex allergy status; Z88.6 Allergy status to analgesic agent; Z88.8 Allergy status to other drugs, medicaments and biological substances; Z79.899 Other long term (current) drug therapy
CPT/HCPCS: 36415; 80053; 80143; 80179; 80305-QW; 80307; 81001; 81025; 85025; 87086; 96372; 99284; 99285; A9270-GY; J1885; J2060; J3410

== ENCOUNTER 2020-07-05 23:36 | Emergency (ER) | payer MEDICARE, MEDICAID ==
--- NOTE | 2020-07-06 01:32 | EDM.PDOC ---
ED HPI GENERAL MEDICAL PROBLEM - General Chief Complaint: General Stated Complaint: BLOOD CLOT Time Seen by Provider: 07/06/20 00:30 Source of Information: Reports: Patient History Limitations: Reports: No Limitations - History of Present Illness INITIAL COMMENTS - FREE TEXT/NARRATIVE: c/o flushing to skin pt had mild red color to UEs and face c/w dryness, this faded as she was here labs were obtained to c/w labs at her previous visit on 06/27, she had mild increase of WBC and plts then which corrected back to normal now pt did have alpha strep UTI, taking an antibiotic BID with her last dose today pt states her urine is clear pt says she had weight 305 lb in the past lives alone, not working - Related Data Allergies Allergy/AdvReac Type Severity Reaction Status Date / Time amoxicillin Allergy Stomach Verified 06/27/20 23:53 Upset codeine Allergy Hives Verified 06/27/20 23:05 dicyclomine Allergy Stomach Verified 06/27/20 23:06 Upset hydrocodone Allergy Hives Verified 06/27/20 23:05 latex Allergy Hives Verified 06/27/20 23:05 ibuprofen AdvReac Mild Nausea Verified 06/27/20 23:05 Home Meds: Home Meds Acetaminophen 650 mg PO Q4H PRN 09/25/18 [History] Albuterol [Ventolin HFA] 1 - 2 puff INH Q4H PRN 09/25/18 [History] Lisinopril/Hydrochlorothiazide [Lisinopril-Hctz 20-12.5 mg Tab] 1 tab PO DAILY 09/25/18 [History] Magnesium Hydroxide [Milk of Magnesia] 30 ml PO DAILY PRN 09/25/18 [History] Multivitamins [Tab-A-Lesly] 1 tab PO DAILY 09/25/18 [History] Venlafaxine HCl [Venlafaxine ER] 225 mg PO DAILY 09/25/18 [History] lamoTRIgine [Lamotrigine] 300 mg PO BID 09/25/18 [History] Fluticasone Propionate [Flonase] 2 spray NASBOTH DAILY PRN 12/25/18 [History] Cholecalciferol (Vitamin D3) [Vitamin D3] 5,000 unit PO DAILY 03/21/19 [History] Oxybutynin 5 mg PO BID 03/21/19 [History] .Vitamin B-2 400 mg PO DAILY 04/15/19 [History] L.acidoph,Paracasei, B.lactis [Probiotic] 1 cap PO DAILY 07/25/19 [History] Cyclobenzaprine [Flexeril] 10 mg PO BEDTIME PRN 10/21/19 [History] hydrOXYzine HCL [Hydroxyzine HCl] 25 mg PO BID PRN 10/21/19 [History] hydrOXYzine pamoate [Vistaril] 50 - 100 mg PO BEDTIME PRN 10/21/19 [History] Docusate Sodium [Colace] 100 mg PO BID 12/12/19 [History] polyethylene glycoL 3350 [MiraLAX] 17 gm PO DAILY PRN 01/04/20 [History] .Fiber Pill 2 tab PO BID PRN 05/17/20 [History] Ketorolac [Toradol] 10 mg PO Q8H PRN #15 tab 05/22/20 [Rx] Ondansetron [Zofran ODT] 4 mg PO Q4H PRN #7 tab.dis 05/22/20 [Rx] Sulfamethoxazole/Trimethoprim [Bactrim Ds Tablet] 1 each PO BID #6 tablet 07/02/20 [Rx] Past Medical History - Past Health History Medical/Surgical History: Denies Medical/Surgical History HEENT History: Reports: Impaired Vision Cardiovascular History: Reports: Hypertension Respiratory History: Reports: Asthma, Sleep Apnea Other Respiratory History: Mild sleep apnea, doesn't use CPAP. Gastrointestinal History: Reports: Chronic Constipation, GERD, Irritable Bowel Syndrome Genitourinary History: Reports: Other (See Below) Other Genitourinary History: Elevated labs related to kidneys. 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 Psychiatric History: Reports: Anxiety, Bipolar, Depression, Panic Attack, Psych Hospitalization(s) Endocrine/Metabolic History: Reports: Obesity/BMI 30+ Dermatologic History: Reports: None - Infectious Disease History Infectious Disease History: Reports: Chicken Pox - Past Surgical History HEENT Surgical History: Reports: Oral Surgery Cardiovascular Surgical History: Reports: None Respiratory Surgical History: Reports: None GI Surgical History: Reports: Appendectomy, Cholecystectomy, Colonoscopy, EGD Other GI Surgeries/Procedures: Tubal ablation. Constipation. Umbilical hernia. Female Surgical History: Reports: Endometrial Ablation, Tubal Ligation, Other (See Below) Other Female Surgeries/Procedures: Bladder prolapse repair. 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 Musculoskeletal Surgical History: Reports: Carpal Tunnel, ORIF, Shoulder Surgery, Other (See Below) Other Musculoskeletal Surgeries/Procedures:: Bilateral shoulder repair. Foot surgeries with plate and screws (removed after a year). Right wrist carpal tunnel and old fracture repair. Right wrist surgery. Bone spur removed from heel. Right foot surgery X3. Right hand surgery X3. Left wrist surgery. Oncologic Surgical History: Reports: None Dermatological Surgical History: Reports: None Social & Family History - Family History Family Medical History: No Pertinent Family History - Tobacco Use Tobacco Use Status *Q: Unknown Ever Used Tobacco - Caffeine Use Caffeine Use: Reports: None - Recreational Drug Use Recreational Drug Use: No - Living Situation & Occupation Living situation: Reports: Alone Occupation: Unemployed ED ROS GENERAL - Review of Systems Review Of Systems: See Below Constitutional: Reports: No Symptoms HEENT: Reports: No Symptoms Respiratory: Reports: No Symptoms Cardiovascular: Reports: No Symptoms Endocrine: Reports: No Symptoms GI/Abdominal: Reports: No Symptoms : Reports: No Symptoms Musculoskeletal: Reports: No Symptoms Skin: Reports: Erythema Neurological: Reports: No Symptoms Psychiatric: Reports: No Symptoms Hematologic/Lymphatic: Reports: No Symptoms Immunologic: Reports: No Symptoms ED EXAM, GENERAL - Physical Exam Exam: See Below Exam Limited By: No Limitations General Appearance: Alert, WD/WN, No Apparent Distress Nose: Normal Inspection Throat/Mouth: Normal Inspection, Normal Voice, No Airway Compromise Head: Atraumatic, Normocephalic Neck: Normal Inspection, Supple, Non-Tender, Full Range of Motion Respiratory/Chest: No Respiratory Distress, Lungs Clear, Normal Breath Sounds Cardiovascular: Regular Rate, Rhythm, No Edema Back Exam: Normal Inspection Extremities: Normal Inspection, Normal Range of Motion, Non-Tender Neurological: Alert, CN II-XII Intact, Normal Cognition, No Motor/Sensory Deficits Psychiatric: Other (mild anxiety) Skin Exam: Other (old scars on forearms, skin dry to touch on ext x 4 without scaling or nodules, red flush dec'd by time of d/c as pt relaxed) Lymphatic: No Adenopathy Course - Vital Signs Last Recorded V/S: Last Vital Signs Temp 36.8 C 07/05/20 23:40 Pulse 91 07/06/20 00:50 Resp 16 07/06/20 00:50 BP 127/76 07/06/20 00:50 Pulse Ox 97 07/06/20 00:50 - Orders/Labs/Meds Labs: Laboratory Tests 07/06/20 07/06/20 07/06/20 Range/Units 00:20 00:20 00:20 WBC 6.8 (3.0-10.3) x10-3/uL RBC 4.18 (3.60-5.20) x10(6)uL Hgb 12.3 (11.4-15.5) g/dL Hct 37.0 (34.2-48.2) % MCV 88.6 (76.7-100.5) fL MCH 29.4 (23.9-33.9) pg MCHC 33.2 (31.9-34.8) g/dL RDW 14.3 (12.3-16.5) % Plt Count 310 (151-488) x10(3)uL MPV 7.6 (7.1-12.4) fL Neut % (Auto) 68.8 (30.8-76.2) % Lymph % (Auto) 20.1 (18.4-52.1) % [place] % (Auto) 8.0 (4.4-15.7) % Eos % (Auto) 2.1 (0.6-8.1) % Baso % (Auto) 1.0 (0.2-1.5) % Neut # (Auto) 4.6 (1.5-6.3) x10-3/uL Lymph # (Auto) 1.4 (1.0-4.4) x10-3/uL [place] # (Auto) 0.5 (0.3-1.0) x10-3/uL Eos # (Auto) 0.1 (0.0-0.8) x10-3/uL Baso # (Auto) 0.1 (0.0-0.1) x10-3/uL Sodium 134 L (135-145) mmol/L Potassium 4.0 (3.5-5.3) mmol/L Chloride 97 L (100-110) mmol/L Carbon Dioxide 26 (21-32) mmol/L BUN 21 H (7-18) mg/dL Creatinine 1.4 H (0.55-1.02) mg/dL Est Cr Clr Drug Dosing 42.44 mL/min Estimated GFR (MDRD) 40 L (>60) BUN/Creatinine Ratio 15.0 (9-20) Glucose 110 (80-116) mg/dL Calcium 9.3 (8.6-10.2) mg/dL Total Bilirubin 0.3 (0.1-1.3) mg/dL AST 17 D (5-25) IU/L ALT 36 (12-36) U/L Alkaline Phosphatase 125 H (56-112) IU/L C-Reactive Protein 1.0 H (0.5-0.9) mg/dL Total Protein 8.2 H (6.0-8.0) g/dL Albumin 4.4 (3.5-5.2) g/dL Globulin 3.8 g/dL Albumin/Globulin Ratio 1.2 - Re-Assessments/Exams Free Text/Narrative Re-Assessment/Exam: 07/06/20 01:33 no acute findings pt had 8-10 nonspecific c/o's re a variety of issues, including her lack of flatus since a colonoscopy 2y ago these c/o's were discussed individually, pt was reassured that her labs have improved, that the UTI appears to have cleared, and that she is doing well Departure - Departure Time of Disposition: 01:27 Disposition: Home, Self-Care 01 Condition: Good Clinical Impression: Dry skin dermatitis - Discharge Information *PRESCRIPTION DRUG MONITORING PROGRAM REVIEWED*: Not Applicable *COPY OF PRESCRIPTION DRUG MONITORING REPORT IN PATIENT LAURA: Not Applicable Referrals: Andi John MD [Primary Care Provider] - Additional Instructions: Avoid soap on the skin, as this will dry the skin out. Use moisturizer once a day. Avoid rubbing or scratching. Continue current medications as prescribed. See Dr John later today as scheduled. Sepsis Event Note (ED) - Evaluation Sepsis Screening Result: No Definite Risk - Focused Exam Vital Signs: Vital Signs Temp Pulse Resp BP Pulse Ox 07/06/20 00:50 91 16 127/76 97 07/05/20 23:40 36.8 C 93 16 138/103 H 97
== END 2020-07-06 01:45 | disposition home or self-care (01) ==
LOC: FB.ED 23:36
DX: L30.8 Other specified dermatitis (principal); E66.9 Obesity, unspecified; K21.9 Gastro-esophageal reflux disease without esophagitis; J45.909 Unspecified asthma, uncomplicated; I10 Essential (primary) hypertension; Z79.899 Other long term (current) drug therapy; Z88.0 Allergy status to penicillin; Z88.5 Allergy status to narcotic agent; Z91.040 Latex allergy status; Z88.8 Allergy status to other drugs, medicaments and biological substances; Z68.41 Body mass index [BMI] 40.0-44.9, adult
CPT/HCPCS: 36415; 80053; 85025; 86140; 99282; 99283

== ENCOUNTER 2020-09-11 03:30 | Emergency (ER) | payer MEDICARE, MEDICAID ==
[2020-09-11] MEDS ORDERED: Ondansetron 4 MG Tab.DIS PO STA (03:44)
[2020-09-11] MEDS ORDERED: SUMAtriptan 6 MG/0.5 ML SDV SUBCUT STA (03:44)
[2020-09-11] MEDS ORDERED: Ketorolac 30 MG/ML SDV IM STA (03:44)
--- NOTE | 2020-09-11 03:55 | EDM.PDOC ---
ED HPI GENERAL MEDICAL PROBLEM - General Chief Complaint: Headache Stated Complaint: headache Time Seen by Provider: 09/11/20 03:40 Source of Information: Reports: Patient History Limitations: Reports: No Limitations - History of Present Illness INITIAL COMMENTS - FREE TEXT/NARRATIVE: Patient presented to the ED because of headache,fever,chills and body ache after having the Covid Vaccine a day ago. She took OTC tylenol without any relief. Headache Pain Score (Numeric/FACES): 10 - Related Data Allergies Allergy/AdvReac Type Severity Reaction Status Date / Time amoxicillin Allergy Stomach Verified 06/27/20 23:53 Upset codeine Allergy Hives Verified 06/27/20 23:05 dicyclomine Allergy Stomach Verified 06/27/20 23:06 Upset hydrocodone Allergy Hives Verified 06/27/20 23:05 latex Allergy Hives Verified 06/27/20 23:05 ibuprofen AdvReac Mild Nausea Verified 06/27/20 23:05 Home Meds: Home Meds Acetaminophen 650 mg PO Q4H PRN 09/25/18 [History] Albuterol [Ventolin HFA] 1 - 2 puff INH Q4H PRN 09/25/18 [History] Lisinopril/Hydrochlorothiazide [Lisinopril-Hctz 20-12.5 mg Tab] 1 tab PO DAILY 09/25/18 [History] Magnesium Hydroxide [Milk of Magnesia] 30 ml PO DAILY PRN 09/25/18 [History] Multivitamins [Tab-A-Lesly] 1 tab PO DAILY 09/25/18 [History] Venlafaxine HCl [Venlafaxine ER] 225 mg PO DAILY 09/25/18 [History] lamoTRIgine [Lamotrigine] 300 mg PO BID 09/25/18 [History] Fluticasone Propionate [Flonase] 2 spray NASBOTH DAILY PRN 12/25/18 [History] Cholecalciferol (Vitamin D3) [Vitamin D3] 5,000 unit PO DAILY 03/21/19 [History] Oxybutynin 5 mg PO BID 03/21/19 [History] .Vitamin B-2 400 mg PO DAILY 04/15/19 [History] L.acidoph,Paracasei, B.lactis [Probiotic] 1 cap PO DAILY 07/25/19 [History] Cyclobenzaprine [Flexeril] 10 mg PO BEDTIME PRN 10/21/19 [History] hydrOXYzine HCL [Hydroxyzine HCl] 25 mg PO BID PRN 10/21/19 [History] hydrOXYzine pamoate [Vistaril] 50 - 100 mg PO BEDTIME PRN 10/21/19 [History] Docusate Sodium [Colace] 100 mg PO BID 12/12/19 [History] polyethylene glycoL 3350 [MiraLAX] 17 gm PO DAILY PRN 01/04/20 [History] .Fiber Pill 2 tab PO BID PRN 05/17/20 [History] Ketorolac [Toradol] 10 mg PO Q8H PRN #15 tab 05/22/20 [Rx] Ondansetron [Zofran ODT] 4 mg PO Q4H PRN #7 tab.dis 05/22/20 [Rx] Sulfamethoxazole/Trimethoprim [Bactrim Ds Tablet] 1 each PO BID #6 tablet 07/02/20 [Rx] Ondansetron [Zofran ODT] 4 mg PO Q4H PRN #5 tab.dis 09/11/20 [Rx] traMADol [Ultram] 100 mg PO Q8H PRN #10 tab 09/11/20 [Rx] Past Medical History - Past Health History Medical/Surgical History: Denies Medical/Surgical History HEENT History: Reports: Impaired Vision Cardiovascular History: Reports: Hypertension Respiratory History: Reports: Asthma, Sleep Apnea, Other (See Below) Other Respiratory History: Mild sleep apnea, doesn't use CPAP. Gastrointestinal History: Reports: Chronic Constipation, GERD, Irritable Bowel Syndrome Genitourinary History: Reports: Other (See Below) Other Genitourinary History: Elevated labs related to kidneys. 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 Psychiatric History: Reports: Anxiety, Bipolar, Depression, Panic Attack, Psych Hospitalization(s) Endocrine/Metabolic History: Reports: Obesity/BMI 30+ Dermatologic History: Reports: None - Infectious Disease History Infectious Disease History: Reports: Chicken Pox, Novel Coronavirus - Past Surgical History HEENT Surgical History: Reports: Oral Surgery Cardiovascular Surgical History: Reports: None Respiratory Surgical History: Reports: None GI Surgical History: Reports: Appendectomy, Cholecystectomy, Colonoscopy, EGD Other GI Surgeries/Procedures: Tubal ablation. Constipation. Umbilical hernia. Female Surgical History: Reports: Endometrial Ablation, Tubal Ligation, Other (See Below) Other Female Surgeries/Procedures: Bladder prolapse repair. 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 Musculoskeletal Surgical History: Reports: Carpal Tunnel, ORIF, Shoulder Surgery, Other (See Below) Other Musculoskeletal Surgeries/Procedures:: Bilateral shoulder repair. Foot surgeries with plate and screws (removed after a year). Right wrist carpal tunnel and old fracture repair. Right wrist surgery. Bone spur removed from heel. Right foot surgery X3. Right hand surgery X3. Left wrist surgery. Oncologic Surgical History: Reports: None Dermatological Surgical History: Reports: None Social & Family History - Family History Family Medical History: No Pertinent Family History - Tobacco Use Tobacco Use Status *Q: Former Tobacco User Used Tobacco, but Quit: Yes Month/Year Tobacco Last Used: 06/2010 - Caffeine Use Caffeine Use: Reports: Coffee, Soda - Recreational Drug Use Recreational Drug Use: No - Living Situation & Occupation Living situation: Reports: Alone Occupation: Unemployed ED ROS GENERAL - Review of Systems Review Of Systems: See Below Constitutional: Reports: Fever, Chills, Malaise HEENT: Reports: No Symptoms Respiratory: Reports: No Symptoms Cardiovascular: Reports: No Symptoms Endocrine: Reports: No Symptoms GI/Abdominal: Reports: No Symptoms : Reports: No Symptoms Musculoskeletal: Reports: No Symptoms Skin: Reports: No Symptoms Neurological: Reports: No Symptoms Psychiatric: Reports: No Symptoms ED EXAM, NEURO - Physical Exam Exam: See Below Exam Limited By: No Limitations General Appearance: Alert, No Apparent Distress Eye Exam: Bilateral Eye: PERRL Ears: Normal External Exam, Normal Canal Nose: Normal Inspection, Normal Mucosa, No Blood Throat/Mouth: Normal Inspection, Normal Lips, Normal Teeth Head Exam: Atraumatic, Normocephalic Neck: Normal Inspection, Supple, Non-Tender, Full Range of Motion Respiratory/Chest: No Respiratory Distress, Lungs Clear, Normal Breath Sounds Cardiovascular: Normal Peripheral Pulses, Regular Rate, Rhythm, No Edema, No Gallop GI/Abdominal: Normal Bowel Sounds, Soft, Non-Tender, No Organomegaly Neurological: Alert, Normal Mood/Affect, Normal Dorsiflexion, CN II-XII Intact, Normal Plantar Flexion, Normal Gait Course - Vital Signs Text/Narrative:: Zofran ODT Toradol 60 mg IM x1 Imitrex 6 mg SC x1 Last Recorded V/S: Last Vital Signs Temp 37.4 C 09/11/20 04:28 Pulse 92 09/11/20 04:28 Resp 18 09/11/20 03:32 BP 140/89 09/11/20 04:28 Pulse Ox 97 09/11/20 03:32 - Orders/Labs/Meds Meds: Medications Discontinued Medications Generic Name Dose Route Start Last Admin Trade Name Freq PRN Reason Stop Dose Admin Ketorolac Tromethamine 60 mg 09/11/20 03:44 09/11/20 03:53 Ketorolac 30 Mg/Ml Sdv IM 09/11/20 03:45 60 mg NOW STA Administration Ondansetron HCl 4 mg 09/11/20 03:44 09/11/20 03:52 Ondansetron 4 Mg Tab.Dis PO 09/11/20 03:45 4 mg NOW STA Administration Sumatriptan Succinate 6 mg 09/11/20 03:44 09/11/20 03:54 Sumatriptan 6 Mg/0.5 Ml Sdv SUBCUT 09/11/20 03:45 6 mg NOW STA Administration Departure - Departure Time of Disposition: 04:15 Disposition: Home, Self-Care 01 Condition: Good Clinical Impression: Migraine headache, Post-vaccination fever, Anxiety - Discharge Information Prescriptions: traMADol [Ultram] 100 mg PO Q8H PRN #10 tab PRN Reason: Pain Ondansetron [Zofran ODT] 4 mg PO Q4H PRN #5 tab.dis PRN Reason: Nausea Instructions: Migraine Headache, [id number], Fever, Adult, [id number] Referrals: PCP,None [Ordering Only Provider] - Forms: ED Department Discharge Additional Instructions: Please read discharge instructions on headache and post vaccine fever Take tylenol 1000 mg and tramadol 100 every 8 hours as needed for pain/fever Zofran ODT 4 mg every 4 hours as needed for nausea Follow up as needed Sepsis Event Note (ED) - Evaluation Sepsis Screening Result: No Definite Risk - Focused Exam Vital Signs: Vital Signs Temp Pulse Resp BP Pulse Ox 09/11/20 04:28 37.4 C 92 140/89 09/11/20 03:32 37.6 C 105 H 18 141/115 H 97
== END 2020-09-11 04:28 | disposition home or self-care (01) ==
LOC: FB.ED 03:30
DX: G43.909 Migraine, unspecified, not intractable, without status migrainosus (principal); F41.9 Anxiety disorder, unspecified; R50.83 Postvaccination fever; T50.B95A Adverse effect of other viral vaccines, initial encounter; I10 Essential (primary) hypertension; Z87.891 Personal history of nicotine dependence; E66.9 Obesity, unspecified; Z68.30 Body mass index [BMI] 30.0-30.9, adult; Z88.0 Allergy status to penicillin; Z88.1 Allergy status to other antibiotic agents; Z88.5 Allergy status to narcotic agent; Z91.040 Latex allergy status; Z88.8 Allergy status to other drugs, medicaments and biological substances
CPT/HCPCS: 96372; 99284; A9270-GY; J1885; J3030

== ENCOUNTER 2020-09-28 23:15 | Emergency (ER) | payer MEDICARE, MEDICAID ==
--- NOTE | 2020-09-28 23:50 | EDM.PDOC ---
ED HPI GENERAL MEDICAL PROBLEM - General Chief Complaint: General Stated Complaint: STOMACH PAINS/CRAMPING Time Seen by Provider: 09/28/20 23:30 Source of Information: Reports: Patient, Old Records - History of Present Illness INITIAL COMMENTS - FREE TEXT/NARRATIVE: 50-year-old lady came to the emergency department for evaluation of abdominal pain. Review of her past medical record shows that she has a significant past medical history including overactive bladder, GERD, abdominal surgeries including appendectomy, open cholecystectomy, hernia repair, and several other comorbidities that include depression, bipolar disorder, anxiety, and intellectual disability. She has been seen by family medicine, ENT, and neurology with approximately 10 office visits in the month of September. She also has 1 emergency department visit previously in the month of September, for headache. He states that most of the symptoms that she has in her abdomen are chronic. She states that she was stretching and had the sensation and sound of something that "popped" in her abdomen. She points to the epigastric area just under the xiphoid process. Her chronic and ongoing abdominal pain, GERD, decreased appetite, constipation, diarrhea, urinary retention, and dysuria are secondary concerns to this "popping" sound and sensation. Abdominal Pain Score (Numeric/FACES): 8 - Related Data Allergies Allergy/AdvReac Type Severity Reaction Status Date / Time amoxicillin Allergy Stomach Verified 06/27/20 23:53 Upset codeine Allergy Hives Verified 06/27/20 23:05 dicyclomine Allergy Stomach Verified 06/27/20 23:06 Upset hydrocodone Allergy Hives Verified 06/27/20 23:05 latex Allergy Hives Verified 06/27/20 23:05 ibuprofen AdvReac Mild Nausea Verified 06/27/20 23:05 Home Meds: Home Meds Acetaminophen 650 mg PO Q4H PRN 09/25/18 [History] Albuterol [Ventolin HFA] 1 - 2 puff INH Q4H PRN 09/25/18 [History] Lisinopril/Hydrochlorothiazide [Lisinopril-Hctz 20-12.5 mg Tab] 1 tab PO DAILY 09/25/18 [History] Magnesium Hydroxide [Milk of Magnesia] 30 ml PO DAILY PRN 09/25/18 [History] Multivitamins [Tab-A-Lesly] 1 tab PO DAILY 09/25/18 [History] Venlafaxine HCl [Venlafaxine ER] 225 mg PO DAILY 09/25/18 [History] lamoTRIgine [Lamotrigine] 300 mg PO BID 09/25/18 [History] Fluticasone Propionate [Flonase] 2 spray NASBOTH DAILY PRN 12/25/18 [History] Cholecalciferol (Vitamin D3) [Vitamin D3] 5,000 unit PO DAILY 03/21/19 [History] Oxybutynin 5 mg PO BID 03/21/19 [History] .Vitamin B-2 400 mg PO DAILY 04/15/19 [History] L.acidoph,Paracasei, B.lactis [Probiotic] 1 cap PO DAILY 07/25/19 [History] Cyclobenzaprine [Flexeril] 10 mg PO BEDTIME PRN 10/21/19 [History] hydrOXYzine HCL [Hydroxyzine HCl] 25 mg PO BID PRN 10/21/19 [History] hydrOXYzine pamoate [Vistaril] 50 - 100 mg PO BEDTIME PRN 10/21/19 [History] Docusate Sodium [Colace] 100 mg PO BID 12/12/19 [History] polyethylene glycoL 3350 [MiraLAX] 17 gm PO DAILY PRN 01/04/20 [History] .Fiber Pill 2 tab PO BID PRN 05/17/20 [History] Ketorolac [Toradol] 10 mg PO Q8H PRN #15 tab 05/22/20 [Rx] Ondansetron [Zofran ODT] 4 mg PO Q4H PRN #7 tab.dis 05/22/20 [Rx] Sulfamethoxazole/Trimethoprim [Bactrim Ds Tablet] 1 each PO BID #6 tablet 07/02/20 [Rx] Ondansetron [Zofran ODT] 4 mg PO Q4H PRN #5 tab.dis 09/11/20 [Rx] traMADol [Ultram] 100 mg PO Q8H PRN #10 tab 09/11/20 [Rx] Past Medical History - Past Health History Medical/Surgical History: Denies Medical/Surgical History HEENT History: Reports: Impaired Vision Cardiovascular History: Reports: Hypertension Respiratory History: Reports: Asthma, Sleep Apnea, Other (See Below) Other Respiratory History: Mild sleep apnea, doesn't use CPAP. Gastrointestinal History: Reports: Chronic Constipation, GERD, Irritable Bowel Syndrome Genitourinary History: Reports: Other (See Below) Other Genitourinary History: Elevated labs related to kidneys. 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 Psychiatric History: Reports: Anxiety, Bipolar, Depression, Panic Attack, Psych Hospitalization(s) Endocrine/Metabolic History: Reports: Obesity/BMI 30+ Dermatologic History: Reports: None - Infectious Disease History Infectious Disease History: Reports: Chicken Pox, Novel Coronavirus - Past Surgical History HEENT Surgical History: Reports: Oral Surgery Cardiovascular Surgical History: Reports: None Respiratory Surgical History: Reports: None GI Surgical History: Reports: Appendectomy, Cholecystectomy, Colonoscopy, EGD Other GI Surgeries/Procedures: Tubal ablation. Constipation. Umbilical hernia. Female Surgical History: Reports: Endometrial Ablation, Tubal Ligation, Other (See Below) Other Female Surgeries/Procedures: Bladder prolapse repair. 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 Musculoskeletal Surgical History: Reports: Carpal Tunnel, ORIF, Shoulder Surgery, Other (See Below) Other Musculoskeletal Surgeries/Procedures:: Bilateral shoulder repair. Foot surgeries with plate and screws (removed after a year). Right wrist carpal tunnel and old fracture repair. Right wrist surgery. Bone spur removed from heel. Right foot surgery X3. Right hand surgery X3. Left wrist surgery. Oncologic Surgical History: Reports: None Dermatological Surgical History: Reports: None Social & Family History - Family History Family Medical History: No Pertinent Family History - Tobacco Use Tobacco Use Status *Q: Never Tobacco User - Caffeine Use Caffeine Use: Reports: Coffee, Soda - Recreational Drug Use Recreational Drug Use: No - Living Situation & Occupation Living situation: Reports: Alone Occupation: Unemployed ED ROS GENERAL - Review of Systems Review Of Systems: See Below Constitutional: Reports: Decreased Appetite HEENT: Reports: No Symptoms Respiratory: Reports: No Symptoms Cardiovascular: Reports: No Symptoms Endocrine: Reports: No Symptoms GI/Abdominal: Reports: Abdominal Pain, Constipation, Diarrhea, Decreased Appetite, Distension, Nausea : Reports: Urinary Retention Musculoskeletal: Reports: No Symptoms Skin: Reports: No Symptoms Neurological: Reports: No Symptoms Psychiatric: Reports: Anxiety Hematologic/Lymphatic: Reports: No Symptoms Immunologic: Reports: No Symptoms ED EXAM, GENERAL - Physical Exam Exam: See Below Exam Limited By: No Limitations General Appearance: Alert, Anxious, Mild Distress Respiratory/Chest: No Respiratory Distress, Lungs Clear, Normal Breath Sounds Cardiovascular: Normal Peripheral Pulses, Regular Rate, Rhythm, No Edema, No Murmur Peripheral Pulses: 2+: Radial (L), Radial (R), Dorsalis Pedis (L), Dorsalis Pedis (R) GI/Abdominal: Normal Bowel Sounds, Distended, Rigid, Tender. No: Guarding, Rebound Back Exam: No: CVA Tenderness (R), CVA Tenderness (L) Extremities: Normal Inspection, No Pedal Edema Neurological: Alert, Oriented Psychiatric: Anxious Skin Exam: Warm, Dry, Intact Course - Vital Signs Text/Narrative:: Review of laboratory analysis including urinalysis are at baseline for this patient or are within normal limits. I reassured the patient and she states that she does feel better but still has significant acid reflux. She asked me when it would be okay for her to take another hydroxyzine. I informed her that she should not take them any closer than 4 hours apart. Patient will be discharged to home and encouraged to follow-up with her primary care physician. She also has an appointment with GI in the near future and is encouraged to keep that appointment. Last Recorded V/S: Last Vital Signs Temp 36.3 C 09/28/20 23:27 Pulse 91 09/28/20 23:27 Resp 18 09/28/20 23:27 BP 134/53 L 09/28/20 23:27 Pulse Ox 97 09/28/20 23:27 - Orders/Labs/Meds Labs: Laboratory Tests 09/28/20 09/28/20 09/28/20 Range/Units 23:40 23:45 23:45 WBC 7.0 (3.0-10.3) x10-3/uL RBC 4.29 (3.60-5.20) x10(6)uL Hgb 12.4 (11.4-15.5) g/dL Hct 36.7 (34.2-48.2) % MCV 85.4 (76.7-100.5) fL MCH 28.8 (23.9-33.9) pg MCHC 33.7 (31.9-34.8) g/dL RDW 12.8 (12.3-16.5) % Plt Count 330 (151-488) x10(3)uL MPV 6.9 L (7.1-12.4) fL Neut % (Auto) 56.6 (30.8-76.2) % Lymph % (Auto) 35.5 (18.4-52.1) % [place] % (Auto) 7.0 (4.4-15.7) % Eos % (Auto) 0.1 L (0.6-8.1) % Baso % (Auto) 0.8 (0.2-1.5) % Neut # (Auto) 3.9 (1.5-6.3) x10-3/uL Lymph # (Auto) 2.5 (1.0-4.4) x10-3/uL [place] # (Auto) 0.5 (0.3-1.0) x10-3/uL Eos # (Auto) 0.0 (0.0-0.8) x10-3/uL Baso # (Auto) 0.1 (0.0-0.1) x10-3/uL Sodium 140 (135-145) mmol/L Potassium 3.9 (3.5-5.3) mmol/L Chloride 100 (100-110) mmol/L Carbon Dioxide 28 (21-32) mmol/L BUN 16 (7-18) mg/dL Creatinine 1.2 H (0.55-1.02) mg/dL Est Cr Clr Drug Dosing TNP Estimated GFR (MDRD) 48 L (>60) BUN/Creatinine Ratio 13.3 (9-20) Glucose 99 (80-116) mg/dL Calcium 9.8 (8.6-10.2) mg/dL Total Bilirubin 0.3 (0.1-1.3) mg/dL AST 16 (5-25) IU/L ALT 32 D (12-36) U/L Alkaline Phosphatase 114 H (56-112) IU/L Total Protein 7.8 (6.0-8.0) g/dL Albumin 4.1 (3.5-5.2) g/dL Globulin 3.7 g/dL Albumin/Globulin Ratio 1.1 Urine Color Yellow (YELLOW) Urine Appearance Slightly cloudy (CLEAR) Urine pH 6.0 (5.0-6.5) Ur Specific [place] 1.020 (1.010-1.025) Urine Protein Negative (NEGATIVE) mg/dL Urine Glucose (UA) Normal (NORMAL) mg/dL Urine Ketones Negative (NEGATIVE) mg/dL Urine Occult Blood Negative (NEGATIVE) Urine Nitrite Negative (NEGATIVE) Urine Bilirubin Negative (NEGATIVE) Urine Urobilinogen Normal (NEGATIVE) mg/dL Ur Leukocyte Esterase Negative (NEGATIVE) Urine RBC 0-5 (0-5) Urine WBC 0-5 (0-5) Ur Squamous Epith Cells Moderate H (NS,R,O) Urine Bacteria Few H (NS) Urine Mucus Few H (NS) Departure - Departure Time of Disposition: 00:32 Disposition: Home, Self-Care 01 Clinical Impression: GERD (gastroesophageal reflux disease) Abdominal pain Qualifiers: Abdominal location: generalized Qualified Code(s): R10.84 - Generalized abdominal pain - Discharge Information *PRESCRIPTION DRUG MONITORING PROGRAM REVIEWED*: Not Applicable *COPY OF PRESCRIPTION DRUG MONITORING REPORT IN PATIENT LAURA: Not Applicable Forms: ED Department Discharge Additional Instructions: Follow-up with primary care and gastroenterology. Continue to take medications as prescribed as directed. Sepsis Event Note (ED) - Evaluation Sepsis Screening Result: No Definite Risk - Focused Exam Vital Signs: Vital Signs Temp Pulse Resp BP Pulse Ox 09/28/20 23:27 36.3 C 91 18 134/53 L 97
== END 2020-09-29 00:41 | disposition home or self-care (01) ==
LOC: FB.ED 23:15
DX: K21.9 Gastro-esophageal reflux disease without esophagitis (principal); E66.9 Obesity, unspecified; I10 Essential (primary) hypertension; Z68.30 Body mass index [BMI] 30.0-30.9, adult; Z88.0 Allergy status to penicillin; Z88.1 Allergy status to other antibiotic agents; Z88.5 Allergy status to narcotic agent; Z91.040 Latex allergy status; Z88.8 Allergy status to other drugs, medicaments and biological substances
CPT/HCPCS: 36415; 80053; 81001; 85025; 99284

== ENCOUNTER 2020-11-07 17:36 | Emergency (ER) | payer MEDICARE, MEDICAID ==
--- NOTE | 2020-11-07 17:57 | EDM.PDOC ---
ED HPI GENERAL MEDICAL PROBLEM - General Stated Complaint: wrist injury Time Seen by Provider: 11/07/20 17:54 Source of Information: Reports: Patient History Limitations: Reports: No Limitations - History of Present Illness INITIAL COMMENTS - FREE TEXT/NARRATIVE: Ms Ernandez complains of left wrist pain,swelling and decreased ROM,after recent carpal tunnel surgery( Oct 08). Left Wrist Pain Score (Numeric/FACES): 10 - Related Data Allergies Allergy/AdvReac Type Severity Reaction Status Date / Time amoxicillin Allergy Stomach Verified 06/27/20 23:53 Upset codeine Allergy Hives Verified 06/27/20 23:05 dicyclomine Allergy Stomach Verified 06/27/20 23:06 Upset hydrocodone Allergy Hives Verified 06/27/20 23:05 latex Allergy Hives Verified 06/27/20 23:05 ibuprofen AdvReac Mild Nausea Verified 06/27/20 23:05 Home Meds: Home Meds Acetaminophen 650 mg PO Q4H PRN 09/25/18 [History] Albuterol [Ventolin HFA] 1 - 2 puff INH Q4H PRN 09/25/18 [History] Lisinopril/Hydrochlorothiazide [Lisinopril-Hctz 20-12.5 mg Tab] 1 tab PO DAILY 09/25/18 [History] Magnesium Hydroxide [Milk of Magnesia] 30 ml PO DAILY PRN 09/25/18 [History] Multivitamins [Tab-A-Lesly] 1 tab PO DAILY 09/25/18 [History] Venlafaxine HCl [Venlafaxine ER] 225 mg PO DAILY 09/25/18 [History] lamoTRIgine [Lamotrigine] 300 mg PO BID 09/25/18 [History] Fluticasone Propionate [Flonase] 2 spray NASBOTH DAILY PRN 12/25/18 [History] Cholecalciferol (Vitamin D3) [Vitamin D3] 5,000 unit PO DAILY 03/21/19 [History] Oxybutynin 5 mg PO BID 03/21/19 [History] .Vitamin B-2 400 mg PO DAILY 04/15/19 [History] L.acidoph,Paracasei, B.lactis [Probiotic] 1 cap PO DAILY 07/25/19 [History] Cyclobenzaprine [Flexeril] 10 mg PO BEDTIME PRN 10/21/19 [History] hydrOXYzine HCL [Hydroxyzine HCl] 25 mg PO BID PRN 10/21/19 [History] hydrOXYzine pamoate [Vistaril] 50 - 100 mg PO BEDTIME PRN 10/21/19 [History] Docusate Sodium [Colace] 100 mg PO BID 12/12/19 [History] polyethylene glycoL 3350 [MiraLAX] 17 gm PO DAILY PRN 01/04/20 [History] .Fiber Pill 2 tab PO BID PRN 05/17/20 [History] Ketorolac [Toradol] 10 mg PO Q8H PRN #15 tab 05/22/20 [Rx] Ondansetron [Zofran ODT] 4 mg PO Q4H PRN #7 tab.dis 05/22/20 [Rx] Sulfamethoxazole/Trimethoprim [Bactrim Ds Tablet] 1 each PO BID #6 tablet 07/02/20 [Rx] Ondansetron [Zofran ODT] 4 mg PO Q4H PRN #5 tab.dis 09/11/20 [Rx] traMADol [Ultram] 100 mg PO Q8H PRN #10 tab 09/11/20 [Rx] Past Medical History - Past Health History Medical/Surgical History: Denies Medical/Surgical History HEENT History: Reports: Impaired Vision Cardiovascular History: Reports: Hypertension Respiratory History: Reports: Asthma, Sleep Apnea, Other (See Below) Other Respiratory History: Mild sleep apnea, doesn't use CPAP. Gastrointestinal History: Reports: Chronic Constipation, GERD, Irritable Bowel Syndrome Genitourinary History: Reports: Other (See Below) Other Genitourinary History: Elevated labs related to kidneys. 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 Psychiatric History: Reports: Anxiety, Bipolar, Depression, Panic Attack, Psych Hospitalization(s) Endocrine/Metabolic History: Reports: Obesity/BMI 30+ Dermatologic History: Reports: None - Infectious Disease History Infectious Disease History: Reports: Chicken Pox, Novel Coronavirus - Past Surgical History HEENT Surgical History: Reports: Oral Surgery Cardiovascular Surgical History: Reports: None Respiratory Surgical History: Reports: None GI Surgical History: Reports: Appendectomy, Cholecystectomy, Colonoscopy, EGD Other GI Surgeries/Procedures: Tubal ablation. Constipation. Umbilical hernia. Female Surgical History: Reports: Endometrial Ablation, Tubal Ligation, Other (See Below) Other Female Surgeries/Procedures: Bladder prolapse repair. 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 Musculoskeletal Surgical History: Reports: Carpal Tunnel, ORIF, Shoulder Surgery, Other (See Below) Other Musculoskeletal Surgeries/Procedures:: Bilateral shoulder repair. Foot surgeries with plate and screws (removed after a year). Right wrist carpal tunnel and old fracture repair. Right wrist surgery. Bone spur removed from heel. Right foot surgery X3. Right hand surgery X3. Left wrist surgery. Oncologic Surgical History: Reports: None Dermatological Surgical History: Reports: None Social & Family History - Family History Family Medical History: No Pertinent Family History - Caffeine Use Caffeine Use: Reports: Coffee, Soda - Living Situation & Occupation Living situation: Reports: Alone Occupation: Unemployed Review of Systems - Review of Systems Review Of Systems: Comprehensive ROS is negative, except as noted in HPI. ED EXAM, GENERAL - Physical Exam Exam: See Below Exam Limited By: No Limitations General Appearance: Alert, WD/WN Ears: Normal External Exam Extremities: Other (The volar aspect of the left wrist is red,tender and warm. Full ROm is noted.) Course - Vital Signs Last Recorded V/S: Last Vital Signs Temp 97.0 F 11/07/20 18:02 Pulse 105 H 11/07/20 18:02 Resp 20 11/07/20 18:02 BP 147/63 H 11/07/20 18:02 Pulse Ox 98 11/07/20 18:02 - Orders/Labs/Meds Orders: Active Orders 24 hr Category Date Time Status Upper Extremity w Cont Lt [CT] Stat Exams 11/07/20 17:51 Taken Labs: Laboratory Tests 11/07/20 11/07/20 11/07/20 Range/Units 18:00 18:00 18:00 WBC 7.6 (3.0-10.3) x10-3/uL RBC 4.60 (3.60-5.20) x10(6)uL Hgb 12.9 (11.4-15.5) g/dL Hct 38.8 (34.2-48.2) % MCV 84.3 (76.7-100.5) fL MCH 28.1 (23.9-33.9) pg MCHC 33.4 (31.9-34.8) g/dL RDW 13.3 (12.3-16.5) % Plt Count 394 (151-488) x10(3)uL MPV 6.8 L (7.1-12.4) fL Neut % (Auto) 63.7 (30.8-76.2) % Lymph % (Auto) 27.7 (18.4-52.1) % [place]th[place]omew % (Auto) 7.2 (4.4-15.7) % Eos % (Auto) 0.5 L (0.6-8.1) % Baso % (Auto) 0.9 (0.2-1.5) % Neut # (Auto) 4.9 (1.5-6.3) x10-3/uL Lymph # (Auto) 2.1 (1.0-4.4) x10-3/uL Bartholomew # (Auto) 0.5 (0.3-1.0) x10-3/uL Eos # (Auto) 0.0 (0.0-0.8) x10-3/uL Baso # (Auto) 0.1 (0.0-0.1) x10-3/uL ESR 18 (0-20) mm/hr Sodium 139 (135-145) mmol/L Potassium 3.9 (3.5-5.3) mmol/L Chloride 100 (100-110) mmol/L Carbon Dioxide 24 (21-32) mmol/L BUN 17 (7-18) mg/dL Creatinine 1.3 H (0.55-1.02) mg/dL Est Cr Clr Drug Dosing TNP Estimated GFR (MDRD) 44 L (>60) BUN/Creatinine Ratio 13.1 (9-20) Glucose 108 (80-116) mg/dL Calcium 9.8 (8.6-10.2) mg/dL C-Reactive Protein 0.3 L (0.5-0.9) mg/dL Meds: Medications Discontinued Medications Generic Name Dose Route Start Last Admin Trade Name Freq PRN Reason Stop Dose Admin Iopamidol 100 ml 11/07/20 18:03 11/07/20 18:22 Iopamidol 755 Mg/Ml 100 Ml Bottle IV 11/07/20 18:04 100 ml . DIRECTED ONE Administration Departure - Departure Time of Disposition: 20:05 Disposition: Home, Self-Care 01 Clinical Impression: Wrist pain Qualifiers: Laterality: left Qualified Code(s): M25.532 - Pain in left wrist - Discharge Information Instructions: Carpal Tunnel Syndrome, [id number] Referrals: Andi John MD [Primary Care Provider] - Forms: ED Department Discharge Additional Instructions: Follow up with your surgeon as scheduled. Follow up with your Primary care doctor if continue to have problems Take tylenol 1000mg every 8 hours as needed for pain. Continue to use ice or heat which ever feels best to you, elevate your arm and rest. also continue to do exercises as directed. Sepsis Event Note (ED) - Focused Exam Vital Signs: Vital Signs Temp Pulse Resp BP Pulse Ox 11/07/20 18:02 97.0 F 105 H 20 147/63 H 98 - Problem List & Annotations (1) Wrist pain SNOMED Code(s): 94868702 Code(s): M25.539 - PAIN IN UNSPECIFIED WRIST Status: Acute Current Visit: No Qualifiers: Laterality: left Qualified Code(s): M25.532 - Pain in left wrist - Problem List Review Problem List Initiated/Reviewed/Updated: Yes - My Orders Last 24 Hours: My Active Orders 11/07/20 17:51 Upper Extremity w Cont Lt [CT] Stat - Assessment/Plan Last 24 Hours: My Active Orders 11/07/20 17:51 Upper Extremity w Cont Lt [CT] Stat Plan: CBC,CMP,ESR.CRP. CT scan wrist was unremarkable. DC home.
[2020-11-07] MEDS ORDERED: Iopamidol 755 Mg/ML 100 ML Bottle IV ONE (18:03)
== END 2020-11-07 19:27 | disposition home or self-care (01) ==
LOC: FB.ED 17:36
DX: M25.532 Pain in left wrist (principal); E66.9 Obesity, unspecified; I10 Essential (primary) hypertension; Z68.30 Body mass index [BMI] 30.0-30.9, adult; Z88.5 Allergy status to narcotic agent; Z88.0 Allergy status to penicillin; Z91.040 Latex allergy status; Z88.8 Allergy status to other drugs, medicaments and biological substances; Z79.899 Other long term (current) drug therapy
CPT/HCPCS: 36415; 73201; 80048; 85025; 85651; 86140; 99284; Q9967

== ENCOUNTER 2020-12-03 22:02 | Emergency (ER) | payer MEDICARE, MEDICAID ==
--- NOTE | 2020-12-03 22:25 | EDM.PDOC ---
ED HPI GENERAL MEDICAL PROBLEM - General Chief Complaint: Lower Extremity Injury/Pain Stated Complaint: INJURED KNEE Time Seen by Provider: 12/03/20 22:05 Source of Information: Reports: Patient - History of Present Illness INITIAL COMMENTS - FREE TEXT/NARRATIVE: Patient presented to the ED because of Rt knee pain. She don't know if she strained it while using the stairs. Her pain is 10/10, took tramadol 50 mg and Tylenol 500 mg without relief. She is scheduled to have MRI on Dec 08. Right Knee Pain Score (Numeric/FACES): 10 - Related Data Allergies Allergy/AdvReac Type Severity Reaction Status Date / Time amoxicillin Allergy Stomach Verified 06/27/20 23:53 Upset codeine Allergy Hives Verified 06/27/20 23:05 dicyclomine Allergy Stomach Verified 06/27/20 23:06 Upset hydrocodone Allergy Hives Verified 06/27/20 23:05 latex Allergy Hives Verified 06/27/20 23:05 ibuprofen AdvReac Mild Nausea Verified 06/27/20 23:05 Home Meds: Home Meds Acetaminophen 650 mg PO Q4H PRN 09/25/18 [History] Albuterol [Ventolin HFA] 1 - 2 puff INH Q4H PRN 09/25/18 [History] Lisinopril/Hydrochlorothiazide [Lisinopril-Hctz 20-12.5 mg Tab] 1 tab PO DAILY 09/25/18 [History] Magnesium Hydroxide [Milk of Magnesia] 30 ml PO DAILY PRN 09/25/18 [History] Multivitamins [Tab-A-Lesly] 1 tab PO DAILY 09/25/18 [History] Venlafaxine HCl [Venlafaxine ER] 225 mg PO DAILY 09/25/18 [History] lamoTRIgine [Lamotrigine] 300 mg PO BID 09/25/18 [History] Fluticasone Propionate [Flonase] 2 spray NASBOTH DAILY PRN 12/25/18 [History] Cholecalciferol (Vitamin D3) [Vitamin D3] 5,000 unit PO DAILY 03/21/19 [History] Oxybutynin 5 mg PO BID 03/21/19 [History] .Vitamin B-2 400 mg PO DAILY 04/15/19 [History] L.acidoph,Paracasei, B.lactis [Probiotic] 1 cap PO DAILY 07/25/19 [History] Cyclobenzaprine [Flexeril] 10 mg PO BEDTIME PRN 10/21/19 [History] hydrOXYzine HCL [Hydroxyzine HCl] 25 mg PO BID PRN 10/21/19 [History] hydrOXYzine pamoate [Vistaril] 50 - 100 mg PO BEDTIME PRN 10/21/19 [History] Docusate Sodium [Colace] 100 mg PO BID 12/12/19 [History] polyethylene glycoL 3350 [MiraLAX] 17 gm PO DAILY PRN 01/04/20 [History] .Fiber Pill 2 tab PO BID PRN 05/17/20 [History] Ketorolac [Toradol] 10 mg PO Q8H PRN #15 tab 05/22/20 [Rx] Ondansetron [Zofran ODT] 4 mg PO Q4H PRN #7 tab.dis 05/22/20 [Rx] Sulfamethoxazole/Trimethoprim [Bactrim Ds Tablet] 1 each PO BID #6 tablet 07/02/20 [Rx] Ondansetron [Zofran ODT] 4 mg PO Q4H PRN #5 tab.dis 09/11/20 [Rx] traMADol [Ultram] 100 mg PO Q8H PRN #10 tab 09/11/20 [Rx] traMADol [Ultram] 50 mg PO Q6H PRN #15 tab 12/03/20 [Rx] Past Medical History - Past Health History Medical/Surgical History: Denies Medical/Surgical History HEENT History: Reports: Impaired Vision Cardiovascular History: Reports: Hypertension Respiratory History: Reports: Asthma, Sleep Apnea, Other (See Below) Other Respiratory History: Mild sleep apnea, doesn't use CPAP. Gastrointestinal History: Reports: Chronic Constipation, GERD, Irritable Bowel Syndrome Genitourinary History: Reports: Other (See Below) Other Genitourinary History: Elevated labs related to kidneys. 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 Psychiatric History: Reports: Anxiety, Bipolar, Depression, Panic Attack, Psych Hospitalization(s) Endocrine/Metabolic History: Reports: Obesity/BMI 30+ Dermatologic History: Reports: None - Infectious Disease History Infectious Disease History: Reports: Chicken Pox, Novel Coronavirus - Past Surgical History HEENT Surgical History: Reports: Oral Surgery Cardiovascular Surgical History: Reports: None Respiratory Surgical History: Reports: None GI Surgical History: Reports: Appendectomy, Cholecystectomy, Colonoscopy, EGD Other GI Surgeries/Procedures: Tubal ablation. Constipation. Umbilical hernia. Female Surgical History: Reports: Endometrial Ablation, Tubal Ligation, Other (See Below) Other Female Surgeries/Procedures: Bladder prolapse repair. 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 Musculoskeletal Surgical History: Reports: Carpal Tunnel, ORIF, Shoulder S urgery, Other (See Below) Other Musculoskeletal Surgeries/Procedures:: Bilateral shoulder repair. Foot surgeries with plate and screws (removed after a year). Right wrist carpal tunnel and old fracture repair. Right wrist surgery. Bone spur removed from heel. Right foot surgery X3. Right hand surgery X3. Left carpal tunnel surgery and cyst removed oct 2020 Oncologic Surgical History: Reports: None Dermatological Surgical History: Reports: None Social & Family History - Family History Family Medical History: No Pertinent Family History - Tobacco Use Tobacco Use Status *Q: Never Tobacco User - Caffeine Use Caffeine Use: Reports: Coffee, Soda - Recreational Drug Use Recreational Drug Use: No - Living Situation & Occupation Living situation: Reports: Alone Occupation: Unemployed Review of Systems - Review of Systems Review Of Systems: See Below Constitutional: Reports: No Symptoms Eyes: Reports: No Symptoms Ears: Reports: No Symptoms Nose: Reports: No Symptoms Mouth/Throat: Reports: No Symptoms Respiratory: Reports: No Symptoms Cardiovascular: Reports: No Symptoms Genitourinary: Reports: No Symptoms Musculoskeletal: Reports: Other (Rt knee pain) Skin: Reports: No Symptoms Neurological: Reports: No Symptoms Psychiatric: Reports: No Symptoms ED EXAM, GENERAL - Physical Exam Exam: See Below Exam Limited By: No Limitations General Appearance: Alert, No Apparent Distress Eye Exam: Bilateral Eye: PERRL Ears: Normal External Exam, Normal Canal Nose: Normal Inspection, Normal Mucosa, No Blood Throat/Mouth: Normal Inspection, Normal Lips Head: Atraumatic, Normocephalic Neck: Normal Inspection, Supple, Non-Tender, Full Range of Motion Respiratory/Chest: No Respiratory Distress, Lungs Clear, Normal Breath Sounds, No Accessory Muscle Use, Chest Non-Tender Cardiovascular: Normal Peripheral Pulses, Regular Rate, Rhythm, No Edema, No JVD, No Murmur GI/Abdominal: Normal Bowel Sounds, Soft, No Distention, No Abnormal Bruit Back Exam: Normal Inspection Extremities: Normal Inspection, Normal Range of Motion, Other (tenderness lateral and medialaspect of th rt knee.) Neurological: Alert, Oriented, Normal Reflexes Course - Vital Signs Text/Narrative:: Tramadol 50 mg PO x1 Toradol 60 mg IM x1 Last Recorded V/S: Last Vital Signs Temp 36.1 C 12/03/20 22:02 Pulse 107 H 12/03/20 22:02 Resp 18 12/03/20 22:02 BP 147/85 H 12/03/20 22:02 Pulse Ox 95 12/03/20 22:02 - Orders/Labs/Meds Meds: Medications Discontinued Medications Generic Name Dose Route Start Last Admin Trade Name Freq PRN Reason Stop Dose Admin Ketorolac Tromethamine 60 mg 12/03/20 22:21 Ketorolac 30 Mg/Ml Sdv IM 12/03/20 22:22 NOW STA Tramadol HCl 50 mg 12/03/20 22:21 Tramadol 50 Mg Tab PO 12/03/20 22:22 NOW STA Departure - Departure Time of Disposition: 22:45 Disposition: Home, Self-Care 01 Clinical Impression: Chronic knee pain - Discharge Information Prescriptions: traMADol [Ultram] 50 mg PO Q6H PRN #15 tab PRN Reason: Pain Instructions: Chronic Knee Pain, Adult Forms: ED Department Discharge Additional Instructions: Please read discharge instructions on chronic knee pain Tramadol 50 mg with tylenol 500 mg every 6 hours as needed for pain Keep your appointment for your MRI Follow up as needed Sepsis Event Note (ED) - Evaluation Sepsis Screening Result: No Definite Risk - Focused Exam Vital Signs: Vital Signs Temp Pulse Resp BP Pulse Ox 12/03/20 22:02 36.1 C 107 H 18 147/85 H 95
[2020-12-03] MEDS: traMADol 50 MG Tab PO STA (22:28)
[2020-12-03] MEDS: Ketorolac 30 MG/ML SDV IM STA (22:28)
== END 2020-12-03 22:56 | disposition home or self-care (01) ==
LOC: FB.ED 22:02
DX: G89.29 Other chronic pain (principal); M25.561 Pain in right knee; I10 Essential (primary) hypertension; J45.909 Unspecified asthma, uncomplicated; K21.9 Gastro-esophageal reflux disease without esophagitis; E66.9 Obesity, unspecified; Z68.30 Body mass index [BMI] 30.0-30.9, adult; Z86.16 Personal history of COVID-19; Z88.0 Allergy status to penicillin; Z88.5 Allergy status to narcotic agent; Z91.040 Latex allergy status; Z79.899 Other long term (current) drug therapy
CPT/HCPCS: 96372; 99283; A9270; J1885

== ENCOUNTER 2021-01-01 14:51 | Emergency (ER) | payer MEDICARE, MEDICAID ==
[2021-01-01] MEDS ORDERED: Sodium Chloride 0.9% 10 ML Syringe FLUSH PRN (15:39)
[2021-01-01] MEDS ORDERED: Morphine 4 MG/ML VIAL IVPUSH ONE (15:52)
[2021-01-01] MEDS ORDERED: Ondansetron 4 MG/2 ML SDV IVPUSH ONE (15:52)
[2021-01-01] MEDS ORDERED: Alum Hydroxide/Mag Hydroxide 15 ML, Lidocaine 2% 15 ML PO ONE ×2 (15:54)
[2021-01-01] MEDS ORDERED: Sodium Chloride 0.9% 1,000 ML IV SCH (16:00)
--- NOTE | 2021-01-01 16:00 | EDM.PDOC ---
ED HPI GENERAL MEDICAL PROBLEM - General Chief Complaint: Abdominal Pain Stated Complaint: R ABD PAIN Time Seen by Provider: 01/01/21 15:05 Source of Information: Reports: Patient History Limitations: Reports: No Limitations - History of Present Illness INITIAL COMMENTS - FREE TEXT/NARRATIVE: Patient presented to the ED because of worsening RT sided abdominal pain which started 4 days. The pain is cramping,10/10, over the epigastric area, RLQ with associated nausea but no vomiting. She also has alternating diarrhea and constipation. No UTI s/s. She has fever and chills this morning, but no cough or cold. 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 R abd pain Pain Score (Numeric/FACES): 7 - Related Data Allergies Allergy/AdvReac Type Severity Reaction Status Date / Time amoxicillin Allergy Stomach Verified 01/01/21 15:07 Upset codeine Allergy Hives Verified 01/01/21 15:07 dicyclomine Allergy Stomach Verified 01/01/21 15:07 Upset hydrocodone Allergy Hives Verified 01/01/21 15:07 latex Allergy Hives Verified 01/01/21 15:07 ibuprofen AdvReac Mild Nausea Verified 01/01/21 15:07 Home Meds: Home Meds Acetaminophen 650 mg PO Q4H PRN 09/25/18 [History] Albuterol [Ventolin HFA] 1 - 2 puff INH Q4H PRN 09/25/18 [History] Lisinopril/Hydrochlorothiazide [Lisinopril-Hctz 20-12.5 mg Tab] 1 tab PO DAILY 09/25/18 [History] Magnesium Hydroxide [Milk of Magnesia] 30 ml PO DAILY PRN 09/25/18 [History] Multivitamins [Tab-A-Lesly] 1 tab PO DAILY 09/25/18 [History] Venlafaxine HCl [Venlafaxine ER] 262.5 mg PO DAILY 09/25/18 [History] lamoTRIgine [Lamotrigine] 300 mg PO BID 09/25/18 [History] Fluticasone Propionate [Flonase] 2 spray NASBOTH DAILY PRN 12/25/18 [History] Cholecalciferol (Vitamin D3) [Vitamin D3] 5,000 unit PO DAILY 03/21/19 [History] Oxybutynin 5 mg PO BID 03/21/19 [History] .Vitamin B-2 400 mg PO DAILY 04/15/19 [History] L.acidoph,Paracasei, B.lactis [Probiotic] 1 cap PO DAILY 07/25/19 [History] Cyclobenzaprine [Flexeril] 10 mg PO BEDTIME PRN 10/21/19 [History] hydrOXYzine HCL [Hydroxyzine HCl] 25 mg PO BID PRN 10/21/19 [History] hydrOXYzine pamoate [Vistaril] 50 - 100 mg PO BEDTIME PRN 10/21/19 [History] Docusate Sodium [Colace] 100 mg PO BID 12/12/19 [History] polyethylene glycoL 3350 [MiraLAX] 17 gm PO DAILY PRN 01/04/20 [History] .Fiber Pill 2 tab PO BID PRN 05/17/20 [History] traMADol [Ultram] 50 mg PO Q8H PRN #15 tab 12/03/20 [Rx] Pantoprazole Sodium [Protonix] 40 mg PO BEDTIME 01/01/21 [History] Past Medical History - Past Health History Medical/Surgical History: Denies Medical/Surgical History HEENT History: Reports: Impaired Vision Cardiovascular History: Reports: Hypertension Respiratory History: Reports: Asthma, Sleep Apnea, Other (See Below) Other Respiratory History: Mild sleep apnea, doesn't use CPAP. Gastrointestinal History: Reports: Chronic Constipation, GERD, Irritable Bowel Syndrome Genitourinary History: Reports: Other (See Below) Other Genitourinary History: Elevated labs related to kidneys. 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 Psychiatric History: Reports: Anxiety, Bipolar, Depression, Panic Attack, Psych Hospitalization(s) Endocrine/Metabolic History: Reports: Hypomagnesemia, Obesity/BMI 30+ Dermatologic History: Reports: None - Infectious Disease History Infectious Disease History: Reports: Chicken Pox, Novel Coronavirus - Past Surgical History HEENT Surgical History: Reports: Oral Surgery Cardiovascular Surgical History: Reports: None Respiratory Surgical History: Reports: None GI Surgical History: Reports: Appendectomy, Cholecystectomy, Colonoscopy, EGD, Hernia Repair/Other Other GI Surgeries/Procedures: Tubal ablation. Constipation. Umbilical hernia. Female Surgical History: Reports: Endometrial Ablation, Tubal Ligation, Other (See Below) Other Female Surgeries/Procedures: Bladder prolapse repair. 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 Musculoskeletal Surgical History: Reports: Carpal Tunnel, ORIF, Shoulder Surgery, Other (See Below) Other Musculoskeletal Surgeries/Procedures:: Bilateral shoulder repair. Foot surgeries with plate and screws (removed after a year). Right wrist carpal tunnel and old fracture repair. Right wrist surgery. Bone spur removed from heel. Right foot surgery X3. Right hand surgery X3. Left carpal tunnel surgery and cyst removed oct 2020 Oncologic Surgical History: Reports: None Dermatological Surgical History: Reports: None Social & Family History - Family History Family Medical History: No Pertinent Family History - Tobacco Use Tobacco Use Status *Q: Current Some Day Tobacco User Years of Tobacco use: 30 Packs/Tins Daily: 0.1 - Caffeine Use Caffeine Use: Reports: Coffee, Soda - Recreational Drug Use Recreational Drug Use: No - Living Situation & Occupation Living situation: Reports: Alone Occupation: Unemployed ED ROS GENERAL - Review of Systems Review Of Systems: See Below Constitutional: Reports: Fever, Chills HEENT: Reports: No Symptoms Respiratory: Reports: No Symptoms Cardiovascular: Reports: No Symptoms Endocrine: Reports: No Symptoms GI/Abdominal: Reports: Abdominal Pain, Constipation, Diarrhea, Nausea, Vomiting : Reports: No Symptoms Musculoskeletal: Reports: No Symptoms Skin: Reports: No Symptoms Neurological: Reports: No Symptoms Psychiatric: Reports: No Symptoms ED EXAM, GI/ABD - Physical Exam Exam: See Below Exam Limited By: No Limitations General Appearance: Alert, No Apparent Distress Ears: Normal External Exam, Normal Canal Nose: Normal Inspection, Normal Mucosa, No Blood Throat/Mouth: Normal Inspection, Normal Lips, Normal Teeth Head: Atraumatic, Normocephalic Neck: Normal Inspection, Supple, Non-Tender, Full Range of Motion Respiratory/Chest: No Respiratory Distress, Lungs Clear, Normal Breath Sounds Cardiovascular: Normal Peripheral Pulses, Regular Rate, Rhythm, No Edema, No Gallop, No JVD, No Murmur, No Rub GI/Abdominal Exam: Normal Bowel Sounds, Soft, Other (tenderness over the) Back Exam: Normal Inspection, Full Range of Motion Extremities: Normal Inspection, Normal Range of Motion, Non-Tender, No Pedal Edema, Normal Capillary Refill Neurological: Alert, Oriented, CN II-XII Intact, Normal Cognition, Normal Gait, Normal Reflexes, No Motor/Sensory Deficits Psychiatric: Normal Affect, Normal Mood Skin Exam: Warm Course - Vital Signs Text/Narrative:: Lab/CT abd/pelvis result was reviewed and discussed with patient NS 1 L saline bolus Zofran 4 mg IV x1 Morphine 4 mg IV x1 Last Recorded V/S: Last Vital Signs Temp 36.4 C 01/01/21 15:03 Pulse 108 H 01/01/21 15:03 Resp 20 01/01/21 15:03 BP 149/86 H 01/01/21 15:03 Pulse Ox 95 01/01/21 15:03 - Orders/Labs/Meds Orders: Active Orders 24 hr Category Date Time Status Abdomen Pelvis w Cont [CT] Stat Exams 01/01/21 16:02 Ordered UA W/MICROSCOPIC [URIN] Stat Lab 01/01/21 15:39 Ordered Sodium Chloride 0.9% [Normal Saline] 1,000 ml Med 01/01/21 16:00 Active IV ASDIRECTED Sodium Chloride 0.9% [Saline Flush] Med 01/01/21 15:39 Active 10 ml FLUSH ASDIRECTED PRN Saline Lock Insert [OM.PC] Routine Oth 01/01/21 15:39 Ordered Medication Orders Sodium Chloride (Normal Saline) 1,000 mls @ 999 mls/hr IV ASDIRECTED ZEN Last Admin: 01/01/21 16:15 Dose: 999 mls/hr Documented by: STEFAN Sodium Chloride (Sodium Chloride 0.9% 10 Ml Syringe) 10 ml FLUSH ASDIRECTED PRN PRN Reason: Keep Vein Open Last Admin: 01/01/21 16:15 Dose: 10 ml Documented by: STEFAN Labs: Laboratory Tests 01/01/21 01/01/21 01/01/21 Range/Units 15:55 15:55 15:55 WBC 5.5 (3.0-10.3) x10-3/uL RBC 4.42 (3.60-5.20) x10(6)uL Hgb 12.6 (11.4-15.5) g/dL Hct 37.5 (34.2-48.2) % MCV 84.9 (76.7-100.5) fL MCH 28.6 (23.9-33.9) pg MCHC 33.6 (31.9-34.8) g/dL RDW 13.4 (12.3-16.5) % Plt Count 333 (151-488) x10(3)uL MPV 6.8 L (7.1-12.4) fL Neut % (Auto) 63.0 (30.8-76.2) % Lymph % (Auto) 26.7 (18.4-52.1) % [place] % (Auto) 8.7 (4.4-15.7) % Eos % (Auto) 1.0 (0.6-8.1) % Baso % (Auto) 0.6 (0.2-1.5) % Neut # (Auto) 3.4 (1.5-6.3) x10-3/uL Lymph # (Auto) 1.5 (1.0-4.4) x10-3/uL [place] # (Auto) 0.5 (0.3-1.0) x10-3/uL Eos # (Auto) 0.1 (0.0-0.8) x10-3/uL Baso # (Auto) 0.0 (0.0-0.1) x10-3/uL Sodium 139 (135-145) mmol/L Potassium 3.7 (3.5-5.3) mmol/L Chloride 100 (100-110) mmol/L Carbon Dioxide 27 (21-32) mmol/L BUN 15 (7-18) mg/dL Creatinine 1.3 H (0.55-1.02) mg/dL Est Cr Clr Drug Dosing 45.70 mL/min Estimated GFR (MDRD) 44 L (>60) BUN/Creatinine Ratio 11.5 (9-20) Glucose 111 (80-116) mg/dL Calcium 9.5 (8.6-10.2) mg/dL Total Bilirubin 0.5 (0.1-1.3) mg/dL AST 18 D (5-25) IU/L ALT 31 (12-36) U/L Alkaline Phosphatase 103 (56-112) IU/L Total Protein 7.7 (6.0-8.0) g/dL Albumin 4.1 (3.5-5.2) g/dL Globulin 3.6 g/dL Albumin/Globulin Ratio 1.1 Amylase 30 (25-115) U/L Lipase 63 L (73-393) U/L HCG, Quant < 5 L (<5) mIU/mL Meds: Medications Generic Name Dose Route Start Last Admin Trade Name Federico PRN Reason Stop Dose Admin Sodium Chloride 1,000 mls @ 999 mls/hr 01/01/21 16:00 01/01/21 16:15 Normal Saline IV 999 mls/hr ASDIRECTED ZEN Administration Sodium Chloride 10 ml 01/01/21 15:39 01/01/21 16:15 Sodium Chloride 0.9% 10 Ml Syringe FLUSH 10 ml ASDIRECTED PRN Administration Keep Vein Open Discontinued Medications Generic Name Dose Route Start Last Admin Trade Name Freq PRN Reason Stop Dose Admin Al Hydroxide/Mg Hydroxide 15 0 ml 01/01/21 15:54 01/01/21 16:03 ml/ Lidocaine HCl 15 ml PO 01/01/21 15:55 30 ml ONETIME ONE Administration Iopamidol 100 ml 01/01/21 16:18 01/01/21 16:34 Iopamidol 755 Mg/Ml 100 Ml Bottle IV 01/01/21 16:19 100 ml . DIRECTED ONE Administration Morphine Sulfate 4 mg 01/01/21 15:52 01/01/21 16:03 Morphine 4 Mg/Ml Vial IVPUSH 01/01/21 15:53 4 mg ONETIME ONE Administration Ondansetron HCl 4 mg 01/01/21 15:52 01/01/21 16:15 Ondansetron 4 Mg/2 Ml Sdv IVPUSH 01/01/21 15:53 4 mg ONETIME ONE Administration Departure - Departure Time of Disposition: 17:15 Disposition: Home, Self-Care 01 Condition: Good Clinical Impression: Chronic abdominal pain, GERD (gastroesophageal reflux disease) - Discharge Information Instructions: Food Choices for Gastroesophageal Reflux Disease, Adult, Easy-to- Read, Gastroesophageal Reflux Disease, Adult, [id number] Referrals: Tino Del Rio MD [Primary Care Provider] - Forms: ED Department Discharge Additional Instructions: Please read discharge instructions on abdominal pain and GERD/Acid reflux Read the food and beverages to avoid while having a flare up of your GERD Zofran ODT 4 mg every 4 hours as needed for nausea Pantoprazole 40 mg twice daily for 1 week then take your regular dose again Follow up as needed Sepsis Event Note (ED) - Evaluation Sepsis Screening Result: No Definite Risk - Focused Exam Vital Signs: Vital Signs Temp Pulse Resp BP Pulse Ox 01/01/21 15:03 36.4 C 108 H 20 149/86 H 95 - My Orders Last 24 Hours: My Active Orders 01/01/21 15:39 UA W/MICROSCOPIC [URIN] Stat Sodium Chloride 0.9% [Saline Flush] 10 ml FLUSH ASDIRECTED PRN Saline Lock Insert [OM.PC] Routine 01/01/21 16:00 Sodium Chloride 0.9% [Normal Saline] 1,000 ml IV ASDIRECTED 01/01/21 16:02 Abdomen Pelvis w Cont [CT] Stat - Assessment/Plan Last 24 Hours: My Active Orders 01/01/21 15:39 UA W/MICROSCOPIC [URIN] Stat Sodium Chloride 0.9% [Saline Flush] 10 ml FLUSH ASDIRECTED PRN Saline Lock Insert [OM.PC] Routine 01/01/21 16:00 Sodium Chloride 0.9% [Normal Saline] 1,000 ml IV ASDIRECTED 01/01/21 16:02 Abdomen Pelvis w Cont [CT] Stat
[2021-01-01] MEDS ORDERED: Iopamidol 755 Mg/ML 100 ML Bottle IV ONE (16:18)
--- NOTE | 2021-01-01 17:53 | CT ---
INDICATION: Right lower quadrant abdominal pain. CT ABDOMEN AND PELVIS WITH CONTRAST: Spiral 3.75 mm axial sections were obtained through the abdomen and pelvis with 100 mL Isovue-370 at 2 mL/second with sagittal and coronal reconstructions, 01/01/21 and compared with 04/06/20. TOTAL EXAM DLP: 2343.97 mGy/cm. Lower lung guidry and pleural spaces visualized appeared normal. The heart appeared normal in size. No pericardial effusion was seen. A tiny low-density lesion in the left adrenal is compatible with an adrenal adenoma - benign structure - stable. The liver was unremarkable. Clips compatible with cholecystectomy are noted. The spleen and pancreas were unremarkable. Common bile duct was normal in caliber. Minimal renal cortical scarring is suggested, with kidneys otherwise unremarkable. No definite gastric abnormality was identified. No retroperitoneal mass was seen. Retroperitoneal lymphadenopathy is minimal and nonspecific. The appendix is absent without history of its removal. The uterus appeared unremarkable, as did the urinary bladder, except for question of some thickening of the wall, which may be due to relatively poor distention. No evidence of free air or bowel obstruction, significant ventral or inguinal hernia was noted. A tiny umbilical hernia, including only fat, is again noted. No findings to suggest an etiology for the patient's right lower quadrant pain was identified. No organomegaly, mass lesions or free fluid collections were identified in the abdomen. IMPRESSION: 1. Fairly stable appearance of the abdomen and pelvis with no specific etiology for the patient's right lower quadrant abdominal pain. 2. Tiny umbilical hernia, including only fat. 3. Post cholecystectomy, appendectomy. 4. Question of slight thickening of the wall of the urinary bladder, which most likely is on the basis of relatively poor distention of the bladder. 5. Tiny adrenal adenoma on the left - stable. Report was called to Dr. Gutierrez at 1701 hours, 01/01/21. [facility]
== END 2021-01-01 17:22 | disposition home or self-care (01) ==
LOC: FB.ED 14:51
DX: K21.9 Gastro-esophageal reflux disease without esophagitis (principal); I10 Essential (primary) hypertension; J45.909 Unspecified asthma, uncomplicated; E66.9 Obesity, unspecified; Z68.41 Body mass index [BMI] 40.0-44.9, adult; Z72.0 Tobacco use; Z88.0 Allergy status to penicillin; Z88.5 Allergy status to narcotic agent; Z88.8 Allergy status to other drugs, medicaments and biological substances; Z91.040 Latex allergy status; Z79.899 Other long term (current) drug therapy
CPT/HCPCS: 36415; 74177; 80053; 82150; 83690; 84702; 85025; 96374; 96375; 99284-25; A9270-GY; J2270; J2405; J7030; Q9967

== ENCOUNTER 2021-01-11 23:52 | Emergency (ER) | payer MEDICARE, MEDICAID ==
[2021-01-12] MEDS ORDERED: Magnesium Citrate Solution 296 ML Bottle PO ONE (01:08)
[2021-01-12] MEDS ORDERED: Acetaminophen 500 MG Tab PO ONE (01:08)
[2021-01-12] MEDS ORDERED: Dicyclomine 10 MG Cap PO ONE (01:08)
[2021-01-12] MEDS ORDERED: Ketorolac 30 MG/ML SDV IM ONE (01:08)
--- NOTE | 2021-01-12 01:26 | EDM.PDOC ---
ED HPI GENERAL MEDICAL PROBLEM - General Stated Complaint: right back pain Time Seen by Provider: 01/12/21 01:00 Source of Information: Reports: Patient History Limitations: Reports: No Limitations - History of Present Illness INITIAL COMMENTS - FREE TEXT/NARRATIVE: c/o abd cramps no BM x 2d, tried 5 laxatives 3d ago without success, does not remember the name of the pills at [facility] and had cramping no n/v no f/c/d ate supper but does not remember what she had not sleeping, comes in via EMS had c/o abd pain on arrival, lower abd, then was talkative and relaxed with no sxs at all for 30 minutes, then had nonspecific pain c/o has had both appy and choly Right Flank Pain Score (Numeric/FACES): 10 - Related Data Allergies Allergy/AdvReac Type Severity Reaction Status Date / Time amoxicillin Allergy Stomach Verified 01/12/21 01:47 Upset codeine Allergy Hives Verified 01/12/21 01:47 dicyclomine Allergy Stomach Verified 01/12/21 01:47 Upset hydrocodone Allergy Hives Verified 01/12/21 01:47 latex Allergy Hives Verified 01/12/21 01:47 ibuprofen AdvReac Mild Nausea Verified 01/12/21 01:47 Home Meds: Home Meds Acetaminophen 650 mg PO Q4H PRN 09/25/18 [History] Albuterol [Ventolin HFA] 1 - 2 puff INH Q4H PRN 09/25/18 [History] Lisinopril/Hydrochlorothiazide [Lisinopril-Hctz 20-12.5 mg Tab] 1 tab PO DAILY 09/25/18 [History] Magnesium Hydroxide [Milk of Magnesia] 30 ml PO DAILY PRN 09/25/18 [History] Multivitamins [Tab-A-Lesly] 1 tab PO DAILY 09/25/18 [History] Venlafaxine HCl [Venlafaxine ER] 262.5 mg PO DAILY 09/25/18 [History] lamoTRIgine [Lamotrigine] 300 mg PO BID 09/25/18 [History] Fluticasone Propionate [Flonase] 2 spray NASBOTH DAILY PRN 12/25/18 [History] Cholecalciferol (Vitamin D3) [Vitamin D3] 5,000 unit PO DAILY 03/21/19 [History] Oxybutynin 5 mg PO BID 03/21/19 [History] .Vitamin B-2 400 mg PO DAILY 04/15/19 [History] L.acidoph,Paracasei, B.lactis [Probiotic] 1 cap PO DAILY 07/25/19 [History] Cyclobenzaprine [Flexeril] 10 mg PO BEDTIME PRN 10/21/19 [History] hydrOXYzine HCL [Hydroxyzine HCl] 25 mg PO BID PRN 10/21/19 [History] hydrOXYzine pamoate [Vistaril] 50 - 100 mg PO BEDTIME PRN 10/21/19 [History] Docusate Sodium [Colace] 100 mg PO BID 12/12/19 [History] polyethylene glycoL 3350 [MiraLAX] 17 gm PO DAILY PRN 01/04/20 [History] .Fiber Pill 2 tab PO BID PRN 05/17/20 [History] traMADol [Ultram] 50 mg PO Q8H PRN #15 tab 12/03/20 [Rx] Ondansetron [Zofran ODT] 4 mg PO Q4H PRN #5 tab.dis 01/01/21 [Rx] Pantoprazole Sodium [Protonix] 40 mg PO BEDTIME 01/01/21 [History] Pantoprazole Sodium [Protonix] 40 mg PO BID #30 tablet.dr 01/01/21 [Rx] Past Medical History - Past Health History Medical/Surgical History: Denies Medical/Surgical History HEENT History: Reports: Impaired Vision Cardiovascular History: Reports: Hypertension Respiratory History: Reports: Asthma, Sleep Apnea, Other (See Below) Other Respiratory History: Mild sleep apnea, doesn't use CPAP. Gastrointestinal History: Reports: Chronic Constipation, GERD, Irritable Bowel Syndrome Genitourinary History: Reports: Other (See Below) Other Genitourinary History: Elevated labs related to kidneys. 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 Psychiatric History: Reports: Anxiety, Bipolar, Depression, Panic Attack, Psych Hospitalization(s) Endocrine/Metabolic History: Reports: Hypomagnesemia, Obesity/BMI 30+ Dermatologic History: Reports: None - Infectious Disease History Infectious Disease History: Reports: Chicken Pox, Novel Coronavirus - Past Surgical History HEENT Surgical History: Reports: Oral Surgery Cardiovascular Surgical History: Reports: None Respiratory Surgical History: Reports: None GI Surgical History: Reports: Appendectomy, Cholecystectomy, Colonoscopy, EGD, Hernia Repair/Other Other GI Surgeries/Procedures: Tubal ablation. Constipation. Umbilical hernia. Female Surgical History: Reports: Endometrial Ablation, Tubal Ligation, Other (See Below) Other Female Surgeries/Procedures: Bladder prolapse repair. 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 Musculoskeletal Surgical History: Reports: Carpal Tunnel, ORIF, Shoulder Surgery, Other (See Below) Other Musculoskeletal Surgeries/Procedures:: Bilateral shoulder repair. Foot surgeries with plate and screws (removed after a year). Right wrist carpal tunnel and old fracture repair. Right wrist surgery. Bone spur removed from heel. Right foot surgery X3. Right hand surgery X3. Left carpal tunnel surgery and cyst removed oct 2020 Oncologic Surgical History: Reports: None Dermatological Surgical History: Reports: None Social & Family History - Family History Family Medical History: No Pertinent Family History - Caffeine Use Caffeine Use: Reports: Coffee, Soda - Living Situation & Occupation Living situation: Reports: Alone Occupation: Unemployed ED ROS GENERAL - Review of Systems Review Of Systems: See Below Constitutional: Reports: No Symptoms HEENT: Reports: No Symptoms Respiratory: Reports: No Symptoms Cardiovascular: Reports: No Symptoms Endocrine: Reports: No Symptoms GI/Abdominal: Reports: Abdominal Pain : Reports: No Symptoms Musculoskeletal: Reports: No Symptoms Skin: Reports: No Symptoms Neurological: Reports: No Symptoms Psychiatric: Reports: No Symptoms Hematologic/Lymphatic: Reports: No Symptoms Immunologic: Reports: No Symptoms ED EXAM, GI/ABD - Physical Exam Exam: See Below Exam Limited By: No Limitations General Appearance: Alert, WD/WN Throat/Mouth: Normal Inspection Head: Atraumatic Neck: Supple, Non-Tender Respiratory/Chest: No Respiratory Distress, Lungs Clear, Normal Breath Sounds, Chest Non-Tender Cardiovascular: Regular Rate, Rhythm, No Edema GI/Abdominal Exam: Normal Bowel Sounds, Soft, No Distention, Other (very good BS, large old diagonal scar) Back Exam: Normal Inspection, Full Range of Motion Extremities: Normal Inspection, Normal Range of Motion, Non-Tender, No Pedal Edema Neurological: Alert, Oriented, CN II-XII Intact Psychiatric: Anxious Skin Exam: Warm, Dry, Intact, Normal Color, No Rash Lymphatic: No Adenopathy Course - Vital Signs Last Recorded V/S: Last Vital Signs Temp 36.5 C 01/12/21 00:35 Pulse 79 01/12/21 00:35 Resp 18 01/12/21 00:35 BP 110/41 L 01/12/21 00:35 Pulse Ox 97 01/12/21 00:35 - Orders/Labs/Meds Labs: Laboratory Tests 01/12/21 Range/Units 02:28 Urine Color Yellow (YELLOW) Urine Appearance Slightly cloudy (CLEAR) Urine pH 5.0 (5.0-6.5) Ur Specific [place] 1.030 H (1.010-1.025) Urine Protein Negative (NEGATIVE) mg/dL Urine Glucose (UA) Normal (NORMAL) mg/dL Urine Ketones Negative (NEGATIVE) mg/dL Urine Occult Blood Negative (NEGATIVE) Urine Nitrite Negative (NEGATIVE) Urine Bilirubin Negative (NEGATIVE) Urine Urobilinogen Normal (NEGATIVE) mg/dL Ur Leukocyte Esterase Small H (NEGATIVE) Urine RBC 0-5 (0-5) Urine WBC 5-10 H (0-5) Ur Squamous Epith Cells Moderate H (NS,R,O) Urine Bacteria Few H (NS) Urine Mucus Few H (NS) Meds: Medications Discontinued Medications Generic Name Dose Route Start Last Admin Trade Name Shayq PRN Reason Stop Dose Admin Acetaminophen 1,000 mg 01/12/21 01:08 01/12/21 01:22 Acetaminophen 500 Mg Tab PO 01/12/21 01:09 1,000 mg ONETIME ONE Administration Dicyclomine HCl 10 mg 01/12/21 01:08 01/12/21 01:22 Dicyclomine 10 Mg Cap PO 01/12/21 01:09 10 mg ONETIME ONE Administration Ketorolac Tromethamine 60 mg 01/12/21 01:08 01/12/21 01:22 Ketorolac 30 Mg/Ml Sdv IM 01/12/21 01:09 60 mg ONETIME ONE Administration Magnesium Citrate 296 ml 01/12/21 01:08 01/12/21 01:23 Magnesium Citrate Solution 296 Ml Bottle PO 01/12/21 01:09 296 ml ONETIME ONE Administration - Re-Assessments/Exams Free Text/Narrative Re-Assessment/Exam: 01/12/21 01:27 considerable emotional overlay and inconsistent story, talks at length about tangential issues, abd appears benign main c/o is inability to move gas and stool no evidence of acute illness by hx or exam, normal bowel sounds 01/12/21 07:03 u/a with SG 1.030, inc'd fluids encouraged contaminants otherwise, no UC Departure - Departure Time of Disposition: 01:29 Disposition: Home, Self-Care 01 Condition: Good Clinical Impression: Constipation Qualifiers: Constipation type: chronic idiopathic constipation Qualified Code(s): K59.04 - Chronic idiopathic constipation - Discharge Information *PRESCRIPTION DRUG MONITORING PROGRAM REVIEWED*: Not Applicable *COPY OF PRESCRIPTION DRUG MONITORING REPORT IN PATIENT LAURA: Not Applicable Instructions: Chronic Constipation Referrals: PCP,None [Primary Care Provider] - Forms: ED Department Discharge Additional Instructions: You side and back pain will settle down very quickly when you clean out your bowls. Rather than a laxative, drink the 10-ounce bottle of magnesium citrate when you get home. Drink a second bottle in the early afternoon and a third bottle tomorrow morning. See your doctor in 2 days for further recommendations. Sepsis Event Note (ED) - Focused Exam Vital Signs: Vital Signs Temp Pulse Resp BP Pulse Ox 01/12/21 00:35 36.5 C 79 18 110/41 L 97
== END 2021-01-12 03:10 | disposition home or self-care (01) ==
LOC: FB.ED 23:52
DX: K59.04 Chronic idiopathic constipation (principal); I10 Essential (primary) hypertension; J45.909 Unspecified asthma, uncomplicated; K21.9 Gastro-esophageal reflux disease without esophagitis; E66.9 Obesity, unspecified; Z68.41 Body mass index [BMI] 40.0-44.9, adult; Z90.49 Acquired absence of other specified parts of digestive tract; Z86.16 Personal history of COVID-19; Z88.0 Allergy status to penicillin; Z88.5 Allergy status to narcotic agent; Z88.8 Allergy status to other drugs, medicaments and biological substances; Z91.040 Latex allergy status; Z88.6 Allergy status to analgesic agent; Z79.899 Other long term (current) drug therapy
CPT/HCPCS: 81001; 96372; 99284; A9270; J1885

== ENCOUNTER 2021-01-20 11:20 | Emergency (ER) | payer MEDICARE, MEDICAID ==
[2021-01-20] MEDS ORDERED: Ondansetron 4 MG Tab.DIS PO ONE (11:30)
[2021-01-20] MEDS ORDERED: Ketorolac 30 MG/ML SDV IM STA (12:14)
--- NOTE | 2021-01-20 12:17 | EDM.PDOC ---
ED HPI GENERAL MEDICAL PROBLEM - General Chief Complaint: Abdominal Pain Stated Complaint: CONSTIPATION Time Seen by Provider: 01/20/21 11:30 Source of Information: Reports: Patient History Limitations: Reports: No Limitations - History of Present Illness INITIAL COMMENTS - FREE TEXT/NARRATIVE: Patient presented to the Ed because of constipation for 10 days with associated nausea and LLQ pain. she is supposed to be taking miralax and colace but is non- compliant. There is no fever, chills, UTI s/s. Abdomen Pain Score (Numeric/FACES): 8 - Related Data Allergies Allergy/AdvReac Type Severity Reaction Status Date / Time amoxicillin Allergy Stomach Verified 01/20/21 12:08 Upset codeine Allergy Hives Verified 01/20/21 12:08 dicyclomine Allergy Stomach Verified 01/20/21 12:08 Upset hydrocodone Allergy Hives Verified 01/20/21 12:08 latex Allergy Hives Verified 01/20/21 12:08 ibuprofen AdvReac Mild Nausea Verified 01/20/21 12:08 Home Meds: Home Meds Acetaminophen 650 mg PO Q4H PRN 09/25/18 [History] Albuterol [Ventolin HFA] 1 - 2 puff INH Q4H PRN 09/25/18 [History] Lisinopril/Hydrochlorothiazide [Lisinopril-Hctz 20-12.5 mg Tab] 1 tab PO DAILY 09/25/18 [History] Magnesium Hydroxide [Milk of Magnesia] 30 ml PO DAILY PRN 09/25/18 [History] Multivitamins [Tab-A-Lesly] 1 tab PO DAILY 09/25/18 [History] Venlafaxine HCl [Venlafaxine ER] 262.5 mg PO DAILY 09/25/18 [History] lamoTRIgine [Lamotrigine] 300 mg PO BID 09/25/18 [History] Fluticasone Propionate [Flonase] 2 spray NASBOTH DAILY PRN 12/25/18 [History] Cholecalciferol (Vitamin D3) [Vitamin D3] 5,000 unit PO DAILY 03/21/19 [History] Oxybutynin 5 mg PO BID 03/21/19 [History] .Vitamin B-2 400 mg PO DAILY 04/15/19 [History] L.acidoph,Paracasei, B.lactis [Probiotic] 1 cap PO DAILY 07/25/19 [History] Cyclobenzaprine [Flexeril] 10 mg PO BEDTIME PRN 10/21/19 [History] hydrOXYzine HCL [Hydroxyzine HCl] 25 mg PO BID PRN 10/21/19 [History] hydrOXYzine pamoate [Vistaril] 50 - 100 mg PO BEDTIME PRN 10/21/19 [History] Docusate Sodium [Colace] 100 mg PO BID 12/12/19 [History] polyethylene glycoL 3350 [MiraLAX] 17 gm PO DAILY PRN 01/04/20 [History] .Fiber Pill 2 tab PO BID PRN 05/17/20 [History] traMADol [Ultram] 50 mg PO Q8H PRN #15 tab 12/03/20 [Rx] Ondansetron [Zofran ODT] 4 mg PO Q4H PRN #5 tab.dis 01/01/21 [Rx] Pantoprazole Sodium [Protonix] 40 mg PO BEDTIME 01/01/21 [History] Pantoprazole Sodium [Protonix] 40 mg PO BID #30 tablet.dr 01/01/21 [Rx] KCl/Na Sulf,Bicarb,Cl/PEG 3351 [GoLytely] 4,000 ml PO ONETIME #1 gal 01/20/21 [Rx] Ondansetron [Zofran ODT] 4 mg PO Q4H PRN #5 tab.dis 01/20/21 [Rx] Past Medical History - Past Health History Medical/Surgical History: Denies Medical/Surgical History HEENT History: Reports: Impaired Vision Cardiovascular History: Reports: Hypertension Respiratory History: Reports: Asthma, Sleep Apnea, Other (See Below) Other Respiratory History: Mild sleep apnea, doesn't use CPAP. Gastrointestinal History: Reports: Chronic Constipation, GERD, Irritable Bowel Syndrome Genitourinary History: Reports: Other (See Below) Other Genitourinary History: Elevated labs related to kidneys. 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 Psychiatric History: Reports: Anxiety, Bipolar, Depression, Panic Attack, Psych Hospitalization(s) Endocrine/Metabolic History: Reports: Hypomagnesemia, Obesity/BMI 30+ Dermatologic History: Reports: None - Infectious Disease History Infectious Disease History: Reports: Chicken Pox, Novel Coronavirus - Past Surgical History HEENT Surgical History: Reports: Oral Surgery Cardiovascular Surgical History: Reports: None Respiratory Surgical History: Reports: None GI Surgical History: Reports: Appendectomy, Cholecystectomy, Colonoscopy, EGD, Hernia Repair/Other Other GI Surgeries/Procedures: Tubal ablation. Chronic Constipation. Umbilical hernia. Female Surgical History: Reports: Endometrial Ablation, Tubal Ligation, Other (See Below) Other Female Surgeries/Procedures: Bladder prolapse repair. 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 Musculoskeletal Surgical History: Reports: Carpal Tunnel, ORIF, Shoulder Surgery, Other (See Below) Other Musculoskeletal Surgeries/Procedures:: Bilateral shoulder repair. Foot surgeries with plate and screws (removed after a year). Right wrist carpal tunnel and old fracture repair. Right wrist surgery. Bone spur removed from heel. Right foot surgery X3. Right hand surgery X3. Left carpal tunnel surgery and cyst removed oct 2020 Oncologic Surgical History: Reports: None Dermatological Surgical History: Reports: None Social & Family History - Family History Family Medical History: No Pertinent Family History - Tobacco Use Tobacco Use Status *Q: Current Every Day Tobacco User Years of Tobacco use: 40 Packs/Tins Daily: 1 - Caffeine Use Caffeine Use: Reports: Soda - Recreational Drug Use Recreational Drug Use: No - Living Situation & Occupation Living situation: Reports: Alone Occupation: Unemployed ED ROS GENERAL - Review of Systems Review Of Systems: See Below Constitutional: Reports: No Symptoms HEENT: Reports: No Symptoms Respiratory: Reports: No Symptoms Cardiovascular: Reports: No Symptoms Endocrine: Reports: No Symptoms GI/Abdominal: Reports: Abdominal Pain, Constipation, Nausea Musculoskeletal: Reports: No Symptoms Skin: Reports: No Symptoms Neurological: Reports: No Symptoms Psychiatric: Reports: No Symptoms Hematologic/Lymphatic: Reports: No Symptoms ED EXAM, GI/ABD - Physical Exam Exam: See Below Exam Limited By: No Limitations General Appearance: Alert, No Apparent Distress Ears: Normal External Exam, Normal Canal, Normal TMs Nose: Normal Inspection, Normal Mucosa, No Blood Throat/Mouth: Normal Inspection, Normal Lips, Normal Teeth, Normal Gums, Normal Oropharynx, Normal Voice Head: Atraumatic, Normocephalic Neck: Normal Inspection, Supple, Non-Tender, Full Range of Motion Respiratory/Chest: No Respiratory Distress, Lungs Clear, Normal Breath Sounds, No Accessory Muscle Use, Chest Non-Tender Cardiovascular: Normal Peripheral Pulses, Regular Rate, Rhythm, No Edema, No Gallop GI/Abdominal Exam: Normal Bowel Sounds, Soft, Non-Tender, No Organomegaly, No Distention, No Abnormal Bruit, No Mass Back Exam: Normal Inspection, Full Range of Motion Extremities: Normal Inspection, Normal Range of Motion, Non-Tender, No Pedal Edema, Normal Capillary Refill Neurological: Alert, Oriented, CN II-XII Intact Psychiatric: Normal Affect Skin Exam: Warm Course - Vital Signs Text/Narrative:: Abd xray-see result Zofran ODT 4 mg PO x1 Toradol 60 mg IM x1 Last Recorded V/S: Last Vital Signs Temp 35.7 C L 01/20/21 11:25 Pulse 97 01/20/21 11:25 Resp 20 01/20/21 11:25 BP 163/74 H 01/20/21 11:25 Pulse Ox 95 01/20/21 11:25 - Orders/Labs/Meds Meds: Medications Discontinued Medications Generic Name Dose Route Start Last Admin Trade Name Freq PRN Reason Stop Dose Admin Ketorolac Tromethamine 60 mg 01/20/21 12:14 01/20/21 12:19 Ketorolac 30 Mg/Ml Sdv IM 01/20/21 12:15 60 mg NOW STA Administration Ondansetron HCl 4 mg 01/20/21 11:30 01/20/21 11:45 Ondansetron 4 Mg Tab.Dis PO 01/20/21 11:31 4 mg ONETIME ONE Administration Departure - Departure Time of Disposition: 12:30 Disposition: Home, Self-Care 01 Condition: Good Clinical Impression: Constipation - Discharge Information Prescriptions: KCl/Na Sulf,Bicarb,Cl/PEG 3351 [GoLytely] 4,000 ml PO ONETIME #1 gal Ondansetron [Zofran ODT] 4 mg PO Q4H PRN #5 tab.dis PRN Reason: Nausea Instructions: Chronic Constipation Referrals: PCP,None [Primary Care Provider] - Forms: ED Department Discharge Additional Instructions: Please read discharge instructions on constipation Take 1-2 Zofran ODT tablets 30 minutes before taking the golytely Take the golytely as directed and stay close to the restroom Follow up as needed Sepsis Event Note (ED) - Evaluation Sepsis Screening Result: No Definite Risk - Focused Exam Vital Signs: Vital Signs Temp Pulse Resp BP Pulse Ox 01/20/21 11:25 35.7 C L 97 20 163/74 H 95
--- NOTE | 2021-01-20 13:06 | CR ---
ABDOMEN TWO VIEWS INDICATION: Constipation, abdominal pain since 01/12/21. History of umbilical hernia, cholecystectomy, appendectomy, tubal ligation. FINDINGS: Five images of the abdomen in supine and upright projections were obtained 01/20/21 and compared with 04/09/20. There is a relatively large amount of stool in the right colon and transverse colon. No definite free air or bowel obstruction was identified. There is a paucity of gas in the area of the rectum, which was also seen on the previous examination. This is of indeterminate etiology. If distal colonic partially obstructive or obstructive process is suspected clinically, colonoscopy is recommended for further evaluation or possibly barium enema. This should be correlated clinically. No definite organomegaly or mass lesions were identified. No pathologic calcifications were seen. Clips compatible with cholecystectomy are again noted. IMPRESSION: Relatively large amount of stool in the ascending and transverse colon, but paucity of stool in the rectum. This should be correlated clinically. Additional workup may be warranted depending upon clinical correlation. MTDD
== END 2021-01-20 12:40 | disposition home or self-care (01) ==
LOC: FB.ED 11:20
DX: K59.00 Constipation, unspecified (principal); I10 Essential (primary) hypertension; J45.909 Unspecified asthma, uncomplicated; K21.9 Gastro-esophageal reflux disease without esophagitis; E66.9 Obesity, unspecified; Z68.41 Body mass index [BMI] 40.0-44.9, adult; Z86.16 Personal history of COVID-19; Z72.0 Tobacco use; Z88.0 Allergy status to penicillin; Z88.5 Allergy status to narcotic agent; Z91.040 Latex allergy status; Z88.6 Allergy status to analgesic agent; Z88.8 Allergy status to other drugs, medicaments and biological substances; Z79.899 Other long term (current) drug therapy
CPT/HCPCS: 74019; 96372; 99283-25; A9270-GY; J1885

== ENCOUNTER 2021-05-15 22:24 | Emergency (ER) | payer MEDICARE, MEDICAID ==
[2021-05-15] MEDS ORDERED: traMADol 50 MG Tab PO ONE (22:25)
[2021-05-15] MEDS: Ketorolac 30 MG/ML SDV IM ONE (22:55)
== END 2021-05-15 23:13 | disposition home or self-care (01) ==
LOC: FB.ED 22:24
DX: K08.89 Other specified disorders of teeth and supporting structures (principal); I10 Essential (primary) hypertension; K21.9 Gastro-esophageal reflux disease without esophagitis; E66.9 Obesity, unspecified; Z68.24 Body mass index [BMI] 24.0-24.9, adult; Z88.0 Allergy status to penicillin; Z91.040 Latex allergy status; Z88.5 Allergy status to narcotic agent
CPT/HCPCS: 96372; 99282; A9270-GY; J1885

== ENCOUNTER 2021-05-29 18:16 | Emergency (ER) | payer MEDICARE, MEDICAID ==
[2021-05-29] MEDS ORDERED: Ketorolac 30 MG/ML SDV IM ONE (18:25)
== END 2021-05-29 21:15 | disposition home or self-care (01) ==
LOC: FB.ED 18:16
DX: S39.012A Strain of muscle, fascia and tendon of lower back, initial encounter (principal); S00.83XA Contusion of other part of head, initial encounter; M47.816 Spondylosis without myelopathy or radiculopathy, lumbar region; I10 Essential (primary) hypertension; K21.9 Gastro-esophageal reflux disease without esophagitis; E66.9 Obesity, unspecified; Z68.30 Body mass index [BMI] 30.0-30.9, adult; Z88.0 Allergy status to penicillin; Z88.5 Allergy status to narcotic agent; Z88.8 Allergy status to other drugs, medicaments and biological substances; Z91.040 Latex allergy status; Z79.899 Other long term (current) drug therapy; W18.30XA Fall on same level, unspecified, initial encounter; Y92.512 Supermarket, store or market as the place of occurrence of the external cause
CPT/HCPCS: 72100; 96372; 99282; 99283; J1885

== ENCOUNTER 2021-06-16 23:01 | Emergency (ER) | payer MEDICARE, MEDICAID ==
[2021-06-17] MEDS ORDERED: traMADol 50 MG Tab PO ONE (01:02)
[2021-06-17] MEDS ORDERED: [UNRECOGNIZED DRUG - OTHER] PO ONE (01:03)
[2021-06-17] MEDS ORDERED: [UNRECOGNIZED DRUG - OTHER] PO ONE ×2 (01:34)
[2021-06-17] MEDS ORDERED: ALUM HYDROXIDE PO ONE ×2 (01:34)
== END 2021-06-17 01:45 | disposition home or self-care (01) ==
LOC: FB.ED 23:01
DX: K21.9 Gastro-esophageal reflux disease without esophagitis (principal); I10 Essential (primary) hypertension; E66.9 Obesity, unspecified; Z72.0 Tobacco use; Z68.23 Body mass index [BMI] 23.0-23.9, adult; Z88.0 Allergy status to penicillin; Z88.5 Allergy status to narcotic agent; Z91.040 Latex allergy status; Z88.8 Allergy status to other drugs, medicaments and biological substances; Z79.899 Other long term (current) drug therapy
CPT/HCPCS: 36415; 80053; 81001; 83690; 83735; 85025; 86140; 99282; 99284; A9270-GY

== ENCOUNTER 2021-06-27 14:57 | Emergency (ER) | payer MEDICARE, MEDICAID ==
[2021-06-27] MEDS ORDERED: traMADol 50 MG Tab PO ONE ×2 (14:58)
[2021-06-27] MEDS ORDERED: Ketorolac 30 MG/ML SDV IM ONE (15:33)
== END 2021-06-27 16:11 | disposition home or self-care (01) ==
LOC: FB.ED 14:57
DX: K14.6 Glossodynia (principal); J45.909 Unspecified asthma, uncomplicated; K21.9 Gastro-esophageal reflux disease without esophagitis; I10 Essential (primary) hypertension; Z86.16 Personal history of COVID-19; Z90.49 Acquired absence of other specified parts of digestive tract; Z88.0 Allergy status to penicillin; Z88.5 Allergy status to narcotic agent; Z88.3 Allergy status to other anti-infective agents; Z91.040 Latex allergy status; Z88.6 Allergy status to analgesic agent; Z79.899 Other long term (current) drug therapy
CPT/HCPCS: 96372; 99282; 99283; A9270-GY; J1885

== ENCOUNTER 2021-07-25 17:47 | Emergency (ER) | payer MEDICARE, MEDICAID ==
[2021-07-25] MEDS ORDERED: Ketorolac 30 MG/ML SDV IM ONE (18:04)
== END 2021-07-25 18:26 | disposition home or self-care (01) ==
LOC: FB.ED 17:47
DX: F41.0 Panic disorder [episodic paroxysmal anxiety] (principal); K66.0 Peritoneal adhesions (postprocedural) (postinfection); I10 Essential (primary) hypertension; E66.9 Obesity, unspecified; Z88.0 Allergy status to penicillin; Z88.5 Allergy status to narcotic agent; Z88.8 Allergy status to other drugs, medicaments and biological substances; Z91.040 Latex allergy status; Z68.39 Body mass index [BMI] 39.0-39.9, adult
CPT/HCPCS: 96372; 99283; J1885

== ENCOUNTER 2021-09-17 19:39 | Emergency (ER) | payer MEDICARE, MEDICAID ==
[2021-09-17] MEDS ORDERED: Sulfamethoxazole/Trimethoprim 800-160 MG Tab PO ONE (19:40)
[2021-09-17] MEDS ORDERED: Ondansetron 4 MG/2 ML SDV IVPUSH ONE (20:26)
[2021-09-17] MEDS ORDERED: Ketorolac 30 MG/ML SDV IVPUSH ONE (20:26)
[2021-09-17] MEDS ORDERED: Sodium Chloride 0.9% 1,000 ML IV SCH (20:30)
[2021-09-17 20:52] LABS: ESTIMATED GFR 50 mL/min (>60)
== END 2021-09-17 22:55 | disposition home or self-care (01) ==
LOC: FB.ED 19:39
DX: N39.0 Urinary tract infection, site not specified (principal); E86.0 Dehydration; I10 Essential (primary) hypertension; K21.9 Gastro-esophageal reflux disease without esophagitis; E66.9 Obesity, unspecified; Z68.41 Body mass index [BMI] 40.0-44.9, adult; Z88.0 Allergy status to penicillin; Z88.5 Allergy status to narcotic agent; Z91.040 Latex allergy status; Z88.8 Allergy status to other drugs, medicaments and biological substances
CPT/HCPCS: 36415; 80048; 81001; 85025; 96374; 96375; 99284; A9270; J1885; J2405; J7030; 87086

== ENCOUNTER 2021-10-30 22:27 | Emergency (ER) | payer MEDICARE, MEDICAID | END 2021-10-31 00:40 | disposition home or self-care (01) | LOC: FB.ED 22:27 | DX: N64.4 Mastodynia (principal); I10 Essential (primary) hypertension; E66.9 Obesity, unspecified; Z68.41 Body mass index [BMI] 40.0-44.9, adult; Z88.1 Allergy status to other antibiotic agents; Z88.5 Allergy status to narcotic agent; Z88.6 Allergy status to analgesic agent; Z91.040 Latex allergy status; Z88.8 Allergy status to other drugs, medicaments and biological substances; Z86.16 Personal history of COVID-19; Z90.49 Acquired absence of other specified parts of digestive tract | CPT/HCPCS: 36415; 85025; 86140; 99283 ==

== ENCOUNTER 2021-11-11 21:51 | Emergency (ER) | payer MEDICARE, MEDICAID ==
[2021-11-11] MEDS ORDERED: LORazepam 1 MG Tab PO ONE (22:00)
[2021-11-11] MEDS ORDERED: Acetaminophen 500 MG Tab PO ONE (22:00)
[2021-11-11] MEDS ORDERED: LORazepam 1 MG Tab ONE (22:18)
[2021-11-12] MEDS ORDERED: LORazepam 1 MG Tab PO ONE (07:30)
== END 2021-11-11 22:30 | disposition home or self-care (01) ==
LOC: FB.ED 21:51
DX: F41.0 Panic disorder [episodic paroxysmal anxiety] (principal); I10 Essential (primary) hypertension; E66.9 Obesity, unspecified; Z88.0 Allergy status to penicillin; Z88.5 Allergy status to narcotic agent; Z88.6 Allergy status to analgesic agent; Z91.040 Latex allergy status; Z88.8 Allergy status to other drugs, medicaments and biological substances; Z86.16 Personal history of COVID-19; Z90.49 Acquired absence of other specified parts of digestive tract
CPT/HCPCS: 99283; A9270

== ENCOUNTER 2021-11-12 21:18 | Emergency (ER) | payer MEDICARE, MEDICAID ==
[2021-11-12] MEDS ORDERED: LORazepam 1 MG Tab PO ONE (21:46)
== END 2021-11-12 22:00 | disposition home or self-care (01) ==
LOC: FB.ED 21:18
DX: F41.1 Generalized anxiety disorder (principal); I10 Essential (primary) hypertension; E66.9 Obesity, unspecified; Z68.41 Body mass index [BMI] 40.0-44.9, adult; Z88.0 Allergy status to penicillin; Z88.5 Allergy status to narcotic agent; Z88.6 Allergy status to analgesic agent; Z88.8 Allergy status to other drugs, medicaments and biological substances; Z86.16 Personal history of COVID-19; Z90.49 Acquired absence of other specified parts of digestive tract
CPT/HCPCS: 99283; A9270

== ENCOUNTER 2021-11-15 20:44 | Emergency (ER) | payer MEDICARE, MEDICAID ==
[2021-11-15] MEDS ORDERED: Famotidine 20 MG Tab PO ONE (21:12)
[2021-11-15] MEDS ORDERED: diphenhydrAMINE 50 MG/ML SDV IM ONE (21:12)
[2021-11-15] MEDS ORDERED: Ketorolac 30 MG/ML SDV IM ONE (21:12)
== END 2021-11-15 22:50 | disposition home or self-care (01) ==
LOC: FB.ED 20:44
DX: G43.909 Migraine, unspecified, not intractable, without status migrainosus (principal); L29.9 Pruritus, unspecified; I10 Essential (primary) hypertension; E66.9 Obesity, unspecified; Z68.41 Body mass index [BMI] 40.0-44.9, adult; Z72.0 Tobacco use; Z88.0 Allergy status to penicillin; Z88.5 Allergy status to narcotic agent; Z91.040 Latex allergy status
CPT/HCPCS: 96372; 99283; A9270; J1200; J1885

== ENCOUNTER 2021-12-23 20:10 | Emergency (ER) | payer MEDICARE, MEDICAID ==
[2021-12-23] MEDS ORDERED: traMADol 50 MG Tab PO ONE (20:11)
== END 2021-12-23 20:40 | disposition home or self-care (01) ==
LOC: FB.ED 20:10
DX: M79.601 Pain in right arm (principal); I10 Essential (primary) hypertension; E66.9 Obesity, unspecified; Z88.0 Allergy status to penicillin; Z88.5 Allergy status to narcotic agent; Z88.6 Allergy status to analgesic agent; Z91.040 Latex allergy status; Z88.8 Allergy status to other drugs, medicaments and biological substances; Z86.16 Personal history of COVID-19; Z90.49 Acquired absence of other specified parts of digestive tract
CPT/HCPCS: 99283; A9270

== ENCOUNTER 2021-12-29 23:23 | Emergency (ER) | payer MEDICARE, MEDICAID ==
[2021-12-29] MEDS ORDERED: Acetaminophen 500 MG Tab PO ONE (23:48)
[2021-12-29] MEDS ORDERED: traMADol 50 MG Tab PO ONE (23:48)
== END 2021-12-30 00:10 | disposition home or self-care (01) ==
LOC: FB.ED 23:23
DX: M79.631 Pain in right forearm (principal); I10 Essential (primary) hypertension; E66.9 Obesity, unspecified; Z48.01 Encounter for change or removal of surgical wound dressing; Z88.0 Allergy status to penicillin; Z88.5 Allergy status to narcotic agent; Z88.6 Allergy status to analgesic agent; Z91.040 Latex allergy status; Z88.8 Allergy status to other drugs, medicaments and biological substances; Z79.899 Other long term (current) drug therapy; Z90.49 Acquired absence of other specified parts of digestive tract; Z86.16 Personal history of COVID-19
CPT/HCPCS: 99282; A9270

== ENCOUNTER 2022-01-08 22:18 | Emergency (ER) | payer MEDICARE, MEDICAID ==
[2022-01-08] MEDS ORDERED: LORazepam 1 MG Tab PO ONE (22:40)
== END 2022-01-09 00:05 | disposition home or self-care (01) ==
LOC: FB.ED 22:18
DX: M62.838 Other muscle spasm (principal); F41.9 Anxiety disorder, unspecified; I10 Essential (primary) hypertension; E66.9 Obesity, unspecified; Z68.41 Body mass index [BMI] 40.0-44.9, adult; Z88.0 Allergy status to penicillin; Z88.5 Allergy status to narcotic agent; Z88.6 Allergy status to analgesic agent; Z91.040 Latex allergy status; Z79.899 Other long term (current) drug therapy; Z86.16 Personal history of COVID-19; Z90.49 Acquired absence of other specified parts of digestive tract
CPT/HCPCS: 71046; 99283; A9270

== ENCOUNTER 2022-01-19 06:54 | Emergency (ER) | payer MEDICARE, MEDICAID ==
[2022-01-19] MEDS ORDERED: Sodium Chloride 0.9% 10 ML Syringe FLUSH PRN (07:41)
[2022-01-19] MEDS ORDERED: Ondansetron 4 MG/2 ML SDV IVPUSH ONE (07:42)
[2022-01-19] MEDS ORDERED: Ketorolac 30 MG/ML SDV IVPUSH ONE (07:45)
[2022-01-19] MEDS ORDERED: hydrOXYzine HCl 50 MG/ML SDV IM ONE (07:51)
[2022-01-19] MEDS: Sodium Chloride 0.9% 1,000 ML IV SCH ×2 (08:24→10:24)
== END 2022-01-19 13:20 | disposition home or self-care (01) ==
LOC: FB.ED 06:54
DX: R20.2 Paresthesia of skin (principal); R11.0 Nausea; I10 Essential (primary) hypertension; E66.9 Obesity, unspecified; Z68.41 Body mass index [BMI] 40.0-44.9, adult; Z88.0 Allergy status to penicillin; Z88.5 Allergy status to narcotic agent; Z88.6 Allergy status to analgesic agent; Z91.040 Latex allergy status; Z88.8 Allergy status to other drugs, medicaments and biological substances; Z79.899 Other long term (current) drug therapy; Z90.49 Acquired absence of other specified parts of digestive tract; Z87.891 Personal history of nicotine dependence
CPT/HCPCS: 96361; 96372; 96374; 96375; 99283; J1885; J2405; J3410; J7030

== ENCOUNTER 2022-02-22 16:35 | Emergency (ER) | payer MEDICARE, MEDICAID ==
[2022-02-22] MEDS ORDERED: LORazepam 2 MG/ML SDV IM STA (16:43)
== END 2022-02-22 17:45 | disposition home or self-care (01) ==
LOC: FB.ED 16:35
DX: F41.0 Panic disorder [episodic paroxysmal anxiety] (principal); I10 Essential (primary) hypertension; E66.9 Obesity, unspecified; Z68.41 Body mass index [BMI] 40.0-44.9, adult; Z88.0 Allergy status to penicillin; Z88.5 Allergy status to narcotic agent; Z88.8 Allergy status to other drugs, medicaments and biological substances; Z91.040 Latex allergy status
CPT/HCPCS: 96372; 99283; J2060

== ENCOUNTER 2022-03-01 02:32 | Emergency (ER) | payer MEDICARE, MEDICAID ==
[2022-03-01] MEDS ORDERED: LORazepam 1 MG Tab PO ONE (03:14)
[2022-03-01] MEDS ORDERED: QUEtiapine 25 MG Tab PO ONE (03:15)
== END 2022-03-01 07:37 | disposition home or self-care (01) ==
LOC: FB.ED 02:32
DX: F41.9 Anxiety disorder, unspecified (principal); F32.9 Major depressive disorder, single episode, unspecified; I10 Essential (primary) hypertension; E66.9 Obesity, unspecified; Z68.30 Body mass index [BMI] 30.0-30.9, adult; Z88.0 Allergy status to penicillin; Z88.5 Allergy status to narcotic agent; Z88.1 Allergy status to other antibiotic agents; Z88.6 Allergy status to analgesic agent; Z91.040 Latex allergy status; Z88.8 Allergy status to other drugs, medicaments and biological substances; Z79.899 Other long term (current) drug therapy; Z86.16 Personal history of COVID-19; Z90.49 Acquired absence of other specified parts of digestive tract
CPT/HCPCS: 99283; A9270

== ENCOUNTER 2022-05-22 03:54 | Emergency (ER) | payer MEDICARE, MEDICAID ==
[2022-05-22] MEDS ORDERED: Cephalexin 500 MG Cap PO ONE (03:55)
[2022-05-22] MEDS ORDERED: Hydrocortisone/Neomycin/Polymyxin B Otic Susp 10 ML Bottle EARBOTH ONE (03:55)
== END 2022-05-22 04:49 | disposition home or self-care (01) ==
LOC: FB.ED 03:54
DX: H66.92 Otitis media, unspecified, left ear (principal); I10 Essential (primary) hypertension; E66.9 Obesity, unspecified; Z68.41 Body mass index [BMI] 40.0-44.9, adult; Z88.0 Allergy status to penicillin; Z88.5 Allergy status to narcotic agent; Z91.040 Latex allergy status; Z88.8 Allergy status to other drugs, medicaments and biological substances; Z86.16 Personal history of COVID-19
CPT/HCPCS: 99282; A9270

== ENCOUNTER 2022-06-08 19:46 | Emergency (ER) | payer MEDICARE, MEDICAID ==
[2022-06-08] MEDS ORDERED: diphenhydrAMINE 50 MG/ML SDV IVPUSH ONE (20:44)
[2022-06-08] MEDS ORDERED: Prochlorperazine 10 MG/2 ML SDV IVPUSH ONE (20:44)
[2022-06-08] MEDS ORDERED: Sodium Chloride 0.9% 10 ML Syringe FLUSH PRN (20:44)
[2022-06-08] MEDS: Sodium Chloride 0.9% 1,000 ML IV ONE ×2 (21:00→22:03)
== END 2022-06-08 22:23 | disposition home or self-care (01) ==
LOC: FB.ED 19:46
DX: G43.909 Migraine, unspecified, not intractable, without status migrainosus (principal); E86.0 Dehydration; I10 Essential (primary) hypertension; J45.909 Unspecified asthma, uncomplicated; E66.9 Obesity, unspecified; Z68.36 Body mass index [BMI] 36.0-36.9, adult; Z88.0 Allergy status to penicillin; Z88.1 Allergy status to other antibiotic agents; Z88.5 Allergy status to narcotic agent; Z91.040 Latex allergy status; Z86.16 Personal history of COVID-19
CPT/HCPCS: 96361; 96374; 96375; 99284-25; J0780; J1200; J7030

== ENCOUNTER 2022-06-11 15:35 | Emergency (ER) | payer MEDICARE, MEDICAID ==
[2022-06-11] MEDS: LORazepam 1 MG Tab PO ONE (15:44)
[2022-06-11 16:21] LABS: ESTIMATED GFR 50 mL/min (>60)
== END 2022-06-11 17:30 | disposition home or self-care (01) ==
LOC: FB.ED 15:35
DX: R04.0 Epistaxis (principal); F41.9 Anxiety disorder, unspecified; I10 Essential (primary) hypertension; E66.9 Obesity, unspecified; Z68.36 Body mass index [BMI] 36.0-36.9, adult; Z88.0 Allergy status to penicillin; Z88.5 Allergy status to narcotic agent; Z91.040 Latex allergy status; Z88.8 Allergy status to other drugs, medicaments and biological substances; Z86.16 Personal history of COVID-19
CPT/HCPCS: 36415; 80053; 85025; 99283; A9270

== ENCOUNTER 2022-08-12 00:56 | Emergency (ER) | payer MEDICARE, MEDICAID | END 2022-08-12 02:00 | disposition home or self-care (01) | LOC: FB.ED 00:56 | DX: M25.511 Pain in right shoulder (principal); Z47.31 Aftercare following explantation of shoulder joint prosthesis; I10 Essential (primary) hypertension; J45.909 Unspecified asthma, uncomplicated; E66.9 Obesity, unspecified; Z68.30 Body mass index [BMI] 30.0-30.9, adult; Z88.0 Allergy status to penicillin; Z88.5 Allergy status to narcotic agent; Z91.040 Latex allergy status; Z88.8 Allergy status to other drugs, medicaments and biological substances; Z86.16 Personal history of COVID-19 | CPT/HCPCS: 99283 ==

== ENCOUNTER 2022-09-29 21:47 | Emergency (ER) | payer MEDICARE, MEDICAID ==
[2022-09-29] MEDS ORDERED: Sulfamethoxazole/Trimethoprim 800-160 MG Tab PO ONE (21:48)
[2022-09-29] MEDS ORDERED: traMADol 50 MG Tab PO ONE (21:48)
[2022-09-29] MEDS ORDERED: Sodium Chloride 0.9% 10 ML Syringe FLUSH PRN (23:05)
[2022-09-29] MEDS ORDERED: Ondansetron 4 MG/2 ML SDV IVPUSH PRN (23:07)
[2022-09-29] MEDS ORDERED: Pantoprazole 40 MG Vial IVPUSH ONE (23:07)
[2022-09-29] MEDS ORDERED: Ketorolac 30 MG/ML SDV IVPUSH ONE (23:11)
[2022-09-29] MEDS ORDERED: Sodium Chloride 0.9% 1,000 ML IV SCH (23:15)
[2022-09-29 23:27] LABS: BASOPHILS ABSOLUTE AUTO 0.1 x10-3/uL (0.0-0.1); BASOPHILS PERCENT AUTO 0.7 % (0.2-1.5); EOSINOPHILS ABSOLUTE AUTO 0.3 x10-3/uL (0.0-0.8); EOSINOPHILS PERCENT AUTO 3.6 % (0.6-8.1); HEMATOCRIT 35.8 % (34.2-48.2); HEMOGLOBIN 11.9 g/dL (11.4-15.5); LYMPHOCYTES ABSOLUTE AUTO 1.6 x10-3/uL (1.0-4.4); LYMPHOCYTES PERCENT AUTO 17.8 % (18.4-52.1); MEAN CORPUSCULAR HEMOGLOBIN 27.8 pg (23.9-33.9); MEAN CORPUSCULAR HGB CONC 33.2 g/dL (31.9-34.8); MEAN CORPUSCULAR VOLUME 83.8 fL (76.7-100.5); MEAN PLATELET VOLUME 7.3 fL (7.1-12.4); MONOCYTES ABSOLUTE AUTO 0.6 x10-3/uL (0.3-1.0); MONOCYTES PERCENT AUTO 7.3 % (4.4-15.7); NEUTROPHILS ABSOLUTE AUTO 6.2 x10-3/uL (1.5-6.3); NEUTROPHILS PERCENT AUTO 70.6 % (30.8-76.2); PLATELET COUNT,PLT 260 x10(3)uL (151-488); RED BLOOD CELL COUNT 4.27 x10(6)uL (3.60-5.20); RED CELL DISTRIBUTION WIDTH 13.5 % (12.3-16.5); WHITE BLOOD CELL COUNT,WBC 8.8 x10-3/uL (3.0-10.3)
[2022-09-29 23:34] LABS: BLOOD UREA NITROGEN,BUN 17 mg/dL (7-18); BUN/CREATININE RATIO 14.2 (9-20); CALCIUM 9.6 mg/dL (8.6-10.2); CARBON DIOXIDE,CO2 31 mmol/L (21-32); CHLORIDE,CL 100 mmol/L (100-110); CREATININE 1.2 mg/dL (0.55-1.02); EST CRCL DRUG DOSING (CG) 48.43 mL/min; ESTIMATED GFR 55 mL/min (>60); GLUCOSE RANDOM 121 mg/dL (80-116); POTASSIUM,K 4.2 mmol/L (3.5-5.3); SODIUM,NA 139 mmol/L (135-145)
[2022-09-29 23:47] LABS: A/G RATIO 1.1; ALANINE AMINOTRANSFERASE,ALT 31 U/L (12-36); ALKALINE PHOSPHATASE 99 IU/L (56-112); AMYLASE 34 U/L (25-115); ASPARTATE AMNIOTRANSFERASE,AST 19 IU/L (5-25); BILIRUBIN TOTAL 0.3 mg/dL (0.1-1.3); PROTEIN TOTAL,TP 7.6 g/dL (6.0-8.0)
[2022-09-29 23:47] LABS: APPEARANCE,URINE SLIGHTLY CLOUDY (CLEAR); BACTERIA,URINE FEW (NS); BILIRUBIN,URINE NEGATIVE (NEGATIVE); CALCIUM OXALATE CRYSTALS,URINE OCCASIONAL (NS); COLOR,URINE YELLOW (YELLOW); GLUCOSE,URINE NORMAL (NORMAL); KETONES,URINE NEGATIVE (NEGATIVE); LEUKOCYTE ESTERASE,URINE LARGE (NEGATIVE); NITRITE,URINE NEGATIVE (NEGATIVE); OCCULT BLOOD,URINE NEGATIVE (NEGATIVE); PROTEIN,URINE NEGATIVE (NEGATIVE); RBC,URINE 0-5 (0-5); SQUAMOUS EPITHELIAL CELLS,UR FEW (NS,R,O); UROBILINOGEN,URINE NORMAL (NEGATIVE)
[2022-09-29] MEDS ORDERED: Iopamidol 755 Mg/ML 100 ML Bottle IV ONE (23:47)
== END 2022-09-30 00:49 | disposition home or self-care (01) ==
LOC: FB.ED 21:47
DX: K52.9 Noninfective gastroenteritis and colitis, unspecified (principal); N39.0 Urinary tract infection, site not specified; K21.9 Gastro-esophageal reflux disease without esophagitis; I10 Essential (primary) hypertension; J45.909 Unspecified asthma, uncomplicated; E66.9 Obesity, unspecified; Z68.41 Body mass index [BMI] 40.0-44.9, adult; Z86.16 Personal history of COVID-19; Z88.0 Allergy status to penicillin; Z88.5 Allergy status to narcotic agent; Z88.8 Allergy status to other drugs, medicaments and biological substances; Z91.040 Latex allergy status
CPT/HCPCS: 36415; 74177; 80053; 81001; 82150; 83690; 85025; 87086; 87088; 87186; 96361; 96374; 96375; 99283; 99284-25; A9270-GY; C9113; J1885; J2405; J7030; Q9967

== ENCOUNTER 2023-09-22 10:24 | Emergency (ER) | payer MEDICARE ==
[2023-09-22 11:39] LABS: BASOPHILS PERCENT AUTO 0.5 % (0.2-1.5); BLOOD UREA NITROGEN,BUN 29 mg/dL (7-18); BUN/CREATININE RATIO 19.3 (9-20); CALCIUM 9.3 mg/dL (8.6-10.2); CARBON DIOXIDE,CO2 28 mmol/L (21-32); CHLORIDE,CL 102 mmol/L (100-110); CREATININE 1.5 mg/dL (0.55-1.02); EOSINOPHILS ABSOLUTE AUTO 0.1 x10-3/uL (0.0-0.8); EOSINOPHILS PERCENT AUTO 1.8 % (0.6-8.1); ESTIMATED GFR 42 mL/min (>60); GLUCOSE RANDOM 100 mg/dL (80-116); HEMATOCRIT 32.9 % (34.2-48.2); HEMOGLOBIN 11.1 g/dL (11.4-15.5); LYMPHOCYTES ABSOLUTE AUTO 1.3 x10-3/uL (1.0-4.4); MEAN CORPUSCULAR HEMOGLOBIN 29.1 pg (23.9-33.9); MEAN CORPUSCULAR HGB CONC 33.6 g/dL (31.9-34.8); MEAN CORPUSCULAR VOLUME 86.7 fL (76.7-100.5); MEAN PLATELET VOLUME 7.2 fL (7.1-12.4); MONOCYTES ABSOLUTE AUTO 0.5 x10-3/uL (0.3-1.0); NEUTROPHILS ABSOLUTE AUTO 5.7 x10-3/uL (1.5-6.3); NEUTROPHILS PERCENT AUTO 74.7 % (30.8-76.2); PLATELET COUNT,PLT 296 x10(3)uL (151-488); POTASSIUM,K 4.2 mmol/L (3.5-5.3); RED CELL DISTRIBUTION WIDTH 13.4 % (12.3-16.5); SODIUM,NA 139 mmol/L (135-145); WHITE BLOOD CELL COUNT,WBC 7.6 x10-3/uL (3.0-10.3)
[2023-09-22 11:45] LABS: A/G RATIO 1.1; ALANINE AMINOTRANSFERASE,ALT 83 U/L (12-36); ALBUMIN 3.7 g/dL (3.5-5.2); ALKALINE PHOSPHATASE 121 IU/L (56-112); ASPARTATE AMNIOTRANSFERASE,AST 53 IU/L (5-25); BILIRUBIN TOTAL 0.4 mg/dL (0.1-1.3); MAGNESIUM 1.8 mg/dL (1.8-2.5); PROTEIN TOTAL,TP 7.1 g/dL (6.0-8.0)
[2023-09-22] MEDS: Sodium Chloride 0.9% 1,000 ML IV ONE (11:51)
[2023-09-22] MEDS: Ondansetron 4 MG/2 ML SDV IVPUSH ONE (11:51)
[2023-09-22] MEDS: Prochlorperazine 10 MG/2 ML SDV IVPUSH ONE (12:57)
[2023-09-22] MEDS: Sodium Chloride 0.9% 10 ML Syringe FLUSH PRN (13:05)
[2023-09-22] MEDS: diphenhydrAMINE 50 MG/ML SDV IVPUSH ONE (13:05)
== END 2023-09-22 14:23 | disposition home or self-care (01) ==
LOC: FB.ED 10:24
DX: K92.1 Melena (principal); E86.0 Dehydration; I10 Essential (primary) hypertension; J45.909 Unspecified asthma, uncomplicated; E66.9 Obesity, unspecified; Z68.42 Body mass index [BMI] 45.0-49.9, adult; Z88.0 Allergy status to penicillin; Z88.6 Allergy status to analgesic agent; Z91.040 Latex allergy status; Z88.8 Allergy status to other drugs, medicaments and biological substances; Z79.899 Other long term (current) drug therapy; Z86.16 Personal history of COVID-19; Z90.49 Acquired absence of other specified parts of digestive tract; Z87.891 Personal history of nicotine dependence
CPT/HCPCS: 36415; 74176; 80053; 83605; 83735; 85025; 86140; 96361; 96374; 96375; 99284; J0780; J1200; J2405; J3490; J7030

== ENCOUNTER 2023-12-27 14:29 | Emergency (ER) | payer MEDICARE ==
[2023-12-27] MEDS: LORazepam 2 MG/ML SDV IM ONE (16:12)
[2023-12-27 16:30] LABS: APPEARANCE,URINE CLEAR (CLEAR); BACTERIA,URINE FEW (NS); BILIRUBIN,URINE NEGATIVE (NEGATIVE); COLOR,URINE YELLOW (YELLOW); GLUCOSE,URINE NORMAL (NORMAL); KETONES,URINE NEGATIVE (NEGATIVE); LEUKOCYTE ESTERASE,URINE LARGE (NEGATIVE); NITRITE,URINE NEGATIVE (NEGATIVE); OCCULT BLOOD,URINE NEGATIVE (NEGATIVE); PROTEIN,URINE NEGATIVE (NEGATIVE); SQUAMOUS EPITHELIAL CELLS,UR RARE (NS,R,O); UROBILINOGEN,URINE NORMAL (NEGATIVE)
== END 2023-12-27 17:40 | disposition home or self-care (01) ==
LOC: FB.ED 14:29
DX: K59.00 Constipation, unspecified (principal); N39.0 Urinary tract infection, site not specified; I10 Essential (primary) hypertension; K21.9 Gastro-esophageal reflux disease without esophagitis; E66.9 Obesity, unspecified; Z86.16 Personal history of COVID-19; Z90.49 Acquired absence of other specified parts of digestive tract; Z79.899 Other long term (current) drug therapy; Z79.51 Long term (current) use of inhaled steroids; Z88.0 Allergy status to penicillin; Z91.040 Latex allergy status; Z88.5 Allergy status to narcotic agent; Z88.6 Allergy status to analgesic agent; Z88.8 Allergy status to other drugs, medicaments and biological substances
CPT/HCPCS: 74019; 81001; 87086; 96372; 99283; 99284; J2060

== ENCOUNTER 2024-02-14 20:51 | Emergency (ER) | payer MEDICARE ==
[2024-02-14] MEDS: Ketorolac 30 MG/ML SDV IM ONE (22:05)
== END 2024-02-14 22:23 | disposition home or self-care (01) ==
LOC: FB.ED 20:51
DX: M17.11 Unilateral primary osteoarthritis, right knee (principal); I10 Essential (primary) hypertension; J45.909 Unspecified asthma, uncomplicated; K21.9 Gastro-esophageal reflux disease without esophagitis; E66.9 Obesity, unspecified; Z86.16 Personal history of COVID-19; Z90.49 Acquired absence of other specified parts of digestive tract; Z79.899 Other long term (current) drug therapy; Z88.0 Allergy status to penicillin; Z88.5 Allergy status to narcotic agent; Z88.8 Allergy status to other drugs, medicaments and biological substances; Z91.040 Latex allergy status
CPT/HCPCS: 96372; 99283; 99284; J1885

== ENCOUNTER 2024-03-02 23:25 | Emergency (ER) | payer MEDICARE ==
[2024-03-02] MEDS ORDERED: traMADol 50 MG Tab PO ONE (23:26)
[2024-03-03] MEDS: Ketorolac 30 MG/ML SDV IM ONE (00:01)
== END 2024-03-03 01:30 | disposition home or self-care (01) ==
LOC: FB.ED 23:25
DX: S80.01XA Contusion of right knee, initial encounter (principal); M43.16 Spondylolisthesis, lumbar region; I10 Essential (primary) hypertension; K21.9 Gastro-esophageal reflux disease without esophagitis; E66.9 Obesity, unspecified; Z86.16 Personal history of COVID-19; Z90.49 Acquired absence of other specified parts of digestive tract; Z79.899 Other long term (current) drug therapy; Z79.51 Long term (current) use of inhaled steroids; Z88.0 Allergy status to penicillin; Z88.6 Allergy status to analgesic agent; Z88.5 Allergy status to narcotic agent; Z88.8 Allergy status to other drugs, medicaments and biological substances; Z91.040 Latex allergy status; W06.XXXA Fall from bed, initial encounter
CPT/HCPCS: 72100; 73562; 96372; 99283; A9270; J1885

== ENCOUNTER 2024-08-29 16:03 | Emergency (ER) | payer MEDICARE, MEDICAID ==
[2024-08-29] MEDS: LORazepam 2 MG/ML SDV IM ONE (16:53)
[2024-08-29 18:17] VITALS: BP 141/75; PULSE 87
== END 2024-08-29 18:05 | disposition home or self-care (01) ==
LOC: FB.ED 16:03
DX: F41.0 Panic disorder [episodic paroxysmal anxiety] (principal); I10 Essential (primary) hypertension; J45.909 Unspecified asthma, uncomplicated; K21.9 Gastro-esophageal reflux disease without esophagitis; E66.9 Obesity, unspecified; Z86.16 Personal history of COVID-19; Z90.49 Acquired absence of other specified parts of digestive tract; Z79.899 Other long term (current) drug therapy; Z88.5 Allergy status to narcotic agent; Z88.6 Allergy status to analgesic agent; Z88.1 Allergy status to other antibiotic agents; Z88.0 Allergy status to penicillin; Z68.42 Body mass index [BMI] 45.0-49.9, adult
CPT/HCPCS: 96372; 99283; 99284; J2060

== ENCOUNTER 2025-02-01 04:30 | Emergency (ER) | payer MEDICARE, OTHER, MEDICAID ==
[2025-02-01] MEDS: LORazepam 2 MG/ML SDV IM ONE (04:54)
[2025-02-01] MEDS: Ketorolac 30 MG/ML SDV IM ONE (04:55)
[2025-02-01 04:59] LABS: BASOPHILS ABSOLUTE AUTO 0.0 x10-3/uL (0.0-0.1); BASOPHILS PERCENT AUTO 0.4 % (0.2-1.5); EOSINOPHILS ABSOLUTE AUTO 0.0 x10-3/uL (0.0-0.8); EOSINOPHILS PERCENT AUTO 0.0 % (0.6-8.1); LYMPHOCYTES ABSOLUTE AUTO 0.9 x10-3/uL (1.0-4.4); LYMPHOCYTES PERCENT AUTO 9.8 % (18.4-52.1); MEAN PLATELET VOLUME 7.5 fL (7.1-12.4); MONOCYTES ABSOLUTE AUTO 0.4 x10-3/uL (0.3-1.0); MONOCYTES PERCENT AUTO 5.0 % (4.4-15.7); NEUTROPHILS ABSOLUTE AUTO 7.5 x10-3/uL (1.5-6.3); NEUTROPHILS PERCENT AUTO 84.8 % (30.8-76.2); PLATELET COUNT,PLT 261 x10(3)uL (151-488); RED BLOOD CELL COUNT 4.16 x10(6)uL (3.60-5.20); RED CELL DISTRIBUTION WIDTH 14.2 % (12.3-16.5); WHITE BLOOD CELL COUNT,WBC 8.9 x10-3/uL (3.0-10.3)
[2025-02-01 05:08] LABS: A/G RATIO 1.1; ALANINE AMINOTRANSFERASE,ALT 29 U/L (12-36); ASPARTATE AMNIOTRANSFERASE,AST 23 IU/L (5-25); BILIRUBIN TOTAL 0.4 mg/dL (0.1-1.3); BLOOD UREA NITROGEN,BUN 28 mg/dL (7-18); CARBON DIOXIDE,CO2 29 mmol/L (21-32); CHLORIDE,CL 101 mmol/L (100-110); ESTIMATED GFR 28 mL/min (>60); GLUCOSE RANDOM 130 mg/dL (80-116); POTASSIUM,K 4.9 mmol/L (3.5-5.3); PROTEIN TOTAL,TP 7.3 g/dL (6.0-8.0); SODIUM,NA 138 mmol/L (135-145)
[2025-02-01 05:09] LABS: CREATININE 2.1 mg/dL (0.55-1.02)
[2025-02-01 05:11] LABS: LACTIC ACID 1.6 mmol/L (0.4-2.0)
[2025-02-01] MEDS: Acetaminophen/HYDROcodone 325-10 MG Tab PO ONE (06:20)
== END 2025-02-01 08:15 | disposition home or self-care (01) ==
LOC: FB.ED 04:30
DX: K52.9 Noninfective gastroenteritis and colitis, unspecified (principal); K59.01 Slow transit constipation; I10 Essential (primary) hypertension; Z86.16 Personal history of COVID-19; Z90.49 Acquired absence of other specified parts of digestive tract; Z88.0 Allergy status to penicillin; Z91.040 Latex allergy status; Z88.5 Allergy status to narcotic agent; Z79.899 Other long term (current) drug therapy
CPT/HCPCS: 36415; 74176; 80053; 83605; 85025; 86140; 96372; 99284; A9270; J2060; J1885